=== PATIENT | female | born 1940 | race Caucasian/White ===

== ENCOUNTER 2016-05-28 10:01 | Inpatient (IN) | payer OTHER, MEDICARE ==
[2016-05-28] VITALS (17 sets, daily range): BP systolic 84–140; BP diastolic 49–86; PULSE 75–148; RESP 12–18; TEMP 97.4; O2SAT 95–99
[~2016-05-28] VITALS: Ht 162.6 cm; Wt 111.1 kg
[2016-05-28 10:45] LABS: AUTOMATED NEUTROPHIL # 19.3 TH/MM3 (1.8-7.7); BASOPHIL % 0.1 % (0.0-2.0); EOSINOPHIL # 0.2 TH/MM3 (0-0.4); EOSINOPHIL % 0.7 % (0.0-4.0); HEMATOCRIT 31.8 % (35.0-46.0); LYMPH % 4.5 % (9.0-44.0); MEAN CELL VOLUME 83.8 FL (80.0-100.0); MEAN CORPUSCULAR HEMOGLOBIN 27.1 PG (27.0-34.0); MEAN CORPUSCULAR HGB CONC 32.4 % (32.0-36.0); MONO % 4.3 % (0.0-8.0); NEUT % 90.4 % (16.0-70.0); PLATELET COUNT 575 TH/MM3 (150-450); RED CELL DISTRIBUTION WIDTH 17.7 % (11.6-17.2); WHITE BLOOD COUNT 21.3 TH/MM3 (4.0-11.0)
[2016-05-28] MEDS ORDERED: ZANTTAB9 PO (10:45)
[2016-05-28] MEDS ORDERED: LIDO1PAD52 TOPICAL (10:45)
[2016-05-28] MEDS ORDERED: LISI-515 PO (10:45)
[2016-05-28] MEDS ORDERED: NORC5TAB PO (10:45)
[2016-05-28] MEDS ORDERED: FLUO40CA PO (10:45)
[2016-05-28] MEDS ORDERED: CYCL1TAB29 PO (10:45)
[2016-05-28] MEDS ORDERED: METO25TA3 PO (10:45)
[2016-05-28] MEDS ORDERED: PRAV20TA2 PO (10:45)
[2016-05-28] MEDS ORDERED: COUM2.5T PO (10:45)
[2016-05-28] MEDS ORDERED: DILT120C7 PO (10:45)
[2016-05-28 10:47] LABS: HEMO FLAGS AUTO DIFF
[2016-05-28 10:56] LABS: APTT (PATIENT) 39.9 SEC (24.3-30.1); INTERNATIONAL NORMALIZED RATIO 2.9 RATIO; PROTHROMBIN TIME - PATIENT 33.7 SEC (9.8-11.6)
--- NOTE | 2016-05-28 11:10 | RADRPT ---
EXAM DATE/TIME: 05/28/2016 10:31 [facility] COMPARISON: No previous studies available for comparison. INDICATIONS : Weakness and confusion today. MEDICAL HISTORY : Hypertension. Deep venous thrombosis. SURGICAL HISTORY : Cholecystectomy. Tubal ligation. ENCOUNTER: Initial ACUITY: 1 day PAIN SCORE: Non-responsive. LOCATION: Bilateral chest FINDINGS: The right lung is clear. In the retrocardiac left lower lung, there is an ill-defined opacity which appears oval in shape and measures up to 2.5 cm in dimension. This cannot be further localized to ch aracterize and a single frontal view. The heart is normal in size. Mild curvature of the lower thor acic spine convex towards the left. CONCLUSION: 2.5 cm ill-defined opacity projects over the left lower chest or lung. Recommend further characteriz ation with noncontrast CT. Klever Calderón MD on May 28, 2016 at 11:07 Board Certified Radiologist. This report was verified electronically.
[2016-05-28] MEDS ORDERED: VANCOMYCIN INJ 1,300 MG in SODIUM CHLORID 0.9% 500 ML INJ 500 ML IV ONE (11:15)
[2016-05-28 11:16] LABS: ALT (GPT) 7 U/L (10-53); ANION GAP 13 MEQ/L (5-15); AST (GOT) 12 U/L (15-37); BICARBONATE 21.9 MEQ/L (21.0-32.0); BLOOD UREA NITROGEN 56 MG/DL (7-18); CHLORIDE 109 MEQ/L (98-107); GLOMERULAR FILTRATION RATE 25 ML/MIN (>89); MAGNESIUM 2.7 MG/DL (1.5-2.5); POTASSIUM 3.6 MEQ/L (3.5-5.1); SODIUM (NA) 144 MEQ/L (136-145)
[2016-05-28 11:18] LABS: BANDS 10 % (0-6); EOSINOPHILS 1 % (0-4); POLYS (SEG NEUTROPHILS) 84 % (16-70); WBC DIFF SAMPLE 100
[2016-05-28 11:19] LABS: ALKALINE PHOSPHATASE 95 U/L (45-117); TOTAL BILIRUBIN ADULT 0.3 MG/DL (0.2-1.0)
[2016-05-28 11:21] LABS: PLATELET ESTIMATE SMEAR HIGH (NORMAL); PLATELET MORPHOLOGY NORMAL (NORMAL); SCAN/DIFF FINAL DIFF MANUAL
[2016-05-28 11:33] LABS: BACTERIA, URINE RARE /hpf; BLOOD, URINE NEG (NEG); COMMENT (UR) CATH-CULTURE IND; CULTURE IF INDICATED CATH CULTURE IND; GLUCOSE,URINE NEG (NEG); HYALINE CAST, URINE 27 /lpf (RARE); KETONE, URINE NEG (NEG); MUCUS URINE FEW /lpf (OCC); NITRITE,URINE NEG (NEG); SQUAMOUS EPITHELIAL CELL URINE 1 /hpf (0-5); URINE COLOR YELLOW (YELLW/STRAW)
[2016-05-28] MEDS ORDERED: PIPERACIL-TAZO 3.375 GM PREMIX 50 ML IV ONE (12:00)
--- NOTE | 2016-05-28 12:16 | PD ---
HPI Chief Complaint: Altered Mental Status Time Seen by Provider: 10:21 Travel History International Travel<30 days: No Contact w/Intl Traveler<30days: No Traveled to known affect area: No History of Present Illness HPI This is a 75-year-old female who presents to the emergency department with altered mental status. Her prison says she is more lethargic and weak than normal. She had low blood pressure on arrival which improved without intervention. She does not provide much history and has no complaints. PFSH Past Medical History Anxiety: Yes Depression: Yes Cardiovascular Problems: Yes (HTN) Deep Vein Thrombosis: Yes GERD: Yes Hypertension: Yes Respiratory: Yes (PE ) Influenza Vaccination: No ?: Not Tubal Ligation: Yes Past Surgical History Cholecystectomy: Yes Other Surgery: Yes (BACK SURGERY) Social History Alcohol Use: No Tobacco Use: No Substance Use: No Allergies-Medications (Allergen,Severity, Reaction): Coded Allergies: Adhesives (Verified Allergy, Unknown, 05/28/16) Betadine (Verified Allergy, Unknown, 05/28/16) Nexium (Verified Allergy, Unknown, 05/28/16) Reported Meds & Prescriptions Reported Meds & Active Scripts Active Reported Pravastatin 20 Mg Tab 20 Mg PO HS Zantac 75 (Ranitidine HCl) 75 Mg Tab 75 Mg PO BID Take 30 to 60 minutes before eating food or drinking beverages that cause heartburn. Metoprolol Tartrate 25 Mg Tab 25 Mg PO BID Lisinopril 20 Mg Tab 20 Mg PO DAILY Fluoxetine (Fluoxetine HCl) 40 Mg Cap 40 Cap PO DAILY Diltiazem ER 24 HR (Diltiazem HCl) 120 Mg Caper 120 Mg PO DAILY Flexeril (Cyclobenzaprine HCl) 10 Mg Tab 10 Mg PO TID [place] (Hydrocodone-Acetaminophen) 5-325 mg Tab 1 Tab PO Q6H Coumadin (Warfarin) 2.5 Mg Tab 2.5 Mg PO DAILY Lidocaine Patch 12 HR (Lidocaine) 5 % Patch 1 Patch TOPICAL DAILY Remove patch after 12 hours Review of Systems ROS Limitations: Poor Historian Physical Exam Narrative GENERAL: Chronically ill-appearing SKIN: Dry HEAD: Atraumatic. Normocephalic. EYES: Pupils equal and round. No injection or drainage. ENT: Dry mucous membranes. NECK: Trachea midline. CARDIOVASCULAR: Regular rate and rhythm. No murmur appreciated. Jugular venous distention. RESPIRATORY: Clear to auscultation. Breath sounds equal bilaterally. 3+ pitting edema in the bilateral lower extremities. GASTROINTESTINAL: Abdomen soft, diffusely moderately tender to palpation in all 4 quadrants. MUSCULOSKELETAL: No obvious deformities. NEUROLOGICAL: Oriented to person, place and time but somewhat confused. No obvious cranial nerve deficits. Moving all extremities. Data Data Last Documented VS Vital Signs Date Time Temp Pulse Resp B/P Pulse Ox O2 Delivery O2 Flow Rate FiO2 05/28/16 11:49 75 16 95/55 95 Nasal Cannula 3 05/28/16 10:12 97.4 Orders Electrocardiogram (05/28/16 ) Complete Blood Count With Diff (05/28/16 10:24) Comprehensive Metabolic Panel (05/28/16 10:24) Prothrombin Time / Inr (Pt) (05/28/16 10:24) Act Partial Throm Time (Ptt) (05/28/16 10:24) Lactic Acid Sepsis Protocol (05/28/16 10:24) Magnesium (Mg) (05/28/16 10:24) Urinalysis - C+S If Indicated (05/28/16 10:24) Blood Culture (05/28/16 10:24) Chest, Single Ap (05/28/16 10:24) Blood Glucose (05/28/16 10:24) Ecg Monitoring (05/28/16 10:24) Iv Access Insert/Monitor (05/28/16 10:24) Oximetry (05/28/16 10:24) Oxygen Administration (05/28/16 10:24) Troponin I (05/28/16 10:24) B-Type Natriuretic Peptide (05/28/16 10:26) Ct Brain W/O Iv Contrast(Rout) (05/28/16 ) Vancomycin Inj (Vancomycin Inj) (05/28/16 11:15) Urine Culture (05/28/16 11:10) Ct Abd/Pel W/O Iv Contrast (05/28/16 ) Piperacil-Tazo 3.375 Gm Premix (Zosyn 3. (05/28/16 12:00) C Diff Toxin Pcr (05/28/16 11:58) Admit Order (Ed Use Only) (05/28/16 13:03) Labs Laboratory Tests Test 05/28/16 05/28/16 10:32 11:10 White Blood Count 21.3 TH/MM3 Red Blood Count 3.80 MIL/MM3 Hemoglobin 10.3 GM/DL Hematocrit 31.8 % Mean Corpuscular Volume 83.8 FL Mean Corpuscular Hemoglobin 27.1 PG Mean Corpuscular Hemoglobin 32.4 % Concent Red Cell Distribution Width 17.7 % Platelet Count 575 TH/MM3 Mean Platelet Volume 10.6 FL Neutrophils (%) (Auto) 90.4 % Lymphocytes (%) (Auto) 4.5 % Monocytes (%) (Auto) 4.3 % Eosinophils (%) (Auto) 0.7 % Basophils (%) (Auto) 0.1 % Neutrophils # (Auto) 19.3 TH/MM3 Lymphocytes # (Auto) 1.0 TH/MM3 Monocytes # (Auto) 0.9 TH/MM3 Eosinophils # (Auto) 0.2 TH/MM3 Basophils # (Auto) 0.0 TH/MM3 CBC Comment AUTO DIFF Differential Total Cells 100 Counted Neutrophils % (Manual) 84 % Band Neutrophils % 10 % Lymphocytes % 2 % Monocytes % 3 % Eosinophils % 1 % Neutrophils # (Manual) 20.0 TH/MM3 Differential Comment FINAL DIFF MANUAL Platelet Estimate HIGH Platelet Morphology Comment NORMAL Prothrombin Time 33.7 SEC Prothromb Time International 2.9 RATIO Ratio Activated Partial 39.9 SEC Thromboplast Time Sodium Level 144 MEQ/L Potassium Level 3.6 MEQ/L Chloride Level 109 MEQ/L Carbon Dioxide Level 21.9 MEQ/L Anion Gap 13 MEQ/L Blood Urea Nitrogen 56 MG/DL Creatinine 1.93 MG/DL Estimat Glomerular Filtration 25 ML/MIN Rate Random Glucose 105 MG/DL Lactic Acid Level 1.1 mmol/L Calcium Level 9.0 MG/DL Magnesium Level 2.7 MG/DL Total Bilirubin 0.3 MG/DL Aspartate Amino Transf 12 U/L (AST/SGOT) Alanine Aminotransferase 7 U/L (ALT/SGPT) Alkaline Phosphatase 95 U/L Troponin I LESS THAN 0.02 NG/ML B-Type Natriuretic Peptide 160 PG/ML Total Protein 5.0 GM/DL Albumin 1.8 GM/DL Urine Color YELLOW Urine Turbidity HAZY Urine pH 5.0 Urine Specific [place] 1.018 Urine Protein TRACE mg/dL Urine Glucose (UA) NEG mg/dL Urine Ketones NEG mg/dL Urine Occult Blood NEG Urine Nitrite NEG Urine Bilirubin NEG Urine Urobilinogen LESS THAN 2.0 MG/DL Urine Leukocyte Esterase TRACE Urine RBC 2 /hpf Urine WBC 6 /hpf Urine Squamous Epithelial 1 /hpf Cells Urine Bacteria RARE /hpf Urine Hyaline Casts 27 /lpf Urine Mucus FEW /lpf Microscopic Urinalysis Comment CATH-CULTURE IND MDM Medical Decision Making Medical Screen Exam Complete: Yes Emergency Medical Condition: Yes Interpretation(s) Afebrile, no tachycardia, hypotensive Leukocytosis with 10% bandemia Renal insufficiency BNP is normal Urinalysis: 6 white blood cells Hypoalbuminemia Last 24 hours Impressions Chest X-Ray 05/28/16 1024 Signed Impressions: Service Date/Time: May 10:31 - CONCLUSION: 2.5 cm ill-defined opacity projects over the left lower chest or lung. Recommend further characterization with noncontrast CT. Klever Calderón MD Head CT 05/28/16 0000 Signed Impressions: Service Date/Time: May 12:37 - CONCLUSION: No acute disease. Klever Roberts Jr., MD Abdomen/Pelvis CT 05/28/16 0000 Signed Impressions: Service Date/Time: May 12:44 - CONCLUSION: 1. No dilated loops of small and large bowel. 2. 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 There is also a prominent calcification or ossification at the gastroesophageal junction which is of uncertain significance. May consider direct visualization of the GE junction to further evaluate the configuration and this calcification. 3. Prominent induration of the left and right lateral abdominal wall subcutaneous fat. Klever Calderón MD Differential Diagnosis Colitis, appendicitis, diverticulitis, cholecystitis, pneumonia, urinary tract infection Narrative Course This is a 75-year-old female who presents to the emergency department with altered mental status and lethargy per her prison. She evidently has a history of C. difficile and is on Flagyl currently. She is placed on a monitor and an IV was established. She was found to be hypotensive, however she has 3+ pitting edema in the lower extremities likely secondary to hypoalbuminemia. Labs demonstrate a significant leukocytosis with a bandemia and acute kidney injury. Broad spectrum antibiotics were initiated. Further fluid resuscitation will be deferred to the inpatient team given the patient's impressive edema on exam. CT of the abdomen and pelvis demonstrates an abnormal configuration to the stomach but i don't think this is the etiology of her symptoms. During her ED stay the patient proceeded to have multiple episodes of diarrhea. I suspect the patient is hypovolemic in the setting of cdiff colitis. Pt. will be admitted for further management. Diagnosis Primary Impression: Sepsis Qualified Code: A41.9 - Sepsis, due to unspecified organism Admitting Information Admitting Physician Requests: Admit Monique Jameson MD May 28, 2016 12:16
--- NOTE | 2016-05-28 13:41 | RADRPT ---
EXAM DATE/TIME: 05/28/2016 12:44 [facility] COMPARISON: No previous studies available for comparison. INDICATIONS : Abdomen pain. ORAL CONTRAST: No oral contrast ingested. RADIATION DOSE: 21.10 CTDIvol (mGy) MEDICAL HISTORY : Cardiovascular disease. Hypertension. SURGICAL HISTORY : Cholecystectomy. Orthpedic ENCOUNTER: Initial ACUITY: 1 day PAIN SCALE: 2/10 LOCATION: abdomen TECHNIQUE: Volumetric scanning of the abdomen and pelvis was performed. Using automated exposure control and ad justment of the mA and/or kV according to patient size, radiation dose was kept as low as reasonably achievable to obtain optimal diagnostic quality images. FINDINGS: LOWER LUNGS: There is mild bibasilar atelectasis and some non-consolidative infiltrates in the left costophrenic a ngle. LIVER: Homogeneous density without lesion for noncontrast technique. There is no dilation of the biliary tr ee. SPLEEN: Normal size without lesion. PANCREAS: Within normal limits. KIDNEYS: Normal in size and shape. There is no mass, stone, or hydronephrosis. ADRENAL GLANDS: Within normal limits. VASCULAR: There is no aortic aneurysm. BOWEL/MESENTERY: No dilated loops of small large bowel. Multiple sigmoid diverticula without radiographic evidence of diverticulitis. There is a prominent calcification or ossification at the gastroesophageal junction . There is eventration of the anterior left hemidiaphragm with associated organoaxial volvulus. ABDOMINAL WALL: The anterior abdominal wall musculature is intact. There is prominent induration in the subcutaneous fat about the left and right lateral abdominal wall and extending into the right lateral pelvic subc utaneous tissues. RETROPERITONEUM: There is no lymphadenopathy. IVC filter in place. BLADDER: No wall thickening or mass. REPRODUCTIVE: Within normal limits. INGUINAL: There is no lymphadenopathy or hernia. MUSCULOSKELETAL: Within normal limits for patient age. CONCLUSION: 1. No dilated loops of small and large bowel. 2. 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 There is also a prominent calcification or ossification at t he gastroesophageal junction which is of uncertain significance. May consider direct visualization o f the GE junction to further evaluate the configuration and this calcification. 3. Prominent induration of the left and right lateral abdominal wall subcutaneous fat. Klever Calderón MD on May 28, 2016 at 13:35 Board Certified Radiologist. This report was verified electronically.
--- NOTE | 2016-05-28 13:56 | RADRPT ---
EXAM DATE/TIME: 05/28/2016 12:37 [facility] COMPARISON: No previous studies available for comparison. INDICATIONS : Altered mental status today.lethargy. RADIATION DOSE: 58.99 CTDIvol (mGy) MEDICAL HISTORY : Cardiovascular disease. Hypertension. SURGICAL HISTORY : None. ENCOUNTER: Initial ACUITY: 1 day PAIN SCALE: 0/10 LOCATION: cranial TECHNIQUE: Multiple contiguous axial images were obtained of the head. Using automated exposure control and adj ustment of the mA and/or kV according to patient size, radiation dose was kept as low as reasonably a chievable to obtain optimal diagnostic quality images. FINDINGS: CEREBRUM: The ventricles are normal for age. No evidence of midline shift, mass lesion, hemorrhage or acute in farction. No extra-axial fluid collections are seen. POSTERIOR FOSSA: The cerebellum and brainstem are intact. The 4th ventricle is midline. The cerebellopontine angle i s unremarkable. EXTRACRANIAL: The visualized portion of the orbits is intact. SKULL: The calvaria is intact. No evidence of skull fracture. CONCLUSION: No acute disease. Klever Roberts Jr., MD on May 28, 2016 at 13:53 Board Certified Radiologist. This report was verified electronically.
[2016-05-28] MEDS ORDERED: metroNIDAZOLE 500 MG INJ 100 ML IV ONE (14:15)
--- NOTE | 2016-05-28 14:46 | HHI.HP ---
[facility] Service Family Medicine Primary Care Physician Farhat Louis MD Admission Diagnosis sepsis Diagnoses: International Travel<30 Days: No Contact w/Intl Traveler<30days: No Known Affected Area: No History of Present Illness Mrs. Ramírez is a 75 y/o CF presenting to the ED with hypotension and AMS. The patient was transported from [facility] due to her symptoms earlier this morning. She is unable to give a full interview likely due to her AMS. She does answer most ROS questions with appropriate answers, however these answers are likely not reliable. Her , Mr. Amari Ramírez ([phone]), was contacted to obtain her history, however he was unable to provide a clear picture as well. He does stat that she has been hospitalized 3 times since [facility]. Her first admission was due to weakness and all he can remember about her admission was her HR was in the 180s. She was discharged home without a formal diagnosis per her . She was then hospitalized on tessie for for black stools and anemia. He states that she was give 3-4 transfusions during the hospitalizations and discharged home. When asked if she had a GI bleed, he states that they could not find a cause for her bleeding. Her last admission was "a couple of weeks ago" for leg swelling. She was found to have blood clots in her RLE. An IVC filter was placed, and she was started on Coumadin despite having a probable GI bleed. She was then discharged to [facility] for rehabilitation. Since she has been in [facility], he states that she has had a decreased mood, activity, and PO intake. He visited with her today before she was transferred and believes that it was the "best she had looked." He is unable to give me a complete history, only reporting HTN and spinal fusion surgery. He is unaware of her medications. He is able to confirm that she does not have a DNR. 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 (Chaz Burns MD R1) Review of Systems ROS Limitations: Altered Mental Status Constitutional: DENIES: Fever Endocrine: DENIES: Polyuria Eyes: DENIES: Blurred vision Ears, nose, mouth, throat: COMPLAINS OF: Throat pain (1 week, unable to describe), DENIES: Running Nose, Epistaxis Respiratory: DENIES: Cough, Shortness of breath Cardiovascular: DENIES: Chest pain, Palpitations Gastrointestinal: COMPLAINS OF: Diarrhea, DENIES: Abdominal pain, Nausea, Vomiting Genitourinary: COMPLAINS OF: Dysuria (Last week ) Musculoskeletal: DENIES: Joint pain Integumentary: DENIES: Rash Hematologic/lymphatic: DENIES: Lymphadenopathy Immunologic/allergic: DENIES: Urticaria Neurologic: DENIES: Headache Psychiatric: DENIES: Mood changes (Chaz Burns MD R1) Past Family Social History Past Medical History Unable to provide Past Surgical History Unable to provide (Chaz Burns MD R1) Allergies: Coded Allergies: Adhesives (Verified Allergy, Unknown, 05/28/16) Betadine (Verified Allergy, Unknown, 05/28/16) Nexium (Verified Allergy, Unknown, 05/28/16) Family History Unable to provide Social History Patient lives in [facility] PCP Heriberto Dougherty Insurance: [employer]/Medicare (Chaz Burns MD R1) Physical Exam Vital Signs Vital Signs Date Time Temp Pulse Resp B/P Pulse Ox O2 Delivery O2 Flow Rate FiO2 05/28/16 14:30 78 16 92/50 98 Room Air 05/28/16 13:26 76 18 88/57 98 Nasal Cannula 2 05/28/16 11:49 75 16 95/55 95 Nasal Cannula 3 05/28/16 10:43 16 93/52 Nasal Cannula 2 05/28/16 10:31 Nasal Cannula 2 05/28/16 10:18 93 16 88/53 Nasal Cannula 2 05/28/16 10:12 97.4 87 16 88/53 Physical Exam GEN: 75 y/o CF normally nourished lying in bed in no acute distress. EYES: Conjunctiva normal, PERRLA, EOMI. ENT: Mouth and pharynx very dry mm with dried secretions coating soft palate. NECK: Thyroid midline, carotids symmetrical. LUNGS: Clear A-P, respiratory effort is normal. CARDIOVASCULAR: RR without murmur or gallop. 3+ Pitting edema from ankles to sacrum. No weeping or open wounds. GI/ABD: Soft without masses, without organomegaly. BS +. No TTP. NEURO: No focal deficits. SKIN: Color normal, no rashes noted. HEME/LYMPH: No bruising, petechia or significant adenopathy MUSC: Extremities show pitting edema to sacrum. No cyanosis or obvious deformities. PSYCH/MENTAL STATUS: Alert and oriented x 2. Knows year, not month, knows she is at [facility]. Cannot answer questioning about PMHx, PSHx, or medications. Laboratory Laboratory Tests Test 05/28/16 05/28/16 10:32 11:10 White Blood Count 21.3 Red Blood Count 3.80 Hemoglobin 10.3 Hematocrit 31.8 Mean Corpuscular Volume 83.8 Mean Corpuscular Hemoglobin 27.1 Mean Corpuscular Hemoglobin 32.4 Concent Red Cell Distribution Width 17.7 Platelet Count 575 Mean Platelet Volume 10.6 Neutrophils (%) (Auto) 90.4 Lymphocytes (%) (Auto) 4.5 Monocytes (%) (Auto) 4.3 Eosinophils (%) (Auto) 0.7 Basophils (%) (Auto) 0.1 Neutrophils # (Auto) 19.3 Lymphocytes # (Auto) 1.0 Monocytes # (Auto) 0.9 Eosinophils # (Auto) 0.2 Basophils # (Auto) 0.0 CBC Comment AUTO DIFF Differential Total Cells 100 Counted Neutrophils % (Manual) 84 Band Neutrophils % 10 Lymphocytes % 2 Monocytes % 3 Eosinophils % 1 Neutrophils # (Manual) 20.0 Differential Comment FINAL DIFF MANUAL Platelet Estimate HIGH Platelet Morphology Comment NORMAL Prothrombin Time 33.7 Prothromb Time International 2.9 Ratio Activated Partial 39.9 Thromboplast Time Sodium Level 144 Potassium Level 3.6 Chloride Level 109 Carbon Dioxide Level 21.9 Anion Gap 13 Blood Urea Nitrogen 56 Creatinine 1.93 Estimat Glomerular Filtration 25 Rate Random Glucose 105 Lactic Acid Level 1.1 Calcium Level 9.0 Magnesium Level 2.7 Total Bilirubin 0.3 Aspartate Amino Transf 12 (AST/SGOT) Alanine Aminotransferase 7 (ALT/SGPT) Alkaline Phosphatase 95 Troponin I LESS THAN 0.02 B-Type Natriuretic Peptide 160 Total Protein 5.0 Albumin 1.8 Urine Color YELLOW Urine Turbidity HAZY Urine pH 5.0 Urine Specific [place] 1.018 Urine Protein TRACE Urine Glucose (UA) NEG Urine Ketones NEG Urine Occult Blood NEG Urine Nitrite NEG Urine Bilirubin NEG Urine Urobilinogen LESS THAN 2.0 Urine Leukocyte Esterase TRACE Urine RBC 2 Urine WBC 6 Urine Squamous Epithelial 1 Cells Urine Bacteria RARE Urine Hyaline Casts 27 Urine Mucus FEW Microscopic Urinalysis Comment CATH-CULTURE IND Date/Time Procedure Status Source Growth 05/28/16 11:10 Urine Culture Received Urine Catheterized Urine Pending 05/28/16 10:32 Aerobic Blood Culture Received Blood Peripheral Pending 05/28/16 10:32 Anaerobic Blood Culture Received Blood Peripheral Pending (hCaz Burns MD R1) Result Diagram: 05/28/16 1032 05/28/16 1032 Imaging Last 72 hours Impressions Chest X-Ray 05/28/16 1024 Signed Impressions: Service Date/Time: May 10:31 - CONCLUSION: 2.5 cm ill-defined opacity projects over the left lower chest or lung. Recommend further characterization with noncontrast CT. Klever Calderón MD Head CT 05/28/16 0000 Signed Impressions: Service Date/Time: May 12:37 - CONCLUSION: No acute disease. Klever Roberts Jr., MD Chest CT 05/28/16 0000 Signed Impressions: Service Date/Time: May 16:14 - CONCLUSION: Abnormal density on the chest x-ray is associated with hiatal hernia. There is a tiny lateral left lung base nodular density which can be followed Cam Amaro MD Abdomen/Pelvis CT 05/28/16 0000 Signed Impressions: Service Date/Time: May 12:44 - CONCLUSION: 1. No dilated loops of small and large bowel. 2. 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 There is also a prominent calcification or ossification at the gastroesophageal junction which is of uncertain significance. May consider direct visualization of the GE junction to further evaluate the configuration and this calcification. 3. Prominent induration of the left and right lateral abdominal wall subcutaneous fat. Klever Calderón MD (Chaz Burns MD R1) Assessment and Plan Assessment and Plan Mrs. Ramírez is a 75 y/o CF presenting to the ED with hypotension and AMS found to meet sepsis criteria with possible site of infection coming from C. difficile infection or UTI. Code Status Full Code. Confirmed with POA and , Amari Ramírez. Discussed Condition With Dr. Jameson, ER physician Dr. Asaf Espinal (Chaz Burns MD R1) Attending Attestation Patient seen and examined. Case reviewed and discussed with the resident team. Agree with plan of care as discussed with me and documented in the resident note. (Mesha Ron MD) Problem List: (1) Sepsis Status: Acute Plan: Patient currently meeting sepsis criteria with tachycardia to the 90s with a white blood cell count of 21. Likely sites of infection include, but not limited to UTI recurrent clostridium difficile infection. Difficult clinical picture given patient's altered mental status and vague past medical history. Chest x-ray: 2.5cm ill-defined opacity projecting over the left lower chest/ lung. Recommend noncontrast CT Noncontrast CT: Abnormal density on the left chest x-ray is associated with hiatal hernia. There are small lateral nodular densities in the left lung base that can be followed. CBC: WBC 21.3, neutrophils 84% with 10% bands Lactic acid: 1.1 UA: Hazy, trace leukocyte esterase, 6 white blood cells, rare bacteria, few mucus, catheter culture indicated Urine culture: Pending Blood culture 2: Pending Vancomycin 1.5 g twice a day (05/28- ) Zosyn 2.5 g every 6 hours (05/28- ) Flagyl 500 mg IV every 8 hours (05/28- ) Nursing staff mentions patient previously on Flagyl at [facility] for C. difficile for unknown timeframe (2) Altered mental status Status: Acute Plan: Patient with altered mental status upon admission CT head: No acute disease. TSH: Pending Ammonia: Pending Please see plan as above. (3) UTI (urinary tract infection) Status: Acute Plan: Patient with UA concerning for possible UTI Please see plan as above (4) Clostridium difficile diarrhea Status: Acute Plan: Patient with reported previous diagnosis of this C. difficile infection. PCR: Positive Flagyl 500 mg IV every 8 hours (05/28- ) Nursing staff mentions patient previously on Flagyl at [facility] for C. difficile for unknown timeframe (5) Hypotension Status: Acute Plan: Patient recently admitted with chief complaint of hypotension. Patient difficult to hydrate due to 3+ edema of the bilateral lower extremities from ankles to sacrum and possibility of fluid overload. Normal saline 500 mL bolus Normal saline at 70 mL per hour (6) Dehydration Status: Acute Plan: Patient admitted with signs of dehydration. Previous labs laboratory studies show BU when of 28, creatinine is 0.73. CMP: BUN 56, creatinine 1.93 Please see plan as above for hydration (7) Abnormal abdominal CT scan Status: Acute Plan: Patient with abnormal abdominal CT scan upon admission. Patient recently admitted and treated for symptomatic anemia due to presumed GI bleed per 's past medical history. Abdominal pelvis CT: No dilated loops of small and large bowel. 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 Prominent calcification or ossification at the GE junction. Consider direct visualization of GE junction. PROM and induration of the left and right lateral abdominal wall subcutaneous fat. FOBT: Pending CBC: H/H 10.3/31.8, platelets 575 Gastroenterology consulted, appreciate recommendations (8) DVT (deep venous thrombosis) Status: Chronic Plan: Patient with previous diagnosis of DVT per ER staff currently with 3+ bilateral lower extremity edema. Per , IVC filter in place. Per medicine reconciliation, patient previously on warfarin 2.5 mg daily. INR 2.9 FOBT: Pending Continue home warfarin 2.5 mg daily (9) Nutrition, metabolism, and development symptoms Status: Acute Plan: Fluids: Normal saline at 70 mL per hour Electrolytes: BUN 56, creatinine 1.93, albumin 1.8, continue to monitor with daily lab DVT prophylaxis: Patient with recurrent DVTs and IVC filter in place, continue warfarin 2.5 mg daily Diet: Heart healthy diet as tolerated (Chaz Burns MD R1) Physician Certification 2 Midnight Certification Type: Admission for Inpatient Services Order for Inpatient Services The services are ordered in accordance with Medicare regulations or non- Medicare payer requirements, as applicable. In the case of services not specified as inpatient-only, they are appropriately provided as inpatient services in accordance with the 2-midnight benchmark. Estimated LOS (days): 3 3 days is the estimated time the patient will need to remain in the hospital, assuming treatment plan goals are met and no additional complications. Post-Hospital Plan: Home (Chaz Burns MD R1) Problem Qualifiers (1) Sepsis: Qualified Code: A41.9 - Sepsis, due to unspecified organism Chaz Burns MD R1 May 28, 2016 14:46 Mesha Ron MD May 29, 2016 13:18
[2016-05-28] MEDS ORDERED: NALOXONE HCL 0.4 MG/ML AMP IV PRN (15:15)
[2016-05-28] MEDS ORDERED: SODIUM CHLORID 0.9% 500 ML INJ 500 ML IV ONE ×2 (15:15)
[2016-05-28] MEDS ORDERED: ACETAMINOPHEN 325 MG TAB PO PRN (15:15)
[2016-05-28] MEDS ORDERED: Vancomycin Consult Pharmacy 1 EA OTHER SCH (15:15)
[2016-05-28] MEDS ORDERED: VANCOMYCIN INJ 1,500 MG in SODIUM CHLORID 0.9% 500 ML INJ 500 ML IV SCH (15:15)
--- NOTE | 2016-05-28 16:03 | HHI.FPPN ---
Subjective Remarks Patient seen examined and discussed with the medicine team. This is a 75 yo female who recently had a DVT and was hospitalized elsewhere and started on Warfarin and had an IVC filter placed. She was sent to [facility] for rehab. She has been on Flagyl for c. diff. She was sent here for weakness and lethargy. Patient is unable to give us much history. She states she lives at home with her . No complaints at the time of exam; no chest pain, no abdominal pain. Med. list provided by . He has left for home. Objective Vitals Vital Signs Date Time Temp Pulse Resp B/P Pulse Ox O2 Delivery O2 Flow Rate FiO2 05/28/16 15:39 80 12 92/50 98 Nasal Cannula 2 05/28/16 14:56 78 16 84/49 98 Nasal Cannula 2 05/28/16 14:30 78 16 92/50 98 Room Air 05/28/16 13:26 76 18 88/57 98 Nasal Cannula 2 05/28/16 11:49 75 16 95/55 95 Nasal Cannula 3 05/28/16 10:43 16 93/52 Nasal Cannula 2 05/28/16 10:31 Nasal Cannula 2 05/28/16 10:18 93 16 88/53 Nasal Cannula 2 05/28/16 10:12 97.4 87 16 88/53 Result Diagram: 05/28/16 1032 05/28/16 1032 Other Results Laboratory Tests Test 05/28/16 05/28/16 10:32 11:10 White Blood Count 21.3 TH/MM3 Red Blood Count 3.80 MIL/MM3 Hemoglobin 10.3 GM/DL Hematocrit 31.8 % Mean Corpuscular Volume 83.8 FL Mean Corpuscular Hemoglobin 27.1 PG Mean Corpuscular Hemoglobin 32.4 % Concent Red Cell Distribution Width 17.7 % Platelet Count 575 TH/MM3 Mean Platelet Volume 10.6 FL Neutrophils (%) (Auto) 90.4 % Lymphocytes (%) (Auto) 4.5 % Monocytes (%) (Auto) 4.3 % Eosinophils (%) (Auto) 0.7 % Basophils (%) (Auto) 0.1 % Neutrophils # (Auto) 19.3 TH/MM3 Lymphocytes # (Auto) 1.0 TH/MM3 Monocytes # (Auto) 0.9 TH/MM3 Eosinophils # (Auto) 0.2 TH/MM3 Basophils # (Auto) 0.0 TH/MM3 CBC Comment AUTO DIFF Differential Total Cells 100 Counted Neutrophils % (Manual) 84 % Band Neutrophils % 10 % Lymphocytes % 2 % Monocytes % 3 % Eosinophils % 1 % Neutrophils # (Manual) 20.0 TH/MM3 Differential Comment FINAL DIFF MANUAL Platelet Estimate HIGH Platelet Morphology Comment NORMAL Prothrombin Time 33.7 SEC Prothromb Time International 2.9 RATIO Ratio Activated Partial 39.9 SEC Thromboplast Time Sodium Level 144 MEQ/L Potassium Level 3.6 MEQ/L Chloride Level 109 MEQ/L Carbon Dioxide Level 21.9 MEQ/L Anion Gap 13 MEQ/L Blood Urea Nitrogen 56 MG/DL Creatinine 1.93 MG/DL Estimat Glomerular Filtration 25 ML/MIN Rate Random Glucose 105 MG/DL Lactic Acid Level 1.1 mmol/L Calcium Level 9.0 MG/DL Magnesium Level 2.7 MG/DL Total Bilirubin 0.3 MG/DL Aspartate Amino Transf 12 U/L (AST/SGOT) Alanine Aminotransferase 7 U/L (ALT/SGPT) Alkaline Phosphatase 95 U/L Troponin I LESS THAN 0.02 NG/ML B-Type Natriuretic Peptide 160 PG/ML Total Protein 5.0 GM/DL Albumin 1.8 GM/DL Urine Color YELLOW Urine Turbidity HAZY Urine pH 5.0 Urine Specific [place] 1.018 Urine Protein TRACE mg/dL Urine Glucose (UA) NEG mg/dL Urine Ketones NEG mg/dL Urine Occult Blood NEG Urine Nitrite NEG Urine Bilirubin NEG Urine Urobilinogen LESS THAN 2.0 MG/DL Urine Leukocyte Esterase TRACE Urine RBC 2 /hpf Urine WBC 6 /hpf Urine Squamous Epithelial 1 /hpf Cells Urine Bacteria RARE /hpf Urine Hyaline Casts 27 /lpf Urine Mucus FEW /lpf Microscopic Urinalysis Comment CATH-CULTURE IND Imaging Last Impressions Chest X-Ray 05/28/16 1024 Signed Impressions: Service Date/Time: May 10:31 - CONCLUSION: 2.5 cm ill-defined opacity projects over the left lower chest or lung. Recommend further characterization with noncontrast CT. Klever Calderón MD Head CT 05/28/16 0000 Signed Impressions: Service Date/Time: May 12:37 - CONCLUSION: No acute disease. Klever Roberts Jr., MD Abdomen/Pelvis CT 05/28/16 0000 Signed Impressions: Service Date/Time: May 12:44 - CONCLUSION: 1. No dilated loops of small and large bowel. 2. 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 There is also a prominent calcification or ossification at the gastroesophageal junction which is of uncertain significance. May consider direct visualization of the GE junction to further evaluate the configuration and this calcification. 3. Prominent induration of the left and right lateral abdominal wall subcutaneous fat. Klever Calderón MD Objective Remarks O. CONSTITUTIONAL/GEN: normally nourished, c/o thirst. EYES: conjunctiva normal, PERRLA, EOMI. ENT: Mouth and pharynx very dry mm with dried secretions coating soft palate. NECK: thyroid midline, carotids symmetrical. LUNGS: clear A-P, respiratory effort is normal. CARDIOVASCULAR: RR without murmur or gallop. Pitting edema to sacrum, no weeping edema. GI/ABD: soft without masses, without organomegaly. BS +. NEURO: No focal deficits. SKIN: color normal, no rashes noted. HEME/LYMPH: no bruising, petechia or significant adenopathy MUSC: Extremities show pitting edema to sacrum PSYCH/MENTAL STATUS: Alert and oriented x 2. Knows year, not month, knows she is at [facility]. A/P Assessment and Plan 75 yo female with weakness and lethargy, known recent DVT, with significant pitting edema. Attending Attestation Patient seen and examined. Case reviewed and discussed with the resident team. Agree with plan of care as discussed with me and documented in the resident note. Mesha Ron MD May 28, 2016 16:03
--- NOTE | 2016-05-28 17:01 | RADRPT ---
EXAM DATE/TIME: 05/28/2016 16:14 [place] COMPARISON: CHEST SINGLE AP, May 28, 2016, 10:31. INDICATIONS : Abnormal chest x-ray. RADIATION DOSE: 6.22 CTDIvol (mGy) MEDICAL HISTORY : Hypertension. Deep venous thrombosis. Gastroesophageal reflux disease. Pulmonary embolism. SURGICAL HISTORY : Cholecystectomy. ENCOUNTER: Initial ACUITY: 1 day PAIN SCALE: 5/10 LOCATION: Right anterior TECHNIQUE: Volumetric scanning of the chest was performed. Using automated exposure control and adjustment of t he mA and/or kV according to patient size, radiation dose was kept as low as reasonably achievable to obtain optimal diagnostic quality images. FINDINGS: The abnormal density noted on the patient's chest x-ray reflects a large hiatal hernia with the stoma ch flipped into the low left thorax in organoaxial fashion. There is a small collection of what may b e calcific debris or barium in the GE junction region which may be retained in a small paraesophageal diverticulum. A Slight adjacent posterior left base atelectasis. A 5 mm nodule in the lateral left lung base. The rig ht lung is focally clear. There is no evidence of mediastinal mass or lymphadenopathy. No axillary adenopathy or chest wall obs truction is noted. CONCLUSION: Abnormal density on the chest x-ray is associated with hiatal hernia. There is a tiny lateral left shamar ng base nodular density which can be followed Cam Amaro MD on May 28, 2016 at 16:48 Board Certified Radiologist. This report was verified electronically.
[2016-05-28] MEDS: SODIUM CHLOR 0.9% 1000 ML INJ 1,000 ML IV SCH (17:08)
[2016-05-28 18:29] LABS: C. DIFF EPI 027 PRESUMPTIVE POSITIVE (NEGATIVE)
[2016-05-28 18:30] LABS: C. DIFF TOXIN PCR POSITIVE (NEGATIVE)
--- NOTE | 2016-05-28 18:39 | EKG ---
Date Performed: 05/28/2016 Time Performed: 10:25:44 PTAGE: 75 years EKG: Sinus rhythm NONSPECIFIC ST & T-WAVE ABNORMALITY ABNORMAL ECG NO PREVIOUS TRACING DOCTOR: Sree Ruffin Interpretating Date/Time 05/28/2016 18:38:52
--- NOTE | 2016-05-28 20:08 | HHI.PR ---
Addendum to Inpatient Note Addendum Reason: Additional Documentation Additional Information Called by nurse to evaluate patient bc of HR in the 150s. Patient asymptomatic , denies CP, palpitations or SOB. VS: BP - 111/78, P - 148, RR - 14, O2 99% on 2L. PE: VS - as above CV: Tachycardic, No m/r/g Resp: Lungs CTAB Abd: NT, ND Ext: 2+ edema in bilat LE EKG: A fib with RVR A/P: 75 yo female admitted for sepsis and UTI, now with a fib with RVR. Patient on Diltazem ER 120 mg daily at home. Unclear if she received her dose today. Also unclear if patient has a history of A fib. -ACS rule out with serial EKGs, troponins -20 mg IV Diltiazem, ggt Gina Fish MD R3 May 28, 2016 20:08
[2016-05-28] MEDS ORDERED: DILTIAZEM HCL 25 MG/5 ML VIAL IV ONE (20:15)
[2016-05-28] MEDS: SODIUM CHLORIDE 0.9% FLUSH 5 ML FLUSH FLUSH SCH (20:18)
[2016-05-28] MEDS ORDERED: DILTIAZEM INJ 125 MG in SODIUM CHLORIDE 0.9% INJ 100 ML IV SCH (21:00)
[2016-05-28] MEDS ORDERED: PILL SPLITTER OTHER PRN (21:30)
[2016-05-28] MEDS: PIPERACIL-TAZO 2.25 GM PREMIX 50 ML IV SCH (21:30)
[2016-05-28 22:58] LABS: CREATINE KINASE 26 U/L (26-192)
[2016-05-28] MEDS: metroNIDAZOLE 500 MG INJ 100 ML IV SCH (23:34)
[2016-05-29] VITALS (22 sets, daily range): BP systolic 56–103; BP diastolic 41–70; PULSE 88–145; RESP 16–26; TEMP 98–98.5; O2SAT 92–100
[2016-05-29] MEDS: PIPERACIL-TAZO 2.25 GM PREMIX 50 ML IV SCH ×3 (03:35→16:06)
[2016-05-29] MEDS: SODIUM CHLOR 0.9% 1000 ML INJ 1,000 ML IV SCH ×2 (03:35→18:23)
[2016-05-29 04:34] LABS: ANION GAP 16 MEQ/L (5-15); AST (GOT) 10 U/L (15-37); BICARBONATE 12.9 MEQ/L (21.0-32.0); BLOOD UREA NITROGEN 45 MG/DL (7-18); CHLORIDE 118 MEQ/L (98-107); POTASSIUM 3.6 MEQ/L (3.5-5.1); SODIUM (NA) 147 MEQ/L (136-145)
[2016-05-29 04:47] LABS: ALKALINE PHOSPHATASE 81 U/L (45-117); ALT (GPT) LESS THAN 6 U/L (10-53); GLOMERULAR FILTRATION RATE 37 ML/MIN (>89); TOTAL BILIRUBIN ADULT 0.3 MG/DL (0.2-1.0)
[2016-05-29 04:49] LABS: CREATINE KINASE 31 U/L (26-192)
[2016-05-29 05:10] LABS: AUTOMATED NEUTROPHIL # 20.5 TH/MM3 (1.8-7.7); BASOPHIL # 0.1 TH/MM3 (0-0.2); BASOPHIL % 0.3 % (0.0-2.0); EOSINOPHIL # 0.1 TH/MM3 (0-0.4); EOSINOPHIL % 0.6 % (0.0-4.0); HEMATOCRIT 30.1 % (35.0-46.0); LYMPH % 3.9 % (9.0-44.0); LYMPHOCYTE # 0.9 TH/MM3 (1.0-4.8); MEAN CELL VOLUME 84.6 FL (80.0-100.0); MEAN CORPUSCULAR HEMOGLOBIN 26.9 PG (27.0-34.0); MEAN CORPUSCULAR HGB CONC 31.9 % (32.0-36.0); MONO % 6.6 % (0.0-8.0); NEUT % 88.6 % (16.0-70.0); PLATELET COUNT 154 TH/MM3 (150-450); RED BLOOD COUNT 3.56 MIL/MM3 (4.00-5.30); RED CELL DISTRIBUTION WIDTH 17.7 % (11.6-17.2); WHITE BLOOD COUNT 23.1 TH/MM3 (4.0-11.0)
[2016-05-29 05:11] LABS: HEMO FLAGS AUTO DIFF
[2016-05-29] MEDS: metroNIDAZOLE 500 MG INJ 100 ML IV SCH ×3 (06:51→22:48)
[2016-05-29 07:06] LABS: SCAN/DIFF AUTO DIFF CONFIRMED
[2016-05-29] MEDS ORDERED: AMIODARONE INJ 150 MG in DEXTROSE 5% IN WATER 100ML INJ 97 ML IV ONE ×2 (08:00)
[2016-05-29] MEDS ORDERED: AMIODARONE INJ 900 MG in D5W 500 ML (EXCEL BAG) 482 ML IV SCH (08:00)
[2016-05-29] MEDS ORDERED: SODIUM CHLORID 0.9% 500 ML INJ 500 ML IV ONE (08:15)
--- NOTE | 2016-05-29 08:35 | HHI.FPPN ---
Subjective Remarks Overnight, patient became tachycardic with a rate in the 140s. She was otherwise asymptomatic. BP have remained low with a MAP between 65-70s. She was started on diltiazem but rate remained elevated. This morning patient remains asymptomatic but BP continues to be low with a rapid HR. When asked about her cardiac history, she reports seeing a lead scientist but does not know who. She is oriented to person, placed and time which has improved from yesterday. (Mary Sharpe MD R2) Objective Vitals Vital Signs Date Time Temp Pulse Resp B/P Pulse Ox O2 Delivery O2 Flow Rate FiO2 05/29/16 08:28 98.0 137 18 78/51 Nasal Cannula 2 05/29/16 07:33 145 18 85/51 96 Nasal Cannula 2.5 05/29/16 05:05 145 16 92/53 99 Nasal Cannula 2 05/29/16 04:00 140 16 96/53 99 Nasal Cannula 2 05/29/16 03:00 139 16 99/60 99 Nasal Cannula 2 05/29/16 02:00 135 16 100/67 99 Nasal Cannula 2 05/29/16 01:00 145 16 102/60 99 Nasal Cannula 2 05/29/16 00:12 130 16 92/50 99 Nasal Cannula 2 05/28/16 22:45 145 16 102/58 99 Nasal Cannula 2 05/28/16 22:15 130 16 106/66 99 Nasal Cannula 2 05/28/16 21:45 128 16 104/56 99 Nasal Cannula 2 05/28/16 21:22 99 Nasal Cannula 2.00 05/28/16 20:20 135 16 140/86 99 Nasal Cannula 2 05/28/16 18:48 148 14 111/78 99 Nasal Cannula 2 05/28/16 18:19 87 16 111/78 99 Nasal Cannula 2 05/28/16 17:08 81 14 116/55 99 Nasal Cannula 2 05/28/16 16:57 82 14 99/61 99 Nasal Cannula 2 05/28/16 15:39 80 12 92/50 98 Nasal Cannula 2 05/28/16 14:56 78 16 84/49 98 Nasal Cannula 2 05/28/16 14:30 78 16 92/50 98 Room Air 05/28/16 13:26 76 18 88/57 98 Nasal Cannula 2 05/28/16 11:49 75 16 95/55 95 Nasal Cannula 3 05/28/16 10:43 16 93/52 Nasal Cannula 2 05/28/16 10:31 Nasal Cannula 2 05/28/16 10:18 93 16 88/53 Nasal Cannula 2 05/28/16 10:12 97.4 87 16 88/53 (Mary aCsh MD R2) Result Diagram: 05/29/16 0400 05/29/16 0400 Imaging Last Impressions Chest X-Ray 05/28/16 1024 Signed Impressions: Service Date/Time: May 10:31 - CONCLUSION: 2.5 cm ill-defined opacity projects over the left lower chest or lung. Recommend further characterization with noncontrast CT. Klever Calderón MD Head CT 05/28/16 0000 Signed Impressions: Service Date/Time: May 12:37 - CONCLUSION: No acute disease. Klever Roberts Jr., MD Chest CT 05/28/16 0000 Signed Impressions: Service Date/Time: May 16:14 - CONCLUSION: Abnormal density on the chest x-ray is associated with hiatal hernia. There is a tiny lateral left lung base nodular density which can be followed Cam Amaro MD Abdomen/Pelvis CT 05/28/16 0000 Signed Impressions: Service Date/Time: May 12:44 - CONCLUSION: 1. No dilated loops of small and large bowel. 2. 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 There is also a prominent calcification or ossification at the gastroesophageal junction which is of uncertain significance. May consider direct visualization of the GE junction to further evaluate the configuration and this calcification. 3. Prominent induration of the left and right lateral abdominal wall subcutaneous fat. Klever Calderón MD Objective Remarks GEN: Resting comfortable in bed in no acute distress. LUNGS: Coarse breath sounds bilaterally. No accessory muscle use and in no acute distress. No wheezes or rubs.. CARDIOVASCULAR: Irregularly irregular. Increased rate. No murmurs, gallops or rubs. GI/ABD: Nondistended, soft. Mild tenderness to palpation in left lower quadrant. BS +. MUSC: Extremities show 3+ pitting edema to sacrum. No cyanosis or obvious deformities. PSYCH/MENTAL STATUS: Alert and oriented x 3. Knowlege about prior medical history is still limited (Mary Cash MD R2) A/P Assessment and Plan Mrs. Ramírez is a 75 y/o CF who presented due to hypotension and AMS. Admitted for Sepsis and AMS. Discharge Planning Timeline unknown. sdw Dr. Valentino, Dr. Ron, Dr. Thomas, Dr. Burns (Mary Cash MD R2 ) Attending Attestation Patient seen and examined. Case reviewed and discussed with the resident team. Agree with plan of care as discussed with me and documented in the resident note. (Mesha Ron MD) Problem List: (1) Sepsis Status: Acute Plan: Met sepsis criteria on admission with tachycardia and leukocytosis. Also found to have altered mental status. Complicated by hypotension in the setting of generalized edema. Source likely due to C. difficile but etiology unclear. -Continued leukocytosis without lactic acidosis, of note this leukocytosis has been present from 05/04 based on EMR review -ACS negative -BNP 180 -Elevated ammonia to 77 -Urine culture negative x1day -Blood culture negative 1 day Consulted ID: Appreciate recommendations Imaging: * Chest x-ray: 2.5cm ill-defined opacity projecting over the left lower chest/ lung. Recommend noncontrast CT * Noncontrast CT: Abnormal density on the left chest x-ray is associated with hiatal hernia. There are small lateral nodular densities in the left lung base that can be followed. * Head CT: Negative Medications: * Vancomycin (05/28, may need to consider PO vancomycin due to the lack of improvement in clinical status * Zosyn 2.5 g every 6 hours (05/28- * Flagyl 500 mg IV every 8 hours (05/28- ) this may have been started back in April * Rifaximin 550mg BID Relevant history obtained from spouse: Mr. Amari Ramírez ([phone]): Has been hospitalized 3 times since [place] at [facility]. Diagnoses at these admissions unclear but does report elevated heart rate in the 180s. Mother admission was for a GI bleed that required 3-4 transfusions but etiology is unknown. Patient was continued on warfarin despite this GI bleed. Another admission was for a DVT and an IVC filter was placed. Patient was at [facility] for [facility] prior to current admission. (2) Atrial fibrillation Status: Acute Plan: Overnight patient developed A. fib with RVR with a rate in the 140s. Patient does take diltiazem at home but history of primary diagnosis is unclear but suspected. Initially treated with diltiazem drip but rate was not controlled. -Switched to amiodarone -Cardiology consulted to assist with management: Appreciate recommendations (3) Altered mental status Status: Acute Plan: Please see plan as above. (4) Abnormal abdominal CT scan Status: Acute Plan: Patient with abnormal abdominal CT scan upon admission. History is significant for prior GI bleed. Unclear treatment of finding on CT, appreciate GI recommendations. -Hemoccult-negative -Continue to monitor H&H GI consulted: Appreciate recommendations Abdominal pelvis CT: No dilated loops of small and large bowel. 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 Prominent calcification or ossification at the GE junction. Consider direct visualization of GE junction. PROM and induration of the left and right lateral abdominal wall subcutaneous fat. (5) Clostridium difficile diarrhea Status: Acute Plan: PCR: Positive --See plan above (6) SALVADOR (acute kidney injury) Status: Acute Plan: Improving renal function since admission. -Downtrending creatinine from 1.93-1.40 -Continue hydration cautiously in the setting of generalized lower extremity edema up to sacrum -See fluids below for rate (7) Nutrition, metabolism, and development symptoms Status: Acute Plan: Diet: Heart healthy Fluids: Normal saline at 70 mL per hour Electrolytes: Mild hypernatremia, continue to monitor DVT prophylaxis: Currently therapeutic on Coumadin with an INR of 2.9 GI prophylaxis: Not indicated (Mary Cash MD R2) Problem Qualifiers (1) Sepsis: Qualified Code: A41.9 - Sepsis, due to unspecified organism Mary Cash MD R2 May 29, 2016 08:35 Mesha Ron MD May 29, 2016 14:34 Qualified Code: A41.9 - Sepsis, due to unspecified organism Mary Cash MD R2 May 29, 2016 08:35 (1) Sepsis: Qualified Code: A41.9 - Sepsis, due to unspecified organism Mary Cash MD R2 May 29, 2016 08:35
[2016-05-29] MEDS: AMIODARONE INJ 450 MG in DEXTROSE 5% IN WATE(EXCEL) INJ 241 ML IV SCH ×6 (08:41→18:23)
[2016-05-29] MEDS ORDERED: METOPROLOL TARTRATE 25 MG TAB PO SCH (09:00)
[2016-05-29] MEDS ORDERED: RANITIDINE HCL 150 MG TAB PO SCH (09:00)
[2016-05-29] MEDS ORDERED: DILTIAZEM-CD 120 MG CAP ER PO SCH (09:00)
[2016-05-29] MEDS ORDERED: DILTIAZEM 120 MG PO SCH (09:00)
[2016-05-29] MEDS: RIFAXIMIN 550 MG TAB PO SCH ×2 (10:12→21:00)
[2016-05-29] MEDS: FAMOTIDINE 20 MG TAB PO SCH ×2 (10:12→21:00)
[2016-05-29] MEDS: SODIUM CHLORIDE 0.9% FLUSH 5 ML FLUSH FLUSH SCH (10:13)
[2016-05-29] MEDS ORDERED: VANCOMYCIN INJ 1,250 MG in SODIUM CHLOR 0.9% 250 ML INJ 250 ML IV SCH (12:00)
[2016-05-29 12:18] LABS: CREATINE KINASE 25 U/L (26-192)
[2016-05-29] MEDS ORDERED: WARFARIN SOD 2.5 MG TAB PO SCH (16:00)
--- NOTE | 2016-05-29 16:36 | EKG ---
Date Performed: 05/28/2016 Time Performed: 19:47:58 PTAGE: 75 years EKG: ATRIAL FIBRILLATION WITH RAPID VENTRICULAR RESPONSE ST DEVIATION AND MODERATE T-WAVE ABNORM ALITY, CONSIDER ANTEROLATERAL ISCHEMIA ABNORMAL ECG PREVIOUS TRACING : 05/28/2016 01.28.44 Compared to previous tracing, the patient is now in atri al fibrillation with rapid ventricular rate. DOCTOR: Genny Stevens Interpretating Date/Time 05/29/2016 16:35:34
--- NOTE | 2016-05-29 18:54 | MB ---
cc: SOLA STONE M.D. DATE OF CONSULTATION: 05/29/2016. REASON FOR CONSULTATION: Consult is obtained for atrial fibrillation and rapid ventricular response. HISTORY OF PRESENT ILLNESS: Kayce is a very pleasant 75-year-old lady who appears to be slightly confused. She is not quite sure why she is here. Per the emergency room records, she was brought into the emergency department due to altered mental status. The residential noted that she was more lethargic and weak. She was noted to be hypotensive on arrival. The patient has no complaints. She denies chest pain, fevers, chills, cough, GI or bleeding, paroxysmal nocturnal dyspnea, orthopnea, syncope or dizziness. PAST MEDICAL HISTORY: Her past medical history is as per the history of present illness. 1. History of anxiety. 2. Depression. 3. Hypertension. 4. DVT. 5. Gastroesophageal reflux disease (GERD). 6. Back surgery. SOCIAL HISTORY: She denies tobacco or alcohol use. ALLERGIES: 1. ADHESIVES. 2. BETADINE. 3. NEXIUM. MEDICATIONS PRIOR TO ADMISSION: 1. Pravastatin 20 at bedtime. 2. Zantac. 3. Metoprolol 25 twice a day. 4. Lisinopril 20 daily 5. Paroxetine. 6. Cardizem ER 120 mg daily. 7. Flexeril. 8. [place]. 9. Coumadin. 10. Lidocaine patch. MEDICATIONS IN THE HOSPITAL: 1. Pravastatin. 2. Coumadin 2.5 daily. 3. Vancomycin. 4. Famotidine 10 milligrams twice a day. 5. Rifaximine 550 twice a day. 6. Amiodarone drip. 7. Piperacillin / tazobactam. 8. Cardizem drip. PHYSICAL EXAMINATION: VITAL SIGNS: Pulse is 105 appears to be supraventricular tachycardia regular, blood pressure 93/50, respiratory rate 20, saturations 96% on 2.5 liters nasal cannula. GENERAL: She is alert and oriented times three and in no acute distress. NECK: The neck is supple. No jugular venous distention. No bruits. CARDIOVASCULAR EXAM: S1-S2. No murmurs, rubs or gallops. LUNGS: Clear to auscultation bilaterally. ABDOMEN: The abdomen is soft, nontender and nondistended with positive bowel sounds. EXTREMITIES: No lower extremity edema. IMAGING STUDIES: CT of the chest shows abnormal density on the chest x-ray associated with hiatal hernia. "Tiny lateral left lung base nodular density which can be followed". Head CT shows no acute disease. Abdominal and pelvic CT shows eventration of the left hemidiaphragm with ____ of the fundus of the stomach into the chest with an organoaxial volvulus configuration. There is also a prominent calcification or ossification at the gastroesophageal junction which is of uncertain significance. Primary induration of the left and right lateral abdominal wall subcutaneous fat. Chest x-ray shows a 2.5 cm ill-defined opacity projects over the left lower chest or lung, recommend further characterization with noncontrast CT. EKGS: Her EKG shows normal sinus rhythm at 83 beats per minute with 0.5 to 1 mm S-T segment depression in V3, V4, V5, V6. LABORATORY DATA: White count 23.1, hemoglobin 9.6, hematocrit 3.1, platelet count 154,000 initially 575,000. Sodium 147, potassium 3.6, chloride 118, bicarb 12.9, BUN 45, creatinine 1.40, ammonia 77. Troponin is less than 0.02 x3. Albumin is 1.2. INR is 2.9. C. difficile is positive. FINAL DIAGNOSIS: She has the following diagnoses: 1. Atrial fibrillation with rapid ventricular response. 2. C. Difficile. 3. Sepsis. 4. Thrombocytopenia. 5. Malnutrition with albumin of 1.2. 6. Acute renal failure. 7. Hypernatremia. 8. Hepatic encephalopathy with ammonia level of 77. 9. Thrombocytosis. 10. Anemia. 11. Elevated white count. DISCUSSION: At this point in time, the patient is therapeutically anticoagulated for her atrial fibrillation. Suspect her heart rate is due to sepsis and increased metabolic demand. Will be conservative in treating her heart rate over the next two to three days. I think it is perfectly okay for her to have a slightly higher heart rate in the 100 to 130 range in order to meet her metabolic demands and increased cardiac output due to sepsis. Recommend continued telemetry monitoring. MD ABDON Dai/JCIldefonso /5:30 PM 6:35 PM
--- NOTE | 2016-05-29 19:01 | EC ---
Study Study Date:05/29/2016 STUDY CONCLUSIONS SUMMARY - Left ventricle: The cavity size was normal. Wall thickness was normal. Systolic function was normal. The estimated ejection fraction was in the range of 55% to 60%. Wall motion was normal; there were no regional wall motion abnormalities. - Mitral valve: Moderate to severe regurgitation. - Tricuspid valve: Moderate-severe regurgitation. If LV function is below 40, please consider prescribing an ACEI or ARB or document rationale for non-use. PROCEDURE DATA STUDY STATUS: Elective. Procedure: Transthoracic echocardiography. Image quality was poor. Scanning was performed from the parasternal, apical, and subcostal acoustic windows. Study completion: The patient tolerated the procedure well. Transthoracic echocardiography. M-mode, complete 2D, complete spectral Doppler, and color Doppler. Patient status: Inpatient. CARDIAC ANATOMY LEFT VENTRICLE: The cavity size was normal. Wall thickness was normal. Systolic function was normal. The estimated ejection fraction was in the range of 55% to 60%. Wall motion was normal; there were no regional wall motion abnormalities. AORTIC VALVE: Trileaflet; mildly thickened leaflets. Doppler: Transvalvular velocity was within the normal range. There was no stenosis. No regurgitation. AORTA: Aortic root: The aortic root was normal in size. MITRAL VALVE: Structurally normal valve. Doppler: Transvalvular velocity was within the normal range. There was no evidence for stenosis. Moderate to severe regurgitation. LEFT ATRIUM: The atrium was normal in size. RIGHT VENTRICLE: The cavity size was normal. Wall thickness was normal. PULMONIC VALVE: Doppler: Transvalvular velocity was within the normal range. There was no evidence for stenosis. No regurgitation. TRICUSPID VALVE: Structurally normal valve. Doppler: Transvalvular velocity was within the normal range. Moderate-severe regurgitation. PULMONARY ARTERY: The main pulmonary artery was normal-sized. Systolic pressure was within the normal range. RIGHT ATRIUM: The atrium was normal in size. PERICARDIUM: There was no pericardial effusion. SYSTEMIC VEINS: Inferior vena cava: The vessel was normal in size. Prepared and signed by Srinivas Colin [id number]
--- NOTE | 2016-05-29 19:26 | PD.ID.CON ---
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 Review of Systems Except as stated in HPI: all other systems reviewed are Neg Past Family Social History Allergies: Coded Allergies: Adhesives (Verified Allergy, Unknown, 05/28/16) Betadine (Verified Allergy, Unknown, 05/28/16) Nexium (Verified Allergy, Unknown, 05/28/16) Past Medical History DVT PE Past Surgical History cholecystectomy tubal ligation Active Ordered Medications Medications where reviewed in EMR Antibiotics Include: zosyn vancomycin IV Family History Non-Contributory. Social History No Tobacco. No ETOH. No Illicit Drugs. Patient lives in [facility] Physical Exam Vital Signs Vital Signs Date Time Temp Pulse Resp B/P Pulse Ox O2 Delivery O2 Flow Rate FiO2 05/29/16 17:51 107 20 87/50 92 Nasal Cannula 2.5 05/29/16 16:49 105 20 93/50 96 Nasal Cannula 2.5 05/29/16 16:07 120 20 101/70 Nasal Cannula 2.5 05/29/16 13:14 Nasal Cannula 2.5 05/29/16 12:58 88 05/29/16 12:52 138 22 87/63 Nasal Cannula 2.5 05/29/16 11:12 96 2 05/29/16 09:10 127 18 82/56 96 Nasal Cannula 2 05/29/16 08:43 136 18 92/55 Room Air 05/29/16 08:28 98.0 137 18 78/51 Nasal Cannula 2 05/29/16 07:33 145 18 85/51 96 Nasal Cannula 2.5 05/29/16 05:05 145 16 92/53 99 Nasal Cannula 2 05/29/16 04:00 140 16 96/53 99 Nasal Cannula 2 05/29/16 03:00 139 16 99/60 99 Nasal Cannula 2 05/29/16 02:00 135 16 100/67 99 Nasal Cannula 2 05/29/16 01:00 145 16 102/60 99 Nasal Cannula 2 05/29/16 00:12 130 16 92/50 99 Nasal Cannula 2 05/28/16 22:45 145 16 102/58 99 Nasal Cannula 2 05/28/16 22:15 130 16 106/66 99 Nasal Cannula 2 05/28/16 21:45 128 16 104/56 99 Nasal Cannula 2 05/28/16 21:22 99 Nasal Cannula 2.00 05/28/16 20:20 135 16 140/86 99 Nasal Cannula 2 Physical Exam CONSTITUTIONAL/GENERAL: This is an adequately nourished patient, in no apparent distress appears sick TUBES/LINES/DRAINS: SKIN: No jaundice, rashes, or lesions. Ecchymoses on upper extremities. No wounds seen anteriorly. Skin temperature appropriate. Not diaphoretic. HEAD: Atraumatic. Normocephalic. EYES: Pupils equal and round and reactive. Extraocular motions intact. No scleral icterus. No injection or drainage. Fundi not examined. ENT: Hearing grossly normal. Nose without bleeding or purulent drainage. Very dry oral mucosae visible erythema, exudates, masses, or lesions. NECK: Trachea midline. Supple, nontender. CARDIOVASCULAR: Regular rate and rhythm without murmurs, gallops, or rubs. No JVD. Peripheral pulses symmetric. RESPIRATORY/CHEST: Symmetric, unlabored respirations. Clear to auscultation. Breath sounds equal bilaterally. No wheezes, rales, or rhonchi. GASTROINTESTINAL: Abdomen soft, moderately tender, modereately distended. No hepato-splenomegaly, or palpable masses. No guarding. Bowel sounds present. GENITOURINARY: Without palpable bladder distension. Pink catheter in place with dark yellow clear urine MUSCULOSKELETAL: Extremities without clubbing, + mild cyanosis of both feet Diffuse 2-3+ edema. No joint tenderness or effusion noted. No calf tenderness. No mottling or clubbing. LYMPHATICS: No palpable cervical or supraclavicular adenopathy. NEUROLOGICAL: Lethargic, arousable. Motor and sensory grossly within normal limits. Follows commands. Normal speech Moves all extremities. PSYCHIATRIC: No obvious anxiety/depression. no apparent hallucinations or other psychotic thought process. Laboratory Laboratory Tests Test 05/28/16 05/28/16 05/29/16 05/29/16 19:50 21:40 04:00 11:44 Ammonia 77 Total Creatine Kinase 26 31 25 Troponin I LESS THAN 0.02 LESS THAN 0.02 LESS THAN 0.02 White Blood Count 23.1 Red Blood Count 3.56 Hemoglobin 9.6 Hematocrit 30.1 Mean Corpuscular Volume 84.6 Mean Corpuscular Hemoglobin 26.9 Mean Corpuscular Hemoglobin 31.9 Concent Red Cell Distribution Width 17.7 Platelet Count 154 Mean Platelet Volume 10.7 Neutrophils (%) (Auto) 88.6 Lymphocytes (%) (Auto) 3.9 Monocytes (%) (Auto) 6.6 Eosinophils (%) (Auto) 0.6 Basophils (%) (Auto) 0.3 Neutrophils # (Auto) 20.5 Lymphocytes # (Auto) 0.9 Monocytes # (Auto) 1.5 Eosinophils # (Auto) 0.1 Basophils # (Auto) 0.1 CBC Comment AUTO DIFF Differential Comment AUTO DIFF CONFIRMED Hematology Comments Sodium Level 147 Potassium Level 3.6 Chloride Level 118 Carbon Dioxide Level 12.9 Anion Gap 16 Blood Urea Nitrogen 45 Creatinine 1.40 Estimat Glomerular Filtration 37 Rate Random Glucose 78 Calcium Level 7.9 Total Bilirubin 0.3 Aspartate Amino Transf 10 (AST/SGOT) Alanine Aminotransferase LESS THAN 6 (ALT/SGPT) Alkaline Phosphatase 81 Total Protein 4.4 Albumin 1.2 Test 05/29/16 14:09 Ammonia 13 Date/Time Procedure Status Source Growth 05/28/16 22:25 Stool Occult Blood (MARIANGEL) - Final Complete Stool Stool HEMOCCULT NEGATIVE 05/28/16 11:10 Urine Culture - Preliminary Resulted Urine Catheterized Urine NO GROWTH IN 24 HOURS. 05/28/16 10:32 Aerobic Blood Culture - Preliminary Resulted Blood Peripheral NO GROWTH IN 1 DAY 05/28/16 10:32 Anaerobic Blood Culture - Preliminary Resulted Blood Peripheral NO GROWTH IN 1 DAY Result Diagram: 05/29/16 0400 05/29/16 0400 Imaging Last Impressions Chest X-Ray 05/28/16 1024 Signed Impressions: Service Date/Time: May 10:31 - CONCLUSION: 2.5 cm ill-defined opacity projects over the left lower chest or lung. Recommend further characterization with noncontrast CT. Klever Calderón MD Head CT 05/28/16 0000 Signed Impressions: Service Date/Time: May 12:37 - CONCLUSION: No acute disease. Klever Roberts Jr., MD Chest CT 05/28/16 Signed Impressions: Service Date/Time: May 16:14 - CONCLUSION: Abnormal density on the chest x-ray is associated with hiatal hernia. There is a tiny lateral left lung base nodular density which can be followed Cam Amaro MD Abdomen/Pelvis CT 05/28/16 Signed Impressions: Service Date/Time: May 12:44 - CONCLUSION: 1. No dilated loops of small and large bowel. 2. 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 There is also a prominent calcification or ossification at the gastroesophageal junction which is of uncertain significance. May consider direct visualization of the GE junction to further evaluate the configuration and this calcification. 3. Prominent induration of the left and right lateral abdominal wall subcutaneous fat. Klever Calderón MD Assessment and Plan Assessment and Plan C.diff hypervirulent Sepsis 05/07 C.diff ARF No e/o other source of sepsis (blood, urine clx negative, no PNA) Critically ill - dc zosyn, vanco IV - monitor closeluy - vanco PO 500 - FLAgyl IV Discussed Condition With RN residents Alisia Scott MD May 29, 2016 19:26
[2016-05-29] MEDS ORDERED: SODIUM CHLOR 0.9% 1000 ML INJ 1,000 ML IV ONE (19:45)
[2016-05-29] MEDS ORDERED: ALBUMIN HUMAN 25% 25 GM/100 ML BAGP IV ONE (20:15)
[2016-05-29] MEDS ORDERED: ALBUMIN HUMAN 5% 25 GM/500 ML BOTTLE IV ONE (21:00)
[2016-05-29] MEDS: PRAVASTATIN SOD 20 MG TAB PO SCH (21:00)
[2016-05-29] MEDS: VANCOMYCIN 500 MG VIAL (FOR ORAL USE ONLY) PO SCH (21:00)
--- NOTE | 2016-05-29 21:06 | PD.PROCEDR ---
Central Line Procedure REASON FOR PROCEDURE Central venous access PROCEDURE PERFORMED Central line placement: right IJ CONSENT Informed consent for procedure was obtained at 05/29/16 at 20:40. The risks and benefits of the procedure were discussed to include but limited to bleeding, clot formation, infection, and even . ANESTHESIA Local injection of 1% Lidocaine DESCRIPTION OF THE PROCEDURE The patient was placed in supine, mild Trendelenburg position. The area was exposed and cleansed with ChloraPrep, times two. Large sterile drape was used to cover the patient, with the site exposed, under sterile conditions including cap, face mask, sterile gown, and sterile gloves. On single attempt, the introducer needle was inserted with negative pressure in syringe and venous flash was obtained. The guide wire was then advanced without any restriction and the needle was removed. The dilator was used without any complications. Using Seldinger technique the catheter was advanced over the guide wire to a depth of 16 centimeters. The guide wire was removed. All ports were aspirated with dark venous blood return and flushed easily with sterile saline. All ports were capped. Antibiotic disc was placed around central line at puncture site. The central line was secured to the skin with two glued on adhesive plastic central line holders. The area was bandaged with sterile see-through central line bandage. RADIOLOGICAL DATA Ultrasound guidance was used to locate right IJ and line placement. Doppler/ color flow was used to confirm venous flow. COMPLICATIONS: No apparent complications ESTIMATED BLOOD LOSS: Less than 1 cc. Procedure was supervised by attending physician Dr. Downing. Khoi Sabillon MD R1 May 29, 2016 21:06
--- NOTE | 2016-05-29 21:31 | HHI.FPPN ---
Objective Vitals Vital Signs Date Time Temp Pulse Resp B/P Pulse Ox O2 Delivery O2 Flow Rate FiO2 05/29/16 20:43 100 18 103/65 94 Nasal Cannula 3 05/29/16 20:10 103 18 101/69 93 05/29/16 19:36 104 18 87/50 94 05/29/16 17:51 107 20 87/50 92 Nasal Cannula 2.5 05/29/16 16:49 105 20 93/50 96 Nasal Cannula 2.5 05/29/16 16:07 120 20 101/70 Nasal Cannula 2.5 05/29/16 13:14 Nasal Cannula 2.5 05/29/16 12:58 88 05/29/16 12:52 138 22 87/63 Nasal Cannula 2.5 05/29/16 11:12 96 2 05/29/16 09:10 127 18 82/56 96 Nasal Cannula 2 05/29/16 08:43 136 18 92/55 Room Air 05/29/16 08:28 98.0 137 18 78/51 Nasal Cannula 2 05/29/16 07:33 145 18 85/51 96 Nasal Cannula 2.5 05/29/16 05:05 145 16 92/53 99 Nasal Cannula 2 05/29/16 04:00 140 16 96/53 99 Nasal Cannula 2 05/29/16 03:00 139 16 99/60 99 Nasal Cannula 2 05/29/16 02:00 135 16 100/67 99 Nasal Cannula 2 05/29/16 01:00 145 16 102/60 99 Nasal Cannula 2 05/29/16 00:12 130 16 92/50 99 Nasal Cannula 2 05/28/16 22:45 145 16 102/58 99 Nasal Cannula 2 05/28/16 22:15 130 16 106/66 99 Nasal Cannula 2 05/28/16 21:45 128 16 104/56 99 Nasal Cannula 2 Result Diagram: 05/29/160 05/29/16399 Objective Remarks GEN: Resting comfortable in bed in no acute distress. LUNGS: Coarse breath sounds bilaterally. No accessory muscle use and in no acute distress. No wheezes or rubs.. CARDIOVASCULAR: Irregularly irregular. Increased rate. No murmurs, gallops or rubs. GI/ABD: Nondistended, soft. Mild tenderness to palpation in left lower quadrant. BS +. MUSC: Extremities show 3+ pitting edema to sacrum. No cyanosis or obvious deformities. PSYCH/MENTAL STATUS: Alert and oriented x 3. Knowlege about prior medical history is still limited A/P Assessment and Plan Mrs. Ramírez is a 75 y/o CF who presented due to hypotension and AMS. Admitted for Sepsis and AMS. Discharge Planning Timeline unknown. sdw Dr. Valentino, Dr. Ron, Dr. Thomas, Dr. Burns Problem List: (1) Sepsis Status: Acute Plan: Met sepsis criteria on admission with tachycardia and leukocytosis. Also found to have altered mental status. Complicated by hypotension in the setting of generalized edema. Source likely due to C. difficile but etiology unclear. -Continued leukocytosis without lactic acidosis, of note this leukocytosis has been present from 05/04 based on EMR review -ACS negative -BNP 180 -Elevated ammonia to 77 -Urine culture negative x1day -Blood culture negative 1 day Consulted ID: Appreciate recommendations Imaging: * Chest x-ray: 2.5cm ill-defined opacity projecting over the left lower chest/ lung. Recommend noncontrast CT * Noncontrast CT: Abnormal density on the left chest x-ray is associated with hiatal hernia. There are small lateral nodular densities in the left lung base that can be followed. * Head CT: Negative Medications: * Vancomycin (05/28, may need to consider PO vancomycin due to the lack of improvement in clinical status * Zosyn 2.5 g every 6 hours (05/28- * Flagyl 500 mg IV every 8 hours (05/28- ) this may have been started back in April * Rifaximin 550mg BID Relevant history obtained from spouse: Mr. Amari Ramírez ([phone]): Has been hospitalized 3 times since [place] at [facility]. Diagnoses at these admissions unclear but does report elevated heart rate in the 180s. Mother admission was for a GI bleed that required 3-4 transfusions but etiology is unknown. Patient was continued on warfarin despite this GI bleed. Another admission was for a DVT and an IVC filter was placed. Patient was at [facility] for rehabilitation prior to current admission. (2) Atrial fibrillation Status: Acute Plan: Overnight patient developed A. fib with RVR with a rate in the 140s. Patient does take diltiazem at home but history of primary diagnosis is unclear but suspected. Initially treated with diltiazem drip but rate was not controlled. -Switched to amiodarone -Cardiology consulted to assist with management: Appreciate recommendations (3) Altered mental status Status: Acute Plan: Please see plan as above. (4) Abnormal abdominal CT scan Status: Acute Plan: Patient with abnormal abdominal CT scan upon admission. History is significant for prior GI bleed. Unclear treatment of finding on CT, appreciate GI recommendations. -Hemoccult-negative -Continue to monitor H&H GI consulted: Appreciate recommendations Abdominal pelvis CT: No dilated loops of small and large bowel. 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 Prominent calcification or ossification at the GE junction. Consider direct visualization of GE junction. PROM and induration of the left and right lateral abdominal wall subcutaneous fat. (5) Clostridium difficile diarrhea Status: Acute Plan: PCR: Positive --See plan above (6) SALVADOR (acute kidney injury) Status: Acute Plan: Improving renal function since admission. -Downtrending creatinine from 1.93-1.40 -Continue hydration cautiously in the setting of generalized lower extremity edema up to sacrum -See fluids below for rate (7) Nutrition, metabolism, and development symptoms Status: Acute Plan: Diet: Heart healthy Fluids: Normal saline at 70 mL per hour Electrolytes: Mild hypernatremia, continue to monitor DVT prophylaxis: Currently therapeutic on Coumadin with an INR of 2.9 GI prophylaxis: Not indicated Problem Qualifiers (1) Sepsis: Qualified Code: A41.9 - Sepsis, due to unspecified organism Khoi Razo MD R2 May 29, 2016 21:31
--- NOTE | 2016-05-29 21:35 | HHI.FPPN ---
Addendum to progress note ADDENDUM Reason for addendum: Additonal documentation Additional information 75 year old female presented to the emergency department with hypotension and altered mental status from [facility]. She was found to have c.diff infection. She has leukocytosis since admission. Dr. Kaylyn Collins and I were paged by the nurse at around 7:30 PM with report that her blood pressures are 80 /50 and she has altered mental status. Her pulse is 105-120's. We evaluated the patient. She was oriented to person, place, and situation. She reported that she feels ok other than generalized weakness and fatigue. She reports no chest pain or shortness of breath. She has very dry mouth. Vitals: 104 18 87/50 94% 2.5 L via NC GEN: Lying in bed, no acute distress, appears pale Skin: Mild skin tenting present HEENT: Very dry mucous membranes LUNGS: CTAB CARDIOVASCULAR: Pulse 120, palpable radial and dorsalis pedis pulses. Normal capillary refill. GI/ABD: Mildly tender to palpation, positive bowel sounds. MUSC: 3+ pitting edema in lower extremities, 1+ edema in upper extremities MENTAL STATUS: Alert and oriented x 3. Recent Labs: WBC 23.1 Hgb 9.6 Hct 30.1 Plt 154 Na 147 K 3.6 Cl 118 CO2 12.9 BUN 45 Cr 1.4 Ablumin 1.2 Assessment: 75 year old patient with c.diff colitis, leukocytosis, moderate dehydration, sepsis. She has negative urine culture, and negative blood culture x1 day, with chest x-ray negative for pneumonia. - Vitals q3hrs - Stat lactic acid, assess perfusion status - Aggressive fluid hydration, will start with 1L NS bolus and continue to assess need for more fluid. Pressors only if refractory to fluids. - Fluid overload may be multi-factorial, but albumin is extremely low. She has good ejection fraction. Poor kidney function is likely prerenal from dehydration. Will give 25 mg of 5% albumin q12hrs. - Central line placed, as she has lost peripheral IV access in two places and only has hand IV at this point. - Consulted sterile instrument technician, Dr. Downing. Discussed with him appropriate placement. He recommends monitoring on general medical floor, and transferring to the ICU and calling him if patient is unresponsive to IV fluids or decompensates further. - Continue antibiotics as ordered. Spoke with Dr. Colin, infectious disease, on phone. She recommends IV flagyl and oral Vancomycin for now. Seen and discussed with Dr. Downing, Dr. Sabillon, Dr. Kaylyn Collins Will update primary team. Khoi Razo MD R2 May 29, 2016 21:35 Unable to provide (Chaz Burns MD R1) Allergies: Coded Allergies: Adhesives (Verified Allergy, Unknown, 05/28/16) Betadine (Verified Allergy, Unknown, 05/28/16) Nexium (Verified Allergy, Unknown, 05/28/16) Family History Unable to provide Social History Patient lives in [facility] PCP Heriberto Dougherty Insurance: [employer]/Medicare (Chaz Burns MD R1) Physical Exam Vital Signs Vital Signs Date Time Temp Pulse Resp B/P Pulse Ox O2 Delivery O2 Flow Rate FiO2 05/28/16 14:30 78 16 92/50 98 Room Air 05/28/16 13:26 76 18 88/57 98 Nasal Cannula 2 05/28/16 11:49 75 16 95/55 95 Nasal Cannula 3 05/28/16 10:43 16 93/52 Nasal Cannula 2 05/28/16 10:31 Nasal Cannula 2 05/28/16 10:18 93 16 88/53 Nasal Cannula 2 05/28/16 10:12 97.4 87 16 88/53 Physical Exam GEN: 75 y/o CF normally nourished lying in bed in no acute distress. EYES: Conjunctiva normal, PERRLA, EOMI. ENT: Mouth and pharynx very dry mm with dried secretions coating soft palate. NECK: Thyroid midline, carotids symmetrical. LUNGS: Clear A-P, respiratory effort is normal. CARDIOVASCULAR: RR without murmur or gallop. 3+ Pitting edema from ankles to sacrum. No weeping or open wounds. GI/ABD: Soft without masses, without organomegaly. BS +. No TTP. NEURO: No focal deficits. SKIN: Color normal, no rashes noted. HEME/LYMPH: No bruising, petechia or significant adenopathy MUSC: Extremities show pitting edema to sacrum. No cyanosis or obvious deformities. PSYCH/MENTAL STATUS: Alert and oriented x 2. Knows year, not month, knows she is at [facility]. Cannot answer questioning about PMHx, PSHx, or medications. Laboratory Laboratory Tests Test 05/28/16 05/28/16 10:32 11:10 White Blood Count 21.3 Red Blood Count 3.80 Hemoglobin 10.3 Hematocrit 31.8 Mean Corpuscular Volume 83.8 Mean Corpuscular Hemoglobin 27.1 Mean Corpuscular Hemoglobin 32.4 Concent Red Cell Distribution Width 17.7 Platelet Count 575 Mean Platelet Volume 10.6 Neutrophils (%) (Auto) 90.4 Lymphocytes (%) (Auto) 4.5 Monocytes (%) (Auto) 4.3 Eosinophils (%) (Auto) 0.7 Basophils (%) (Auto) 0.1 Neutrophils # (Auto) 19.3 Lymphocytes # (Auto) 1.0 Monocytes # (Auto) 0.9 Eosinophils # (Auto) 0.2 Basophils # (Auto) 0.0 CBC Comment AUTO DIFF Differential Total Cells 100 Counted Neutrophils % (Manual) 84 Band Neutrophils % 10 Lymphocytes % 2 Monocytes % 3 Eosinophils % 1 Neutrophils # (Manual) 20.0 Differential Comment FINAL DIFF MANUAL Platelet Estimate HIGH Platelet Morphology Comment NORMAL Prothrombin Time 33.7 Prothromb Time International 2.9 Ratio Activated Partial 39.9 Thromboplast Time Sodium Level 144 Potassium Level 3.6 Chloride Level 109 Carbon Dioxide Level 21.9 Anion Gap 13 Blood Urea Nitrogen 56 Creatinine 1.93 Estimat Glomerular Filtration 25 Rate Random Glucose 105 Lactic Acid Level 1.1 Calcium Level 9.0 Magnesium Level 2.7 Total Bilirubin 0.3 Aspartate Amino Transf 12 (AST/SGOT) Alanine Aminotransferase 7 (ALT/SGPT) Alkaline Phosphatase 95 Troponin I LESS THAN 0.02 B-Type Natriuretic Peptide 160 Total Protein 5.0 Albumin 1.8 Urine Color YELLOW Urine Turbidity HAZY Urine pH 5.0 Urine Specific [place] 1.018 Urine Protein TRACE Urine Glucose (UA) NEG Urine Ketones NEG Urine Occult Blood NEG Urine Nitrite NEG Urine Bilirubin NEG Urine Urobilinogen LESS THAN 2.0 Urine Leukocyte Esterase TRACE Urine RBC 2 Urine WBC 6 Urine Squamous Epithelial 1 Cells Urine Bacteria RARE Urine Hyaline Casts 27 Urine Mucus FEW Microscopic Urinalysis Comment CATH-CULTURE IND Date/Time Procedure Status Source Growth 05/28/16 11:10 Urine Culture Received Urine Catheterized Urine Pending 05/28/16 10:32 Aerobic Blood Culture Received Blood Peripheral Pending 05/28/16 10:32 Anaerobic Blood Culture Received Blood Peripheral Pending (Chaz Burns MD R1) Result Diagram: 05/28/16 1032 05/28/16 1032 Imaging Last 72 hours Impressions Chest X-Ray 05/28/16 1024 Signed Impressions: Service Date/Time: May 10:31 - CONCLUSION: 2.5 cm ill-defined opacity projects over the left lower chest or lung. Recommend further characterization with noncontrast CT. Klever Calderón MD Head CT 05/28/16 0000 Signed Impressions: Service Date/Time: May 12:37 - CONCLUSION: No acute disease. Klever Roberts Jr., MD Chest CT 05/28/16 0000 Signed Impressions: Service Date/Time: May 16:14 - CONCLUSION: Abnormal density on the chest x-ray is associated with hiatal hernia. There is a tiny lateral left lung base nodular density which can be followed Cam Amaro MD Abdomen/Pelvis CT 05/28/16 0000 Signed Impressions: Service Date/Time: May 12:44 - CONCLUSION: 1. No dilated loops of small and large bowel. 2. 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 There is also a prominent calcification or ossification at the gastroesophageal junction which is of uncertain significance. May consider direct visualization of the GE junction to further evaluate the configuration and this calcification. 3. Prominent induration of the left and right lateral abdominal wall subcutaneous fat. Klever Calderón MD (Chaz Burns MD R1) Assessment and Plan Assessment and Plan Mrs. Ramírez is a 75 y/o CF presenting to the ED with hypotension and AMS found to meet sepsis criteria with possible site of infection coming from C. difficile infection or UTI. Code Status Full Code. Confirmed with POA and , Amari Ramírez. Discussed Condition With Dr. Jameson, ER physician Dr. Asaf Espinal (Chaz Burns MD R1) Attending Attestation Patient seen and examined. Case reviewed and discussed with the resident team. Agree with plan of care as discussed with me and documented in the resident note. (Mesha Ron MD) Problem List: (1) Sepsis Status: Acute Plan: Patient currently meeting sepsis criteria with tachycardia to the 90s with a white blood cell count of 21. Likely sites of infection include, but not limited to UTI recurrent clostridium difficile infection. Difficult clinical picture given patient's altered mental status and vague past medical history. Chest x-ray: 2.5cm ill-defined opacity projecting over the left lower chest/ lung. Recommend noncontrast CT Noncontrast CT: Abnormal density on the left chest x-ray is associated with hiatal hernia. There are small lateral nodular densities in the left lung base that can be followed. CBC: WBC 21.3, neutrophils 84% with 10% bands Lactic acid: 1.1 UA: Hazy, trace leukocyte esterase, 6 white blood cells, rare bacteria, few mucus, catheter culture indicated Urine culture: Pending Blood culture 2: Pending Vancomycin 1.5 g twice a day (05/28- ) Zosyn 2.5 g every 6 hours (05/28- ) Flagyl 500 mg IV every 8 hours (05/28- ) Nursing staff mentions patient previously on Flagyl at [facility] for C. difficile for unknown timeframe (2) Altered mental status Status: Acute Plan: Patient with altered mental status upon admission CT head: No acute disease. TSH: Pending Ammonia: Pending Please see plan as above. (3) UTI (urinary tract infection) Status: Acute Plan: Patient with UA concerning for possible UTI Please see plan as above (4) Clostridium difficile diarrhea Status: Acute Plan: Patient with reported previous diagnosis of this C. difficile infection. PCR: Positive Flagyl 500 mg IV every 8 hours (05/28- ) Nursing staff mentions patient previously on Flagyl at [facility] for C. difficile for unknown timeframe (5) Hypotension Status: Acute Plan: Patient recently admitted with chief complaint of hypotension. Patient difficult to hydrate due to 3+ edema of the bilateral lower extremities from ankles to sacrum and possibility of fluid overload. Normal saline 500 mL bolus Normal saline at 70 mL per hour (6) Dehydration Status: Acute Plan: Patient admitted with signs of dehydration. Previous labs laboratory studies show BU when of 28, creatinine is 0.73. CMP: BUN 56, creatinine 1.93 Please see plan as above for hydration (7) Abnormal abdominal CT scan Status: Acute Plan: Patient with abnormal abdominal CT scan upon admission. Patient recently admitted and treated for symptomatic anemia due to presumed GI bleed per 's past medical history. Abdominal pelvis CT: No dilated loops of small and large bowel. 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 Prominent calcification or ossification at the GE junction. Consider direct visualization of GE junction. PROM and induration of the left and right lateral abdominal wall subcutaneous fat. FOBT: Pending CBC: H/H 10.3/31.8, platelets 575 Gastroenterology consulted, appreciate recommendations (8) DVT (deep venous thrombosis) Status: Chronic Plan: Patient with previous diagnosis of DVT per ER staff currently with 3+ bilateral lower extremity edema. Per , IVC filter in place. Per medicine reconciliation, patient previously on warfarin 2.5 mg daily. 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 Also found to have altered mental status. Complicated by hypotension in the setting of generalized edema. Source likely due to C. difficile but etiology unclear. -Continued leukocytosis without lactic acidosis, of note this leukocytosis has been present from 05/04 based on EMR review -ACS negative -BNP 180 -Elevated ammonia to 77 -Urine culture negative x1day -Blood culture negative 1 day Consulted ID: Appreciate recommendations Imaging: * Chest x-ray: 2.5cm ill-defined opacity projecting over the left lower chest/ lung. Recommend noncontrast CT * Noncontrast CT: Abnormal density on the left chest x-ray is associated with hiatal hernia. There are small lateral nodular densities in the left lung base that can be followed. * Head CT: Negative Medications: * Vancomycin (05/28, may need to consider PO vancomycin due to the lack of improvement in clinical status * Zosyn 2.5 g every 6 hours (05/28- * Flagyl 500 mg IV every 8 hours (05/28- ) this may have been started back in April * Rifaximin 550mg BID Relevant history obtained from spouse: Mr. Amari Ramírez ([phone]): Has been hospitalized 3 times since [place] at [facility]. Diagnoses at these admissions unclear but does report elevated heart rate in the 180s. Mother admission was for a GI bleed that required 3-4 transfusions but etiology is unknown. Patient was continued on warfarin despite this GI bleed. Another admission was for a DVT and an IVC filter was placed. Patient was at [facility] for rehabilitation prior to current admission. (2) Atrial fibrillation Status: Acute Plan: Overnight patient developed A. fib with RVR with a rate in the 140s. Patient does take diltiazem at home but history of primary diagnosis is unclear but suspected. Initially treated with diltiazem drip but rate was not controlled. -Switched to amiodarone -Cardiology consulted to assist with management: Appreciate recommendations (3) Altered mental status Status: Acute Plan: Please see plan as above. (4) Abnormal abdominal CT scan Status: Acute Plan: Patient with abnormal abdominal CT scan upon admission. History is significant for prior GI bleed. Unclear treatment of finding on CT, appreciate GI recommendations. -Hemoccult-negative -Continue to monitor H&H GI consulted: Appreciate recommendations Abdominal pelvis CT: No dilated loops of small and large bowel. 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 Prominent calcification or ossification at the GE junction. Consider direct visualization of GE junction. PROM and induration of the left and right lateral abdominal wall subcutaneous fat. (5) Clostridium difficile diarrhea Status: Acute Plan: PCR: Positive --See plan above (6) SALVADOR (acute kidney injury) Status: Acute Plan: Improving renal function since admission. -Downtrending creatinine from 1.93-1.40 -Continue hydration cautiously in the setting of generalized lower extremity edema up to sacrum -See fluids below for rate (7) Nutrition, metabolism, and development symptoms Status: Acute Plan: Diet: Heart healthy Fluids: Normal saline at 70 mL per hour Electrolytes: Mild hypernatremia, continue to monitor DVT prophylaxis: Currently therapeutic on Coumadin with an INR of 2.9 GI prophylaxis: Not indicated Khoi Razo MD R2 May 29, 2016 21:35
--- NOTE | 2016-05-29 21:42 | RADRPT ---
EXAM DATE/TIME: 05/29/2016 21:06 [place] COMPARISON: CT THORAX W/O CONTRAST, May 28, 2016, 16:14. INDICATIONS : Post central line placement. MEDICAL HISTORY : Hypertension. SURGICAL HISTORY : None. ENCOUNTER: Initial ACUITY: 1 day PAIN SCORE: 0/10 LOCATION: Bilateral chest FINDINGS: There is a new right internal jugular central venous catheter with tip in the superior vena cava. No pneumothorax. Hiatal hernia with left sided intrathoracic stomach and left base atelectasis again noted. CONCLUSION: Right internal jugular central venous catheter has its tip in the superior vena cava. No pneumothorax or other acute complication. Cam Allen MD on May 29, 2016 at 21:39 Board Certified Radiologist. This report was verified electronically.
--- NOTE | 2016-05-29 22:14 | PD.CONS ---
[facility] Service Critical Care Medicine Consult Requested By Primary Care Physician Farhat Louis MD History of Present Illness 75-year-old very pleasant female presenting to the ED with hypotension and AMS. The patient was transported from [facility] due to her symptoms earlier this morning. She is unable to give a full interview likely due to her AMS. Per chart review she has been hospitalized 3 times since at [facility]. Her first admission was due to weakness and heart rate in the 180s. She was discharged home without a formal diagnosis. She was then hospitalized on for for black stools and anemia. She was given 3-4 transfusions during the hospitalizations and discharged home. Her last admission was "a couple of weeks ago" for leg swelling. She was found to have blood clots in her RLE. An IVC filter was placed, and she was started on Coumadin despite having a probable GI bleed. She was then discharged to [facility] for rehabilitation. Review of Systems ROS Unable to obtain due to patient's lethargy Past Family Social History Allergies: Coded Allergies: Adhesives (Verified Allergy, Unknown, 05/28/16) Betadine (Verified Allergy, Unknown, 05/28/16) Nexium (Verified Allergy, Unknown, 05/28/16) Past Medical History Unable to obtain Past Surgical History Unable to obtain Reported Medications Reported Meds & Active Scripts Active Reported Pravastatin 20 Mg Tab 20 Mg PO HS Zantac 75 (Ranitidine HCl) 75 Mg Tab 75 Mg PO BID Take 30 to 60 minutes before eating food or drinking beverages that cause heartburn. Metoprolol Tartrate 25 Mg Tab 25 Mg PO BID Lisinopril 20 Mg Tab 20 Mg PO DAILY Fluoxetine (Fluoxetine HCl) 40 Mg Cap 40 Cap PO DAILY Diltiazem ER 24 HR (Diltiazem HCl) 120 Mg Caper 120 Mg PO DAILY Flexeril (Cyclobenzaprine HCl) 10 Mg Tab 10 Mg PO TID [place] (Hydrocodone-Acetaminophen) 5-325 mg Tab 1 Tab PO Q6H Coumadin (Warfarin) 2.5 Mg Tab 2.5 Mg PO DAILY Lidocaine Patch 12 HR (Lidocaine) 5 % Patch 1 Patch TOPICAL DAILY Remove patch after 12 hours Active Ordered Medications Current Medications Medications (Trade) Dose Ordered Sig/Nabil Route PRN Reason Start Time Stop Time Status Last Admin Dose Admin IV Flush (NS Flush) 2 ml UNSCH PRN FLUSH FLUSH AFTER USING IV ACCESS 05/28/16 15:15 IV Flush (NS Flush) 2 ml BID FLUSH 05/28/16 21:00 05/30/16 00:57 Acetaminophen (Tylenol) 650 mg Q4H PRN PO TEMP > 100.4 05/28/16 15:15 Naloxone HCl 0.4 mg 0.4 mg UNSCH PRN IV SEE LABEL COMMENTS 05/28/16 15:15 Sodium Chloride 1,000 ml @ 130 mls/hr Q7H42M IV 05/28/16 15:15 05/29/16 18:23 Metronidazole 100 ml @ 100 mls/hr Q8H IV 05/28/16 23:00 05/29/16 22:48 Diltiazem HCl/ Sodium Chloride (Cardizem Inj/NS Inj) 125 ml @ 0 mls/hr TITRATE IV 05/28/16 21:00 05/28/16 21:56 Metoprolol Tartrate (Lopressor) 25 mg BID PO 05/29/16 09:00 Hold Pravastatin Sodium (Pravachol) 20 mg HS PO 05/29/16 21:00 Famotidine (Pepcid) 10 mg BID PO 05/29/16 09:00 05/29/16 10:12 Miscellaneous (Pill Splitter) 1 ea UNSCH PRN OTHER SEE LABEL COMMENTS 05/28/16 21:30 Diltiazem HCl (Cardizem Cd) 120 mg DAILY PO 05/29/16 09:00 Hold Warfarin Sodium (Coumadin) 2.5 mg DAILY@16 PO 05/29/16 16:00 05/29/16 16:06 Rifaximin 550 mg 550 mg BID PO 05/29/16 09:00 05/29/16 10:12 Amiodarone HCl/ Dextrose (Cordarone Inj/ D5W ([place]) Inj) 250 ml @ 0 mls/hr CONTINUOUS IV 05/29/16 08:30 05/29/16 18:23 Miscellaneous Information SPECIFIC LAB TO BE AMANDA... ONCE ONCE XX 05/31/16 11:45 05/31/16 11:46 Vancomycin HCl (VANCOMYCIN for oral use only) 500 mg Q6H PO 05/29/16 21:00 Albumin Human (Albumin 5% Inj) 25 gm Q12H IV 05/30/16 08:00 Dextrose (D50w (Vial) Inj) 25 ml UNSCH PRN IV PUSH HYPOGLYCEMIA-SEE COMMENTS 05/30/16 00:15 Glucagon (Glucagon Inj) 1 mg UNSCH PRN OTHER HYPOGLYCEMIA-SEE COMMENTS 05/30/16 00:15 Family History Noncontributory Social History Negative 3 Physical Exam Vital Signs Vital Signs Date Time Temp Pulse Resp B/P Pulse Ox O2 Delivery O2 Flow Rate FiO2 05/29/16 20:43 100 18 103/65 94 Nasal Cannula 3 05/29/16 20:10 103 18 101/69 93 05/29/16 19:36 104 18 87/50 94 05/29/16 17:51 107 20 87/50 92 Nasal Cannula 2.5 05/29/16 16:49 105 20 93/50 96 Nasal Cannula 2.5 05/29/16 16:07 120 20 101/70 Nasal Cannula 2.5 05/29/16 13:14 Nasal Cannula 2.5 05/29/16 12:58 88 05/29/16 12:52 138 22 87/63 Nasal Cannula 2.5 05/29/16 11:12 96 2 05/29/16 09:10 127 18 82/56 96 Nasal Cannula 2 05/29/16 08:43 136 18 92/55 Room Air 05/29/16 08:28 98.0 137 18 78/51 Nasal Cannula 2 05/29/16 07:33 145 18 85/51 96 Nasal Cannula 2.5 05/29/16 05:05 145 16 92/53 99 Nasal Cannula 2 05/29/16 04:00 140 16 96/53 99 Nasal Cannula 2 05/29/16 03:00 139 16 99/60 99 Nasal Cannula 2 05/29/16 02:00 135 16 100/67 99 Nasal Cannula 2 05/29/16 01:00 145 16 102/60 99 Nasal Cannula 2 05/29/16 00:12 130 16 92/50 99 Nasal Cannula 2 05/28/16 22:45 145 16 102/58 99 Nasal Cannula 2 05/28/16 22:15 130 16 106/66 99 Nasal Cannula 2 Physical Exam GENERAL: Well-nourished, well-developed patient. Lethargic mildly confused female SKIN: Warm and dry. HEAD: Normocephalic. EYES: No scleral icterus. No injection or drainage. NECK: Supple, trachea midline. No JVD or lymphadenopathy. CARDIOVASCULAR: Regular rate and rhythm without murmurs, gallops, or rubs. RESPIRATORY: Breath sounds equal bilaterally. No accessory muscle use. GASTROINTESTINAL: Abdomen soft, non-tender, nondistended. MUSCULOSKELETAL: No cyanosis, or edema. BACK: Nontender without obvious deformity. No CVA tenderness. EXTREMITIES: Nonfocal Laboratory Laboratory Tests Test 05/29/16 05/29/16 05/29/16 04:00 11:44 14:09 White Blood Count 23.1 Red Blood Count 3.56 Hemoglobin 9.6 Hematocrit 30.1 Mean Corpuscular Volume 84.6 Mean Corpuscular Hemoglobin 26.9 Mean Corpuscular Hemoglobin 31.9 Concent Red Cell Distribution Width 17.7 Platelet Count 154 Mean Platelet Volume 10.7 Neutrophils (%) (Auto) 88.6 Lymphocytes (%) (Auto) 3.9 Monocytes (%) (Auto) 6.6 Eosinophils (%) (Auto) 0.6 Basophils (%) (Auto) 0.3 Neutrophils # (Auto) 20.5 Lymphocytes # (Auto) 0.9 Monocytes # (Auto) 1.5 Eosinophils # (Auto) 0.1 Basophils # (Auto) 0.1 CBC Comment AUTO DIFF Differential Comment AUTO DIFF CONFIRMED Hematology Comments Sodium Level 147 Potassium Level 3.6 Chloride Level 118 Carbon Dioxide Level 12.9 Anion Gap 16 Blood Urea Nitrogen 45 Creatinine 1.40 Estimat Glomerular Filtration 37 Rate Random Glucose 78 Calcium Level 7.9 Total Bilirubin 0.3 Aspartate Amino Transf 10 (AST/SGOT) Alanine Aminotransferase LESS THAN 6 (ALT/SGPT) Alkaline Phosphatase 81 Total Creatine Kinase 31 25 Troponin I LESS THAN 0.02 LESS THAN 0.02 Total Protein 4.4 Albumin 1.2 Ammonia 13 Date/Time Procedure Status Source Growth 05/28/16 22:25 Stool Occult Blood (MARIANGEL) - Final Complete Stool Stool HEMOCCULT NEGATIVE 05/28/16 11:10 Urine Culture - Preliminary Resulted Urine Catheterized Urine NO GROWTH IN 24 HOURS. 05/28/16 10:32 Aerobic Blood Culture - Preliminary Resulted Blood Peripheral NO GROWTH IN 1 DAY 05/28/16 10:32 Anaerobic Blood Culture - Preliminary Resulted Blood Peripheral NO GROWTH IN 1 DAY Result Diagram: 05/29/16 0400 05/29/16 0400 Assessment and Plan Problem List: (1) Dehydration ICD Code: E86.0 Status: Acute (2) Sepsis ICD Code: A41.9 Status: Acute (3) UTI (urinary tract infection) ICD Code: N39.0 Status: Acute (4) Altered mental status ICD Code: R41.82 Status: Acute (5) Hypotension ICD Code: I95.9 Status: Acute (6) Clostridium difficile diarrhea ICD Code: A04.7 Status: Acute (7) Atrial fibrillation ICD Code: I48.91 Status: Acute Assessment and Plan Altered mental status - Metabolic toxic encephalopathy - Threat underlying condition Hypotension - Dehydration - Aggressive IV fluid resuscitation - Central line placement - Pressors if needed to keep map above 65 Acute kidney injury - Due to volume depletion - Continue IV fluids - Monitor urine output C. difficile colitis - Flagyl - Further per ID UTI sepsis - Antibiotics per infectious disease Atrial fibrillation - Cardiology input appreciated - Continue diltiazem DVT GI prophylaxis - Teds SCDs subcutaneous heparin and Pepcid Critical Care: The total critical care time was 35 minutes. Time to perform other separately billable procedures was not included in the critical care time. Problem Qualifiers (1) Sepsis: Qualified Code: A41.9 - Sepsis, due to unspecified organism Rhett Downing MD May 29, 2016 22:13
[2016-05-30] VITALS (14 sets, daily range): BP systolic 99–118; BP diastolic 49–62; PULSE 93–100; RESP 16–25; TEMP 97.5–98.6; O2SAT 100
[2016-05-30] MEDS ORDERED: LACTATED RINGER'S 1000 ML INJ 500 ML IV ONE (00:15)
[2016-05-30] MEDS ORDERED: GLUCAGON 1 MG/ML VIAL OTHER PRN (00:15)
[2016-05-30] MEDS: SODIUM CHLORIDE 0.9% FLUSH 5 ML FLUSH FLUSH SCH ×3 (00:57→21:40)
[2016-05-30] MEDS: SODIUM CHLOR 0.9% 1000 ML INJ 1,000 ML IV SCH (03:53)
[2016-05-30] MEDS: VANCOMYCIN 500 MG VIAL (FOR ORAL USE ONLY) PO SCH ×4 (03:53→21:41)
[2016-05-30 04:09] LABS: MRSA PCR NEGATIVE (NEGATIVE); STAPH AUREUS PCR NEGATIVE (NEGATIVE)
[2016-05-30] MEDS: metroNIDAZOLE 500 MG INJ 100 ML IV SCH ×3 (06:02→21:39)
[2016-05-30 06:41] LABS: BICARBONATE 19.7 MEQ/L (21.0-32.0)
[2016-05-30 06:43] LABS: POTASSIUM 2.8 MEQ/L (3.5-5.1)
[2016-05-30 07:09] LABS: AUTOMATED NEUTROPHIL # 17.5 TH/MM3 (1.8-7.7); BASOPHIL % 0.1 % (0.0-2.0); EOSINOPHIL # 0.2 TH/MM3 (0-0.4); HEMO FLAGS DIFF FINAL; LYMPH % 3.4 % (9.0-44.0); LYMPHOCYTE # 0.6 TH/MM3 (1.0-4.8); MEAN CELL VOLUME 83.5 FL (80.0-100.0); MEAN CORPUSCULAR HEMOGLOBIN 26.7 PG (27.0-34.0); NEUT % 91.5 % (16.0-70.0); PLATELET COUNT 468 TH/MM3 (150-450); RED BLOOD COUNT 2.69 MIL/MM3 (4.00-5.30); RED CELL DISTRIBUTION WIDTH 17.6 % (11.6-17.2); WHITE BLOOD COUNT 19.1 TH/MM3 (4.0-11.0)
[2016-05-30 07:10] LABS: CALCIUM-PROTEIN CORRECTED 8.8 MG/DL (8.5-10.1)
[2016-05-30 07:24] LABS: INTERNATIONAL NORMALIZED RATIO 3.4 RATIO; PROTHROMBIN TIME - PATIENT 39.3 SEC (9.8-11.6)
[2016-05-30] MEDS ORDERED: SODIUM PHOSPHATE INJ 30 MMOL in SODIUM CHLOR 0.9% 250 ML INJ 240 ML IV PRN (07:30)
[2016-05-30] MEDS ORDERED: POTASSIUM PHOSPHATE MONOBASIC 500 MG TAB PO PRN (07:30)
[2016-05-30] MEDS ORDERED: MAGNESIUM SULFATE INJ 2 GM in SODIUM CHLORIDE 0.9% INJ 96 ML IV PRN (07:30)
[2016-05-30] MEDS ORDERED: MAGNESIUM OXIDE 400 MG TAB PO PRN (07:30)
[2016-05-30] MEDS ORDERED: MAGNESIUM SULFATE INJ 4 GM in SODIUM CHLORIDE 0.9% INJ 92 ML IV PRN (07:30)
[2016-05-30] MEDS ORDERED: POTASSIUM PHOSPHATE INJ 30 MMOL in SODIUM CHLOR 0.9% 250 ML INJ 250 ML IV PRN (07:30)
[2016-05-30] MEDS ORDERED: POTASSIUM CL 40 MEQ/30 ML LIQ UDC PO/TUBE PRN ×2 (07:30)
[2016-05-30] MEDS ORDERED: POTASSIUM CHLOR 40 MEQ PREMIX 100 ML IV PRN (07:30)
[2016-05-30] MEDS ORDERED: POTASSIUM CHLOR 20 MEQ PREMIX 100 ML IV PRN ×2 (07:30)
[2016-05-30] MEDS ORDERED: POTASSIUM PHOSPHATE MONOBASIC 500 MG TAB PO/TUBE PRN (07:30)
--- NOTE | 2016-05-30 07:35 | HHI.CCPN ---
Subjective Remarks/Hospital Course 75-year-old female presenting to the ED with hypotension and AMS. The patient was transported from [facility] due to her symptoms earlier this morning. She is unable to give a full interview likely due to her AMS. Per chart review she has been hospitalized 3 times since at [facility]. Her first admission was due to weakness and heart rate in the 180s. She was discharged home without a formal diagnosis. She was then hospitalized on for for black stools and anemia. She was given 3-4 transfusions during the hospitalizations and discharged home. Her last admission was "a couple of weeks ago" for leg swelling. She was found to have blood clots in her RLE. An IVC filter was placed, and she was started on Coumadin despite having a probable GI bleed. She was then discharged to [facility] for rehabilitation. SUBJ 05/30: Normotensive after two and half liter fluid boluses overnight. Peripheral cyanosis noted in all extremities probably Raynaud's phenomenon. Currently on amiodarone infusion, in normal sinus rhythm on monitor. Therapeutic on Coumadin Objective Vital Signs Date Time Temp Pulse Resp B/P Pulse Ox O2 Delivery O2 Flow Rate FiO2 05/30/16 06:00 95 05/30/16 04:00 98.6 20 104/59 100 05/29/16 23:19 Nasal Cannula 3.00 Result Diagram: 05/29/16 0400 05/30/16 0550 Other Results Microbiology Date/Time Procedure Status Source Growth 05/28/16 22:25 Stool Occult Blood (MARIANGEL) - Final Complete Stool Stool HEMOCCULT NEGATIVE Objective Remarks GENERAL: Well-nourished, well-developed patient. Lethargic but wakes up easily follows commands SKIN: Warm and dry. HEAD: Normocephalic. EYES: No scleral icterus. No injection or drainage. NECK: Supple, trachea midline. No JVD or lymphadenopathy. CARDIOVASCULAR: Regular rate and rhythm without murmurs, gallops, or rubs. Peripheral cyanosis involving bilateral fingers and toes RESPIRATORY: Breath sounds equal bilaterally. No accessory muscle use. GASTROINTESTINAL: Abdomen soft, non-tender, nondistended. MUSCULOSKELETAL: No cyanosis, 2+ edema. BACK: Nontender without obvious deformity. No CVA tenderness. NEURO: Wakes up easily follows commands. No focal deficits Urinary Catheter: Yes Assessment to: Continue Vascular Central Line Catheter: Yes Assessment to: Continue A/P Problem List: (1) Dehydration ICD Code: E86.0 Status: Acute (2) Sepsis ICD Code: A41.9 Status: Acute (3) UTI (urinary tract infection) ICD Code: N39.0 Status: Acute (4) Altered mental status ICD Code: R41.82 Status: Acute (5) Hypotension ICD Code: I95.9 Status: Acute (6) Clostridium difficile diarrhea ICD Code: A04.7 Status: Acute (7) Atrial fibrillation ICD Code: I48.91 Status: Acute Assessment and Plan Altered mental status - Metabolic toxic encephalopathy, improving - Treat underlying condition Hypotension - Secondary to intravascular volume depletion - s/p Aggressive IV fluid resuscitation. Reduce NS to 50 ml per hour, Add IV albumin 25 g every 12 - s/p Central line placement - Pressors if needed to keep map above 65 Acute kidney injury - Due to volume depletion - Continue IV fluids NS at 50 ml per hour and IV Albumin - Monitor urine output C. difficile colitis - IV Flagyl, PO Vanc and PO rifaximin - ID Dr. Colin following Atrial fibrillation - Cardiology input appreciated - Continue Amiodarone-transition to PO amiodarone - Keep K> 4, Mag >2 - Continue anticoagulation with Coumadin Peripheral cyanosis/probable Raynaud's syndrome - Keep extremities warm, perfused - Calcium channel blockers if not improving DVT GI prophylaxis - Teds SCDs Coumadin and Pepcid Critical Care: Level 3 CCM will sign off and be available as needed. Re consult if needed Problem Qualifiers (1) Sepsis: Qualified Code: A41.9 - Sepsis, due to unspecified organism Marlys Levy MD May 30, 2016 07:35
[2016-05-30] MEDS: ALBUMIN HUMAN 25% 25 GM/100 ML BAGP IV SCH ×2 (07:55→21:40)
[2016-05-30] MEDS: ALBUMIN HUMAN 5% 25 GM/500 ML BOTTLE IV SCH ×2 (07:55→21:40)
[2016-05-30] MEDS ORDERED: POTASSIUM CHLOR 40 MEQ PREMIX 100 ML IV ONE (08:00)
[2016-05-30] MEDS: FAMOTIDINE 20 MG TAB PO SCH ×2 (08:01→21:41)
[2016-05-30] MEDS: RIFAXIMIN 550 MG TAB PO SCH ×2 (08:02→21:41)
[2016-05-30] MEDS: AMIODARONE 200 MG TAB PO SCH (08:15)
[2016-05-30 08:24] LABS: HEMATOCRIT 22.5 % (35.0-46.0)
[2016-05-30] MEDS ORDERED: SODIUM CHLOR 0.45% 1000 ML INJ 1,000 ML IV SCH (09:00)
--- NOTE | 2016-05-30 09:41 | HHI.FPPN ---
Subjective Remarks Overnight, patient lost IV access and she remained altered with low BP but essentially unchanged from her exam earlier that day. Critical care was consulted who placed central line. She was also given 1 L NS bolus x2 and albumin with an appropriate response and BP. This morning patient's map continues to hover between 60 and 70s. Pulse has improved to the 100s. This morning patient has no complaints but is oriented to self, place, time but confused otherwise. (Mary Cash MD R2) Objective Vitals Vital Signs Date Time Temp Pulse Resp B/P Pulse Ox O2 Delivery O2 Flow Rate FiO2 05/30/16 07:30 Nasal Cannula 3.00 05/30/16 06:00 95 05/30/16 04:00 98.6 97 20 104/59 100 05/30/16 04:00 97 05/30/16 02:00 96 05/30/16 00:00 98.3 100 19 102/52 100 05/30/16 00:00 100 05/29/16 23:19 100 Nasal Cannula 3.00 05/29/16 22:00 103 05/29/16 21:41 98.5 110 26 56/41 05/29/16 20:43 100 18 103/65 94 Nasal Cannula 3 05/29/16 20:10 103 18 101/69 93 05/29/16 19:36 104 18 87/50 94 05/29/16 17:51 107 20 87/50 92 Nasal Cannula 2.5 05/29/16 16:49 105 20 93/50 96 Nasal Cannula 2.5 05/29/16 16:07 120 20 101/70 Nasal Cannula 2.5 05/29/16 13:14 Nasal Cannula 2.5 05/29/16 12:58 88 05/29/16 12:52 138 22 87/63 Nasal Cannula 2.5 05/29/16 11:12 96 2 I/O 05/29/16 05/29/16 05/29/16 05/30/16 05/30/16 05/30/16 07:00 15:00 23:00 07:00 15:00 23:00 Intake Total 2598 ml Output Total 300 ml Balance 2298 ml Intake Oral 90 ml IV Total 2508 ml Output Urine Total 300 ml Stool Total 0 ml (Mary Cash MD R2) Result Diagram: 05/30/1650 05/30/1650 Objective Remarks GEN: Resting comfortable in bed in no acute distress. SKIN: Bilateral hands cold to touch with mild/moderate cyanosis on fingertips. Present on right big toe as well. LUNGS: Coarse breath sounds bilaterally. No accessory muscle use and in no acute distress. No wheezes or rubs. CARDIOVASCULAR: Irregularly irregular. Improved rate. No murmurs, gallops or rubs. GI/ABD: Nondistended. Nontender to palpation. MUSC: Extremities show 3+ pitting edema to sacrum and abdomen. PSYCH/MENTAL STATUS: Alert and oriented x 3. (Mary Cash MD R2) A/P Assessment and Plan Mrs. Ramírez is a 75 y/o CF who presented due to hypotension and AMS. Admitted for Sepsis and AMS. Discharge Planning Timeline unknown. sdw Dr. Borrego (Mary Cash MD R2) Attending Attestation Patient seen and examined. Case reviewed and discussed with the resident team. Agree with plan of care as discussed with me and documented in the resident note. very ill chronically with multiple problems (Courtney Borrego MD) Problem List: (1) Sepsis Status: Resolved Plan: Met sepsis criteria on admission with tachycardia and leukocytosis. Also found to have altered mental status. Complicated by hypotension in the setting of generalized edema. Source likely due to C. difficile but etiology unclear. -Minimally improved leukocytosis -Hyperammonemia resolved -Urine and blood culture negative x1day Critical care consulted on 05/29: Appreciate recommendations. Signed off 05/30 * Transition to PO amiodarone * Go to keep potassium >4 and magnesium >2 * Skin findings likely due to Raynaud's phenomenon, consider calcium channel servando if not improving. Consulted ID: Appreciate recommendations * Discontinue vancomycin and Zosyn * PO vancomycin * IV Flagyl Imaging: * Chest x-ray: 2.5cm ill-defined opacity projecting over the left lower chest/ lung. Recommend noncontrast CT * Noncontrast CT: Abnormal density on the left chest x-ray is associated with hiatal hernia. There are small lateral nodular densities in the left lung base that can be followed. * Head CT: Negative Medications: * Transition to PO vancomycin (05/29- * Zosyn 2.5 g every 6 hours (05/28-05/29) * Flagyl 500 mg IV every 8 hours (05/28- * Rifaximin 550mg BID, will consider discontinuing as improved ammonia level has not improved mental status Relevant history obtained from spouse: Mr. Amari Ramírez ([phone]): Has been hospitalized 3 times since [place] at [facility]. Diagnoses at these admissions unclear but does report elevated heart rate in the 180s. Mother admission was for a GI bleed that required 3-4 transfusions but etiology is unknown. Patient was continued on warfarin despite this GI bleed. Another admission was for a DVT and an IVC filter was placed. Patient was at [facility] for rehabilitation prior to current admission. (2) Atrial fibrillation Status: Acute Plan: A. fib resolved. Initially failed diltiazem drip but rate was controlled while on amiodarone drip. -PO amiodarone 200mg started -Consider restarting home calcium channel servando in the setting of Raynaud's and A. fib. once BP improves -Cardiology consulted to assist with management: Appreciate recommendations * Okay to have rate slightly higher to meet metabolic demands and increased cardiac output due to sepsis * Recommend continuing telemetry (3) Altered mental status Status: Acute Plan: Please see plan as above. (4) Abnormal abdominal CT scan Status: Acute Plan: Patient with abnormal abdominal CT scan upon admission. History is significant for prior GI bleed. Unclear treatment of finding on CT, appreciate GI recommendations. -Hemoccult-negative, repeat ordered to to supratheraperutic INR -Continue to monitor H&H, transfuse as indicated GI consulted: Appreciate recommendations Abdominal pelvis CT: No dilated loops of small and large bowel. 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 Prominent calcification or ossification at the GE junction. Consider direct visualization of GE junction. PROM and induration of the left and right lateral abdominal wall subcutaneous fat. (5) Clostridium difficile diarrhea Status: Acute Plan: PCR: Positive --See plan above (6) SALVADOR (acute kidney injury) Status: Resolved Plan: Improving renal function since admission. -Downtrending creatinine -Continue hydration cautiously in the setting of generalized edema -See fluids below for rate (7) Nutrition, metabolism, and development symptoms Status: Acute Plan: Diet: Heart healthy Fluids: 1/2 NS at 50 Electrolytes: Hypernatremia and hypokalemia. Replace with 1/2NS and KCl respectively, repeat lab at 1400 DVT prophylaxis: Supratherapeutic Coumadin with an INR of 3.4 GI prophylaxis: Not indicated (Mary Cash MD R2) Problem Qualifiers (1) Sepsis: Qualified Code: A41.9 - Sepsis, due to unspecified organism (2) Altered mental status: Qualified Code: R41.0 - Delirium Mary Cash MD R2 May 30, 2016 09:41 Courtney Borrego MD May 31, 2016 15:18
--- NOTE | 2016-05-30 09:54 | HHI.GIFU ---
Subjective Remarks Extremely lethargic. 2 bowel movements yesterday. Drop in hgb with no obvious bleeding. Objective Vitals I&O Vital Signs Date Time Temp Pulse Resp B/P Pulse Ox O2 Delivery O2 Flow Rate FiO2 05/30/16 07:30 Nasal Cannula 3.00 05/30/16 06:00 95 05/30/16 04:00 98.6 97 20 104/59 100 05/30/16 04:00 97 05/30/16 02:00 96 05/30/16 00:00 98.3 100 19 102/52 100 05/30/16 00:00 100 05/29/16 23:19 100 Nasal Cannula 3.00 05/29/16 22:00 103 05/29/16 21:41 98.5 110 26 56/41 05/29/16 20:43 100 18 103/65 94 Nasal Cannula 3 05/29/16 20:10 103 18 101/69 93 05/29/16 19:36 104 18 87/50 94 05/29/16 17:51 107 20 87/50 92 Nasal Cannula 2.5 05/29/16 16:49 105 20 93/50 96 Nasal Cannula 2.5 05/29/16 16:07 120 20 101/70 Nasal Cannula 2.5 05/29/16 13:14 Nasal Cannula 2.5 05/29/16 12:58 88 05/29/16 12:52 138 22 87/63 Nasal Cannula 2.5 05/29/16 11:12 96 2 I/O 05/29/16 05/29/16 05/29/16 05/30/16 05/30/16 05/30/16 07:00 15:00 23:00 07:00 15:00 23:00 Intake Total 2598 ml Output Total 300 ml Balance 2298 ml Intake Oral 90 ml IV Total 2508 ml Output Urine Total 300 ml Stool Total 0 ml Laboratory Laboratory Tests Test 05/29/16 05/29/16 05/29/16 05/29/16 11:44 14:09 22:18 22:30 Total Creatine Kinase 25 Troponin I LESS THAN 0.02 Ammonia 13 Lactic Acid Level 1.3 Nasal Screen MRSA (PCR) NEGATIVE Staphylococcus aureus NEGATIVE (PCR)(LAB) Test 05/30/16 05:50 White Blood Count 19.1 Red Blood Count 2.69 Hemoglobin 7.2 Hematocrit 22.5 Mean Corpuscular Volume 83.5 Mean Corpuscular Hemoglobin 26.7 Mean Corpuscular Hemoglobin 32.0 Concent Red Cell Distribution Width 17.6 Platelet Count 468 Mean Platelet Volume 10.6 Neutrophils (%) (Auto) 91.5 Lymphocytes (%) (Auto) 3.4 Monocytes (%) (Auto) 4.0 Eosinophils (%) (Auto) 1.0 Basophils (%) (Auto) 0.1 Neutrophils # (Auto) 17.5 Lymphocytes # (Auto) 0.6 Monocytes # (Auto) 0.8 Eosinophils # (Auto) 0.2 Basophils # (Auto) 0.0 CBC Comment DIFF FINAL Differential Comment Prothrombin Time 39.3 Prothromb Time International 3.4 Ratio Sodium Level 152 Potassium Level 2.8 Chloride Level 119 Carbon Dioxide Level 19.7 Anion Gap 13 Blood Urea Nitrogen 27 Creatinine 1.06 Estimat Glomerular Filtration 51 Rate Random Glucose 113 Calcium Level 7.3 Protein Corrected Calcium 8.8 Ammonia LESS THAN 10 Total Protein 4.4 Date/Time Procedure Status Source Growth 05/28/16 22:25 Stool Occult Blood ([facility]IANGEL) - Final Complete Stool Stool HEMOCCULT NEGATIVE 05/28/16 11:10 Urine Culture - Preliminary Resulted Urine Catheterized Urine NO GROWTH IN 24 HOURS. 05/28/16 10:32 Aerobic Blood Culture - Preliminary Resulted Blood Peripheral NO GROWTH IN 1 DAY 05/28/16 10:32 Anaerobic Blood Culture - Preliminary Resulted Blood Peripheral NO GROWTH IN 1 DAY Imaging Last Impressions Chest X-Ray 05/29/16 0000 Signed Impressions: Service Date/Time: Sunday, May 29, 2016 21:06 - CONCLUSION: Right internal jugular central venous catheter has its tip in the superior vena cava. No pneumothorax or other acute complication. Cam Allen MD Head CT 05/28/16 0000 Signed Impressions: Service Date/Time: May 12:37 - CONCLUSION: No acute disease. Klever Roberts Jr., MD Chest CT 05/28/16 0000 Signed Impressions: Service Date/Time: May 16:14 - CONCLUSION: Abnormal density on the chest x-ray is associated with hiatal hernia. There is a tiny lateral left lung base nodular density which can be followed Cam Amaro MD Abdomen/Pelvis CT 05/28/16 0000 Signed Impressions: Service Date/Time: May 12:44 - CONCLUSION: 1. No dilated loops of small and large bowel. 2. 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 There is also a prominent calcification or ossification at the gastroesophageal junction which is of uncertain significance. May consider direct visualization of the GE junction to further evaluate the configuration and this calcification. 3. Prominent induration of the left and right lateral abdominal wall subcutaneous fat. Klever Calderón MD Physical Exam HEENT: Normocephalic; atraumatic; no jaundice CHEST: CTA CARDIAC: RRR ABDOMEN: Soft, nondistended, nontender; no hepatosplenomegaly; bowel sounds are present in all four quadrants. EXTREMITIES: BLE 3+ edema SKIN: Normal; no rash; no jaundice. SHAKE CUTTER: Lethargic, almost obtunded Assessment and Plan Plan ASSESSMENT: - CDiff Colitis. WBC 19.1. 2 stools documented. Oral vanco, Flagyl. - Anemia with drop in Hgb. Pt was evaluated for melena during a previous hospitalization at [facility]. EGD (03/17/16) normal examination. Colonoscopy (03/30/16)---> pandiverticulosis throughout the colon, diminutive polyp ascending colon, fair preparation, retroflexion revealed internal hemorrhoids grade II. CT enterography (03/30/16)----> negative for any acute findings. Plan was for capsule endoscopy as outpatient, but has not been done yet. HH from 9.6/30.1----> 7.2/22.5. PPI - Sepsis/Leukocytosis. WBC 19.1. Oral vanco, flagyl. - SALVADOR with multiple electrolytes abnormalities, Na 152, K+ 2.8. - Atrial fibrillation, amiodarone - AMS, Metabolic toxic encephalopathy. PLAN: - TWIN - Oral Vanco - Flagyl - PPI - Monitor HH - Transfuse as necessary - Notify GI of active bleeding - Supportive care - Further recommendations to follow based on results of above - Pt seen and examined by Dr. Eddy and myself and this note is written on his behalf Jeny Parekh May 30, 2016 09:54
[2016-05-30] MEDS: POTASSIUM CHLOR 40 MEQ PREMIX 100 ML IV PRN (10:54)
[2016-05-30 11:46] LABS: BICARBONATE 19.4 MEQ/L (21.0-32.0); POTASSIUM 3.7 MEQ/L (3.5-5.1)
--- NOTE | 2016-05-30 12:47 | PD.CARD.PN ---
Subjective Subjective Remarks appears more comfortable Objective Vital Signs / I&O Vital Signs Date Time Temp Pulse Resp B/P Pulse Ox O2 Delivery O2 Flow Rate FiO2 05/30/16 07:30 Nasal Cannula 3.00 05/30/16 06:00 95 05/30/16 04:00 98.6 97 20 104/59 100 05/30/16 04:00 97 05/30/16 02:00 96 05/30/16 00:00 98.3 100 19 102/52 100 05/30/16 00:00 100 05/29/16 23:19 100 Nasal Cannula 3.00 05/29/16 22:00 103 05/29/16 21:41 98.5 110 26 56/41 05/29/16 20:43 100 18 103/65 94 Nasal Cannula 3 05/29/16 20:10 103 18 101/69 93 05/29/16 19:36 104 18 87/50 94 05/29/16 17:51 107 20 87/50 92 Nasal Cannula 2.5 05/29/16 16:49 105 20 93/50 96 Nasal Cannula 2.5 05/29/16 16:07 120 20 101/70 Nasal Cannula 2.5 05/29/16 13:14 Nasal Cannula 2.5 05/29/16 12:58 88 05/29/16 12:52 138 22 87/63 Nasal Cannula 2.5 I/O 05/29/16 05/29/16 05/29/16 05/30/16 05/30/16 05/30/16 07:00 15:00 23:00 07:00 15:00 23:00 Intake Total 2598 ml Output Total 300 ml Balance 2298 ml Intake Oral 90 ml IV Total 2508 ml Output Urine Total 300 ml Stool Total 0 ml Laboratory GENERAL: SKIN: Warm and dry. HEAD: Normocephalic. EYES: No scleral icterus. No injection or drainage. NECK: Supple, trachea midline. No JVD or lymphadenopathy. CARDIOVASCULAR: Regular rate and rhythm without murmurs, gallops, or rubs. RESPIRATORY: Breath sounds equal bilaterally. No accessory muscle use. GASTROINTESTINAL: Abdomen soft, non-tender, nondistended. MUSCULOSKELETAL: No cyanosis, or edema. BACK: Nontender without obvious deformity. No CVA tenderness. Laboratory Tests Test 05/29/16 05/29/16 05/29/16 05/30/16 14:09 22:18 22:30 05:50 Ammonia 13 MCMOL/L LESS THAN 10 MCMOL/L Lactic Acid Level 1.3 mmol/L Nasal Screen MRSA (PCR) NEGATIVE Staphylococcus aureus NEGATIVE (PCR)(LAB) White Blood Count 19.1 TH/MM3 Red Blood Count 2.69 MIL/MM3 Hemoglobin 7.2 GM/DL Hematocrit 22.5 % Mean Corpuscular Volume 83.5 FL Mean Corpuscular Hemoglobin 26.7 PG Mean Corpuscular Hemoglobin 32.0 % Concent Red Cell Distribution Width 17.6 % Platelet Count 468 TH/MM3 Mean Platelet Volume 10.6 FL Neutrophils (%) (Auto) 91.5 % Lymphocytes (%) (Auto) 3.4 % Monocytes (%) (Auto) 4.0 % Eosinophils (%) (Auto) 1.0 % Basophils (%) (Auto) 0.1 % Neutrophils # (Auto) 17.5 TH/MM3 Lymphocytes # (Auto) 0.6 TH/MM3 Monocytes # (Auto) 0.8 TH/MM3 Eosinophils # (Auto) 0.2 TH/MM3 Basophils # (Auto) 0.0 TH/MM3 CBC Comment DIFF FINAL Differential Comment Prothrombin Time 39.3 SEC Prothromb Time International 3.4 RATIO Ratio Sodium Level 152 MEQ/L Potassium Level 2.8 MEQ/L Chloride Level 119 MEQ/L Carbon Dioxide Level 19.7 MEQ/L Anion Gap 13 MEQ/L Blood Urea Nitrogen 27 MG/DL Creatinine 1.06 MG/DL Estimat Glomerular Filtration 51 ML/MIN Rate Random Glucose 113 MG/DL Calcium Level 7.3 MG/DL Protein Corrected Calcium 8.8 MG/DL Total Protein 4.4 GM/DL Test 05/30/16 09:32 Sodium Level 151 MEQ/L Potassium Level 3.7 MEQ/L Chloride Level 121 MEQ/L Carbon Dioxide Level 19.4 MEQ/L Anion Gap 11 MEQ/L Blood Urea Nitrogen 27 MG/DL Creatinine 1.04 MG/DL Estimat Glomerular Filtration 52 ML/MIN Rate Random Glucose 99 MG/DL Calcium Level 7.8 MG/DL Phosphorus Level 2.0 MG/DL Magnesium Level 2.1 MG/DL Blood Type A POSITIVE Antibody Screen NEGATIVE Crossmatch Leukocyte-Reduced Red Blood Cells Blood Bank Comment Assessment and Plan Problem List: (1) Dehydration (2) Sepsis (3) UTI (urinary tract infection) (4) Altered mental status (5) Clostridium difficile diarrhea (6) Hypotension (7) Abnormal abdominal CT scan (8) Atrial fibrillation (9) SALVADOR (acute kidney injury) Assessment and Plan 1.) PAF - in nsr, on po amio, coumadin, inr therapeutic, sepsis improved Problem Qualifiers (1) Sepsis: Qualified Code: A41.9 - Sepsis, due to unspecified organism Srinivas Colin MD May 30, 2016 12:47
[2016-05-30] MEDS ORDERED: FUROSEMIDE 20 MG/2 ML VIAL IV PUSH ONE (15:00)
[2016-05-30] MEDS: DEXTROSE 50% IN WATER 50 ML VIAL(D50) IV PUSH PRN ×2 (17:54→18:21)
--- NOTE | 2016-05-30 18:24 | HHI.IDPN ---
Subjective Subjective Remarks large amount of liquid brown stool off pressors on fluids minimal po Hypoglycemic Antibiotics IV flagyl po vanco Allergies: Coded Allergies: Adhesives (Verified Allergy, Unknown, 05/28/16) Betadine (Verified Allergy, Unknown, 05/28/16) Nexium (Verified Allergy, Unknown, 05/28/16) Objective . Vital Signs Date Time Temp Pulse Resp B/P Pulse Ox O2 Delivery O2 Flow Rate FiO2 05/30/16 07:30 Nasal Cannula 3.00 05/30/16 06:00 95 05/30/16 04:00 98.6 97 20 104/59 100 05/30/16 04:00 97 05/30/16 02:00 96 05/30/16 00:00 98.3 100 19 102/52 100 05/30/16 00:00 100 05/29/16 23:19 100 Nasal Cannula 3.00 05/29/16 22:00 103 05/29/16 21:41 98.5 110 26 56/41 05/29/16 20:43 100 18 103/65 94 Nasal Cannula 3 05/29/16 20:10 103 18 101/69 93 05/29/16 19:36 104 18 87/50 94 05/29/16 05/29/16 05/30/16 15:00 23:00 07:00 Intake Total 2598 ml Output Total 300 ml Balance 2298 ml Intake Oral 90 ml IV Total 2508 ml Output Urine Total 300 ml Stool Total 0 ml . Laboratory Tests Test 05/29/16 05/30/16 04:00 05:50 White Blood Count 23.1 TH/MM3 19.1 TH/MM3 Red Blood Count 3.56 MIL/MM3 2.69 MIL/MM3 Hemoglobin 9.6 GM/DL 7.2 GM/DL Hematocrit 30.1 % 22.5 % Mean Corpuscular Volume 84.6 FL 83.5 FL Mean Corpuscular Hemoglobin 26.9 PG 26.7 PG Mean Corpuscular Hemoglobin 31.9 % 32.0 % Concent Red Cell Distribution Width 17.7 % 17.6 % Platelet Count 154 TH/MM3 468 TH/MM3 Mean Platelet Volume 10.7 FL 10.6 FL Neutrophils (%) (Auto) 88.6 % 91.5 % Lymphocytes (%) (Auto) 3.9 % 3.4 % Monocytes (%) (Auto) 6.6 % 4.0 % Eosinophils (%) (Auto) 0.6 % 1.0 % Basophils (%) (Auto) 0.3 % 0.1 % Neutrophils # (Auto) 20.5 TH/MM3 17.5 TH/MM3 Lymphocytes # (Auto) 0.9 TH/MM3 0.6 TH/MM3 Monocytes # (Auto) 1.5 TH/MM3 0.8 TH/MM3 Eosinophils # (Auto) 0.1 TH/MM3 0.2 TH/MM3 Basophils # (Auto) 0.1 TH/MM3 0.0 TH/MM3 CBC Comment AUTO DIFF DIFF FINAL Differential Comment AUTO DIFF CONFIRMED Hematology Comments Laboratory Tests Test 05/28/16 05/28/16 05/29/16 05/29/16 19:50 21:40 04:00 11:44 Ammonia 77 MCMOL/L Total Creatine Kinase 26 U/L 31 U/L 25 U/L Troponin I LESS THAN 0.02 LESS THAN 0.02 LESS THAN 0.02 NG/ML NG/ML NG/ML Sodium Level 147 MEQ/L Potassium Level 3.6 MEQ/L Chloride Level 118 MEQ/L Carbon Dioxide Level 12.9 MEQ/L Anion Gap 16 MEQ/L Blood Urea Nitrogen 45 MG/DL Creatinine 1.40 MG/DL Estimat Glomerular Filtration 37 ML/MIN Rate Random Glucose 78 MG/DL Calcium Level 7.9 MG/DL Total Bilirubin 0.3 MG/DL Aspartate Amino Transf 10 U/L (AST/SGOT) Alanine Aminotransferase LESS THAN 6 U/L (ALT/SGPT) Alkaline Phosphatase 81 U/L Total Protein 4.4 GM/DL Albumin 1.2 GM/DL Test 05/29/16 05/29/16 05/30/16 05/30/16 14:09 22:18 05:50 09:32 Ammonia 13 MCMOL/L LESS THAN 10 MCMOL/L Lactic Acid Level 1.3 mmol/L Sodium Level 152 MEQ/L 151 MEQ/L Potassium Level 2.8 MEQ/L 3.7 MEQ/L Chloride Level 119 MEQ/L 121 MEQ/L Carbon Dioxide Level 19.7 MEQ/L 19.4 MEQ/L Anion Gap 13 MEQ/L 11 MEQ/L Blood Urea Nitrogen 27 MG/DL 27 MG/DL Creatinine 1.06 MG/DL 1.04 MG/DL Estimat Glomerular Filtration 51 ML/MIN 52 ML/MIN Rate Random Glucose 113 MG/DL 99 MG/DL Calcium Level 7.3 MG/DL 7.8 MG/DL Protein Corrected Calcium 8.8 MG/DL Total Protein 4.4 GM/DL Phosphorus Level 2.0 MG/DL Magnesium Level 2.1 MG/DL Microbiology Date/Time Procedure Status Source Growth 05/28/16 10:15 Aerobic Blood Culture - Preliminary Resulted Blood Peripheral NO GROWTH IN 2 DAYS 05/28/16 10:15 Anaerobic Blood Culture - Preliminary Resulted Blood Peripheral NO GROWTH IN 2 DAYS 05/28/16 10:32 Aerobic Blood Culture - Preliminary Resulted Blood Peripheral NO GROWTH IN 2 DAYS 05/28/16 10:32 Anaerobic Blood Culture - Preliminary Resulted Blood Peripheral NO GROWTH IN 2 DAYS 05/28/16 11:10 Urine Culture - Final Complete Urine Catheterized Urine NO GROWTH IN 48 HOURS. 05/28/16 22:25 Stool Occult Blood (MARIANGEL) - Final Complete Stool Stool HEMOCCULT NEGATIVE 05/30/16 14:30 Stool Occult Blood (MARIANGEL) Received Stool Stool Pending Imaging Last Impressions Chest X-Ray 05/29/16 0000 Signed Impressions: Service Date/Time: Sunday, May 29, 2016 21:06 - CONCLUSION: Right internal jugular central venous catheter has its tip in the superior vena cava. No pneumothorax or other acute complication. Cam Allen MD Head CT 05/28/16 0000 Signed Impressions: Service Date/Time: May 12:37 - CONCLUSION: No acute disease. Klever Roberts Jr., MD Chest CT 05/28/16 0000 Signed Impressions: Service Date/Time: May 16:14 - CONCLUSION: Abnormal density on the chest x-ray is associated with hiatal hernia. There is a tiny lateral left lung base nodular density which can be followed Cam Amaro MD Abdomen/Pelvis CT 05/28/16 0000 Signed Impressions: Service Date/Time: May 12:44 - CONCLUSION: 1. No dilated loops of small and large bowel. 2. 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 There is also a prominent calcification or ossification at the gastroesophageal junction which is of uncertain significance. May consider direct visualization of the GE junction to further evaluate the configuration and this calcification. 3. Prominent induration of the left and right lateral abdominal wall subcutaneous fat. Klever Calderón MD Physical Exam CONSTITUTIONAL/GENERAL: This is an adequately nourished patient, in no apparent distress appears sick TUBES/LINES/DRAINS: SKIN: No jaundice, rashes, or lesions. Ecchymoses on upper extremities. No wounds seen anteriorly. Skin temperature appropriate. Not diaphoretic. HEAD: Atraumatic. Normocephalic. EYES: Pupils equal and round and reactive. Extraocular motions intact. No scleral icterus. No injection or drainage. Fundi not examined. ENT: Hearing grossly normal. Nose without bleeding or purulent drainage. Very dry oral mucosae visible erythema, exudates, masses, or lesions. NECK: Trachea midline. Supple, nontender. CARDIOVASCULAR: Regular rate and rhythm without murmurs, gallops, or rubs. No JVD. Peripheral pulses symmetric. RESPIRATORY/CHEST: Symmetric, unlabored respirations. Clear to auscultation. Breath sounds equal bilaterally. No wheezes, rales, or rhonchi. GASTROINTESTINAL: Abdomen soft, moderately tender, modereately distended. No hepato-splenomegaly, or palpable masses. No guarding. Bowel sounds present. GENITOURINARY: Without palpable bladder distension. Pink catheter in place with dark yellow clear urine MUSCULOSKELETAL: Extremities without clubbing, + promineneet cyanosis of both hands (fingertips), feet Fingertips are cold to touch and some are not refilling Diffuse 2-3+ edema. No joint tenderness or effusion noted. No calf tenderness. No mottling or clubbing. LYMPHATICS: No palpable cervical or supraclavicular adenopathy. NEUROLOGICAL: Fully awke and alert oriented x 4 . Motor and sensory grossly within normal limits. Follows commands. Normal speech Moves all extremities. PSYCHIATRIC: No obvious anxiety/depression. no apparent hallucinations or other psychotic thought process. Assessment & Plan Remarks C.diff hypervirulent, severe Sepsis 2/2 C.diff, 2/2 C.diff ARF No e/o other source of sepsis (blood, urine clx negative, no PNA) Critically ill Persistent cyanosis - cont vanco PO 500 - cont FLAgyl IV Discussed Condition With Alisia Forbes MD May 30, 2016 18:24
[2016-05-30] MEDS: DEXT 5%-NACL 0.45% 1000 ML INJ 1,000 ML IV SCH (19:15)
--- NOTE | 2016-05-30 19:43 | MB ---
cc: CHEYANNE DAILY M.D. DATE OF CONSULTATION: 05/29/2016 REASON FOR CONSULTATION: Diarrhea. Positive stool for C. difficile. DATE OF : 1940. HISTORY OF PRESENT ILLNESS: Thank you for the consultation This is a [id number] lady who is here from [facility]. The patient came because the staff thought that she had mental status changes and she was having more liquidy stool. The patient is unable to give any history. It seems that she was hospitalized three times since [place] at [facility] and she was admitted this time because the staff realized that she has lots of loose stool and changes in bowel habits. The patient had some blood clots on previous admission. She is currently lying in bed and seems to be comfortable but she had a significant amount of stool. PAST MEDICAL HISTORY: Not able to obtain. ALLERGIES: From the chart: 1. ADHESIVE TAPE. 2. BETADINE. 3. NEXIUM. FAMILY HISTORY: Not available. SOCIAL HISTORY: She seems to be living in [facility]. REVIEW OF SYSTEMS: Very limited because the patient is unable to give history but seems to be comfortable and does not have any severe abdominal pain. She stated that she had the runs consistent with the diarrhea. PHYSICAL EXAMINATION: VITAL SIGNS: Stable with the low blood pressure in the 80s/53. GENERAL: Well-nourished no acute distress. HEAD, EYES, EARS, NOSE, THROAT: Pupils are reactive to light. NECK: The neck is supple. CHEST: Clear to auscultation and portion. CARDIAC: Regular rate and rhythm. ABDOMEN: Soft, nondistended. No hepatosplenomegaly. Obese. Positive bowel sounds. EXTREMITIES: +[address] to the ankles. SKIN: No jaundice. NEUROLOGIC: Unable to assess and oriented x1. No focal abnormalities. PSYCHOLOGIC: Unable to assess. LABORATORY DATA: White count 23.1, hemoglobin 9.6, platelets 154. INR 2.9. Liver function tests normal. BUN 45, creatinine 1.4, albumin 1.6. C. Difficile was positive for PCR and toxin. IMAGING STUDIES: Abdominal CT scan: No dilation of the small bowel. The patient has left hemidiaphragm with folding of the fundus of the stomach into the chest with possible volvulus configuration. There are prominent calcifications at the gastroesophageal junction. Consider direct visualization. ASSESSMENT AND PLAN: 1. This is a 75-year-old lady with history of C. difficile positive. The patient with significant diarrhea. She was started on Flagyl and vancomycin. Her white count is elevated. She has some mental status so she might have septicemia. 2. Abnormal CT scan of the stomach with possible paraesophageal herniation and calcification at the GE junction. We will plan on doing upper endoscopy when the patient is more stable. Meanwhile we will continue supportive care. 3. Hydration. The patient is tachycardiac and low blood pressure. 4. Consider ICU admission. 5. Will continue following on the white blood cells and CBC. Further plan depends on how the patient is doing. MD ONEL Rivera/YANDEL /5:18 PM /7:28 PM
[2016-05-30] MEDS: PRAVASTATIN SOD 20 MG TAB PO SCH (21:41)
[2016-05-30 23:58] LABS: HEMATOCRIT 23.4 % (35.0-46.0); REVIEW FLAG FINAL
[2016-05-31] VITALS (15 sets, daily range): BP systolic 99–117; BP diastolic 55–74; PULSE 88–140; RESP 20–30; TEMP 97.4–98.6; O2SAT 93–100
[2016-05-31] MEDS: METOPROLOL TARTRATE 5 MG/5 ML VIAL IV PUSH PRN ×3 (02:14→09:44)
[2016-05-31] MEDS: VANCOMYCIN 500 MG VIAL (FOR ORAL USE ONLY) PO SCH ×4 (03:00→20:56)
[2016-05-31] MEDS: DEXT 5%-NACL 0.45% 1000 ML INJ 1,000 ML IV SCH ×2 (03:58→09:19)
[2016-05-31] MEDS: metroNIDAZOLE 500 MG INJ 100 ML IV SCH ×2 (05:51→15:15)
[2016-05-31 06:33] LABS: INTERNATIONAL NORMALIZED RATIO 3.5 RATIO; PROTHROMBIN TIME - PATIENT 40.8 SEC (9.8-11.6)
[2016-05-31 06:50] LABS: BICARBONATE 19.9 MEQ/L (21.0-32.0); CALCIUM-PROTEIN CORRECTED 8.5 MG/DL (8.5-10.1); POTASSIUM 3.4 MEQ/L (3.5-5.1); TOTAL BILIRUBIN ADULT 0.5 MG/DL (0.2-1.0)
[2016-05-31 07:02] LABS: AUTOMATED NEUTROPHIL # 16.2 TH/MM3 (1.8-7.7); BASOPHIL % 0.1 % (0.0-2.0); EOSINOPHIL # 0.3 TH/MM3 (0-0.4); EOSINOPHIL % 1.7 % (0.0-4.0); HEMATOCRIT 24.5 % (35.0-46.0); HEMO FLAGS DIFF FINAL; LYMPH % 3.9 % (9.0-44.0); LYMPHOCYTE # 0.7 TH/MM3 (1.0-4.8); MEAN CELL VOLUME 85.3 FL (80.0-100.0); MEAN CORPUSCULAR HEMOGLOBIN 27.5 PG (27.0-34.0); MEAN CORPUSCULAR HGB CONC 32.2 % (32.0-36.0); MONO % 6.3 % (0.0-8.0); PLATELET COUNT 392 TH/MM3 (150-450); RED BLOOD COUNT 2.87 MIL/MM3 (4.00-5.30); RED CELL DISTRIBUTION WIDTH 17.1 % (11.6-17.2); WHITE BLOOD COUNT 18.4 TH/MM3 (4.0-11.0)
[2016-05-31] MEDS: ALBUMIN HUMAN 5% 25 GM/500 ML BOTTLE IV SCH ×2 (09:19→20:55)
[2016-05-31] MEDS: FAMOTIDINE 20 MG TAB PO SCH ×2 (09:21→20:56)
[2016-05-31] MEDS: AMIODARONE 200 MG TAB PO SCH (09:21)
[2016-05-31] MEDS: ALBUMIN HUMAN 25% 25 GM/100 ML BAGP IV SCH ×2 (09:22→20:56)
[2016-05-31] MEDS: RIFAXIMIN 550 MG TAB PO SCH ×2 (09:22→20:56)
[2016-05-31] MEDS: SODIUM CHLORIDE 0.9% FLUSH 5 ML FLUSH FLUSH SCH ×2 (09:22→20:56)
--- NOTE | 2016-05-31 10:28 | HHI.GIFU ---
Subjective Remarks 75 yo female lying in bed in no apparent distress. Lethargic. Objective Vitals I&O Vital Signs Date Time Temp Pulse Resp B/P Pulse Ox O2 Delivery O2 Flow Rate FiO2 05/31/16 10:00 135 05/31/16 08:00 97.4 89 23 117/59 100 05/31/16 08:00 89 05/31/16 07:28 99 Nasal Cannula 2.00 05/31/16 06:00 88 05/31/16 04:00 88 05/31/16 04:00 98.0 88 21 99/55 98 05/31/16 02:00 91 05/31/16 01:00 140 05/31/16 00:00 96 05/31/16 00:00 97.5 96 24 108/57 100 05/30/16 22:00 99 05/30/16 20:00 98 05/30/16 20:00 97.8 98 25 105/55 100 05/30/16 19:29 100 Nasal Cannula 2.00 05/30/16 18:00 93 05/30/16 16:00 97.5 93 20 107/62 100 05/30/16 16:00 93 05/30/16 14:00 100 05/30/16 12:00 97.5 96 16 99/49 100 05/30/16 12:00 96 I/O 05/30/16 05/30/16 05/30/16 05/31/16 05/31/16 05/31/16 07:00 15:00 23:00 07:00 15:00 23:00 Intake Total 2598 ml 1226 ml 892 ml 1035 ml Output Total 300 ml 650 ml 900 ml 900 ml Balance 2298 ml 576 ml -8 ml 135 ml Intake Oral 90 ml 240 ml 100 ml 100 ml IV Total 2508 ml 986 ml 792 ml 935 ml Output Urine Total 300 ml 350 ml 750 ml 750 ml Stool Total 0 ml 300 ml 150 ml 150 ml Laboratory Laboratory Tests Test 05/30/16 05/30/16 05/31/16 05/31/16 13:19 23:30 05:30 06:13 Blood Type A POSITIVE Hemoglobin 7.8 7.9 Hematocrit 23.4 24.5 White Blood Count 18.4 Red Blood Count 2.87 Mean Corpuscular Volume 85.3 Mean Corpuscular Hemoglobin 27.5 Mean Corpuscular Hemoglobin 32.2 Concent Red Cell Distribution Width 17.1 Platelet Count 392 Mean Platelet Volume 10.2 Neutrophils (%) (Auto) 88.0 Lymphocytes (%) (Auto) 3.9 Monocytes (%) (Auto) 6.3 Eosinophils (%) (Auto) 1.7 Basophils (%) (Auto) 0.1 Neutrophils # (Auto) 16.2 Lymphocytes # (Auto) 0.7 Monocytes # (Auto) 1.2 Eosinophils # (Auto) 0.3 Basophils # (Auto) 0.0 CBC Comment DIFF FINAL Differential Comment Prothrombin Time 40.8 Prothromb Time International 3.5 Ratio Sodium Level 152 Potassium Level 3.4 Chloride Level 121 Carbon Dioxide Level 19.9 Anion Gap 11 Blood Urea Nitrogen 19 Creatinine 0.94 Estimat Glomerular Filtration 58 Rate Random Glucose 118 Calcium Level 7.4 Protein Corrected Calcium 8.5 Total Bilirubin 0.5 Aspartate Amino Transf 7 (AST/SGOT) Alanine Aminotransferase 7 (ALT/SGPT) Alkaline Phosphatase 65 Total Protein 5.1 Albumin 3.3 Ammonia 28 Date/Time Procedure Status Source Growth 05/30/16 14:30 Stool Occult Blood ([facility]) - Final Complete Stool Stool HEMOCCULT POSITIVE 05/28/16 11:10 Urine Culture - Final Complete Urine Catheterized Urine NO GROWTH IN 48 HOURS. 05/28/16 10:32 Aerobic Blood Culture - Preliminary Resulted Blood Peripheral NO GROWTH IN 2 DAYS 05/28/16 10:32 Anaerobic Blood Culture - Preliminary Resulted Blood Peripheral NO GROWTH IN 2 DAYS Imaging Last Impressions Chest X-Ray 05/29/16 0000 Signed Impressions: Service Date/Time: Sunday, May 29, 2016 21:06 - CONCLUSION: Right internal jugular central venous catheter has its tip in the superior vena cava. No pneumothorax or other acute complication. Cam Allen MD Head CT 05/28/16 0000 Signed Impressions: Service Date/Time: May 12:37 - CONCLUSION: No acute disease. Klever Roberts Jr., MD Chest CT 05/28/16 0000 Signed Impressions: Service Date/Time: May 16:14 - CONCLUSION: Abnormal density on the chest x-ray is associated with hiatal hernia. There is a tiny lateral left lung base nodular density which can be followed Cam Amaro MD Abdomen/Pelvis CT 05/28/16 0000 Signed Impressions: Service Date/Time: May 12:44 - CONCLUSION: 1. No dilated loops of small and large bowel. 2. 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 There is also a prominent calcification or ossification at the gastroesophageal junction which is of uncertain significance. May consider direct visualization of the GE junction to further evaluate the configuration and this calcification. 3. Prominent induration of the left and right lateral abdominal wall subcutaneous fat. Klever Calderón MD Physical Exam HEENT: Normocephalic; atraumatic; no jaundice CHEST: Crackles bilateral bases. CARDIAC: Afib. ABDOMEN: Soft, nondistended, nontender; no hepatosplenomegaly; bowel sounds are present in all four quadrants. EXTREMITIES: BLE 3+ edema SKIN: Normal; no rash; no jaundice. [employer]: Lethargic. Assessment and Plan Plan ASSESSMENT: - CDiff Colitis. WBC 18.4. Oral Vanco, Flagyl. - Anemia, Hgb 7.9. Pt was evaluated for melena during a previous hospitalization at [facility]. EGD (03/17/16) normal examination. Colonoscopy (03/30/16)---> pandiverticulosis throughout the colon, diminutive polyp ascending colon, fair preparation, retroflexion revealed internal hemorrhoids grade II. CT enterography (03/30/16)----> negative for any acute findings. Plan was for capsule endoscopy as outpatient, but has not been done yet. HH from 9.6/30.1----> 7.9/24.5. PPI - Sepsis/Leukocytosis. WBC 18.4. Oral Vanco, Flagyl. - SALVADOR with multiple electrolytes abnormalities, Na 152, K+ 3.4. - Atrial fibrillation, amiodarone - AMS, Metabolic toxic encephalopathy. PLAN: - TWIN - Oral Vanco - Flagyl - PPI - Monitor HH - Transfuse as necessary - Notify GI of active bleeding - Supportive care - Further recommendations to follow based on results of above Pt seen and examined by Dr. Eddy and myself and this note is written on his behalf Liliam Torres May 31, 2016 10:28
--- NOTE | 2016-05-31 10:50 | RADRPT ---
EXAM DATE/TIME: 05/31/2016 10:23 [facility] COMPARISON: CHEST SINGLE AP, May 29, 2016, 21:06. CT THORAX W/O CONTRAST, May 28, 2016, 16:14. INDICATIONS : Short of Breath. MEDICAL HISTORY : Hypertension. Deep venous thrombosis. Gastroesophageal reflux disease. Pulmonary embolism. SURGICAL HISTORY : Cholecystectomy. ENCOUNTER: Initial ACUITY: 1 day PAIN SCORE: Non-responsive. LOCATION: Bilateral chest FINDINGS: Trace atelectasis at the bases. No large effusion seen. No pneumothorax. Heart size stable, within normal limits. Right IJ central venous catheter with tip in the superior vena cava again noted. CONCLUSION: Mild bibasilar atelectasis developing/worsening. Cam Allen MD on May 31, 2016 at 10:47 Board Certified Radiologist. This report was verified electronically.
--- NOTE | 2016-05-31 11:34 | HHI.CCPN ---
Subjective Remarks/Hospital Course 75-year-old female presenting to the ED with hypotension and AMS. The patient was transported from [facility] due to her symptoms earlier this morning. She is unable to give a full interview likely due to her AMS. Per chart review she has been hospitalized 3 times since at [facility]. Her first admission was due to weakness and heart rate in the 180s. She was discharged home without a formal diagnosis. She was then hospitalized on for for black stools and anemia. She was given 3-4 transfusions during the hospitalizations and discharged home. Her last admission was "a couple of weeks ago" for leg swelling. She was found to have blood clots in her RLE. An IVC filter was placed, and she was started on Coumadin despite having a probable GI bleed. She was then discharged to [facility] for rehabilitation. SUBJ 05/30: Normotensive after two and half liter fluid boluses overnight. Peripheral cyanosis noted in all extremities probably Raynaud's phenomenon. Currently on amiodarone infusion, in normal sinus rhythm on monitor. Therapeutic on Coumadin 05/31: Reevaluation requested by family practice due to tachypnea and A. fib with RVR. On my evaluation patient is breathing low 30s with good oxygen saturation. Heart rate 120 to 130s, amiodarone infusion restarted. Patient appears to have significant peripheral edema, with 20 kg wt gain, will start Bumex along with free water replacement Objective Vital Signs Date Time Temp Pulse Resp B/P Pulse Ox O2 Delivery O2 Flow Rate FiO2 05/31/16 10:00 135 05/31/16 08:00 97.4 23 117/59 100 05/31/16 07:28 Nasal Cannula 2.00 Intake and Output 05/30/16 05/30/16 05/31/16 08:00 16:00 00:00 Intake Total 2598 ml 1226 ml 892 ml Output Total 300 ml 650 ml 900 ml Balance 2298 ml 576 ml -8 ml Result Diagram: 05/31/16 0530 05/31/16 0530 Other Results Microbiology Date/Time Procedure Status Source Growth 05/28/16 22:25 Stool Occult Blood (MARIANGEL) - Final Complete Stool Stool HEMOCCULT NEGATIVE 05/30/16 14:30 Stool Occult Blood (MARIANGEL) - Final Complete Stool Stool HEMOCCULT POSITIVE Objective Remarks GENERAL: Well-nourished, well-developed patient. Lethargic but wakes up easily follows commands SKIN: Warm and dry. HEAD: Normocephalic. EYES: No scleral icterus. No injection or drainage. NECK: Supple, trachea midline. No JVD or lymphadenopathy. CARDIOVASCULAR: Afib with RVR, gallops, or rubs. Peripheral cyanosis involving bilateral fingers and toes RESPIRATORY: Breath sounds equal bilaterally. No accessory muscle use. Slightly tachypneic GASTROINTESTINAL: Abdomen soft, non-tender, nondistended. MUSCULOSKELETAL: No cyanosis, 3+ edema. BACK: Nontender without obvious deformity. No CVA tenderness. NEURO: Wakes up easily follows commands. No focal deficits Urinary Catheter: Yes Assessment to: Continue Vascular Central Line Catheter: Yes Assessment to: Continue A/P Problem List: (1) Hypotension ICD Code: I95.9 Status: Acute (2) Sepsis ICD Code: A41.9 Status: Acute (3) UTI (urinary tract infection) ICD Code: N39.0 Status: Acute (4) Altered mental status ICD Code: R41.82 Status: Acute (5) Clostridium difficile diarrhea ICD Code: A04.7 Status: Acute (6) Atrial fibrillation ICD Code: I48.91 Status: Resolved Assessment and Plan Altered mental status - Metabolic toxic encephalopathy, improving - Treat underlying condition Volume overload Hypotension-resolved - s/p Aggressive IV fluid resuscitation. Continue IV albumin 25 g every 12 - Significant peripheral edema with 20 KG weight gain. Start Bumex 1 mg IV push 1 and every 12 05/31/16 - Free water replacement and D5W at 100 ml per hour - s/p Central line placement - Pressors if needed to keep map above 65 Acute kidney injury - Free water replacement and Bumex as above - Monitor urine output C. difficile colitis - IV Flagyl, PO Vanc and PO rifaximin - ID Dr. Colin following Atrial fibrillation - Cardiology following - Amiodarone was transitioned to PO 05/30, restarted IV due to A. fib with RVR - Give Digoxin 0.25 mg IV 1 - Keep K> 4, Mag >2 - Continue anticoagulation with Coumadin Peripheral cyanosis/probable Raynaud's syndrome - Keep extremities warm, perfused - Calcium channel blockers if not improving DVT GI prophylaxis - Teds SCDs Coumadin and Pepcid, INR is 3.5 Critical Care: Level 2 Problem Qualifiers (1) Sepsis: Qualified Code: A41.9 - Sepsis, due to unspecified organism Marlys Levy MD May 31, 2016 11:34
[2016-05-31] MEDS ORDERED: PHARMACY ORDERED LAB XX ONE (11:45)
[2016-05-31] MEDS ORDERED: BUMETANIDE INJ 1 MG/4 ML VIAL IV PUSH ONE (12:00)
--- NOTE | 2016-05-31 12:17 | HHI.FPPN ---
Subjective Remarks Sadly, Ms Ramírez remains very ill with a fib in rvr plus anasarca and low albumins complicating the picture. Called her today as he has a hard time coming into the hospital with caring for a 5 year old grandson. Explained per Dr Burns that she is very ill and with all her numerous hospitalizations since [place] that she may never fully recover and that her assisted prognosis is looking worse and worse. He understood and appreciated the call. Objective Vitals Vital Signs Date Time Temp Pulse Resp B/P Pulse Ox O2 Delivery O2 Flow Rate FiO2 05/31/16 10:00 135 05/31/16 08:00 97.4 89 23 117/59 100 05/31/16 08:00 89 05/31/16 07:28 99 Nasal Cannula 2.00 05/31/16 06:00 88 05/31/16 04:00 88 05/31/16 04:00 98.0 88 21 99/55 98 05/31/16 02:00 91 05/31/16 01:00 140 05/31/16 00:00 96 05/31/16 00:00 97.5 96 24 108/57 100 05/30/16 22:00 99 05/30/16 20:00 98 05/30/16 20:00 97.8 98 25 105/55 100 05/30/16 19:29 100 Nasal Cannula 2.00 05/30/16 18:00 93 05/30/16 16:00 97.5 93 20 107/62 100 05/30/16 16:00 93 05/30/16 14:00 100 I/O 05/30/16 05/30/16 05/30/16 05/31/16 05/31/16 05/31/16 07:00 15:00 23:00 07:00 15:00 23:00 Intake Total 2598 ml 1226 ml 892 ml 1035 ml Output Total 300 ml 650 ml 900 ml 900 ml Balance 2298 ml 576 ml -8 ml 135 ml Intake Oral 90 ml 240 ml 100 ml 100 ml IV Total 2508 ml 986 ml 792 ml 935 ml Output Urine Total 300 ml 350 ml 750 ml 750 ml Stool Total 0 ml 300 ml 150 ml 150 ml Result Diagram: 05/31/1652905/31/1630 Objective Remarks GEN: Resting comfortable in bed in no acute distress. SKIN: Bilateral hands cold to touch with mild/moderate cyanosis on fingertips. Present on right big toe as well. LUNGS: Coarse breath sounds bilaterally. No accessory muscle use and in no acute distress. No wheezes or rubs. CARDIOVASCULAR: Irregularly irregular. Improved rate. No murmurs, gallops or rubs. GI/ABD: Nondistended. Nontender to palpation. MUSC: Extremities show 3+ pitting edema to sacrum and abdomen. PSYCH/MENTAL STATUS: Alert and oriented x 3. A/P Assessment and Plan Mrs. Ramírez is a 75 y/o CF who presented due to hypotension and AMS. Admitted for Sepsis and AMS. Discharge Planning Timeline unknown. Problem List: (1) Atrial fibrillation Status: Acute Plan: A. fib recurrent. Initially failed diltiazem drip but rate was controlled while on amiodarone drip. -PO amiodarone 200mg started now starting digoxin as her BPs do not tolerate beta blockers or Cardizem very well. can consider loading digoxin if needed with a total dose of between 750 mcg or even an additional 250 mcg for a total of 1000 mcg-Consider restarting home calcium channel servando in the setting of Raynaud's and A. fib. once BP improves -Cardiology consulted to assist with management: Appreciate recommendations * Okay to have rate slightly higher to meet metabolic demands and increased cardiac output due to sepsis initially however she is not overtly septic at this time * Recommend continuing telemetry (2) Sepsis Status: Resolved Plan: Met sepsis criteria on admission with tachycardia and leukocytosis. Also found to have altered mental status. Complicated by hypotension in the setting of generalized edema. Source likely due to C. difficile but etiology unclear. -Minimally improved leukocytosis -Hyperammonemia resolved -Urine and blood culture negative x1day Critical care consulted on 05/29: Appreciate recommendations. * Transition to PO amiodarone, now digoxin * Go to keep potassium >4 and magnesium >2 * Skin findings of hands likely due to Raynaud's phenomenon, consider calcium channel servando if not improving. Consulted ID: Appreciate recommendations * Discontinue vancomycin and Zosyn * PO vancomycin * IV Flagyl Imaging: * Chest x-ray: 2.5cm ill-defined opacity projecting over the left lower chest/ lung. Recommend noncontrast CT * Noncontrast CT: Abnormal density on the left chest x-ray is associated with hiatal hernia. There are small lateral nodular densities in the left lung base that can be followed. * Head CT: Negative Medications: * Transition to PO vancomycin (05/29- * Zosyn 2.5 g every 6 hours (05/28-05/29) * Flagyl 500 mg IV every 8 hours (05/28- * Rifaximin 550mg BID, will consider discontinuing as improved ammonia level has not improved mental status Relevant history obtained from spouse: Mr. Amari Ramírez ([phone]): Has been hospitalized 3 times since [place] at [facility]. Diagnoses at these admissions unclear but does report elevated heart rate in the 180s. Mother admission was for a GI bleed that required 3-4 transfusions but etiology is unknown. Patient was continued on warfarin despite this GI bleed. Another admission was for a DVT and an IVC filter was placed. Patient was at [facility] for rehabilitation prior to current admission. (3) Altered mental status Status: Acute Plan: Please see plan as above. she is very ill and delirium is suspected (4) Abnormal abdominal CT scan Status: Acute Plan: Patient with abnormal abdominal CT scan upon admission. History is significant for prior GI bleed. Unclear treatment of finding on CT, appreciate GI recommendations. -Hemoccult-negative, repeat ordered due to supratheraperutic INR -Continue to monitor H&H, transfuse as indicated GI consulted: Appreciate recommendations Abdominal pelvis CT: No dilated loops of small and large bowel. 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 Prominent calcification or ossification at the GE junction. Consider direct visualization of GE junction. PROM and induration of the left and right lateral abdominal wall subcutaneous fat. (5) Clostridium difficile diarrhea Status: Acute Plan: PCR: Positive --See plan above (6) SALVADOR (acute kidney injury) Status: Resolved Plan: Improving renal function since admission. -Downtrending creatinine -Continue hydration cautiously in the setting of generalized edema -See fluids below for rate (7) Nutrition, metabolism, and development symptoms Status: Acute Plan: Diet: low albumin. pt has been sick for months so will increase calories in diet and add ensure as tolerated. Fluids: appreciate help of Logging Crew Supervisor Dr Levy. she needs free water with her elevated Na but is very edematous Electrolytes: replace per protocol DVT prophylaxis: Supratherapeutic Coumadin with an INR of 3.4 initially GI prophylaxis: Not indicated Problem Qualifiers (1) Sepsis: Qualified Code: A41.9 - Sepsis, due to unspecified organism (2) Altered mental status: Qualified Code: R41.0 - Delirium Courtney Borrego MD May 31, 2016 12:17
[2016-05-31] MEDS: POTASSIUM CL 40 MEQ/30 ML LIQ UDC PO SCH (12:31)
[2016-05-31] MEDS: DEXTROSE 5% IN WATE 1000ML INJ 1,000 ML IV SCH ×2 (12:32→20:57)
[2016-05-31] MEDS: RESP: ALBUTEROL 2.5 MG/IPRATROPIUM 0.5 MG NEB (SCH) NEB ×3 (12:34→21:12)
--- NOTE | 2016-05-31 13:43 | PD.CARD.PN ---
Subjective Subjective Remarks awake in nad, appears confuses Objective Vital Signs / I&O Vital Signs Date Time Temp Pulse Resp B/P Pulse Ox O2 Delivery O2 Flow Rate FiO2 05/31/16 10:00 135 05/31/16 08:00 97.4 89 23 117/59 100 05/31/16 08:00 89 05/31/16 07:28 99 Nasal Cannula 2.00 05/31/16 06:00 88 05/31/16 04:00 88 05/31/16 04:00 98.0 88 21 99/55 98 05/31/16 02:00 91 05/31/16 01:00 140 05/31/16 00:00 96 05/31/16 00:00 97.5 96 24 108/57 100 05/30/16 22:00 99 05/30/16 20:00 98 05/30/16 20:00 97.8 98 25 105/55 100 05/30/16 19:29 100 Nasal Cannula 2.00 05/30/16 18:00 93 05/30/16 16:00 97.5 93 20 107/62 100 05/30/16 16:00 93 05/30/16 14:00 100 I/O 05/30/16 05/30/16 05/30/16 05/31/16 05/31/16 05/31/16 07:00 15:00 23:00 07:00 15:00 23:00 Intake Total 2598 ml 1226 ml 892 ml 1035 ml Output Total 300 ml 650 ml 900 ml 900 ml Balance 2298 ml 576 ml -8 ml 135 ml Intake Oral 90 ml 240 ml 100 ml 100 ml IV Total 2508 ml 986 ml 792 ml 935 ml Output Urine Total 300 ml 350 ml 750 ml 750 ml Stool Total 0 ml 300 ml 150 ml 150 ml Laboratory GENERAL: SKIN: Warm and dry. HEAD: Normocephalic. EYES: No scleral icterus. No injection or drainage. NECK: Supple, trachea midline. No JVD or lymphadenopathy. CARDIOVASCULAR: Regular rate and rhythm without murmurs, gallops, or rubs. RESPIRATORY: Breath sounds equal bilaterally. No accessory muscle use. GASTROINTESTINAL: Abdomen soft, non-tender, nondistended. MUSCULOSKELETAL: No cyanosis, or edema. BACK: Nontender without obvious deformity. No CVA tenderness. Laboratory Tests Test 05/30/16 05/31/16 05/31/16 23:30 05:30 06:13 Hemoglobin 7.8 GM/DL 7.9 GM/DL Hematocrit 23.4 % 24.5 % White Blood Count 18.4 TH/MM3 Red Blood Count 2.87 MIL/MM3 Mean Corpuscular Volume 85.3 FL Mean Corpuscular Hemoglobin 27.5 PG Mean Corpuscular Hemoglobin 32.2 % Concent Red Cell Distribution Width 17.1 % Platelet Count 392 TH/MM3 Mean Platelet Volume 10.2 FL Neutrophils (%) (Auto) 88.0 % Lymphocytes (%) (Auto) 3.9 % Monocytes (%) (Auto) 6.3 % Eosinophils (%) (Auto) 1.7 % Basophils (%) (Auto) 0.1 % Neutrophils # (Auto) 16.2 TH/MM3 Lymphocytes # (Auto) 0.7 TH/MM3 Monocytes # (Auto) 1.2 TH/MM3 Eosinophils # (Auto) 0.3 TH/MM3 Basophils # (Auto) 0.0 TH/MM3 CBC Comment DIFF FINAL Differential Comment Prothrombin Time 40.8 SEC Prothromb Time International 3.5 RATIO Ratio Sodium Level 152 MEQ/L Potassium Level 3.4 MEQ/L Chloride Level 121 MEQ/L Carbon Dioxide Level 19.9 MEQ/L Anion Gap 11 MEQ/L Blood Urea Nitrogen 19 MG/DL Creatinine 0.94 MG/DL Estimat Glomerular Filtration 58 ML/MIN Rate Random Glucose 118 MG/DL Calcium Level 7.4 MG/DL Protein Corrected Calcium 8.5 MG/DL Total Bilirubin 0.5 MG/DL Aspartate Amino Transf 7 U/L (AST/SGOT) Alanine Aminotransferase 7 U/L (ALT/SGPT) Alkaline Phosphatase 65 U/L Total Protein 5.1 GM/DL Albumin 3.3 GM/DL Ammonia 28 MCMOL/L Assessment and Plan Problem List: (1) Dehydration (2) Sepsis (3) UTI (urinary tract infection) (4) Altered mental status (5) Clostridium difficile diarrhea (6) Hypotension (7) Abnormal abdominal CT scan (8) Atrial fibrillation (9) SALVADOR (acute kidney injury) Assessment and Plan 1.) PAF - in nsr, back on iv amio, coumadin, inr therapeutic, sepsis improved' part of rvr expalined by anemia and low iv volume from low oncotic pressure; rec dc amio elizabeth and consider blood transfusion Problem Qualifiers (1) Sepsis: Qualified Code: A41.9 - Sepsis, due to unspecified organism Srinivas Colin MD May 31, 2016 13:43
[2016-05-31] MEDS: BUMETANIDE INJ 1 MG/4 ML VIAL IV PUSH SCH (17:05)
[2016-05-31] MEDS: AMIODARONE INJ 450 MG in DEXTROSE 5% IN WATE(EXCEL) INJ 241 ML IV SCH ×4 (17:09→20:55)
[2016-05-31] MEDS: PRAVASTATIN SOD 20 MG TAB PO SCH (20:57)
[2016-05-31] MEDS ORDERED: MIDAZOLAM HCL 5 MG/ML VIAL (1 ML) ONE (21:34)
[2016-05-31] MEDS ORDERED: PROPOFOL 1000 MG/100 ML INJ 100 ML ONE (21:35)
[2016-05-31] MEDS ORDERED: PHENYLEPHRINE HCL 10 MG/ML VIAL ONE (21:47)
--- NOTE | 2016-05-31 21:54 | PD.PROCEDR ---
Procedure Note Procedure Endotracheal Intubation A time-out was completed verifying correct patient, procedure, site, positioning , and special equipment if applicable. The patient was placed in a flat position. Sedation was obtained using Etomidate 20mg. The patient was easily ventilated using an ambu bag. The [employer]/ MAC 4 BLADE was used and inserted into the oropharynx at which time there was a Grade 1 view of the vocal cords. A 8-welsh endotracheal tube was inserted and visualized going through the vocal cords. The stylette was removed. Colorimetric change was visualized on the CO2 meter. Breath sounds were heard in both lung chaudhry equally. The endotracheal tube was placed at 23 cm, measured at the teeth. A chest x-ray was ordered to assess for pneumothorax and verify endotrachealtube placement. Estimated Blood Loss: 0 The patient tolerated the procedure well and there were no complications. Rhett Downing MD May 31, 2016 21:54
[2016-05-31 22:43] LABS: BLOOD GAS BASE EXCESS -10.9 mmol/L (-2-2); BLOOD GAS CARBOXYHEMOGLOBIN 1.2 % (0-4); BLOOD GAS HCO3 14 mmol/L (22-26); BLOOD GAS METHEMOGLOBIN 1.3 % (0-2); BLOOD GAS O2 HGB SATURATION 98 % (90-100); BLOOD GAS OXYGEN CONTENT 11.3 Vol % (12.0-20.0); BLOOD GAS PCO2 26 mmHg (38-42); BLOOD GAS PO2 354 mmHg (61-120); BLOOD GAS TOTAL HGB 7.6 G/DL (12.0-16.0); CRITICAL VALUE YES; TEMP CORR TO 98.6
[2016-05-31 22:44] LABS: DRAW SITE RT RADIAL; FIO2 100 %; NUMBER OF ARTERIAL PUNCTURES 1; OXYGEN DEVICE VENTILATOR; STAT YES; ULNAR PULSE PRESENT; VENT SETTINGS AC12/500/PEEP5
[2016-05-31] MEDS ORDERED: SODIUM BICARBONATE 8.4% INJ 50 MEQ/50 ML SYR ONE (22:49)
--- NOTE | 2016-05-31 22:57 | RADRPT ---
EXAM DATE/TIME: 05/31/2016 22:33 [facility] COMPARISON: No previous studies available for comparison. INDICATIONS : E-T tube placement. MEDICAL HISTORY : Hypertension. Deep venous thrombosis. Gastroesophageal reflux disease. PE SURGICAL HISTORY : Cholecystectomy. ENCOUNTER: Subsequent ACUITY: 1 day PAIN SCORE: Non-responsive. LOCATION: Bilateral chest FINDINGS: A single view of the chest demonstrates bilateral perihilar airspace disease. Small pleural effusions . Cardiomegaly. Endotracheal tube 5 cm above the katty. Nasogastric tube with tip in stomach. Right jugular central line unchanged. The cardiomediastinal contours are unremarkable. Osseous structures are intact. CONCLUSION: Adequate placement of endotracheal tube. Bilateral perihilar edema and small pleural effusions. Patricio Mcnally MD on May 31, 2016 at 22:55 Board Certified Radiologist. This report was verified electronically.
[2016-06-01] VITALS (18 sets, daily range): BP systolic 92–117; BP diastolic 53–68; PULSE 85–99; RESP 20–32; TEMP 97.4–98.7; O2SAT 92–100
[2016-06-01] MEDS: metroNIDAZOLE 500 MG INJ 100 ML IV SCH ×4 (00:01→23:29)
[2016-06-01] MEDS: PROPOFOL 1000 MG/100 ML INJ 100 ML IV SCH ×5 (01:35→21:00)
[2016-06-01] MEDS: RESP: ALBUTEROL 2.5 MG/IPRATROPIUM 0.5 MG NEB (SCH) NEB ×4 (04:08→20:25)
[2016-06-01] MEDS: VANCOMYCIN 500 MG VIAL (FOR ORAL USE ONLY) PO SCH ×4 (04:26→21:00)
[2016-06-01 04:51] LABS: INTERNATIONAL NORMALIZED RATIO 2.6 RATIO; PROTHROMBIN TIME - PATIENT 30.2 SEC (9.8-11.6)
[2016-06-01 05:00] LABS: AUTOMATED NEUTROPHIL # 17.8 TH/MM3 (1.8-7.7); BASOPHIL % 0.1 % (0.0-2.0); EOSINOPHIL # 0.1 TH/MM3 (0-0.4); EOSINOPHIL % 0.3 % (0.0-4.0); HEMO FLAGS DIFF FINAL; LYMPH % 4.1 % (9.0-44.0); LYMPHOCYTE # 0.8 TH/MM3 (1.0-4.8); MEAN CELL VOLUME 84.7 FL (80.0-100.0); MEAN CORPUSCULAR HEMOGLOBIN 26.7 PG (27.0-34.0); MEAN CORPUSCULAR HGB CONC 31.6 % (32.0-36.0); NEUT % 91.5 % (16.0-70.0); PLATELET COUNT 362 TH/MM3 (150-450); RED BLOOD COUNT 2.71 MIL/MM3 (4.00-5.30); RED CELL DISTRIBUTION WIDTH 17.1 % (11.6-17.2); WHITE BLOOD COUNT 19.4 TH/MM3 (4.0-11.0)
[2016-06-01 05:06] LABS: ALT (GPT) 6 U/L (10-53); ANION GAP 14 MEQ/L (5-15); AST (GOT) 7 U/L (15-37); BICARBONATE 17.1 MEQ/L (21.0-32.0); BLOOD UREA NITROGEN 14 MG/DL (7-18); CHLORIDE 117 MEQ/L (98-107); GLOMERULAR FILTRATION RATE 53 ML/MIN (>89); POTASSIUM 3.2 MEQ/L (3.5-5.1); SODIUM (NA) 148 MEQ/L (136-145)
[2016-06-01 05:08] LABS: ALKALINE PHOSPHATASE 101 U/L (45-117); TOTAL BILIRUBIN ADULT 0.4 MG/DL (0.2-1.0)
[2016-06-01] MEDS: POTASSIUM CHLOR 40 MEQ PREMIX 100 ML IV PRN (05:20)
--- NOTE | 2016-06-01 06:33 | RADRPT ---
EXAM DATE/TIME: 06/01/2016 04:16 [facility] COMPARISON: CHEST SINGLE AP, May 31, 2016, 22:33. INDICATIONS : Shortness of breath, possible pulmonary disease. MEDICAL HISTORY : Hypertension. Deep venous thrombosis. Gastroesophageal reflux disease. PE SURGICAL HISTORY : Cholecystectomy. ENCOUNTER: Subsequent ACUITY: 2 days PAIN SCORE: Non-responsive. LOCATION: Bilateral chest FINDINGS: Endotracheal tube tip in satisfactory position. NG coiled in stomach. Right central line in superior vena cava. Bilateral mostly basilar airspace disease and effusions similar to May 31. CONCLUSION: 1. Stable basilar airspace disease and effusions compared to May 31. Support apparatus unchanged . Humberto Martin MD on June 01, 2016 at 6:30 Board Certified Radiologist. This report was verified electronically.
--- NOTE | 2016-06-01 08:37 | HHI.FPPN ---
Subjective Remarks Patient seen and examined this morning by medical team. Patient was intubated overnight due to tachypnea with desaturations to the 70s. She remains intubated and sedated this morning. Team discuss patient with Critical Care and palliative medicine to update plan as indicated. (Chaz Burns MD R1) Objective Vitals Vital Signs Date Time Temp Pulse Resp B/P Pulse Ox O2 Delivery O2 Flow Rate FiO2 06/01/16 06:00 88 06/01/16 04:21 98 50 06/01/16 04:00 50 06/01/16 04:00 85 06/01/16 04:00 98.4 92 23 92/63 97 06/01/16 02:00 92 06/01/16 01:22 98 100 06/01/16 00:00 98.2 96 32 107/64 97 06/01/16 00:00 96 06/01/16 00:00 100 06/01/16 00:00 100 05/31/16 22:00 106 05/31/16 21:45 100 05/31/16 21:15 93 Nasal Cannula 4.00 05/31/16 20:00 98.6 98 30 117/67 100 05/31/16 20:00 99 05/31/16 18:00 99 05/31/16 16:00 97.8 92 20 106/58 100 05/31/16 16:00 92 05/31/16 14:00 94 05/31/16 12:00 97.5 137 27 115/74 100 05/31/16 12:00 137 05/31/16 10:00 135 I/O 05/31/16 05/31/16 05/31/16 06/01/16 06/01/16 06/01/16 07:00 15:00 23:00 07:00 15:00 23:00 Intake Total 1035 ml 982 ml 1759 ml 1076 ml Output Total 900 ml 900 ml 1900 ml 450 ml Balance 135 ml 82 ml -141 ml 626 ml Intake Oral 100 ml 240 ml 50 ml IV Total 935 ml 742 ml 1709 ml 1076 ml Output Urine Total 750 ml 800 ml 1600 ml 250 ml Stool Total 150 ml 100 ml 300 ml 200 ml (Chaz Burns MD R1) Result Diagram: 06/01/1641906/01/16419 Objective Remarks GEN: Obese 75 y/o CF lying in bed, intubated and sedated. SKIN: Bilateral hands cold to touch with mild/moderate cyanosis on fingertips. Present on many toes as well. LUNGS: Patient intubated with midline ETT per CXR. Coarse breath sounds bilaterally with no CRW. CARDIOVASCULAR: Regular rhythm with rate of 89. No murmurs, gallops or rubs. GI/ABD: Difficult to examine as she is edematous up to her lower ribs. Distended , faint BS heard with no obvious masses palpated. MUSC: Lower extremities show 3+ pitting edema to sacrum and abdomen to her lower ribs. PSYCH/MENTAL STATUS: Unable to evaluate as patient is intubated and sedated. (Chaz Burns MD R1) A/P Assessment and Plan Mrs. Ramírez is a 75 y/o CF who presented due to hypotension and AMS. Admitted for Sepsis and AMS. Discharge Planning Timeline unknown. Discussed severity of situation with her , Amari Ramírez, on 05/31/16 and . Palliative consult placed at this time for goals of care. DW: Dr. Espinal WDW: Dr. Borrego (Chaz Burns MD R1) Attending Attestation Patient seen and examined. Case reviewed and discussed with the resident team. Agree with plan of care as discussed with me and documented in the resident note. unfortunately, she continues to worsen day by day. she has been ill for quite awhile as this is her 4th hospitalization in about 2 months (Courtney Borrego MD) Problem List: (1) Sepsis Status: Acute Plan: Met sepsis criteria on admission with tachycardia and leukocytosis. Also found to have altered mental status. Complicated by hypotension in the setting of generalized edema. Source likely due to C. difficile but etiology unclear. -Minimally improved leukocytosis -Hyperammonemia resolved -Urine and blood culture negative x4day Critical care consulted on 05/29: Appreciate recommendations. * Transition to PO amiodarone as tolerated * Goal to keep potassium >4 and magnesium >2, 80 mEq KCl given IV overnight * Skin findings of hands likely due to Raynaud's phenomenon, consider calcium channel servando if not improving. * Patient intubated on 05/31/16 for tachypnea and desaturations; currently sedated on Propofol at 35 mcg/kg/min with ETT in place. Ventilator settings at 12/500/50%/5 on AC mode with a rate of 12. Consulted ID: Appreciate recommendations * Discontinue vancomycin and Zosyn * PO vancomycin * IV Flagyl Imaging: * Chest x-ray: 2.5cm ill-defined opacity projecting over the left lower chest/ lung. Recommend noncontrast CT * Noncontrast CT: Abnormal density on the left chest x-ray is associated with hiatal hernia. There are small lateral nodular densities in the left lung base that can be followed. * Head CT: Negative Medications: * Transition to PO vancomycin (05/29- * Zosyn 2.5 g every 6 hours (05/28-05/29) * Flagyl 500 mg IV every 8 hours (05/28- * Rifaximin 550mg BID, will consider discontinuing as improved ammonia level has not improved mental status Relevant history obtained from spouse: Mr. Amari Ramírez ([phone]): Has been hospitalized 3 times since [place] at [facility]. Diagnoses at these admissions unclear but does report elevated heart rate in the 180s. Mother admission was for a GI bleed that required 3-4 transfusions but etiology is unknown. Patient was continued on warfarin despite this GI bleed. Another admission was for a DVT and an IVC filter was placed. Patient was at [facility] for rehabilitation prior to current admission. (2) Atrial fibrillation Status: Acute Plan: A. fib recurrent. Failed diltiazem drip, but rate was controlled after transitioning to amiodarone drip. She was transitioned to PO, however went back into A. fib with RVR so the drip was restarted. -CC currently managing -Amiodarone drip at 17/hr -Plans to initially start loading Digoxin to assist with rate control, however rate responded well to Amiodarone -Consider restarting home calcium channel servando in the setting of Raynaud's and A. fib. once BP improves -INR therapeutic on Coumadin, held for anemia secondary to acute GI bleed -Cardiology consulted to assist with management: Appreciate recommendations * Okay to have rate slightly higher to meet metabolic demands and increased cardiac output due to sepsis initially however she is not overtly septic at this time * Recommend continuing telemetry * Recommend discontinuing amiodarone drip as soon as possible and consider blood transfusion (3) Altered mental status Status: Acute Plan: Please see plan as above. (4) Anemia Status: Acute Plan: Patient with anemia to 7.2 on 05/30/14 found to be Hemoccult positive. -One unit RBC transfused on 05/30/16, post-transfusion H/H 7.8/.4 -One unit RBC transfused on 06/01/16, post transfusion H/H pending -Hold Coumadin -Continue to monitor (5) Abnormal abdominal CT scan Status: Acute Plan: Patient with abnormal abdominal CT scan upon admission. History is significant for prior GI bleed. Unclear treatment of finding on CT, appreciate GI recommendations. -Hemoccult-negative 05/28, repeat ordered due to supratheraperutic INR, hemocult positive 05/30 -Continue to monitor H&H, transfuse as indicated, transfused 2 RBC over 05/30- GI consulted: Appreciate recommendations -Oral Vancomycin -Flagyl -PPI Abdominal pelvis CT: No dilated loops of small and large bowel. 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 Prominent calcification or ossification at the GE junction. Consider direct visualization of GE junction. PROM and induration of the left and right lateral abdominal wall subcutaneous fat. (6) Clostridium difficile diarrhea Status: Acute Plan: PCR: Positive --See plan above (7) SALVADOR (acute kidney injury) Status: Resolved Plan: Improving renal function since admission. -Downtrending creatinine -Continue hydration cautiously in the setting of generalized edema -See fluids below for rate (8) Nutrition, metabolism, and development symptoms Status: Acute Plan: Diet: low albumin. pt has been sick for months so will increase calories in diet and add ensure as tolerated. Fluids: appreciate help of Sanitation Lead Dr Levy. she needs free water with her elevated Na but is very edematous Electrolytes: replace per protocol DVT prophylaxis: Supratherapeutic Coumadin with an INR of 3.4 initially, has decreased since GI prophylaxis: Pepcid 10mg BID (Chaz Burns MD R1) Problem Qualifiers (1) Sepsis: Qualified Code: A41.9 - Sepsis, due to unspecified organism (2) Altered mental status: Qualified Code: R41.0 - Delirium Chaz Burns MD R1 Jun 01, 2016 08:37 Courtney Borrego MD Jun 03, 2016 13:42
[2016-06-01] MEDS: POTASSIUM CL 40 MEQ/30 ML LIQ UDC PO SCH (09:00)
[2016-06-01] MEDS: BUMETANIDE INJ 1 MG/4 ML VIAL IV PUSH SCH ×2 (09:40→23:28)
[2016-06-01] MEDS: RIFAXIMIN 550 MG TAB PO SCH ×2 (09:41→21:00)
[2016-06-01] MEDS: FAMOTIDINE 20 MG TAB PO SCH (09:45)
[2016-06-01] MEDS ORDERED: SODIUM CHLOR 0.9% 250 ML INJ 250 ML IV ONE (09:45)
[2016-06-01] MEDS: SODIUM CHLORIDE 0.9% FLUSH 5 ML FLUSH FLUSH SCH ×2 (09:46→21:00)
[2016-06-01] MEDS: AMIODARONE INJ 450 MG in DEXTROSE 5% IN WATE(EXCEL) INJ 241 ML IV SCH ×2 (11:29)
[2016-06-01] MEDS: DEXTROSE 5% IN WATE 1000ML INJ 1,000 ML IV SCH ×2 (11:29→21:01)
--- NOTE | 2016-06-01 13:58 | PD.CONS ---
Consult Service Palliative Care Consult Requested By Dr. Cash Primary Care Physician Farhat Louis MD Reason for Consultation a. To assist with evaluation and management of symptoms including: dyspnea b. To assist medical decision maker(s) with: better understanding of current medical conditions; weighing benefits/burdens of medical treatment options; making medical treatment decisions. HPI History of Present Illness 75 assisted patient with a past medical history of anxiety, depression, hypertension, DVT, that had been in [facility] on multiple occasions in the past few months. Patient herself could not give too much of a history, but spouse endorsed that she has been hospitalized 3 times since at [facility]. Her first admission was due to weakness and all he can remember about her admission was her HR was in the 180s. She was discharged home without a formal diagnosis per her . She was then hospitalized on for for black stools and anemia. He states that she was give 3-4 transfusions during the hospitalizations and discharged home. When asked if she had a GI bleed, he states that they could not find a cause for her bleeding. Her last admission was "a couple of weeks ago" for leg swelling. She was found to have blood clots in her RLE. An IVC filter was placed, and she was started on Coumadin despite having a probable GI bleed. She was then discharged to [facility] for rehabilitation. While in the nursing facility, spouse state that she has had decrease in activity and by PO intake. Patient presented to the emergency department with altered mental status on 05/28. They were not able to get much of a history at the time this patient has been very confused. In the ER: * Temperature is 97.4, pulse is 87, respirations 16, blood pressure is 80/53 * WBCs 21.3, hemoglobin is 10.3 and hematocrit is 30.8, platelets 575 * Sodium is 144, potassium 3.6, chloride is 109, bicarbonate is 21.9, BUN 66, creatinine is 1.93, AST is 12, AST 7, alkaline phosphatase is 95 * Troponin I is less than 0.02, BNP is 160, total protein is 5.0, albumin is 1.8 * PTT is 37.7, INR is 2.9, APTT is 39.9 * Urine shows trace leukocyte esterase, negative nitrites, culture was indicated. * Patient is positive for C. difficile tox. * Head CT shows no acute disease process * Abdominal pelvis CT: No dilated loops of small and large bowel. 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 Prominent calcification or ossification at the GE junction. Consider direct visualization of GE junction. PROM and induration of the left and right lateral abdominal wall subcutaneous fat. * Chest CT shows abnormal density, tiny lateral left lung base nodular density. * Chest x-ray shows 2.5 cm ill-defined opacity projected over the left lower chest In the ER patient was given an fluid resuscitation, or patient's acute kidney insufficiency. Patient has leukocytosis and was given broad-spectrum antibiotics. ER physician suspected hypovolemia in the setting of C. difficile colitis, sepsis and patient was transferred to family medicine services. 05/29/2016 Overnight patient had episode of tachycardia with a heart rate of 150s , was found to be in A. fib with RVR. Patient given diltiazem. ACS rule out initiated, and was ruled out negative. Troponin remains less than 0.02. Creatinine trending down. Has leukocytosis. Patient's mentation improved, and is more alert and oriented to person place and time. Cardiology consult was ordered, for A. fib. Cardiology stated that patient is therapeutically anticoagulated. Suspected heart rate is due to sepsis and increased metabolic demand. Recommends conservative management. Echocardiography EF is 55-60%. There is moderate to severe regurgitation of the mitral valve. There is moderate to severe regurgitation of the tricuspid valve. Infectious disease was consulted, place patient on vancomycin and Flagyl. Right IJ was placed. [employer] Agent was consulted, as patient became hypotensive. And stat lactic acid was ordered, fluid bolus was given. Pressures ordered only if refractory to fluids. GI was consulted, CT scan shows periesophageal herniation and calcification of the GE junction. Plan on doing EGD when patient is more stable. 05/30/2016- patient became more normotensive after bolus resuscitation. There is noted peripheral cyanosis in the lower extremity probably due to raynauds symptoms. Patient on amiodarone infusion. Continue to be in the ICU. Patient continued to be full code. A. fib has resolved. 05/31/2016. Patient was seen by intensive care again. Patient has worsening edema, A. fib redeveloped. Patient restarted on Bumex. Overnight patient became very anxious with tachypnea and saturations in the 70s. Intubation was performed and oxygen saturation responded appropriately. Hemoglobin yesterday was 7.2 and one unit was transfused bringing her hemoglobin up to 7.9. Patient' s heart rate responded appropriately after transitioning back to the Amiodarone drip. Palliative care was consulted to review goals of care. In summary: This is a 75-year-old who has had multiple hospitalization secondary to tachycardia, DVTs, GI bleed the past few months. Currently patient came in due to altered mental status, C. diff colitis and sepsis. Patient was found to have moderate to severe mitral and tricuspid regurgitation. Course of hospitalization is complicated by edema, hypoalbumin, A. fib, respiratory failure, and anemia. Palliative Care consulted to review goals of care. Today: pt intubated. worsening leukocytosis, hgb trending down. CXR show basilar airspace disease and effusions which is stable. Pt is not non verbal could not give hx, intubated. Function/Cognitive Trajectory Multiple hospitalization at [facility] x 3 since 2015. Pt clearly is declining. Review of Systems ROS Limitations: Clinical Condition Past Family Social History Coded Allergies: Adhesives (Verified Allergy, Unknown, 05/28/16) Betadine (Verified Allergy, Unknown, 05/28/16) Nexium (Verified Allergy, Unknown, 05/28/16) Past Medical History GI bleed, DVT, anxiety, depression, a fib, GERD, PE, Past Surgical History tubal ligation, cholecystectomy, surgery Reported Medications Pravastatin 20 Mg Tab 20 Mg PO HS Zantac 75 (Ranitidine HCl) 75 Mg Tab 75 Mg PO BID Take 30 to 60 minutes before eating food or drinking beverages that cause heartburn. Metoprolol Tartrate 25 Mg Tab 25 Mg PO BID Lisinopril 20 Mg Tab 20 Mg PO DAILY Fluoxetine (Fluoxetine HCl) 40 Mg Cap 40 Cap PO DAILY Diltiazem ER 24 HR (Diltiazem HCl) 120 Mg Caper 120 Mg PO DAILY Flexeril (Cyclobenzaprine HCl) 10 Mg Tab 10 Mg PO TID [place] (Hydrocodone-Acetaminophen) 5-325 mg Tab 1 Tab PO Q6H Coumadin (Warfarin) 2.5 Mg Tab 2.5 Mg PO DAILY Lidocaine Patch 12 HR (Lidocaine) 5 % Patch 1 Patch TOPICAL DAILY Remove patch after 12 hours Current Medications Medications (Trade) Dose Ordered Sig/Nabil Route Start Time Stop Time Status Last Admin (NS Flush) 2 ml UNSCH PRN FLUSH 05/28/16 15:15 (NS Flush) 2 ml BID FLUSH 05/28/16 21:00 06/01/16 09:46 (Tylenol) 650 mg Q4H PRN PO 05/28/16 15:15 Naloxone HCl 0.4 mg 0.4 mg UNSCH PRN IV 05/28/16 15:15 (Flagyl 500 Mg Inj) 100 ml @ 100 mls/hr Q8H IV 05/28/16 23:00 06/01/16 07:38 (Lopressor) 25 mg BID PO 05/29/16 09:00 Hold (Pravachol) 20 mg HS PO 05/29/16 21:00 05/31/16 20:57 (Pepcid) 10 mg BID PO 05/29/16 09:00 06/01/16 09:45 (Pill Splitter) 1 ea UNSCH PRN OTHER 05/28/16 21:30 (Cardizem Cd) 120 mg DAILY PO 05/29/16 09:00 Hold (Xifaxan) 550 mg BID PO 05/29/16 09:00 06/01/16 09:41 (VANCOMYCIN for oral use only) 500 mg Q6H PO 05/29/16 21:00 06/01/16 09:41 (D50w (Vial) Inj) 25 ml UNSCH PRN IV PUSH 05/30/16 00:15 05/30/16 18:21 Glucagon 1 mg 1 mg UNSCH PRN OTHER 05/30/16 00:15 Potassium Chloride 100 ml @ 50 mls/hr Q2H PRN IV 05/30/16 07:30 06/01/16 05:20 (KCl 20 Meq Premix Inj) 100 ml @ 50 mls/hr Q2H PRN IV 05/30/16 07:30 Potassium Chloride 40 meq 40 meq UNSCH PRN PO/TUBE 05/30/16 07:30 05/30/16 08:30 Potassium Chloride 100 ml @ 25 mls/hr UNSCH PRN IV 05/30/16 07:30 05/31/16 09:44 Potassium Chloride 100 ml @ 50 mls/hr Q2H PRN IV 05/30/16 07:30 (Magnesium Sulfate Inj/NS Inj) 100 ml @ 50 mls/hr UNSCH PRN IV 05/30/16 07:30 Magnesium Oxide 800 mg 800 mg UNSCH PRN PO 05/30/16 07:30 (Magnesium Sulfate Inj/NS Inj) 100 ml @ 50 mls/hr UNSCH PRN IV 05/30/16 07:30 Potassium Phosphate 2000 mg 2,000 mg Q4H PRN PO 05/30/16 07:30 (Sodium Phosphate Inj/NS 250 ml Inj) 250 ml @ 42 mls/hr UNSCH PRN IV 05/30/16 07:30 (KCl 40 Meq/30 ml Liq) 40 meq UNSCH PRN PO/TUBE 05/30/16 07:30 Potassium Phosphate 2000 mg 2,000 mg UNSCH PRN PO/TUBE 05/30/16 07:30 Potassium Phosphate 30 mmol/ Sodium Chloride 260 ml @ 42 mls/hr UNSCH PRN IV 05/30/16 07:30 (Coumadin Consult Pharmacy) 0 ml @ 0 mls/hr UNSCH OTHER 05/30/16 07:30 (Cordarone) 200 mg DAILY PO 05/30/16 09:00 Hold 05/31/16 09:21 Metoprolol Tartrate 5 mg 5 mg Q5M PRN IV PUSH 05/31/16 01:30 05/31/16 09:44 Amiodarone HCl 450 mg/Dextrose 250 ml @ 0 mls/hr CONTINUOUS IV 05/31/16 11:00 06/01/16 11:29 (D5W 1000 ml Inj) 1,000 ml @ 100 mls/hr Q10H IV 05/31/16 12:00 06/01/16 11:29 (Bumex Inj) 1 mg BID@09,18 IV PUSH 05/31/16 18:00 06/01/16 09:40 Potassium Chloride 40 meq 40 meq DAILY PO 05/31/16 11:30 05/31/16 12:31 Propofol 100 ml @ 0 mls/hr TITRATE IV 05/31/16 22:30 06/01/16 10:15 (NS 250 ml Inj) 250 ml @ 15 mls/hr ONCE ONCE IV 06/01/16 09:45 06/02/16 02:24 06/01/16 11:23 (Coumadin) 1 mg DAILY@16 PO 06/01/16 16:00 Family History unable to elicit Substance Use Tobacco: Alcohol: Prescription med abuse: Illicits: Psychosocial History could not elicit. Spiritual/Cultural Factors could not elicit Living Will: Never completed Health Care Surrogate: Never completed Durable Power of Train Brake Operator: Never completed Physical Exam Vital Signs Date Time Temp Pulse Resp B/P Pulse Ox O2 Delivery O2 Flow Rate FiO2 06/01/16 11:39 94 60 06/01/16 08:46 94 50 06/01/16 06:00 88 06/01/16 04:21 98 50 06/01/16 04:00 50 06/01/16 04:00 85 06/01/16 04:00 98.4 92 23 92/63 97 06/01/16 02:00 92 06/01/16 01:22 98 100 06/01/16 00:00 98.2 96 32 107/64 97 06/01/16 00:00 96 06/01/16 00:00 100 06/01/16 00:00 100 05/31/16 22:00 106 05/31/16 21:45 100 05/31/16 21:15 93 Nasal Cannula 4.00 05/31/16 20:00 98.6 98 30 117/67 100 05/31/16 20:00 99 05/31/16 18:00 99 05/31/16 16:00 97.8 92 20 106/58 100 05/31/16 16:00 92 05/31/16 14:00 94 05/31/16 06/01/16 19:00 07:00 Intake Total 982 ml 2835 ml Output Total 900 ml 2350 ml Balance 82 ml 485 ml Intake Oral 240 ml 50 ml IV Total 742 ml 2785 ml Output Urine Total 800 ml 1850 ml Stool Total 100 ml 500 ml Exam CONSTITUTIONAL/GENERAL: This is frail female patient, intubated and sedated TUBES/LINES/DRAINS:RIJ, ET tube, bess, rectal tube. SKIN: No jaundice, rashes, or lesions. Ecchymoses on upper extremities. No wounds seen anteriorly. Skin temperature appropriate. Not diaphoretic. HEAD: Atraumatic. Normocephalic. EYES: eyes closed did not force open. ENT: . Throat ET tube. could not examine hearing. NECK: Trachea midline. Supple, nontender. No palpable thyroid enlargement or nodularity. CARDIOVASCULAR:Irregularly irregular RESPIRATORY/CHEST: Symmetric, Rhonchi. GASTROINTESTINAL: Abdomen soft, non-tender, distended. anasarca up to abdomen GENITOURINARY: Without palpable bladder distension. Bess catheter in place. MUSCULOSKELETAL: There is clubbing and cyanosis of upper and lower ext. There is anarsarca LYMPHATICS: No palpable cervical or supraclavicular adenopathy. NEUROLOGICAL: sedated, intubated. PSYCHIATRIC: could not examine. Diagnostic Tests Laboratory Laboratory Tests Test 05/29/16 05/29/16 05/29/16 05/30/16 14:09 22:18 22:30 05:50 Ammonia 13 MCMOL/L LESS THAN 10 (11-32) MCMOL/L (11-32) Lactic Acid Level 1.3 mmol/L (0.4-2.0) Nasal Screen MRSA (PCR) NEGATIVE (NEGATIVE) Staphylococcus aureus NEGATIVE (PCR)(LAB) (NEGATIVE) White Blood Count 19.1 TH/MM3 (4.0-11.0) Red Blood Count 2.69 MIL/MM3 (4.00-5.30) Hemoglobin 7.2 GM/DL (11.6-15.3) Hematocrit 22.5 % (35.0-46.0) Mean Corpuscular Volume 83.5 FL (80.0-100.0) Mean Corpuscular Hemoglobin 26.7 PG (27.0-34.0) Mean Corpuscular Hemoglobin 32.0 % Concent (32.0-36.0) Red Cell Distribution Width 17.6 % (11.6-17.2) Platelet Count 468 TH/MM3 (150-450) Mean Platelet Volume 10.6 FL (7.0-11.0) Neutrophils (%) (Auto) 91.5 % (16.0-70.0) Lymphocytes (%) (Auto) 3.4 % (9.0-44.0) Monocytes (%) (Auto) 4.0 % (0.0-8.0) Eosinophils (%) (Auto) 1.0 % (0.0-4.0) Basophils (%) (Auto) 0.1 % (0.0-2.0) Neutrophils # (Auto) 17.5 TH/MM3 (1.8-7.7) Lymphocytes # (Auto) 0.6 TH/MM3 (1.0-4.8) Monocytes # (Auto) 0.8 TH/MM3 (0-0.9) Eosinophils # (Auto) 0.2 TH/MM3 (0-0.4) Basophils # (Auto) 0.0 TH/MM3 (0-0.2) CBC Comment DIFF FINAL Differential Comment Prothrombin Time 39.3 SEC (9.8-11.6) Prothromb Time International 3.4 RATIO Ratio Sodium Level 152 MEQ/L (136-145) Potassium Level 2.8 MEQ/L (3.5-5.1) Chloride Level 119 MEQ/L (98-107) Carbon Dioxide Level 19.7 MEQ/L (21.0-32.0) Anion Gap 13 MEQ/L (5-15) Blood Urea Nitrogen 27 MG/DL (7-18) Creatinine 1.06 MG/DL (0.50-1.00) Estimat Glomerular Filtration 51 ML/MIN (>89) Rate Random Glucose 113 MG/DL (74-106) Calcium Level 7.3 MG/DL (8.5-10.1) Protein Corrected Calcium 8.8 MG/DL (8.5-10.1) Total Protein 4.4 GM/DL (6.4-8.2) Test 05/30/16 05/30/16 05/30/16 05/31/16 09:32 13:19 23:30 05:30 Sodium Level 151 MEQ/L 152 MEQ/L (136-145) (136-145) Potassium Level 3.7 MEQ/L 3.4 MEQ/L (3.5-5.1) (3.5-5.1) Chloride Level 121 MEQ/L 121 MEQ/L (98-107) (98-107) Carbon Dioxide Level 19.4 MEQ/L 19.9 MEQ/L (21.0-32.0) (21.0-32.0) Anion Gap 11 MEQ/L (5-15) 11 MEQ/L (5-15) Blood Urea Nitrogen 27 MG/DL (7-18) 19 MG/DL (7-18) Creatinine 1.04 MG/DL 0.94 MG/DL (0.50-1.00) (0.50-1.00) Estimat Glomerular Filtration 52 ML/MIN (>89) 58 ML/MIN (>89) Rate Random Glucose 99 MG/DL 118 MG/DL (74-106) (74-106) Calcium Level 7.8 MG/DL 7.4 MG/DL (8.5-10.1) (8.5-10.1) Phosphorus Level 2.0 MG/DL (2.5-4.9) Magnesium Level 2.1 MG/DL (1.5-2.5) Blood Type A POSITIVE A POSITIVE Antibody Screen NEGATIVE Crossmatch Leukocyte-Reduced Red Blood Cells Blood Bank Comment Hemoglobin 7.8 GM/DL 7.9 GM/DL (11.6-15.3) (11.6-15.3) Hematocrit 23.4 % 24.5 % (35.0-46.0) (35.0-46.0) White Blood Count 18.4 TH/MM3 (4.0-11.0) Red Blood Count 2.87 MIL/MM3 (4.00-5.30) Mean Corpuscular Volume 85.3 FL (80.0-100.0) Mean Corpuscular Hemoglobin 27.5 PG (27.0-34.0) Mean Corpuscular Hemoglobin 32.2 % Concent (32.0-36.0) Red Cell Distribution Width 17.1 % (11.6-17.2) Platelet Count 392 TH/MM3 (150-450) Mean Platelet Volume 10.2 FL (7.0-11.0) Neutrophils (%) (Auto) 88.0 % (16.0-70.0) Lymphocytes (%) (Auto) 3.9 % (9.0-44.0) Monocytes (%) (Auto) 6.3 % (0.0-8.0) Eosinophils (%) (Auto) 1.7 % (0.0-4.0) Basophils (%) (Auto) 0.1 % (0.0-2.0) Neutrophils # (Auto) 16.2 TH/MM3 (1.8-7.7) Lymphocytes # (Auto) 0.7 TH/MM3 (1.0-4.8) Monocytes # (Auto) 1.2 TH/MM3 (0-0.9) Eosinophils # (Auto) 0.3 TH/MM3 (0-0.4) Basophils # (Auto) 0.0 TH/MM3 (0-0.2) CBC Comment DIFF FINAL Differential Comment Prothrombin Time 40.8 SEC (9.8-11.6) Prothromb Time International 3.5 RATIO Ratio Protein Corrected Calcium 8.5 MG/DL (8.5-10.1) Total Bilirubin 0.5 MG/DL (0.2-1.0) Aspartate Amino Transf 7 U/L (15-37) (AST/SGOT) Alanine Aminotransferase 7 U/L (10-53) (ALT/SGPT) Alkaline Phosphatase 65 U/L (45-117) Total Protein 5.1 GM/DL (6.4-8.2) Albumin 3.3 GM/DL (3.4-5.0) Test 05/31/16 05/31/16 05/31/16 06/01/16 06:13 12:00 22:29 04:20 Ammonia 28 MCMOL/L (11-32) Magnesium Level 2.0 MG/DL (1.5-2.5) Blood Gas Puncture Site RT RADIAL Blood Gas Patient Temperature 98.6 Blood Gas HCO3 14 mmol/L (22-26) Blood Gas Base Excess -10.9 mmol/L (-2-2) Blood Gas Oxygen Saturation 98 % (90-100) Arterial Blood pH 7.34 (7.380-7.420) Arterial Blood Partial 26 mmHg (38-42) Pressure CO2 Arterial Blood Partial 354 mmHg Pressure O2 (61-120) Arterial Blood Oxygen Content 11.3 Vol % (12.0-20.0) Arterial Blood 1.2 % (0-4) Carboxyhemoglobin Arterial Blood Methemoglobin 1.3 % (0-2) Blood Gas Hemoglobin 7.6 G/DL (12.0-16.0) Oxygen Delivery Device VENTILATOR Blood Gas Ventilator Setting AC12/500/PEEP5 Blood Gas Inspired Oxygen 100 % White Blood Count 19.4 TH/MM3 (4.0-11.0) Red Blood Count 2.71 MIL/MM3 (4.00-5.30) Hemoglobin 7.2 GM/DL (11.6-15.3) Hematocrit 23.0 % (35.0-46.0) Mean Corpuscular Volume 84.7 FL (80.0-100.0) Mean Corpuscular Hemoglobin 26.7 PG (27.0-34.0) Mean Corpuscular Hemoglobin 31.6 % Concent (32.0-36.0) Red Cell Distribution Width 17.1 % (11.6-17.2) Platelet Count 362 TH/MM3 (150-450) Mean Platelet Volume 10.4 FL (7.0-11.0) Neutrophils (%) (Auto) 91.5 % (16.0-70.0) Lymphocytes (%) (Auto) 4.1 % (9.0-44.0) Monocytes (%) (Auto) 4.0 % (0.0-8.0) Eosinophils (%) (Auto) 0.3 % (0.0-4.0) Basophils (%) (Auto) 0.1 % (0.0-2.0) Neutrophils # (Auto) 17.8 TH/MM3 (1.8-7.7) Lymphocytes # (Auto) 0.8 TH/MM3 (1.0-4.8) Monocytes # (Auto) 0.8 TH/MM3 (0-0.9) Eosinophils # (Auto) 0.1 TH/MM3 (0-0.4) Basophils # (Auto) 0.0 TH/MM3 (0-0.2) CBC Comment DIFF FINAL Differential Comment Prothrombin Time 30.2 SEC (9.8-11.6) Prothromb Time International 2.6 RATIO Ratio Sodium Level 148 MEQ/L (136-145) Potassium Level 3.2 MEQ/L (3.5-5.1) Chloride Level 117 MEQ/L (98-107) Carbon Dioxide Level 17.1 MEQ/L (21.0-32.0) Anion Gap 14 MEQ/L (5-15) Blood Urea Nitrogen 14 MG/DL (7-18) Creatinine 1.02 MG/DL (0.50-1.00) Estimat Glomerular Filtration 53 ML/MIN (>89) Rate Random Glucose 147 MG/DL (74-106) Calcium Level 7.6 MG/DL (8.5-10.1) Total Bilirubin 0.4 MG/DL (0.2-1.0) Aspartate Amino Transf 7 U/L (15-37) (AST/SGOT) Alanine Aminotransferase 6 U/L (10-53) (ALT/SGPT) Alkaline Phosphatase 101 U/L (45-117) Total Protein 5.1 GM/DL (6.4-8.2) Albumin 3.7 GM/DL (3.4-5.0) Test 06/01/16 09:47 Blood Type A POSITIVE Crossmatch Leukocyte-Reduced Red Blood Cells Blood Bank Comment Result Diagram: 06/01/16 0420 06/01/16 0420 Microbiology Microbiology Date/Time Procedure Status Source Growth 05/30/16 14:30 Stool Occult Blood (MARIANGEL) - Final Complete Stool Stool HEMOCCULT POSITIVE Imaging Last Impressions Chest X-Ray 06/01/16 0600 Signed Impressions: Service Date/Time: Wednesday, June 01, 2016 04:16 - CONCLUSION: 1. Stable basilar airspace disease and effusions compared to May 31. Support apparatus unchanged. Humberto Martin MD Head CT 05/28/16 0000 Signed Impressions: Service Date/Time: May 12:37 - CONCLUSION: No acute disease. Klever Roberts Jr., MD Chest CT 05/28/16 0000 Signed Impressions: Service Date/Time: May 16:14 - CONCLUSION: Abnormal density on the chest x-ray is associated with hiatal hernia. There is a tiny lateral left lung base nodular density which can be followed Cam Amaro MD Abdomen/Pelvis CT 05/28/16 0000 Signed Impressions: Service Date/Time: May 12:44 - CONCLUSION: 1. No dilated loops of small and large bowel. 2. 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 There is also a prominent calcification or ossification at the gastroesophageal junction which is of uncertain significance. May consider direct visualization of the GE junction to further evaluate the configuration and this calcification. 3. Prominent induration of the left and right lateral abdominal wall subcutaneous fat. Klever Calderón MD Procedures [facility] Patient/Family Conference Family Conference Time (mins): 45 Issues Discussed: * Palliative care role, purpose, approach * Additional medical, psychosocial, and spiritual history * Patients general health, functional status, and cognitive changes in the months leading up to the current hospitalization * Patient/family understanding of the current medical problems * Patient/family understanding of prognosis * Patients goals of care as best understood from advance directives and/or conversations and/or values * Current medical treatment options and benefits/burdens of those options * Likely scenarios comparing ongoing aggressive care with a transition to comfort measures only * Questions answered to the best of my ability * Palliative care contact information provided Assessment and Plan Disease Oriented Problem List: (1) Sepsis (2) Atrial fibrillation (3) Altered mental status (4) DVT (deep venous thrombosis) (5) Hypotension (6) Clostridium difficile diarrhea (7) Abnormal abdominal CT scan (8) [place] (acute kidney injury) (9) Anemia Symptom Scale: Pertinent Non-Medical Issues Psychosocial: Spiritual: Legal: Ethical issues impacting care: Important Contacts Mr. Amari Ramírez [phone] Prognosis This is a 75-year-old who has had multiple hospitalization secondary to tachycardia, DVTs, GI bleed the past few months. Currently patient came in due to altered mental status, C. diff colitis and sepsis. Patient was found to have moderate to severe mitral and tricuspid regurgitation. Course of hospitalization is complicated by edema, hypoalbumin, A. fib, respiratory failure, and anemia. Overall prognosis appears to be poor. Pt at risk of sudden decline, setback and as evidenced by prior hospitalization (4 total since this past ). Code Status: Full Code Plan == Code:Spoke with Mr. Ramírez over the phone review poor prognosis, and may not survive the night. Ameanble to change to No Code/ DNR/ DNI. No shock, no acls , no cpr. No reintubation should pt be extubated. == Goals: I have left a voicemail with spouse, but did not called back. I was able to speak with Mr. Ramírez later in the afternoon. Able to speak with Mr. ramírez over the phone, pt' spouse, aware of poor prognosis and may not survive the night. Amenable to change to No code/DNR/ DNI. Pt will remain intubated for now. Did not talk about terminal extubation , spouse overwhelmed. Pt's spouse overwhelm. amenable to for f/u visit should pt still be here. Pt's condition evolving rapidly. Pt's spouse overwhelmed by decisions today, will f/u on further goal clarification, should pt still be here tomorrow. Pt's spouse tearful. 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 ==palliative care -Pt's spouse overwhelmed by decisions today, will f/u on further goal clarification, should pt still be here tomorrow. == d/w with family medicine. Time Spent Total Floor Time (mins): 60 Face to Face Time (mins): 40 Thank you for the opportunity to participate in the care of Ms. Ramírez. Attestation To help prompt me to consider important information that might be impacting today's encounter and assessment, information from prior notes written by myself or my colleagues may have been "brought forward" into today's note. My signature on this note, however, is an attestation that I personally performed the exam, history, and/or decision-making noted today, and, unless otherwise indicated, the interactions with patient, family, and staff as well as the review of records all occurred today. I also attest that the listed assessment and stated plan reflect my best clinical judgment today based on the combination of historical information, prior notes, and today's exam/ interactions. When time spent is documented, it refers only to time spent today by the signer, or if indicated, combined time spent today by collaborating physician/nurse practitioner. Michael Murphy MD Jun 01, 2016 13:57
--- NOTE | 2016-06-01 14:15 | PD.CARD.PN ---
Subjective Subjective Remarks intubated, sedated Objective Vital Signs / I&O Vital Signs Date Time Temp Pulse Resp B/P Pulse Ox O2 Delivery O2 Flow Rate FiO2 06/01/16 11:39 94 60 06/01/16 08:46 94 50 06/01/16 06:00 88 06/01/16 04:21 98 50 06/01/16 04:00 50 06/01/16 04:00 85 06/01/16 04:00 98.4 92 23 92/63 97 06/01/16 02:00 92 06/01/16 01:22 98 100 06/01/16 00:00 98.2 96 32 107/64 97 06/01/16 00:00 96 06/01/16 00:00 100 06/01/16 00:00 100 05/31/16 22:00 106 05/31/16 21:45 100 05/31/16 21:15 93 Nasal Cannula 4.00 05/31/16 20:00 98.6 98 30 117/67 100 05/31/16 20:00 99 05/31/16 18:00 99 05/31/16 16:00 97.8 92 20 106/58 100 05/31/16 16:00 92 I/O 05/31/16 05/31/16 05/31/16 06/01/16 06/01/16 06/01/16 07:00 15:00 23:00 07:00 15:00 23:00 Intake Total 1035 ml 982 ml 1759 ml 1076 ml Output Total 900 ml 900 ml 1900 ml 450 ml Balance 135 ml 82 ml -141 ml 626 ml Intake Oral 100 ml 240 ml 50 ml IV Total 935 ml 742 ml 1709 ml 1076 ml Output Urine Total 750 ml 800 ml 1600 ml 250 ml Stool Total 150 ml 100 ml 300 ml 200 ml Physical Exam GENERAL: SKIN: Warm and dry. HEAD: Normocephalic. EYES: No scleral icterus. No injection or drainage. NECK: Supple, trachea midline. No JVD or lymphadenopathy. CARDIOVASCULAR: Regular rate and rhythm without murmurs, gallops, or rubs. RESPIRATORY: Breath sounds equal bilaterally. No accessory muscle use. GASTROINTESTINAL: Abdomen soft, non-tender, nondistended. MUSCULOSKELETAL: No cyanosis, or edema. BACK: Nontender without obvious deformity. No CVA tenderness. Laboratory Laboratory Tests Test 05/31/16 06/01/16 06/01/16 22:29 04:20 09:47 Blood Gas Puncture Site RT RADIAL Blood Gas Patient Temperature 98.6 Blood Gas HCO3 14 mmol/L Blood Gas Base Excess -10.9 mmol/L Blood Gas Oxygen Saturation 98 % Arterial Blood pH 7.34 Arterial Blood Partial 26 mmHg Pressure CO2 Arterial Blood Partial 354 mmHg Pressure O2 Arterial Blood Oxygen Content 11.3 Vol % Arterial Blood 1.2 % Carboxyhemoglobin Arterial Blood Methemoglobin 1.3 % Blood Gas Hemoglobin 7.6 G/DL Oxygen Delivery Device VENTILATOR Blood Gas Ventilator Setting AC12/500/PEEP5 Blood Gas Inspired Oxygen 100 % White Blood Count 19.4 TH/MM3 Red Blood Count 2.71 MIL/MM3 Hemoglobin 7.2 GM/DL Hematocrit 23.0 % Mean Corpuscular Volume 84.7 FL Mean Corpuscular Hemoglobin 26.7 PG Mean Corpuscular Hemoglobin 31.6 % Concent Red Cell Distribution Width 17.1 % Platelet Count 362 TH/MM3 Mean Platelet Volume 10.4 FL Neutrophils (%) (Auto) 91.5 % Lymphocytes (%) (Auto) 4.1 % Monocytes (%) (Auto) 4.0 % Eosinophils (%) (Auto) 0.3 % Basophils (%) (Auto) 0.1 % Neutrophils # (Auto) 17.8 TH/MM3 Lymphocytes # (Auto) 0.8 TH/MM3 Monocytes # (Auto) 0.8 TH/MM3 Eosinophils # (Auto) 0.1 TH/MM3 Basophils # (Auto) 0.0 TH/MM3 CBC Comment DIFF FINAL Differential Comment Prothrombin Time 30.2 SEC Prothromb Time International 2.6 RATIO Ratio Sodium Level 148 MEQ/L Potassium Level 3.2 MEQ/L Chloride Level 117 MEQ/L Carbon Dioxide Level 17.1 MEQ/L Anion Gap 14 MEQ/L Blood Urea Nitrogen 14 MG/DL Creatinine 1.02 MG/DL Estimat Glomerular Filtration 53 ML/MIN Rate Random Glucose 147 MG/DL Calcium Level 7.6 MG/DL Total Bilirubin 0.4 MG/DL Aspartate Amino Transf 7 U/L (AST/SGOT) Alanine Aminotransferase 6 U/L (ALT/SGPT) Alkaline Phosphatase 101 U/L Total Protein 5.1 GM/DL Albumin 3.7 GM/DL Blood Type A POSITIVE Crossmatch Leukocyte-Reduced Red Blood Cells Blood Bank Comment Assessment and Plan Problem List: (1) Dehydration (2) Sepsis (3) UTI (urinary tract infection) (4) Altered mental status (5) Clostridium difficile diarrhea (6) Hypotension (7) Abnormal abdominal CT scan (8) Atrial fibrillation (9) SALVADOR (acute kidney injury) Assessment and Plan 1.) PAF - in nsr, back on iv amio, coumadin, inr therapeutic, sepsis improved' part of rvr expalined by anemia and low iv volume from low oncotic pressure; rec dc amio elizabeth and blood transfusion 2.) Mod to severe mr - likely making resp status worse, optimally will need cath , but will need consent, inr<2.0, and stable hgb Problem Qualifiers (1) Sepsis: Qualified Code: A41.9 - Sepsis, due to unspecified organism (2) Altered mental status: Qualified Code: R41.0 - Delirium Srinivas Colin MD Jun 01, 2016 14:15
[2016-06-01] MEDS ORDERED: WARFARIN SOD 1 MG TAB PO SCH (16:00)
--- NOTE | 2016-06-01 17:05 | HHI.CCPN ---
Subjective Remarks/Hospital Course 75-year-old female presenting to the ED with hypotension and AMS. The patient was transported from [facility] due to her symptoms earlier this morning. She is unable to give a full interview likely due to her AMS. Per chart review she has been hospitalized 3 times since at [facility]. Her first admission was due to weakness and heart rate in the 180s. She was discharged home without a formal diagnosis. She was then hospitalized on for for black stools and anemia. She was given 3-4 transfusions during the hospitalizations and discharged home. Her last admission was "a couple of weeks ago" for leg swelling. She was found to have blood clots in her RLE. An IVC filter was placed, and she was started on Coumadin despite having a probable GI bleed. She was then discharged to [facility] for rehabilitation. SUBJ 05/30: Normotensive after two and half liter fluid boluses overnight. Peripheral cyanosis noted in all extremities probably Raynaud's phenomenon. Currently on amiodarone infusion, in normal sinus rhythm on monitor. Therapeutic on Coumadin 05/31: Reevaluation requested by family practice due to tachypnea and A. fib with RVR. On my evaluation patient is breathing low 30s with good oxygen saturation. Heart rate 120 to 130s, amiodarone infusion restarted. Patient appears to have significant peripheral edema, with 20 kg wt gain, will start Bumex along with free water replacement 06/01: Emergently intubated yesterday evening for acute hypoxemic respiratory failure, desaturated to as low 70s. Currently remains intubated sedated. Significant third spacing. Overall condition guarded-palliative care has been consulted. Blood aspirated from NGT. Coumadin held Objective Vital Signs Date Time Temp Pulse Resp B/P Pulse Ox O2 Delivery O2 Flow Rate FiO2 06/01/16 15:35 99 45 06/01/16 06:00 88 06/01/16 04:00 98.4 23 92/63 05/31/16 21:15 Nasal Cannula 4.00 Intake and Output 05/31/16 05/31/16 06/01/16 08:00 16:00 00:00 Intake Total 1035 ml 982 ml 1759 ml Output Total 900 ml 900 ml 1900 ml Balance 135 ml 82 ml -141 ml Result Diagram: 06/01/16 0420 06/01/16 0420 Other Results Microbiology Date/Time Procedure Status Source Growth 05/30/16 14:30 Stool Occult Blood (MARIANGEL) - Final Complete Stool Stool HEMOCCULT POSITIVE Laboratory Tests Test 05/31/16 22:29 Blood Gas Puncture Site RT RADIAL Blood Gas Patient Temperature 98.6 Blood Gas HCO3 14 mmol/L (22-26) Blood Gas Base Excess -10.9 mmol/L (-2-2) Blood Gas Oxygen Saturation 98 % (90-100) Arterial Blood pH 7.34 (7.380-7.420) Arterial Blood Partial 26 mmHg (38-42) Pressure CO2 Arterial Blood Partial 354 mmHg Pressure O2 (61-120) Arterial Blood Oxygen Content 11.3 Vol % (12.0-20.0) Arterial Blood 1.2 % (0-4) Carboxyhemoglobin Arterial Blood Methemoglobin 1.3 % (0-2) Blood Gas Hemoglobin 7.6 G/DL (12.0-16.0) Oxygen Delivery Device VENTILATOR Blood Gas Ventilator Setting AC12/500/PEEP5 Blood Gas Inspired Oxygen 100 % Objective Remarks GENERAL: Well-nourished, well-developed patient. Intubated sedated SKIN: Warm and dry. HEAD: Normocephalic. EYES: No scleral icterus. No injection or drainage. NECK: Supple, trachea midline. No JVD or lymphadenopathy. CARDIOVASCULAR: Afib with RVR, no gallops, or rubs. Peripheral cyanosis involving bilateral fingers and toes RESPIRATORY: Orotracheally intubated. Breath sounds equal bilaterally. No accessory muscle use. GASTROINTESTINAL: Abdomen soft, non-tender, nondistended. MUSCULOSKELETAL: No cyanosis, 3+ edema. Generalized anasarca BACK: Nontender without obvious deformity. No CVA tenderness. NEURO: Intubated heavily sedated. Moves extremities spontaneously Urinary Catheter: Yes Assessment to: Continue A/P Problem List: (1) Acute hypoxemic respiratory failure ICD Code: J96.01 Status: Acute (2) Hypotension ICD Code: I95.9 Status: Acute (3) Sepsis ICD Code: A41.9 Status: Resolved (4) UTI (urinary tract infection) ICD Code: N39.0 Status: Acute (5) Altered mental status ICD Code: R41.82 Status: Acute (6) Clostridium difficile diarrhea ICD Code: A04.7 Status: Acute (7) Atrial fibrillation ICD Code: I48.91 Status: Acute Assessment and Plan NEURO: Altered mental status/Metabolic toxic encephalopathy - Sedated with propofol while on ventilator - Daily sedation vacation as tolerated CVS: Volume overload, with significant third spacing Hypotension - s/p Aggressive IV fluid resuscitation. Continue IV albumin 25 g every 12 - Significant peripheral edema with 20 KG weight gain. - Bumex 1 mg IV every 12 started on 05/31/16. Increased to 2 mg every 12, give additional 2 mg now - Free water replacement and D5W at 100 ml per hour - s/p Central line placement - Pressors if needed to keep map above 65 Atrial fibrillation - Cardiology following - Amiodarone gtt - Keep K> 4, Mag >2 - DC Coumadin due to GIB, anemia Peripheral cyanosis/probable Raynaud's syndrome - Keep extremities warm, perfused - Calcium channel blockers if not improving RESP: Acute hypoxemic respiratory failure Bilateral pleural effusion -Continue ventilator support -DuoNeb every 6 hours and when necessary -Stress dose steroids -Aggressive diuresis limited by hypotension : Acute kidney injury - Free water replacement and Bumex as above - Monitor urine output GI: - NPO stephan to GIB. DC Pepcid Start Protonix 40 BID ID C. difficile colitis Sepsis [facility] associated pneumonia - IV Flagyl, PO Vanc and PO rifaximin - ID Dr. Colin following - Add cefepime 2 g IV every 8 hours to 06/01/16 - Send sputum and repeat blood culture DVT GI prophylaxis - Teds SCDs DC Coumadin and Pepcid. Start Protonix 40 BID Critical Care 40 MIN Problem Qualifiers (1) Sepsis: Qualified Code: A41.9 - Sepsis, due to unspecified organism (2) Altered mental status: Qualified Code: R41.0 - Delirium Marlys Levy MD Jun 01, 2016 17:04
[2016-06-01] MEDS ORDERED: BUMETANIDE INJ 1 MG/4 ML VIAL IV PUSH ONE (17:15)
--- NOTE | 2016-06-01 17:40 | HHI.IDPN ---
Subjective Subjective Remarks Marked deterioration since the w/e Intubated 05/07 resp distress afebrile WBC creeping up cefepime was started today = Significant third spacing. Overall condition guarded-palliative care has been consulted. Blood aspirated from NGT Antibiotics IV flagyl po vanco Allergies: Coded Allergies: Adhesives (Verified Allergy, Unknown, 05/28/16) Betadine (Verified Allergy, Unknown, 05/28/16) Nexium (Verified Allergy, Unknown, 05/28/16) Objective . Vital Signs Date Time Temp Pulse Resp B/P Pulse Ox O2 Delivery O2 Flow Rate FiO2 06/01/16 15:35 99 45 06/01/16 11:39 94 60 06/01/16 08:46 94 50 06/01/16 06:00 88 06/01/16 04:21 98 50 06/01/16 04:00 50 06/01/16 04:00 85 06/01/16 04:00 98.4 92 23 92/63 97 06/01/16 02:00 92 06/01/16 01:22 98 100 06/01/16 00:00 98.2 96 32 107/64 97 06/01/16 00:00 96 06/01/16 00:00 100 06/01/16 00:00 100 05/31/16 22:00 106 05/31/16 21:45 100 05/31/16 21:15 93 Nasal Cannula 4.00 05/31/16 20:00 98.6 98 30 117/67 100 05/31/16 20:00 99 05/31/16 18:00 99 05/31/16 05/31/16 06/01/16 15:00 23:00 07:00 Intake Total 982 ml 1759 ml 1076 ml Output Total 900 ml 1900 ml 450 ml Balance 82 ml -141 ml 626 ml Intake Oral 240 ml 50 ml IV Total 742 ml 1709 ml 1076 ml Output Urine Total 800 ml 1600 ml 250 ml Stool Total 100 ml 300 ml 200 ml . Laboratory Tests Test 05/30/16 05/31/16 06/01/16 23:30 05:30 04:20 Hemoglobin 7.8 GM/DL 7.9 GM/DL 7.2 GM/DL Hematocrit 23.4 % 24.5 % 23.0 % White Blood Count 18.4 TH/MM3 19.4 TH/MM3 Red Blood Count 2.87 MIL/MM3 2.71 MIL/MM3 Mean Corpuscular Volume 85.3 FL 84.7 FL Mean Corpuscular Hemoglobin 27.5 PG 26.7 PG Mean Corpuscular Hemoglobin 32.2 % 31.6 % Concent Red Cell Distribution Width 17.1 % 17.1 % Platelet Count 392 TH/MM3 362 TH/MM3 Mean Platelet Volume 10.2 FL 10.4 FL Neutrophils (%) (Auto) 88.0 % 91.5 % Lymphocytes (%) (Auto) 3.9 % 4.1 % Monocytes (%) (Auto) 6.3 % 4.0 % Eosinophils (%) (Auto) 1.7 % 0.3 % Basophils (%) (Auto) 0.1 % 0.1 % Neutrophils # (Auto) 16.2 TH/MM3 17.8 TH/MM3 Lymphocytes # (Auto) 0.7 TH/MM3 0.8 TH/MM3 Monocytes # (Auto) 1.2 TH/MM3 0.8 TH/MM3 Eosinophils # (Auto) 0.3 TH/MM3 0.1 TH/MM3 Basophils # (Auto) 0.0 TH/MM3 0.0 TH/MM3 CBC Comment DIFF FINAL DIFF FINAL Differential Comment Laboratory Tests Test 05/31/16 05/31/16 05/31/16 06/01/16 05:30 06:13 12:00 04:20 Sodium Level 152 MEQ/L 148 MEQ/L Potassium Level 3.4 MEQ/L 3.2 MEQ/L Chloride Level 121 MEQ/L 117 MEQ/L Carbon Dioxide Level 19.9 MEQ/L 17.1 MEQ/L Anion Gap 11 MEQ/L 14 MEQ/L Blood Urea Nitrogen 19 MG/DL 14 MG/DL Creatinine 0.94 MG/DL 1.02 MG/DL Estimat Glomerular Filtration 58 ML/MIN 53 ML/MIN Rate Random Glucose 118 MG/DL 147 MG/DL Calcium Level 7.4 MG/DL 7.6 MG/DL Protein Corrected Calcium 8.5 MG/DL Total Bilirubin 0.5 MG/DL 0.4 MG/DL Aspartate Amino Transf 7 U/L 7 U/L (AST/SGOT) Alanine Aminotransferase 7 U/L 6 U/L (ALT/SGPT) Alkaline Phosphatase 65 U/L 101 U/L Total Protein 5.1 GM/DL 5.1 GM/DL Albumin 3.3 GM/DL 3.7 GM/DL Ammonia 28 MCMOL/L Magnesium Level 2.0 MG/DL Microbiology Date/Time Procedure Status Source Growth 05/30/16 14:30 Stool Occult Blood (MARIANGEL) - Final Complete Stool Stool HEMOCCULT POSITIVE Imaging Last Impressions Chest X-Ray 06/01/16 0600 Signed Impressions: Service Date/Time: Wednesday, June 01, 2016 04:16 - CONCLUSION: 1. Stable basilar airspace disease and effusions compared to May 31. Support apparatus unchanged. Humberto Martin MD Head CT 05/28/16 0000 Signed Impressions: Service Date/Time: May 12:37 - CONCLUSION: No acute disease. Klever Roberts Jr., MD Chest CT 05/28/16 0000 Signed Impressions: Service Date/Time: May 16:14 - CONCLUSION: Abnormal density on the chest x-ray is associated with hiatal hernia. There is a tiny lateral left lung base nodular density which can be followed Cam Amaro MD Abdomen/Pelvis CT 05/28/16 0000 Signed Impressions: Service Date/Time: May 12:44 - CONCLUSION: 1. No dilated loops of small and large bowel. 2. 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 There is also a prominent calcification or ossification at the gastroesophageal junction which is of uncertain significance. May consider direct visualization of the GE junction to further evaluate the configuration and this calcification. 3. Prominent induration of the left and right lateral abdominal wall subcutaneous fat. Klever Calderón MD Physical Exam CONSTITUTIONAL/GENERAL: This is an adequately nourished patient, in no apparent distress appears sick sed[facility] TUBES/LINES/DRAINS: SKIN: No jaundice, rashes, or lesions. Ecchymoses on upper extremities. No wounds seen anteriorly. Skin temperature appropriate. Not diaphoretic. HEAD: Atraumatic. Normocephalic. EYES: Pupils equal and round and reactive. Extraocular motions intact. No scleral icterus. No injection or drainage. Fundi not examined. ENT: Hearing grossly normal. Nose without bleeding or purulent drainage. Very dry oral mucosae visible erythema, exudates, masses, or lesions. NECK: Trachea midline. Supple, nontender. CARDIOVASCULAR: Regular rate and rhythm without murmurs, gallops, or rubs. No JVD. Peripheral pulses symmetric. RESPIRATORY/CHEST: Symmetric, unlabored respirations. Clear to auscultation. Breath sounds equal bilaterally. No wheezes, rales, or rhonchi. GASTROINTESTINAL: Abdomen soft, no reaction to palpation markedly distended. No hepato-splenomegaly, or palpable masses. No guarding. Bowel sounds present. GENITOURINARY: Without palpable bladder distension. Pink catheter in place with dark yellow clear urine MUSCULOSKELETAL: Extremities without clubbing, + promineneet cyanosis of both hands (fingertips), feet Fingertips are cold to touch and some are not refilling Diffuse4+ edema. No joint tenderness or effusion noted. No calf tenderness. No mottling or clubbing. LYMPHATICS: No palpable cervical or supraclavicular adenopathy. NEUROLOGICAL: sedated, unresopnsive; not following PSYCHIATRIC: unable to assess Assessment & Plan Remarks C.diff hypervirulent, severe Sepsis 2/2 C.diff, 2/2 C.diff ARF No e/o other source of sepsis (blood, urine clx negative, no PNA) Critically ill Persistent cyanosis - h/o [place] sd New acute VDRF ? PNA - cont vanco PO 500 - cont FLAgyl IV - cont cefepime for r now - fu blood and sputum clx Discussed Condition With Alisia Forbes MD Jun 01, 2016 17:40
[2016-06-01] MEDS ORDERED: PHYTONADIONE INJ 10 MG in DEXTROSE 5% IN WATER INJ 50 ML IV ONE ×2 (18:00)
[2016-06-01] MEDS ORDERED: PANTOPRAZOLE SODIUM 40 MG VIAL IV PUSH SCH (18:00)
[2016-06-01] MEDS: PANTOPRAZOLE SODIUM 40 MG VIAL IV PUSH SCH (18:00)
[2016-06-01] MEDS ORDERED: BUMETANIDE INJ 1 MG/4 ML VIAL IV PUSH SCH (18:00)
[2016-06-01] MEDS: ALBUMIN HUMAN 25% 25 GM/100 ML BAGP IV SCH (18:28)
[2016-06-01] MEDS: CEFEPIME INJ 2,000 MG in SODIUM CHLORIDE 0.9% INJ 100 ML IV SCH (18:28)
[2016-06-01 18:43] LABS: HEMATOCRIT 29.8 % (35.0-46.0); REVIEW FLAG FINAL
[2016-06-01 20:53] LABS: HEMATOCRIT 29.1 % (35.0-46.0); REVIEW FLAG FINAL
[2016-06-01 20:57] LABS: INTERNATIONAL NORMALIZED RATIO 1.4 RATIO; PROTHROMBIN TIME - PATIENT 15.4 SEC (9.8-11.6)
[2016-06-01] MEDS: PRAVASTATIN SOD 20 MG TAB PO SCH (21:00)
[2016-06-01] MEDS: SODIUM CHLORIDE 0.9% FLUSH 5 ML FLUSH FLUSH PRN (21:01)
--- NOTE | 2016-06-01 22:41 | HHI.GIFU ---
Subjective Remarks Intubated unresponsive Objective Vitals I&O Vital Signs Date Time Temp Pulse Resp B/P Pulse Ox O2 Delivery O2 Flow Rate FiO2 06/01/16 20:25 92 45 06/01/16 18:00 96 06/01/16 16:00 98.7 93 22 98/53 100 06/01/16 16:00 50 06/01/16 16:00 93 06/01/16 15:35 99 45 06/01/16 14:00 87 06/01/16 12:00 88 06/01/16 12:00 50 06/01/16 12:00 98.5 88 31 102/68 97 06/01/16 11:39 94 60 06/01/16 10:00 91 06/01/16 08:46 94 50 06/01/16 08:00 50 06/01/16 08:00 88 06/01/16 08:00 98.7 88 26 98/63 92 06/01/16 06:00 88 06/01/16 04:21 98 50 06/01/16 04:00 50 06/01/16 04:00 85 06/01/16 04:00 98.4 92 23 92/63 97 06/01/16 02:00 92 06/01/16 01:22 98 100 06/01/16 00:00 98.2 96 32 107/64 97 06/01/16 00:00 96 06/01/16 00:00 100 06/01/16 00:00 100 I/O 05/31/16 05/31/16 05/31/16 06/01/16 06/01/16 06/01/16 07:00 15:00 23:00 07:00 15:00 23:00 Intake Total 1035 ml 982 ml 1759 ml 1076 ml 1872 ml Output Total 900 ml 900 ml 1900 ml 450 ml 700 ml Balance 135 ml 82 ml -141 ml 626 ml 1172 ml Intake Oral 100 ml 240 ml 50 ml IV Total 935 ml 742 ml 1709 ml 1076 ml 1782 ml Other 90 ml Output Urine Total 750 ml 800 ml 1600 ml 250 ml 500 ml Stool Total 150 ml 100 ml 300 ml 200 ml 200 ml Laboratory Laboratory Tests Test 06/01/16 06/01/16 06/01/16 06/01/16 04:20 09:47 17:00 19:57 White Blood Count 19.4 Red Blood Count 2.71 Hemoglobin 7.2 9.7 Hematocrit 23.0 29.8 Mean Corpuscular Volume 84.7 Mean Corpuscular Hemoglobin 26.7 Mean Corpuscular Hemoglobin 31.6 Concent Red Cell Distribution Width 17.1 Platelet Count 362 Mean Platelet Volume 10.4 Neutrophils (%) (Auto) 91.5 Lymphocytes (%) (Auto) 4.1 Monocytes (%) (Auto) 4.0 Eosinophils (%) (Auto) 0.3 Basophils (%) (Auto) 0.1 Neutrophils # (Auto) 17.8 Lymphocytes # (Auto) 0.8 Monocytes # (Auto) 0.8 Eosinophils # (Auto) 0.1 Basophils # (Auto) 0.0 CBC Comment DIFF FINAL Differential Comment Prothrombin Time 30.2 Prothromb Time International 2.6 Ratio Sodium Level 148 Potassium Level 3.2 Chloride Level 117 Carbon Dioxide Level 17.1 Anion Gap 14 Blood Urea Nitrogen 14 Creatinine 1.02 Estimat Glomerular Filtration 53 Rate Random Glucose 147 Calcium Level 7.6 Total Bilirubin 0.4 Aspartate Amino Transf 7 (AST/SGOT) Alanine Aminotransferase 6 (ALT/SGPT) Alkaline Phosphatase 101 Total Protein 5.1 Albumin 3.7 Blood Type A POSITIVE Crossmatch Leukocyte-Reduced Red Blood Cells Blood Bank Comment Test 06/01/16 20:30 Hemoglobin 9.5 Hematocrit 29.1 Prothrombin Time 15.4 Prothromb Time International 1.4 Ratio Date/Time Procedure Status Source Growth 05/30/16 14:30 Stool Occult Blood (MARIANGEL) - Final Complete Stool Stool HEMOCCULT POSITIVE 05/28/16 11:10 Urine Culture - Final Complete Urine Catheterized Urine NO GROWTH IN 48 HOURS. 05/28/16 10:32 Aerobic Blood Culture - Preliminary Resulted Blood Peripheral NO GROWTH IN 4 DAYS 05/28/16 10:32 Anaerobic Blood Culture - Preliminary Resulted Blood Peripheral NO GROWTH IN 4 DAYS Imaging Last Impressions Chest X-Ray 06/01/16 0600 Signed Impressions: Service Date/Time: Wednesday, June 01, 2016 04:16 - CONCLUSION: 1. Stable basilar airspace disease and effusions compared to May 31. Support apparatus unchanged. Humberto Martin MD Head CT 05/28/16 0000 Signed Impressions: Service Date/Time: May 12:37 - CONCLUSION: No acute disease. Klever Roberts Jr., MD Chest CT 05/28/16 0000 Signed Impressions: Service Date/Time: May 16:14 - CONCLUSION: Abnormal density on the chest x-ray is associated with hiatal hernia. There is a tiny lateral left lung base nodular density which can be followed Cam Amaro MD Abdomen/Pelvis CT 05/28/16 0000 Signed Impressions: Service Date/Time: May 12:44 - CONCLUSION: 1. No dilated loops of small and large bowel. 2. 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 There is also a prominent calcification or ossification at the gastroesophageal junction which is of uncertain significance. May consider direct visualization of the GE junction to further evaluate the configuration and this calcification. 3. Prominent induration of the left and right lateral abdominal wall subcutaneous fat. Klever Calderón MD Physical Exam HEENT: Normocephalic; atraumatic; no jaundice CHEST: Crackles bilateral bases. CARDIAC: Afib. ABDOMEN: Soft, nondistended, nontender; no hepatosplenomegaly; bowel sounds are present in all four quadrants. EXTREMITIES: BLE 3+ edema SKIN: Normal; no rash; no jaundice. SHOW GIRL: Intubated unresponsive Assessment and Plan Plan ASSESSMENT: - CDiff Colitis. WBC 18.4. Oral Vanco, Flagyl. - Anemia, Hgb 7.9. Pt was evaluated for melena during a previous hospitalization at [facility]. EGD (03/17/16) normal examination. Colonoscopy (03/30/16)---> pandiverticulosis throughout the colon, diminutive polyp ascending colon, fair preparation, retroflexion revealed internal hemorrhoids grade II. CT enterography (03/30/16)----> negative for any acute findings. Plan was for capsule endoscopy as outpatient, but has not been done yet. Evidence of coffee-ground and maroonish return from the NG tube with stable hemodynamics and vital signs patient noted to be coagulopathic and so we will transfuse with fresh frozen plasma and give vitamin K - Sepsis/Leukocytosis. WBC 18.4. Oral Vanco, Flagyl. - SALVADOR with multiple electrolytes abnormalities, Na 152, K+ 3.4. - Atrial fibrillation, amiodarone - AMS, Metabolic toxic encephalopathy. - Respiratory failure PLAN: - TWIN - Oral Vanco - Flagyl - PPI - Monitor HH - Transfuse as necessary - Notify GI of active bleeding we will correct the coagulopathy and give fresh frozen plasma and vitamin K - Supportive care - Further recommendations to follow based on results of above Pt seen and examined by Dr. Eddy and myself and this note is written on his behalf Cody Del Rio MD Jun 01, 2016 22:41
[2016-06-02] VITALS (22 sets, daily range): BP systolic 84–116; BP diastolic 54–67; PULSE 90–157; RESP 12–28; TEMP 97.3–100.6; O2SAT 89–100
[2016-06-02] MEDS: METOPROLOL TARTRATE 5 MG/5 ML VIAL IV PUSH PRN ×2 (00:30→21:02)
[2016-06-02] MEDS: PROPOFOL 1000 MG/100 ML INJ 100 ML IV SCH (00:37)
[2016-06-02] MEDS: VANCOMYCIN 500 MG VIAL (FOR ORAL USE ONLY) PO SCH ×4 (03:22→20:58)
[2016-06-02] MEDS: CEFEPIME INJ 2,000 MG in SODIUM CHLORIDE 0.9% INJ 100 ML IV SCH ×3 (03:22→18:17)
[2016-06-02] MEDS: AMIODARONE INJ 450 MG in DEXTROSE 5% IN WATE(EXCEL) INJ 241 ML IV SCH ×2 (03:22)
[2016-06-02] MEDS: DEXTROSE 5% IN WATE 1000ML INJ 1,000 ML IV SCH (03:23)
[2016-06-02] MEDS: RESP: ALBUTEROL 2.5 MG/IPRATROPIUM 0.5 MG NEB (SCH) NEB ×4 (04:00→20:29)
[2016-06-02 04:13] LABS: BASOPHIL % 0.2 % (0.0-2.0); EOSINOPHIL # 0.2 TH/MM3 (0-0.4); EOSINOPHIL % 0.8 % (0.0-4.0); HEMATOCRIT 26.2 % (35.0-46.0); HEMO FLAGS DIFF FINAL; LYMPH % 3.8 % (9.0-44.0); LYMPHOCYTE # 0.8 TH/MM3 (1.0-4.8); MEAN CELL VOLUME 84.7 FL (80.0-100.0); MEAN CORPUSCULAR HEMOGLOBIN 27.7 PG (27.0-34.0); MEAN CORPUSCULAR HGB CONC 32.6 % (32.0-36.0); MONO % 4.8 % (0.0-8.0); NEUT % 90.4 % (16.0-70.0); PLATELET COUNT 306 TH/MM3 (150-450); RED BLOOD COUNT 3.09 MIL/MM3 (4.00-5.30); RED CELL DISTRIBUTION WIDTH 16.7 % (11.6-17.2)
[2016-06-02 04:18] LABS: INTERNATIONAL NORMALIZED RATIO 1.1 RATIO; PROTHROMBIN TIME - PATIENT 12.6 SEC (9.8-11.6)
[2016-06-02 04:25] LABS: BICARBONATE 20.3 MEQ/L (21.0-32.0); POTASSIUM 3.5 MEQ/L (3.5-5.1)
[2016-06-02 04:28] LABS: CALCIUM-PROTEIN CORRECTED 7.8 MG/DL (8.5-10.1); TOTAL BILIRUBIN ADULT 0.4 MG/DL (0.2-1.0)
[2016-06-02] MEDS: PANTOPRAZOLE SODIUM 40 MG VIAL IV PUSH SCH ×2 (05:37→18:18)
[2016-06-02] MEDS: SODIUM CHLORIDE 0.9% FLUSH 5 ML FLUSH FLUSH PRN (05:38)
[2016-06-02] MEDS: ALBUMIN HUMAN 25% 25 GM/100 ML BAGP IV SCH (05:38)
[2016-06-02] MEDS: metroNIDAZOLE 500 MG INJ 100 ML IV SCH ×3 (05:39→21:45)
--- NOTE | 2016-06-02 06:53 | RADRPT ---
EXAM DATE/TIME: 06/02/2016 05:18 [place] COMPARISON: CHEST SINGLE AP, June 01, 2016, 4:16. INDICATIONS : Respiratory disease. MEDICAL HISTORY : Hypertension. Deep venous thrombosis. Gastroesophageal reflux disease. Pulmonary embolism. SURGICAL HISTORY : Cholecystectomy. ENCOUNTER: Subsequent ACUITY: 4 - 6 days PAIN SCORE: Non-responsive. LOCATION: Bilateral chest FINDINGS: Endotracheal tube in satisfactory position. NG enters stomach. Right central line in superior vena ca va. Bilateral airspace disease and pleural effusions similar to June 01. CONCLUSION: 1. Support apparatus in satisfactory position. Stable bilateral airspace disease and pleural effusion edgardo Martin MD on June 02, 2016 at 6:51 Board Certified Radiologist. This report was verified electronically.
[2016-06-02] MEDS: RIFAXIMIN 550 MG TAB PO SCH ×2 (08:08→21:02)
[2016-06-02] MEDS: SODIUM CHLORIDE 0.9% FLUSH 5 ML FLUSH FLUSH SCH ×2 (08:08→21:08)
[2016-06-02] MEDS: BUMETANIDE INJ 1 MG/4 ML VIAL IV PUSH SCH (08:09)
[2016-06-02] MEDS: INSULIN NovoLIN REGULAR SUPPLEMENTAL SCALE SQ SCH ×3 (08:15→20:15)
[2016-06-02] MEDS ORDERED: CALCIUM GLUCONATE INJ 1 GM in SODIUM CHLORIDE 0.9% INJ 100 ML IV ONE (08:15)
[2016-06-02] MEDS ORDERED: GLUCAGON 1 MG/ML VIAL OTHER PRN (08:15)
[2016-06-02] MEDS ORDERED: DEXTROSE 50% IN WATER 50 ML VIAL(D50) IV PUSH PRN (08:15)
--- NOTE | 2016-06-02 08:28 | HHI.CCPN ---
Subjective Remarks/Hospital Course 75-year-old female presenting to the ED with hypotension and AMS. The patient was transported from [facility] due to her symptoms earlier this morning. She is unable to give a full interview likely due to her AMS. Per chart review she has been hospitalized 3 times since at [facility]. Her first admission was due to weakness and heart rate in the 180s. She was discharged home without a formal diagnosis. She was then hospitalized on for for black stools and anemia. She was given 3-4 transfusions during the hospitalizations and discharged home. Her last admission was "a couple of weeks ago" for leg swelling. She was found to have blood clots in her RLE. An IVC filter was placed, and she was started on Coumadin despite having a probable GI bleed. She was then discharged to [facility] for rehabilitation. SUBJ 05/30: Normotensive after two and half liter fluid boluses overnight. Peripheral cyanosis noted in all extremities probably Raynaud's phenomenon. Currently on amiodarone infusion, in normal sinus rhythm on monitor. Therapeutic on Coumadin 05/31: Reevaluation requested by family practice due to tachypnea and A. fib with RVR. On my evaluation patient is breathing low 30s with good oxygen saturation. Heart rate 120 to 130s, amiodarone infusion restarted. Patient appears to have significant peripheral edema, with 20 kg wt gain, will start Bumex along with free water replacement 06/01: Emergently intubated yesterday evening for acute hypoxemic respiratory failure, desaturated to as low 70s. Currently remains intubated sedated. Significant third spacing. Overall condition guarded-palliative care has been consulted. Blood aspirated from NGT. Coumadin held 06/02 Patient is sedated with Diprivan and intubated. Afebrile. Given 1u PRBC during day and 2u FFP last night Hgb 8.6 this morning with INR 1.1. OGT showed approx 500ml coffee ground emesis since yesterday. On Amio drip. Objective Vital Signs Date Time Temp Pulse Resp B/P Pulse Ox O2 Delivery O2 Flow Rate FiO2 06/02/16 07:25 96 45 06/02/16 06:00 146 06/02/16 04:00 97.8 18 96/67 05/31/16 21:15 Nasal Cannula 4.00 Intake and Output 06/01/16 06/01/16 06/02/16 08:00 16:00 00:00 Intake Total 1076 ml 1872 ml 2226 ml Output Total 450 ml 700 ml 3150 ml Balance 626 ml 1172 ml -924 ml Result Diagram: 06/02/16 0320 06/02/16 0320 Other Results Laboratory Tests Test 06/01/16 06/01/16 06/01/16 06/01/16 09:47 17:00 19:57 20:30 Blood Type A POSITIVE Crossmatch Leukocyte-Reduced Red Blood Cells Blood Bank Comment Hemoglobin 9.7 GM/DL 9.5 GM/DL Hematocrit 29.8 % 29.1 % Prothrombin Time 15.4 SEC Prothromb Time International 1.4 RATIO Ratio Test 06/02/16 03:20 White Blood Count 21.0 TH/MM3 Red Blood Count 3.09 MIL/MM3 Hemoglobin 8.6 GM/DL Hematocrit 26.2 % Mean Corpuscular Volume 84.7 FL Mean Corpuscular Hemoglobin 27.7 PG Mean Corpuscular Hemoglobin 32.6 % Concent Red Cell Distribution Width 16.7 % Platelet Count 306 TH/MM3 Mean Platelet Volume 10.3 FL Neutrophils (%) (Auto) 90.4 % Lymphocytes (%) (Auto) 3.8 % Monocytes (%) (Auto) 4.8 % Eosinophils (%) (Auto) 0.8 % Basophils (%) (Auto) 0.2 % Neutrophils # (Auto) 19.0 TH/MM3 Lymphocytes # (Auto) 0.8 TH/MM3 Monocytes # (Auto) 1.0 TH/MM3 Eosinophils # (Auto) 0.2 TH/MM3 Basophils # (Auto) 0.0 TH/MM3 CBC Comment DIFF FINAL Differential Comment Prothrombin Time 12.6 SEC Prothromb Time International 1.1 RATIO Ratio Sodium Level 143 MEQ/L Potassium Level 3.5 MEQ/L Chloride Level 109 MEQ/L Carbon Dioxide Level 20.3 MEQ/L Anion Gap 14 MEQ/L Blood Urea Nitrogen 13 MG/DL Creatinine 0.97 MG/DL Estimat Glomerular Filtration 56 ML/MIN Rate Random Glucose 145 MG/DL Calcium Level 7.0 MG/DL Protein Corrected Calcium 7.8 MG/DL Total Bilirubin 0.4 MG/DL Aspartate Amino Transf 9 U/L (AST/SGOT) Alanine Aminotransferase 9 U/L (ALT/SGPT) Alkaline Phosphatase 89 U/L Total Protein 5.5 GM/DL Albumin 3.5 GM/DL Imaging Last Impressions Chest X-Ray 06/02/16 0600 Signed Impressions: Service Date/Time: Thursday, June 02, 2016 05:18 - CONCLUSION: 1. Support apparatus in satisfactory position. Stable bilateral airspace disease and pleural effusions. Humberto Martin MD Head CT 05/28/16 0000 Signed Impressions: Service Date/Time: May 12:37 - CONCLUSION: No acute disease. Klever Roberts Jr., MD Chest CT 05/28/16 0000 Signed Impressions: Service Date/Time: May 16:14 - CONCLUSION: Abnormal density on the chest x-ray is associated with hiatal hernia. There is a tiny lateral left lung base nodular density which can be followed Cam Amaro MD Abdomen/Pelvis CT 05/28/16 0000 Signed Impressions: Service Date/Time: May 12:44 - CONCLUSION: 1. No dilated loops of small and large bowel. 2. 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 There is also a prominent calcification or ossification at the gastroesophageal junction which is of uncertain significance. May consider direct visualization of the GE junction to further evaluate the configuration and this calcification. 3. Prominent induration of the left and right lateral abdominal wall subcutaneous fat. Klever Calderón MD Objective Remarks GENERAL: Well-nourished, well-developed patient. Intubated sedated SKIN: Warm and dry. HEAD: Normocephalic. EYES: No scleral icterus. No injection or drainage. NECK: Supple, trachea midline. No JVD or lymphadenopathy. CARDIOVASCULAR: Afib with RVR, no gallops, or rubs. Peripheral cyanosis involving bilateral fingers and toes RESPIRATORY: Orotracheally intubated. Breath sounds equal bilaterally. No accessory muscle use. GASTROINTESTINAL: Abdomen soft, non-tender, nondistended. MUSCULOSKELETAL: No cyanosis, 3+ edema. Generalized anasarca BACK: Nontender without obvious deformity. No CVA tenderness. NEURO: Intubated heavily sedated. Moves extremities spontaneously A/P Problem List: (1) Acute hypoxemic respiratory failure ICD Code: J96.01 Status: Acute (2) Hypotension ICD Code: I95.9 Status: Acute (3) Sepsis ICD Code: A41.9 Status: Resolved (4) UTI (urinary tract infection) ICD Code: N39.0 Status: Acute (5) Altered mental status ICD Code: R41.82 Status: Acute (6) Clostridium difficile diarrhea ICD Code: A04.7 Status: Acute (7) Atrial fibrillation ICD Code: I48.91 Status: Acute Assessment and Plan NEURO: Altered mental status/Metabolic toxic encephalopathy - Change Diprivan infusion to Fentanyl drip. - Daily sedation vacation as tolerated CVS: Volume overload, with significant third spacing Hypotension Atrial fib - On Amio drip. Monitor HR and BP keep MAP>65mmHg -Echo showed EF 55-60%, no RWMA, mod-severe MR and TR. -Off Coumadin given GI bleed RESP: Acute hypoxemic respiratory failure Bilateral pleural effusion -Continue ventilator support keep sat >92% -DuoNeb every 6 hours and when necessary -Start SBT daily when appropriate. Check ABG : Acute kidney injury- resolved Hypernatremia- improved Monitor renal function, I/O's, electrolytes replacement per protocol. Change IVF D5NS@75ml/hr, GI: - Ont Protonix 40mg BID -OGT to LIWS, might need EHD will discuss with GI. ID C. difficile colitis Sepsis [facility] associated pneumonia - IV Flagyl, PO Vanc and PO rifaximin - ID Dr. Colin following -On cefepime 2 g IV every 8 hours - check sputum and UA with cx if indicated Heme: s/p transfusion 1u PRBC and 2 U FFP yesterday. Monitor BCC, Coags Endo: SSI if needed for glycemic control DVT GI prophylaxis - Teds SCDs and Protonix 40 BID. Coumadin held for GI bleed. Palliative care is following. Critical Care 30 MIN Problem Qualifiers (1) Sepsis: Qualified Code: A41.9 - Sepsis, due to unspecified organism (2) Altered mental status: Qualified Code: R41.0 - Delirium Taylor Maria MD Jun 02, 2016 08:28
[2016-06-02] MEDS ORDERED: BUMETANIDE INJ 1 MG/4 ML VIAL IV PUSH ONE (09:00)
[2016-06-02 09:40] LABS: BLOOD GAS BASE EXCESS -8.4 mmol/L (-2-2); BLOOD GAS CARBOXYHEMOGLOBIN 1.6 % (0-4); BLOOD GAS HCO3 15 mmol/L (22-26); BLOOD GAS METHEMOGLOBIN 1.2 % (0-2); BLOOD GAS O2 HGB SATURATION 94 % (90-100); BLOOD GAS OXYGEN CONTENT 12.4 Vol % (12.0-20.0); BLOOD GAS PCO2 24 mmHg (38-42); BLOOD GAS PO2 81 mmHg (61-120); BLOOD GAS TOTAL HGB 9.3 G/DL (12.0-16.0); TEMP CORR TO 98.6
[2016-06-02 09:41] LABS: CRITICAL VALUE YES; DRAW SITE LT RADIAL; FIO2 45 %; NUMBER OF ARTERIAL PUNCTURES 1; OXYGEN DEVICE VENTILATOR; STAT NO; ULNAR PULSE PRESENT; VENT SETTINGS 12/500/45%/5PEEP
[2016-06-02] MEDS: DEXT 5%-NACL 0.9% 1000 ML INJ 1,000 ML IV SCH ×2 (09:42→21:04)
[2016-06-02] MEDS: fentaNYL DRIP 250 ML IV SCH ×2 (09:43→21:02)
--- NOTE | 2016-06-02 11:51 | HHI.HCPN ---
Reason for visit a. To assist with evaluation and management of symptoms including: pain b. To assist medical decision maker(s) with: better understanding of current medical conditions; weighing benefits/burdens of medical treatment options; making medical treatment decisions. Subjective/Interval History Pt remains intubated and sedated. Pt is minimally responsive on my visit. at bedside. CX ray show pleural effusion, leukocytosis trending upward, There is GI bleed, and pt had needed transfusion of blood product. Cr 0.97 currently. Remains massively edemetous with anasarca. 75 usp patient with a past medical history of anxiety, depression, hypertension, DVT, that had been in [facility] on multiple occasions in the past few months. Patient herself could not give too much of a history, but spouse endorsed that she has been hospitalized 3 times since at [facility]. Her first admission was due to weakness and all he can remember about her admission was her HR was in the 180s. She was discharged home without a formal diagnosis per her . She was then hospitalized on for for black stools and anemia. He states that she was give 3-4 transfusions during the hospitalizations and discharged home. When asked if she had a GI bleed, he states that they could not find a cause for her bleeding. Her last admission was "a couple of weeks ago" for leg swelling. She was found to have blood clots in her RLE. An IVC filter was placed, and she was started on Coumadin despite having a probable GI bleed. She was then discharged to [facility] for rehabilitation. While in the nursing facility, spouse state that she has had decrease in activity and by PO intake. Patient presented to the emergency department with altered mental status on 05/28. They were not able to get much of a history at the time this patient has been very confused. In the ER: * Temperature is 97.4, pulse is 87, respirations 16, blood pressure is 80/53 * WBCs 21.3, hemoglobin is 10.3 and hematocrit is 30.8, platelets 575 * Sodium is 144, potassium 3.6, chloride is 109, bicarbonate is 21.9, BUN 66, creatinine is 1.93, AST is 12, AST 7, alkaline phosphatase is 95 * Troponin I is less than 0.02, BNP is 160, total protein is 5.0, albumin is 1.8 * PTT is 37.7, INR is 2.9, APTT is 39.9 * Urine shows trace leukocyte esterase, negative nitrites, culture was indicated. * Patient is positive for C. difficile tox. * Head CT shows no acute disease process * Abdominal pelvis CT: No dilated loops of small and large bowel. 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 Prominent calcification or ossification at the GE junction. Consider direct visualization of GE junction. PROM and induration of the left and right lateral abdominal wall subcutaneous fat. * Chest CT shows abnormal density, tiny lateral left lung base nodular density. * Chest x-ray shows 2.5 cm ill-defined opacity projected over the left lower chest In the ER patient was given an fluid resuscitation, or patient's acute kidney insufficiency. Patient has leukocytosis and was given broad-spectrum antibiotics. ER physician suspected hypovolemia in the setting of C. difficile colitis, sepsis and patient was transferred to family medicine services. 05/29/2016 Overnight patient had episode of tachycardia with a heart rate of 150s , was found to be in A. fib with RVR. Patient given diltiazem. ACS rule out initiated, and was ruled out negative. Troponin remains less than 0.02. Creatinine trending down. Has leukocytosis. Patient's mentation improved, and is more alert and oriented to person place and time. Cardiology consult was ordered, for A. fib. Cardiology stated that patient is therapeutically anticoagulated. Suspected heart rate is due to sepsis and increased metabolic demand. Recommends conservative management. Echocardiography EF is 55-60%. There is moderate to severe regurgitation of the mitral valve. There is moderate to severe regurgitation of the tricuspid valve. Infectious disease was consulted, place patient on vancomycin and Flagyl. Right IJ was placed. Tanker Service Attendant was consulted, as patient became hypotensive. And stat lactic acid was ordered, fluid bolus was given. Pressures ordered only if refractory to fluids. GI was consulted, CT scan shows periesophageal herniation and calcification of the GE junction. Plan on doing EGD when patient is more stable. 05/30/2016- patient became more normotensive after bolus resuscitation. There is noted peripheral cyanosis in the lower extremity probably due to raynauds symptoms. Patient on amiodarone infusion. Continue to be in the ICU. Patient continued to be full code. A. fib has resolved. 05/31/2016. Patient was seen by intensive care again. Patient has worsening edema, A. fib redeveloped. Patient restarted on Bumex. Overnight patient became very anxious with tachypnea and saturations in the 70s. Intubation was performed and oxygen saturation responded appropriately. Hemoglobin yesterday was 7.2 and one unit was transfused bringing her hemoglobin up to 7.9. Patient' s heart rate responded appropriately after transitioning back to the Amiodarone drip. Palliative care was consulted to review goals of care. In summary: This is a 75-year-old who has had multiple hospitalization secondary to tachycardia, DVTs, GI bleed the past few months. Currently patient came in due to altered mental status, C. diff colitis and sepsis. Patient was found to have moderate to severe mitral and tricuspid regurgitation. Course of hospitalization is complicated by edema, hypoalbumin, A. fib, respiratory failure, and anemia. Palliative Care consulted to review goals of care. Today: pt intubated. worsening leukocytosis, hgb trending down. CXR show basilar airspace disease and effusions which is stable. Family/friend interactions Met with pt's spouse, son, and family, Dr. Burns Family resident. Discussed course of hospitalization. Informed family of clinical condition. Family state that pt would not want trach or peg. Family reaffirmed no code/DNR. Continue aggressive care short of resuscitation. If pt does not improved by the end of this week, family will opt for transition to comfort measures only. Family understand pt is at risk of sudden decline, setback and at any time. Advance Directives Living Will: Never completed Health Care Surrogate: Never completed Durable Power of Honeycomb Decapper: Never completed Objective Vital Signs Date Time Temp Pulse Resp B/P Pulse Ox O2 Delivery O2 Flow Rate FiO2 06/02/16 07:25 96 45 06/02/16 06:00 146 06/02/16 05:45 152 06/02/16 04:01 100 45 06/02/16 04:00 93 06/02/16 04:00 45 06/02/16 04:00 97.8 92 18 96/67 99 06/02/16 02:00 95 06/02/16 01:30 93 06/02/16 01:00 137 06/02/16 00:47 96 45 06/02/16 00:00 101 06/02/16 00:00 98.0 104 24 97/60 99 06/02/16 00:00 45 06/01/16 22:00 99 06/01/16 20:25 92 45 06/01/16 20:00 45 06/01/16 20:00 89 06/01/16 20:00 97.4 96 20 117/68 06/01/16 18:00 96 06/01/16 16:00 98.7 93 22 98/53 100 06/01/16 16:00 50 06/01/16 16:00 93 06/01/16 15:35 99 45 06/01/16 14:00 87 06/01/16 12:00 88 06/01/16 12:00 50 06/01/16 12:00 98.5 88 31 102/68 97 Intake & Output 06/02/16 06/02/16 07:00 19:00 Intake Total 4030 ml Output Total 4650 ml Balance -620 ml Intake Oral 0 ml IV Total 2973 ml Albumin 200 ml FFP 657 ml Other 200 ml Output Urine Total 3550 ml Stool Total 600 ml Gastric Drainage Total 500 ml Physical Exam CONSTITUTIONAL/GENERAL: This is frail female patient, intubated and sedated TUBES/LINES/DRAINS:RIJ, ET tube, bess, rectal tube. SKIN: No jaundice, rashes, or lesions. Ecchymoses on upper extremities. No wounds seen anteriorly. Skin temperature appropriate. Not diaphoretic. HEAD: Atraumatic. Normocephalic. EYES: eyes closed did not force open. ENT: . Throat ET tube. could not examine hearing. NECK: Trachea midline. Supple, nontender. No palpable thyroid enlargement or nodularity. CARDIOVASCULAR:Irregularly irregular RESPIRATORY/CHEST: Symmetric, Rhonchi. GASTROINTESTINAL: Abdomen soft, non-tender, distended. anasarca up to abdomen GENITOURINARY: Without palpable bladder distension. Bess catheter in place. MUSCULOSKELETAL: There is clubbing and cyanosis of upper and lower ext. There is anarsarca LYMPHATICS: No palpable cervical or supraclavicular adenopathy. NEUROLOGICAL: sedated, intubated. PSYCHIATRIC: could not examine. Diagnostic Tests Laboratory Laboratory Tests Test 05/30/16 05/30/16 05/31/16 05/31/16 13:19 23:30 05:30 06:13 Blood Type A POSITIVE Hemoglobin 7.8 GM/DL 7.9 GM/DL (11.6-15.3) (11.6-15.3) Hematocrit 23.4 % 24.5 % (35.0-46.0) (35.0-46.0) White Blood Count 18.4 TH/MM3 (4.0-11.0) Red Blood Count 2.87 MIL/MM3 (4.00-5.30) Mean Corpuscular Volume 85.3 FL (80.0-100.0) Mean Corpuscular Hemoglobin 27.5 PG (27.0-34.0) Mean Corpuscular Hemoglobin 32.2 % Concent (32.0-36.0) Red Cell Distribution Width 17.1 % (11.6-17.2) Platelet Count 392 TH/MM3 (150-450) Mean Platelet Volume 10.2 FL (7.0-11.0) Neutrophils (%) (Auto) 88.0 % (16.0-70.0) Lymphocytes (%) (Auto) 3.9 % (9.0-44.0) Monocytes (%) (Auto) 6.3 % (0.0-8.0) Eosinophils (%) (Auto) 1.7 % (0.0-4.0) Basophils (%) (Auto) 0.1 % (0.0-2.0) Neutrophils # (Auto) 16.2 TH/MM3 (1.8-7.7) Lymphocytes # (Auto) 0.7 TH/MM3 (1.0-4.8) Monocytes # (Auto) 1.2 TH/MM3 (0-0.9) Eosinophils # (Auto) 0.3 TH/MM3 (0-0.4) Basophils # (Auto) 0.0 TH/MM3 (0-0.2) CBC Comment DIFF FINAL Differential Comment Prothrombin Time 40.8 SEC (9.8-11.6) Prothromb Time International 3.5 RATIO Ratio Sodium Level 152 MEQ/L (136-145) Potassium Level 3.4 MEQ/L (3.5-5.1) Chloride Level 121 MEQ/L (98-107) Carbon Dioxide Level 19.9 MEQ/L (21.0-32.0) Anion Gap 11 MEQ/L (5-15) Blood Urea Nitrogen 19 MG/DL (7-18) Creatinine 0.94 MG/DL (0.50-1.00) Estimat Glomerular Filtration 58 ML/MIN (>89) Rate Random Glucose 118 MG/DL (74-106) Calcium Level 7.4 MG/DL (8.5-10.1) Protein Corrected Calcium 8.5 MG/DL (8.5-10.1) Total Bilirubin 0.5 MG/DL (0.2-1.0) Aspartate Amino Transf 7 U/L (15-37) (AST/SGOT) Alanine Aminotransferase 7 U/L (10-53) (ALT/SGPT) Alkaline Phosphatase 65 U/L (45-117) Total Protein 5.1 GM/DL (6.4-8.2) Albumin 3.3 GM/DL (3.4-5.0) Ammonia 28 MCMOL/L (11-32) Test 05/31/16 05/31/16 06/01/16 06/01/16 12:00 22:29 04:20 09:47 Magnesium Level 2.0 MG/DL (1.5-2.5) Blood Gas Puncture Site RT RADIAL Blood Gas Patient Temperature 98.6 Blood Gas HCO3 14 mmol/L (22-26) Blood Gas Base Excess -10.9 mmol/L (-2-2) Blood Gas Oxygen Saturation 98 % (90-100) Arterial Blood pH 7.34 (7.380-7.420) Arterial Blood Partial 26 mmHg (38-42) Pressure CO2 Arterial Blood Partial 354 mmHg Pressure O2 (61-120) Arterial Blood Oxygen Content 11.3 Vol % (12.0-20.0) Arterial Blood 1.2 % (0-4) Carboxyhemoglobin Arterial Blood Methemoglobin 1.3 % (0-2) Blood Gas Hemoglobin 7.6 G/DL (12.0-16.0) Oxygen Delivery Device VENTILATOR Blood Gas Ventilator Setting AC12/500/PEEP5 Blood Gas Inspired Oxygen 100 % White Blood Count 19.4 TH/MM3 (4.0-11.0) Red Blood Count 2.71 MIL/MM3 (4.00-5.30) Hemoglobin 7.2 GM/DL (11.6-15.3) Hematocrit 23.0 % (35.0-46.0) Mean Corpuscular Volume 84.7 FL (80.0-100.0) Mean Corpuscular Hemoglobin 26.7 PG (27.0-34.0) Mean Corpuscular Hemoglobin 31.6 % Concent (32.0-36.0) Red Cell Distribution Width 17.1 % (11.6-17.2) Platelet Count 362 TH/MM3 (150-450) Mean Platelet Volume 10.4 FL (7.0-11.0) Neutrophils (%) (Auto) 91.5 % (16.0-70.0) Lymphocytes (%) (Auto) 4.1 % (9.0-44.0) Monocytes (%) (Auto) 4.0 % (0.0-8.0) Eosinophils (%) (Auto) 0.3 % (0.0-4.0) Basophils (%) (Auto) 0.1 % (0.0-2.0) Neutrophils # (Auto) 17.8 TH/MM3 (1.8-7.7) Lymphocytes # (Auto) 0.8 TH/MM3 (1.0-4.8) Monocytes # (Auto) 0.8 TH/MM3 (0-0.9) Eosinophils # (Auto) 0.1 TH/MM3 (0-0.4) Basophils # (Auto) 0.0 TH/MM3 (0-0.2) CBC Comment DIFF FINAL Differential Comment Prothrombin Time 30.2 SEC (9.8-11.6) Prothromb Time International 2.6 RATIO Ratio Sodium Level 148 MEQ/L (136-145) Potassium Level 3.2 MEQ/L (3.5-5.1) Chloride Level 117 MEQ/L (98-107) Carbon Dioxide Level 17.1 MEQ/L (21.0-32.0) Anion Gap 14 MEQ/L (5-15) Blood Urea Nitrogen 14 MG/DL (7-18) Creatinine 1.02 MG/DL (0.50-1.00) Estimat Glomerular Filtration 53 ML/MIN (>89) Rate Random Glucose 147 MG/DL (74-106) Calcium Level 7.6 MG/DL (8.5-10.1) Total Bilirubin 0.4 MG/DL (0.2-1.0) Aspartate Amino Transf 7 U/L (15-37) (AST/SGOT) Alanine Aminotransferase 6 U/L (10-53) (ALT/SGPT) Alkaline Phosphatase 101 U/L (45-117) Total Protein 5.1 GM/DL (6.4-8.2) Albumin 3.7 GM/DL (3.4-5.0) Blood Type A POSITIVE Crossmatch Leukocyte-Reduced Red Blood Cells Blood Bank Comment Test 06/01/16 06/01/16 06/01/16 06/02/16 17:00 19:57 20:30 03:20 Hemoglobin 9.7 GM/DL 9.5 GM/DL 8.6 GM/DL (11.6-15.3) (11.6-15.3) (11.6-15.3) Hematocrit 29.8 % 29.1 % 26.2 % (35.0-46.0) (35.0-46.0) (35.0-46.0) Blood Bank Comment Prothrombin Time 15.4 SEC 12.6 SEC (9.8-11.6) (9.8-11.6) Prothromb Time International 1.4 RATIO 1.1 RATIO Ratio White Blood Count 21.0 TH/MM3 (4.0-11.0) Red Blood Count 3.09 MIL/MM3 (4.00-5.30) Mean Corpuscular Volume 84.7 FL (80.0-100.0) Mean Corpuscular Hemoglobin 27.7 PG (27.0-34.0) Mean Corpuscular Hemoglobin 32.6 % Concent (32.0-36.0) Red Cell Distribution Width 16.7 % (11.6-17.2) Platelet Count 306 TH/MM3 (150-450) Mean Platelet Volume 10.3 FL (7.0-11.0) Neutrophils (%) (Auto) 90.4 % (16.0-70.0) Lymphocytes (%) (Auto) 3.8 % (9.0-44.0) Monocytes (%) (Auto) 4.8 % (0.0-8.0) Eosinophils (%) (Auto) 0.8 % (0.0-4.0) Basophils (%) (Auto) 0.2 % (0.0-2.0) Neutrophils # (Auto) 19.0 TH/MM3 (1.8-7.7) Lymphocytes # (Auto) 0.8 TH/MM3 (1.0-4.8) Monocytes # (Auto) 1.0 TH/MM3 (0-0.9) Eosinophils # (Auto) 0.2 TH/MM3 (0-0.4) Basophils # (Auto) 0.0 TH/MM3 (0-0.2) CBC Comment DIFF FINAL Differential Comment Sodium Level 143 MEQ/L (136-145) Potassium Level 3.5 MEQ/L (3.5-5.1) Chloride Level 109 MEQ/L (98-107) Carbon Dioxide Level 20.3 MEQ/L (21.0-32.0) Anion Gap 14 MEQ/L (5-15) Blood Urea Nitrogen 13 MG/DL (7-18) Creatinine 0.97 MG/DL (0.50-1.00) Estimat Glomerular Filtration 56 ML/MIN (>89) Rate Random Glucose 145 MG/DL (74-106) Calcium Level 7.0 MG/DL (8.5-10.1) Protein Corrected Calcium 7.8 MG/DL (8.5-10.1) Total Bilirubin 0.4 MG/DL (0.2-1.0) Aspartate Amino Transf 9 U/L (15-37) (AST/SGOT) Alanine Aminotransferase 9 U/L (10-53) (ALT/SGPT) Alkaline Phosphatase 89 U/L (45-117) Total Protein 5.5 GM/DL (6.4-8.2) Albumin 3.5 GM/DL (3.4-5.0) Test 06/02/16 06/02/16 09:30 09:59 Blood Gas Puncture Site LT RADIAL Blood Gas Patient Temperature 98.6 Blood Gas HCO3 15 mmol/L (22-26) Blood Gas Base Excess -8.4 mmol/L (-2-2) Blood Gas Oxygen Saturation 94 % (90-100) Arterial Blood pH 7.42 (7.380-7.420) Arterial Blood Partial 24 mmHg (38-42) Pressure CO2 Arterial Blood Partial 81 mmHg Pressure O2 (61-120) Arterial Blood Oxygen Content 12.4 Vol % (12.0-20.0) Arterial Blood 1.6 % (0-4) Carboxyhemoglobin Arterial Blood Methemoglobin 1.2 % (0-2) Blood Gas Hemoglobin 9.3 G/DL (12.0-16.0) Oxygen Delivery Device VENTILATOR Blood Gas Ventilator Setting 12/500/45%/5PEEP Blood Gas Inspired Oxygen 45 % Lactic Acid Level 2.4 mmol/L (0.4-2.0) Result Diagram: 06/02/16 0320 06/02/16 0320 Microbiology Microbiology Date/Time Procedure Status Source Growth 05/30/16 14:30 Stool Occult Blood (MARIANGEL) - Final Complete Stool Stool HEMOCCULT POSITIVE Imaging Last Impressions Chest X-Ray 06/02/16 0600 Signed Impressions: Service Date/Time: Thursday, June 02, 2016 05:18 - CONCLUSION: 1. Support apparatus in satisfactory position. Stable bilateral airspace disease and pleural effusions. Humberto Martin MD Head CT 05/28/16 0000 Signed Impressions: Service Date/Time: May 12:37 - CONCLUSION: No acute disease. Klever Roberts Jr., MD Chest CT 05/28/16 0000 Signed Impressions: Service Date/Time: May 16:14 - CONCLUSION: Abnormal density on the chest x-ray is associated with hiatal hernia. There is a tiny lateral left lung base nodular density which can be followed Cam Amaro MD Abdomen/Pelvis CT 05/28/16 0000 Signed Impressions: Service Date/Time: May 12:44 - CONCLUSION: 1. No dilated loops of small and large bowel. 2. 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 There is also a prominent calcification or ossification at the gastroesophageal junction which is of uncertain significance. May consider direct visualization of the GE junction to further evaluate the configuration and this calcification. 3. Prominent induration of the left and right lateral abdominal wall subcutaneous fat. Klever Calderón MD Procedures [facility] Assessment and Plan Disease Oriented Problem List: (1) Sepsis (2) Atrial fibrillation (3) Altered mental status (4) DVT (deep venous thrombosis) (5) Hypotension (6) Clostridium difficile diarrhea (7) Abnormal abdominal CT scan (8) SALVADOR (acute kidney injury) (9) Anemia Symptom Scale: Pertinent Non-Medical Issues Psychosocial: Spiritual: Legal: Ethical issues impacting care: Important Contacts Mr. Amari Ramírez [phone] Prognosis This is a 75-year-old who has had multiple hospitalization secondary to tachycardia, DVTs, GI bleed the past few months. Currently patient came in due to altered mental status, C. diff colitis and sepsis. Patient was found to have moderate to severe mitral and tricuspid regurgitation. Course of hospitalization is complicated by edema, hypoalbumin, A. fib, respiratory failure, and anemia. Overall prognosis appears to be poor. Pt at risk of sudden decline, setback and as evidenced by prior hospitalization (4 total since this past [place]). Code Status: Full Code Plan == Code:DNR no code. == Goals. Family state that pt would not want trach or peg. Family reaffirmed no code/DNR. Continue aggressive care short of resuscitation. If pt does not improved by the end of this week, family will opt for transition to comfort measures only. Family understand pt is at risk of sudden decline, setback and at any time. == dyspnea- intubated, deferred to addiction psychiatrist. ==palliative care - will continue to follow. == d/w with family medicine. == d/w with addiction psychiatrist. Time Spent Face to Face Time (mins): 30 Attestation To help prompt me to consider important information that might be impacting today's encounter and assessment, information from prior notes written by myself or my colleagues may have been "brought forward" into today's note. My signature on this note, however, is an attestation that I personally performed the exam, history, and/or decision-making noted today, and, unless otherwise indicated, the interactions with patient, family, and staff as well as the review of records all occurred today. I also attest that the listed assessment and stated plan reflect my best clinical judgment today based on the combination of historical information, prior notes, and today's exam/ interactions. When time spent is documented, it refers only to time spent today by the signer, or if indicated, combined time spent today by collaborating physician/nurse practitioner. Michael Murphy MD Jun 02, 2016 11:51
--- NOTE | 2016-06-02 13:59 | PD.CARD.PN ---
Subjective Subjective Remarks alert in nad Objective Vital Signs / I&O Vital Signs Date Time Temp Pulse Resp B/P Pulse Ox O2 Delivery O2 Flow Rate FiO2 06/02/16 12:40 97 45 06/02/16 08:00 97.5 145 22 92/64 99 06/02/16 08:00 45 06/02/16 07:25 96 45 06/02/16 06:00 146 06/02/16 05:45 152 06/02/16 04:01 100 45 06/02/16 04:00 93 06/02/16 04:00 45 06/02/16 04:00 97.8 92 18 96/67 99 06/02/16 02:00 95 06/02/16 01:30 93 06/02/16 01:00 137 06/02/16 00:47 96 45 06/02/16 00:00 101 06/02/16 00:00 98.0 104 24 97/60 99 06/02/16 00:00 45 06/01/16 22:00 99 06/01/16 20:25 92 45 06/01/16 20:00 45 06/01/16 20:00 89 06/01/16 20:00 97.4 96 20 117/68 06/01/16 18:00 96 06/01/16 16:00 98.7 93 22 98/53 100 06/01/16 16:00 50 06/01/16 16:00 93 06/01/16 15:35 99 45 06/01/16 14:00 87 I/O 06/01/16 06/01/16 06/01/16 06/02/16 06/02/16 06/02/16 07:00 15:00 23:00 07:00 15:00 23:00 Intake Total 1076 ml 1872 ml 2226 ml 1804 ml Output Total 450 ml 700 ml 3150 ml 1500 ml Balance 626 ml 1172 ml -924 ml 304 ml Intake Oral 0 ml 0 ml IV Total 1076 ml 1782 ml 1369 ml 1604 ml Albumin 100 ml 100 ml FFP 657 ml Other 90 ml 100 ml 100 ml Output Urine Total 250 ml 500 ml 2250 ml 1300 ml Stool Total 200 ml 200 ml 400 ml 200 ml Gastric Drainage Total 500 ml 0 ml Physical Exam GENERAL: SKIN: Warm and dry. HEAD: Normocephalic. EYES: No scleral icterus. No injection or drainage. NECK: Supple, trachea midline. No JVD or lymphadenopathy. CARDIOVASCULAR: Regular rate and rhythm without murmurs, gallops, or rubs. RESPIRATORY: Breath sounds equal bilaterally. No accessory muscle use. GASTROINTESTINAL: Abdomen soft, non-tender, nondistended. MUSCULOSKELETAL: No cyanosis, or edema. BACK: Nontender without obvious deformity. No CVA tenderness. Laboratory Laboratory Tests Test 06/01/16 06/01/16 06/01/16 06/02/16 17:00 19:57 20:30 03:20 Hemoglobin 9.7 GM/DL 9.5 GM/DL 8.6 GM/DL Hematocrit 29.8 % 29.1 % 26.2 % Blood Bank Comment Prothrombin Time 15.4 SEC 12.6 SEC Prothromb Time International 1.4 RATIO 1.1 RATIO Ratio White Blood Count 21.0 TH/MM3 Red Blood Count 3.09 MIL/MM3 Mean Corpuscular Volume 84.7 FL Mean Corpuscular Hemoglobin 27.7 PG Mean Corpuscular Hemoglobin 32.6 % Concent Red Cell Distribution Width 16.7 % Platelet Count 306 TH/MM3 Mean Platelet Volume 10.3 FL Neutrophils (%) (Auto) 90.4 % Lymphocytes (%) (Auto) 3.8 % Monocytes (%) (Auto) 4.8 % Eosinophils (%) (Auto) 0.8 % Basophils (%) (Auto) 0.2 % Neutrophils # (Auto) 19.0 TH/MM3 Lymphocytes # (Auto) 0.8 TH/MM3 Monocytes # (Auto) 1.0 TH/MM3 Eosinophils # (Auto) 0.2 TH/MM3 Basophils # (Auto) 0.0 TH/MM3 CBC Comment DIFF FINAL Differential Comment Sodium Level 143 MEQ/L Potassium Level 3.5 MEQ/L Chloride Level 109 MEQ/L Carbon Dioxide Level 20.3 MEQ/L Anion Gap 14 MEQ/L Blood Urea Nitrogen 13 MG/DL Creatinine 0.97 MG/DL Estimat Glomerular Filtration 56 ML/MIN Rate Random Glucose 145 MG/DL Calcium Level 7.0 MG/DL Protein Corrected Calcium 7.8 MG/DL Total Bilirubin 0.4 MG/DL Aspartate Amino Transf 9 U/L (AST/SGOT) Alanine Aminotransferase 9 U/L (ALT/SGPT) Alkaline Phosphatase 89 U/L Total Protein 5.5 GM/DL Albumin 3.5 GM/DL Test 06/02/16 06/02/16 09:30 09:59 Blood Gas Puncture Site LT RADIAL Blood Gas Patient Temperature 98.6 Blood Gas HCO3 15 mmol/L Blood Gas Base Excess -8.4 mmol/L Blood Gas Oxygen Saturation 94 % Arterial Blood pH 7.42 Arterial Blood Partial 24 mmHg Pressure CO2 Arterial Blood Partial 81 mmHg Pressure O2 Arterial Blood Oxygen Content 12.4 Vol % Arterial Blood 1.6 % Carboxyhemoglobin Arterial Blood Methemoglobin 1.2 % Blood Gas Hemoglobin 9.3 G/DL Oxygen Delivery Device VENTILATOR Blood Gas Ventilator Setting 12/500/45%/5PEEP Blood Gas Inspired Oxygen 45 % Lactic Acid Level 2.4 mmol/L Assessment and Plan Problem List: (1) Dehydration (2) Sepsis (3) UTI (urinary tract infection) (4) Altered mental status (5) Clostridium difficile diarrhea (6) Hypotension (7) Abnormal abdominal CT scan (8) Atrial fibrillation (9) SALVADOR (acute kidney injury) Assessment and Plan 1.) PAF - rvr on iv amio, coumadin held d/t gib, anemia, inr subtherapeutic, part of rvr expalined by anemia, sepsis and low iv volume from low oncotic pressure; rec dc amio elizabeth and blood transfusion 2.) Mod to severe mr - likely making resp status worse, optimally will need cath , but will need consent, inr<2.0, and stable hgb Problem Qualifiers (1) Sepsis: Qualified Code: A41.9 - Sepsis, due to unspecified organism (2) Altered mental status: Qualified Code: R41.0 - Delirium Srinivas Colin MD Jun 02, 2016 13:59
--- NOTE | 2016-06-02 15:11 | HHI.GIFU ---
Subjective Remarks Patient is sedated on a vent, no bleeding reported per nurse, OGT to LIWS, no sings of bleeding, family is considering withdrawal of life support. (Vignesh Hendrix) Objective Vitals I&O Vital Signs Date Time Temp Pulse Resp B/P Pulse Ox O2 Delivery O2 Flow Rate FiO2 06/02/16 14:46 97 45 06/02/16 12:40 97 45 06/02/16 08:00 97.5 145 22 92/64 99 06/02/16 08:00 45 06/02/16 07:25 96 45 06/02/16 06:00 146 06/02/16 05:45 152 06/02/16 04:01 100 45 06/02/16 04:00 93 06/02/16 04:00 45 06/02/16 04:00 97.8 92 18 96/67 99 06/02/16 02:00 95 06/02/16 01:30 93 06/02/16 01:00 137 06/02/16 00:47 96 45 06/02/16 00:00 101 06/02/16 00:00 98.0 104 24 97/60 99 06/02/16 00:00 45 06/01/16 22:00 99 06/01/16 20:25 92 45 06/01/16 20:00 45 06/01/16 20:00 89 06/01/16 20:00 97.4 96 20 117/68 06/01/16 18:00 96 06/01/16 16:00 98.7 93 22 98/53 100 06/01/16 16:00 50 06/01/16 16:00 93 06/01/16 15:35 99 45 I/O 06/01/16 06/01/16 06/01/16 06/02/16 06/02/16 06/02/16 07:00 15:00 23:00 07:00 15:00 23:00 Intake Total 1076 ml 1872 ml 2226 ml 1804 ml Output Total 450 ml 700 ml 3150 ml 1500 ml Balance 626 ml 1172 ml -924 ml 304 ml Intake Oral 0 ml 0 ml IV Total 1076 ml 1782 ml 1369 ml 1604 ml Albumin 100 ml 100 ml FFP 657 ml Other 90 ml 100 ml 100 ml Output Urine Total 250 ml 500 ml 2250 ml 1300 ml Stool Total 200 ml 200 ml 400 ml 200 ml Gastric Drainage Total 500 ml 0 ml Laboratory Laboratory Tests Test 06/01/16 06/01/16 06/01/16 06/02/16 17:00 19:57 20:30 03:20 Hemoglobin 9.7 9.5 8.6 Hematocrit 29.8 29.1 26.2 Blood Bank Comment Prothrombin Time 15.4 12.6 Prothromb Time International 1.4 1.1 Ratio White Blood Count 21.0 Red Blood Count 3.09 Mean Corpuscular Volume 84.7 Mean Corpuscular Hemoglobin 27.7 Mean Corpuscular Hemoglobin 32.6 Concent Red Cell Distribution Width 16.7 Platelet Count 306 Mean Platelet Volume 10.3 Neutrophils (%) (Auto) 90.4 Lymphocytes (%) (Auto) 3.8 Monocytes (%) (Auto) 4.8 Eosinophils (%) (Auto) 0.8 Basophils (%) (Auto) 0.2 Neutrophils # (Auto) 19.0 Lymphocytes # (Auto) 0.8 Monocytes # (Auto) 1.0 Eosinophils # (Auto) 0.2 Basophils # (Auto) 0.0 CBC Comment DIFF FINAL Differential Comment Sodium Level 143 Potassium Level 3.5 Chloride Level 109 Carbon Dioxide Level 20.3 Anion Gap 14 Blood Urea Nitrogen 13 Creatinine 0.97 Estimat Glomerular Filtration 56 Rate Random Glucose 145 Calcium Level 7.0 Protein Corrected Calcium 7.8 Total Bilirubin 0.4 Aspartate Amino Transf 9 (AST/SGOT) Alanine Aminotransferase 9 (ALT/SGPT) Alkaline Phosphatase 89 Total Protein 5.5 Albumin 3.5 Test 06/02/16 06/02/16 09:30 09:59 Blood Gas Puncture Site LT RADIAL Blood Gas Patient Temperature 98.6 Blood Gas HCO3 15 Blood Gas Base Excess -8.4 Blood Gas Oxygen Saturation 94 Arterial Blood pH 7.42 Arterial Blood Partial 24 Pressure CO2 Arterial Blood Partial 81 Pressure O2 Arterial Blood Oxygen Content 12.4 Arterial Blood 1.6 Carboxyhemoglobin Arterial Blood Methemoglobin 1.2 Blood Gas Hemoglobin 9.3 Oxygen Delivery Device VENTILATOR Blood Gas Ventilator Setting 12/500/45%/5PEEP Blood Gas Inspired Oxygen 45 Lactic Acid Level 2.4 Date/Time Procedure Status Source Growth 06/02/16 12:49 Aerobic Blood Culture Received Blood Peripheral Pending 06/02/16 12:49 Anaerobic Blood Culture Received Blood Peripheral Pending 05/30/16 14:30 Stool Occult Blood (MARIANGEL) - Final Complete Stool Stool HEMOCCULT POSITIVE Imaging Last Impressions Chest X-Ray 06/02/16 0600 Signed Impressions: Service Date/Time: Thursday, June 02, 2016 05:18 - CONCLUSION: 1. Support apparatus in satisfactory position. Stable bilateral airspace disease and pleural effusions. Humberto Martin MD Head CT 05/28/16 0000 Signed Impressions: Service Date/Time: May 12:37 - CONCLUSION: No acute disease. Klever Roberts Jr., MD Chest CT 05/28/16 0000 Signed Impressions: Service Date/Time: May 16:14 - CONCLUSION: Abnormal density on the chest x-ray is associated with hiatal hernia. There is a tiny lateral left lung base nodular density which can be followed Cam Amaro MD Abdomen/Pelvis CT 05/28/16 0000 Signed Impressions: Service Date/Time: May 12:44 - CONCLUSION: 1. No dilated loops of small and large bowel. 2. 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 There is also a prominent calcification or ossification at the gastroesophageal junction which is of uncertain significance. May consider direct visualization of the GE junction to further evaluate the configuration and this calcification. 3. Prominent induration of the left and right lateral abdominal wall subcutaneous fat. Klever Calderón MD Physical Exam HEENT: Normocephalic; atraumatic; no jaundice CHEST: Crackles bilateral bases. CARDIAC: Afib. ABDOMEN: Soft, nondistended, nontender; no hepatosplenomegaly; bowel sounds are present in all four quadrants. EXTREMITIES: BLE 3+ edema, gen edema SKIN: Normal; no rash; no jaundice. BUSINESS OFFICE SPECIALIST: Intubated unresponsive (Amawi,Khawla GAS SHOVEL OPERATOR) Assessment and Plan Plan ASSESSMENT: - CDiff Colitis. WBC 21. Oral Vanco, Flagyl. - Anemia, Hgb 8.6 Pt was evaluated for melena during a previous hospitalization at [facility]. EGD (03/17/16) normal examination. Colonoscopy (03/30/16)---> pandiverticulosis throughout the colon, diminutive polyp ascending colon, fair preparation, retroflexion revealed internal hemorrhoids grade II. CT enterography (03/30/16)----> negative for any acute findings. Plan was for capsule endoscopy as outpatient, but has not been done yet. - Sepsis/Leukocytosis. WBC 21 Oral Vanco, Flagyl. - SALVADOR with multiple electrolytes abnormalities, - Atrial fibrillation, amiodarone - AMS, Metabolic toxic encephalopathy. - Respiratory failure PLAN: - TF per [facility], currently OGT to LIWS, - Oral Vanco - Flagyl - PPI - Monitor HH - Transfuse as necessary - Notify GI of active bleeding - Poor prognosis - Supportive care Pt seen and examined by Dr. Del Rio and myself and this note is written on his behalf (Vignesh Hendrix) Physician Comments Patient seen and examined Agree with above Continue with current supportive care Monitor labs Not much to add from a GI standpoint therefore we will sign off Please reconsult as needed (Cody Del Rio MD) Vignesh Hendrix Jun 02, 2016 15:11 Cody Del Rio MD Jun 02, 2016 20:27
--- NOTE | 2016-06-02 16:52 | HHI.FPPN ---
Subjective Remarks Patient seen and examined this morning by medical team. Patient had multiple episodes of coffee-ground emesis from her OG tube yesterday afternoon. She was transfused one unit of PRBC and 2 units of FFP over the last 24 hours. She remains intubated and sedated. Family meeting with Dr. Murphy of Palliative Care was conducted this afternoon. At this time, patient wishes to pursue aggressive care short of resuscitation. She is to remain DNR and would not like a tracheostomy or PEG tube per her family. (Chaz Burns MD R1) Objective Vitals Vital Signs Date Time Temp Pulse Resp B/P Pulse Ox O2 Delivery O2 Flow Rate FiO2 06/02/16 14:46 97 45 06/02/16 12:40 97 45 06/02/16 12:00 97.6 157 28 114/63 89 06/02/16 12:00 45 06/02/16 08:00 97.5 145 22 92/64 99 06/02/16 08:00 45 06/02/16 07:25 96 45 06/02/16 06:00 146 06/02/16 05:45 152 06/02/16 04:01 100 45 06/02/16 04:00 93 06/02/16 04:00 45 06/02/16 04:00 97.8 92 18 96/67 99 06/02/16 02:00 95 06/02/16 01:30 93 06/02/16 01:00 137 06/02/16 00:47 96 45 06/02/16 00:00 101 06/02/16 00:00 98.0 104 24 97/60 99 06/02/16 00:00 45 06/01/16 22:00 99 06/01/16 20:25 92 45 06/01/16 20:00 45 06/01/16 20:00 89 06/01/16 20:00 97.4 96 20 117/68 06/01/16 18:00 96 I/O 06/01/16 06/01/16 06/01/16 06/02/16 06/02/16 06/02/16 06:59 14:59 22:59 06:59 14:59 22:59 Intake Total 1076 ml 1872 ml 2226 ml 1804 ml 1629 ml Output Total 450 ml 700 ml 3150 ml 1500 ml 750 ml Balance 626 ml 1172 ml -924 ml 304 ml 879 ml Intake Oral 0 ml 0 ml IV Total 1076 ml 1782 ml 1369 ml 1604 ml 1629 ml Albumin 100 ml 100 ml FFP 657 ml Other 90 ml 100 ml 100 ml Output Urine Total 250 ml 500 ml 2250 ml 1300 ml 350 ml Stool Total 200 ml 200 ml 400 ml 200 ml 300 ml Gastric Drainage Total 500 ml 0 ml 100 ml (Chaz Burns MD R1) Result Diagram: 06/02/16 03206/02/16 032 Objective Remarks GEN: Obese 75 y/o CF lying in bed, intubated and sedated. SKIN: Bilateral hands cold to touch with mild/moderate cyanosis on fingertips. Present on many toes as well. LUNGS: Patient intubated with midline ETT per CXR. Coarse breath sounds bilaterally with no CRW. CARDIOVASCULAR: Regular rhythm with rate of 89. No murmurs, gallops or rubs. GI/ABD: Difficult to examine as she is edematous up to her lower ribs. Distended , faint BS heard with no obvious masses palpated. OGT in placed with approximately 300ml of gastric contents in container. MUSC: Lower extremities show 3+ pitting edema to her lower ribs. PSYCH/MENTAL STATUS: Unable to evaluate as patient is intubated and sedated. (Chaz Burns MD R1) A/P Assessment and Plan Mrs. Ramírez is a 75 y/o CF who presented due to hypotension and AMS. Admitted for Sepsis and AMS. Discharge Planning Timeline unknown. DW: Dr. Valentino WDW: Dr. Borrego (Chaz Burns MD R1) Attending Attestation Patient seen and examined. Case reviewed and discussed with the resident team. Agree with plan of care as discussed with me and documented in the resident note. she is intubated but now is a DNR. Her is very involved and her sons are coming to visit (Courtney Borrego MD) Problem List: (1) Sepsis Status: Acute Plan: Met sepsis criteria on admission with tachycardia and leukocytosis. Also found to have altered mental status. Complicated by hypotension in the setting of generalized edema. Source likely due to C. difficile but etiology unclear. -Minimally improved leukocytosis -Hyperammonemia resolved -Urine and blood culture negative x4day Critical care consulted on 05/29: Appreciate recommendations. * Transition to PO amiodarone as tolerated * Goal to keep potassium >4 and magnesium >2, 80 mEq KCl given IV overnight * Skin findings of hands likely due to Raynaud's phenomenon, consider calcium channel servando if not improving. * Patient intubated on 05/31/16 for tachypnea and desaturations; currently sedated on Propofol at 20 mcg/kg/min with ETT in place. Ventilator settings at 12/45%500/60/5 on AC mode. CC plans to transition from Propofol to Fentanyl drip. Consulted ID: Appreciate recommendations * Discontinue vancomycin and Zosyn * PO vancomycin (05/29- ) * IV Flagyl (05/28- ) * Cefepime (06/02- ) * BC pending * Sputum culture pending Imaging: * Chest x-ray: 2.5cm ill-defined opacity projecting over the left lower chest/ lung. Recommend noncontrast CT * Noncontrast CT: Abnormal density on the left chest x-ray is associated with hiatal hernia. There are small lateral nodular densities in the left lung base that can be followed. * Head CT: Negative Medications: * Transition to PO vancomycin (05/29- ) * Zosyn 2.5 g every 6 hours (05/28-05/29) * Flagyl 500 mg IV every 8 hours (05/28- * Cefepime (06/02- ) * Rifaximin 550mg BID Relevant history obtained from spouse: Mr. Amari Ramírez ([phone]): Has been hospitalized 3 times since [place] at [facility]. Diagnoses at these admissions unclear but does report elevated heart rate in the 180s. Mother admission was for a GI bleed that required 3-4 transfusions but etiology is unknown. Patient was continued on warfarin despite this GI bleed. Another admission was for a DVT and an IVC filter was placed. Patient was at [facility] for rehabilitation prior to current admission. (2) Atrial fibrillation Status: Acute Plan: A. fib recurrent. Failed diltiazem drip, but rate was controlled after transitioning to amiodarone drip. She was transitioned to PO, however went back into A. fib with RVR so the drip was restarted. -CC currently managing -Amiodarone drip at 17/hr -Plans to initially start loading Digoxin to assist with rate control, however rate responded well to Amiodarone -Consider restarting home calcium channel servando in the setting of Raynaud's and A. fib. once BP improves -INR therapeutic on Coumadin, held for anemia secondary to acute GI bleed -Cardiology consulted to assist with management: Appreciate recommendations * Okay to have rate slightly higher to meet metabolic demands and increased cardiac output due to sepsis initially however she is not overtly septic at this time * Echo: EF 55-60%, no RWMA, mod-severe MR and TR. * Recommend continuing telemetry * Recommend discontinuing amiodarone drip as soon as possible and consider blood transfusion (3) Altered mental status Status: Acute Plan: Please see plan as above. (4) Anemia Status: Acute Plan: Patient with anemia to 7.2 on 05/30/14 found to be Hemoccult positive. -One unit RBC transfused on 05/30/16, post-transfusion H/H 7.8/23.4 -One unit RBC transfused on 06/01/16, post transfusion H/H 9.7/29.8 - 2 units of FFP 06/01/16 -Hold Coumadin -Continue to monitor (5) Abnormal abdominal CT scan Status: Acute Plan: Patient with abnormal abdominal CT scan upon admission. History is significant for prior GI bleed. Unclear treatment of finding on CT, appreciate GI recommendations. -Hemoccult-negative 05/28, repeat ordered due to supratheraperutic INR, hemocult positive 05/30 -Continue to monitor H&H, transfuse as indicated, transfused 2 RBC over 05/30-, Coumadin held -Patient with approximately 500ml coffee ground emesis over last 24hr per OGT GI consulted: Appreciate recommendations -Oral Vancomycin -Flagyl -PPI Abdominal pelvis CT: No dilated loops of small and large bowel. 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 Prominent calcification or ossification at the GE junction. Consider direct visualization of GE junction. PROM and induration of the left and right lateral abdominal wall subcutaneous fat. (6) Clostridium difficile diarrhea Status: Acute Plan: PCR: Positive --See plan above (7) SALVADOR (acute kidney injury) Status: Resolved Plan: Improving renal function since admission. -Creatinine WNL -Continue hydration cautiously in the setting of generalized edema -See fluids below for rate (8) Nutrition, metabolism, and development symptoms Status: Acute Plan: Diet: Low albumin. Family wishes to not insert feeding tube at this time due to poor prognosis. Fluids:D5 with NS at 75/hr Electrolytes: Replace per protocol DVT prophylaxis: Held due to GI bleeding GI prophylaxis: Pepcid 10mg BID, Protonix 40mg BID (Chaz Burns MD R1) Problem Qualifiers (1) Sepsis: Qualified Code: A41.9 - Sepsis, due to unspecified organism (2) Altered mental status: Qualified Code: R41.0 - Delirium Chaz Burns MD R1 Jun 02, 2016 16:52 Courtney Borrego MD Jun 03, 2016 13:44
[2016-06-02] MEDS: AMIODARONE INJ 450 MG in DEXTROSE 5% IN WATE(EXCEL) INJ 250 ML IV SCH ×2 (18:17)
[2016-06-02] MEDS: PRAVASTATIN SOD 20 MG TAB PO SCH (21:02)
[2016-06-02 21:28] LABS: BACTERIA, URINE FEW /hpf; BLOOD, URINE LARGE (NEG); COMMENT (UR) CATH-CULTURE IND; CULTURE IF INDICATED CATH CULTURE IND; GLUCOSE,URINE NEG (NEG); KETONE, URINE NEG (NEG); MUCUS URINE FEW /lpf (OCC); NITRITE,URINE NEG (NEG); PH, URINE 5.5 (5.0-8.5); SQUAMOUS EPITHELIAL CELL URINE 3 /hpf (0-5); URINE COLOR DARK-YELLOW (YELLW/STRAW)
[2016-06-03] VITALS (18 sets, daily range): BP systolic 89–114; BP diastolic 57–80; PULSE 92–136; RESP 16–25; TEMP 98.4–99; O2SAT 98–100
[2016-06-03] MEDS: INSULIN NovoLIN REGULAR SUPPLEMENTAL SCALE SQ SCH ×4 (02:15→20:52)
[2016-06-03] MEDS: RESP: ALBUTEROL 2.5 MG/IPRATROPIUM 0.5 MG NEB (SCH) NEB ×4 (03:38→19:14)
[2016-06-03] MEDS: VANCOMYCIN 500 MG VIAL (FOR ORAL USE ONLY) PO SCH ×4 (03:59→20:35)
[2016-06-03] MEDS: CEFEPIME INJ 2,000 MG in SODIUM CHLORIDE 0.9% INJ 100 ML IV SCH ×2 (03:59→10:47)
[2016-06-03] MEDS: PANTOPRAZOLE SODIUM 40 MG VIAL IV PUSH SCH ×2 (04:51→17:49)
[2016-06-03 05:14] LABS: AUTOMATED NEUTROPHIL # 31.6 TH/MM3 (1.8-7.7); BASOPHIL % 0.1 % (0.0-2.0); HEMATOCRIT 29.6 % (35.0-46.0); LYMPH % 1.9 % (9.0-44.0); LYMPHOCYTE # 0.7 TH/MM3 (1.0-4.8); MEAN CELL VOLUME 87.8 FL (80.0-100.0); MEAN CORPUSCULAR HEMOGLOBIN 27.3 PG (27.0-34.0); MEAN CORPUSCULAR HGB CONC 31.1 % (32.0-36.0); MONO % 4.5 % (0.0-8.0); NEUT % 93.5 % (16.0-70.0); PLATELET COUNT 334 TH/MM3 (150-450); RED BLOOD COUNT 3.37 MIL/MM3 (4.00-5.30); RED CELL DISTRIBUTION WIDTH 16.2 % (11.6-17.2); WHITE BLOOD COUNT 33.8 TH/MM3 (4.0-11.0)
[2016-06-03 05:17] LABS: INTERNATIONAL NORMALIZED RATIO 1.2 RATIO; PROTHROMBIN TIME - PATIENT 13.1 SEC (9.8-11.6)
[2016-06-03 05:30] LABS: HEMO FLAGS AUTO DIFF
[2016-06-03] MEDS: metroNIDAZOLE 500 MG INJ 100 ML IV SCH ×3 (05:32→23:08)
[2016-06-03 05:41] LABS: MAGNESIUM 1.5 MG/DL (1.5-2.5); POTASSIUM 4.1 MEQ/L (3.5-5.1)
[2016-06-03 05:56] LABS: CALCIUM-PROTEIN CORRECTED 7.8 MG/DL (8.5-10.1)
[2016-06-03] MEDS: METOPROLOL TARTRATE 5 MG/5 ML VIAL IV PUSH PRN ×4 (06:17→11:57)
[2016-06-03 07:11] LABS: BANDS 7 % (0-6); BASOPHILS 1 % (0-2); NEUTROPHIL # MANUAL DIFF 32.4 TH/MM3 (1.8-7.7); POLYS (SEG NEUTROPHILS) 89 % (16-70); WBC DIFF SAMPLE 100
[2016-06-03 07:12] LABS: PLATELET ESTIMATE SMEAR NORMAL (NORMAL); PLATELET MORPHOLOGY NORMAL (NORMAL); SCAN/DIFF FINAL DIFF MANUAL
[2016-06-03] MEDS: RIFAXIMIN 550 MG TAB PO SCH ×2 (08:07→20:35)
[2016-06-03] MEDS: SODIUM CHLORIDE 0.9% FLUSH 5 ML FLUSH FLUSH SCH ×2 (08:08→20:52)
--- NOTE | 2016-06-03 08:34 | HHI.CCPN ---
Subjective Remarks/Hospital Course 75-year-old female presenting to the ED with hypotension and AMS. The patient was transported from [facility] due to her symptoms earlier this morning. She is unable to give a full interview likely due to her AMS. Per chart review she has been hospitalized 3 times since at [facility]. Her first admission was due to weakness and heart rate in the 180s. She was discharged home without a formal diagnosis. She was then hospitalized on for for black stools and anemia. She was given 3-4 transfusions during the hospitalizations and discharged home. Her last admission was "a couple of weeks ago" for leg swelling. She was found to have blood clots in her RLE. An IVC filter was placed, and she was started on Coumadin despite having a probable GI bleed. She was then discharged to [facility] for rehabilitation. SUBJ 05/30: Normotensive after two and half liter fluid boluses overnight. Peripheral cyanosis noted in all extremities probably Raynaud's phenomenon. Currently on amiodarone infusion, in normal sinus rhythm on monitor. Therapeutic on Coumadin 05/31: Reevaluation requested by family practice due to tachypnea and A. fib with RVR. On my evaluation patient is breathing low 30s with good oxygen saturation. Heart rate 120 to 130s, amiodarone infusion restarted. Patient appears to have significant peripheral edema, with 20 kg wt gain, will start Bumex along with free water replacement 06/01: Emergently intubated yesterday evening for acute hypoxemic respiratory failure, desaturated to as low 70s. Currently remains intubated sedated. Significant third spacing. Overall condition guarded-palliative care has been consulted. Blood aspirated from NGT. Coumadin held 06/02 Patient is sedated with Diprivan and intubated. Afebrile. Given 1u PRBC during day and 2u FFP last night Hgb 8.6 this morning with INR 1.1. OGT showed approx 500ml coffee ground emesis since yesterday. On Amio drip. 06/03 Patient remains sedated with Fentanyl and intubated. T:100.6 last night. On Amio drip. WBC increased 33 from 21 and renal function worse today with Cr: 1.58 from 0.97. Had approx 100ml bile like gastric drainage from OGT. Objective Vital Signs Date Time Temp Pulse Resp B/P Pulse Ox O2 Delivery O2 Flow Rate FiO2 06/03/16 08:00 40 06/03/16 08:00 100 06/03/16 06:00 99 06/03/16 04:00 98.4 20 102/64 05/31/16 21:15 Nasal Cannula 4.00 Intake and Output 06/02/16 06/02/16 06/03/16 08:00 16:00 00:00 Intake Total 1804 ml 1629 ml 677 ml Output Total 1500 ml 750 ml 300 ml Balance 304 ml 879 ml 377 ml Result Diagram: 06/03/16 0450 06/03/16 0450 Other Results Laboratory Tests Test 06/02/16 06/02/16 06/02/16 06/03/16 09:30 09:59 20:40 04:50 Blood Gas Puncture Site LT RADIAL Blood Gas Patient Temperature 98.6 Blood Gas HCO3 15 mmol/L Blood Gas Base Excess -8.4 mmol/L Blood Gas Oxygen Saturation 94 % Arterial Blood pH 7.42 Arterial Blood Partial 24 mmHg Pressure CO2 Arterial Blood Partial 81 mmHg Pressure O2 Arterial Blood Oxygen Content 12.4 Vol % Arterial Blood 1.6 % Carboxyhemoglobin Arterial Blood Methemoglobin 1.2 % Blood Gas Hemoglobin 9.3 G/DL Oxygen Delivery Device VENTILATOR Blood Gas Ventilator Setting 12/500/45%/5PEEP Blood Gas Inspired Oxygen 45 % Lactic Acid Level 2.4 mmol/L Urine Color DARK-YELLOW Urine Turbidity CLOUDY Urine pH 5.5 Urine Specific [place] 1.022 Urine Protein 300 mg/dL Urine Glucose (UA) NEG mg/dL Urine Ketones NEG mg/dL Urine Occult Blood LARGE Urine Nitrite NEG Urine Bilirubin NEG Urine Urobilinogen LESS THAN 2.0 MG/DL Urine Leukocyte Esterase LARGE Urine RBC /hpf Urine WBC /hpf Urine WBC Clumps FEW Urine Squamous Epithelial 3 /hpf Cells Urine Bacteria FEW /hpf Urine Mucus FEW /lpf Urine Yeast with Hyphae MOD Urine Yeast (Budding) MANY Microscopic Urinalysis Comment CATH-CULTURE IND White Blood Count 33.8 TH/MM3 Red Blood Count 3.37 MIL/MM3 Hemoglobin 9.2 GM/DL Hematocrit 29.6 % Mean Corpuscular Volume 87.8 FL Mean Corpuscular Hemoglobin 27.3 PG Mean Corpuscular Hemoglobin 31.1 % Concent Red Cell Distribution Width 16.2 % Platelet Count 334 TH/MM3 Mean Platelet Volume 10.2 FL Neutrophils (%) (Auto) 93.5 % Lymphocytes (%) (Auto) 1.9 % Monocytes (%) (Auto) 4.5 % Eosinophils (%) (Auto) 0.0 % Basophils (%) (Auto) 0.1 % Neutrophils # (Auto) 31.6 TH/MM3 Lymphocytes # (Auto) 0.7 TH/MM3 Monocytes # (Auto) 1.5 TH/MM3 Eosinophils # (Auto) 0.0 TH/MM3 Basophils # (Auto) 0.0 TH/MM3 CBC Comment AUTO DIFF Differential Total Cells 100 Counted Neutrophils % (Manual) 89 % Band Neutrophils % 7 % Lymphocytes % 2 % Monocytes % 1 % Basophils % 1 % Neutrophils # (Manual) 32.4 TH/MM3 Differential Comment FINAL DIFF MANUAL Platelet Estimate NORMAL Platelet Morphology Comment NORMAL Prothrombin Time 13.1 SEC Prothromb Time International 1.2 RATIO Ratio Sodium Level 139 MEQ/L Potassium Level 4.1 MEQ/L Chloride Level 109 MEQ/L Carbon Dioxide Level 19.0 MEQ/L Anion Gap 11 MEQ/L Blood Urea Nitrogen 18 MG/DL Creatinine 1.58 MG/DL Estimat Glomerular Filtration 32 ML/MIN Rate Random Glucose 150 MG/DL Calcium Level 7.1 MG/DL Protein Corrected Calcium 7.8 MG/DL Phosphorus Level 2.6 MG/DL Magnesium Level 1.5 MG/DL Total Protein 5.8 GM/DL Imaging Last Impressions Chest X-Ray 06/02/16 0600 Signed Impressions: Service Date/Time: Thursday, June 02, 2016 05:18 - CONCLUSION: 1. Support apparatus in satisfactory position. Stable bilateral airspace disease and pleural effusions. Humberto Martin MD Head CT 05/28/16 0000 Signed Impressions: Service Date/Time: May 12:37 - CONCLUSION: No acute disease. Klever Roberts Jr., MD Chest CT 05/28/16 0000 Signed Impressions: Service Date/Time: May 16:14 - CONCLUSION: Abnormal density on the chest x-ray is associated with hiatal hernia. There is a tiny lateral left lung base nodular density which can be followed Cam Amaro MD Abdomen/Pelvis CT 05/28/16 0000 Signed Impressions: Service Date/Time: Thursday, May 28, 2016 12:44 - CONCLUSION: 1. No dilated loops of small and large bowel. 2. 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 There is also a prominent calcification or ossification at the gastroesophageal junction which is of uncertain significance. May consider direct visualization of the GE junction to further evaluate the configuration and this calcification. 3. Prominent induration of the left and right lateral abdominal wall subcutaneous fat. Klever Calderón MD Objective Remarks GENERAL: Well-nourished, well-developed patient. Intubated sedated SKIN: Warm and dry. HEAD: Normocephalic. EYES: No scleral icterus. No injection or drainage. NECK: Supple, trachea midline. No JVD or lymphadenopathy. CARDIOVASCULAR: Afib with RVR, no gallops, or rubs. Peripheral cyanosis involving bilateral fingers and toes RESPIRATORY: Orotracheally intubated. Breath sounds equal bilaterally. No accessory muscle use. GASTROINTESTINAL: Abdomen soft, non-tender, nondistended. MUSCULOSKELETAL: No cyanosis, 3+ edema. Generalized anasarca BACK: Nontender without obvious deformity. No CVA tenderness. NEURO: Intubated heavily sedated. Moves extremities spontaneously A/P Problem List: (1) Acute hypoxemic respiratory failure ICD Code: J96.01 Status: Acute (2) Hypotension ICD Code: I95.9 Status: Acute (3) Sepsis ICD Code: A41.9 Status: Resolved (4) UTI (urinary tract infection) ICD Code: N39.0 Status: Acute (5) Altered mental status ICD Code: R41.82 Status: Acute (6) Clostridium difficile diarrhea ICD Code: A04.7 Status: Acute (7) Atrial fibrillation ICD Code: I48.91 Status: Acute Assessment and Plan NEURO: Altered mental status/Metabolic toxic encephalopathy - On Fentanyl drip for sedation and vent synchrony. - Daily sedation vacation as tolerated CVS: Volume overload, with significant third spacing Hypotension Atrial fib - On Amio drip. Start Neosyn if needed Monitor HR and BP keep MAP>65mmHg. Lactic acid 2.4 -Echo showed EF 55-60%, no RWMA, mod-severe MR and TR. -Off Coumadin given GI bleed RESP: Acute hypoxemic respiratory failure Bilateral pleural effusion -Continue ventilator support keep sat >92% -DuoNeb every 6 hours and when necessary - SBT daily when appropriate. : Acute kidney injury- resolved Hypernatremia- improved Monitor renal function, I/O's, electrolytes replacement per protocol. IVF D5NS@75ml/hr, diurese with Bumex 1mg x1 GI: - Ont Protonix 40mg BID -OGT to LIWS, GI is following ID C. difficile colitis Sepsis [facility] associated pneumonia - IV Flagyl, PO Vanc and PO rifaximin - ID Dr. Colin following -On cefepime 2 g IV every 8 hours - Monitor for signs of infections ( Fever, WBC) follow up on cxs Heme: s/p transfusion 1u PRBC and 2 U FFP 06/01 Monitor BCC, Coags Endo: SSI if needed for glycemic control DVT GI prophylaxis - Teds SCDs and Protonix 40 BID. Coumadin held for GI bleed. Palliative care is following. If no improvements in next 48 hrs family will likley transition to comfort care Prognosis guarded given multiorgan injury, sepsis requiring pressors, acute renal failure, resp failure, worsening leukocytosis and C-diff colitis. Critical Care 30 MIN Problem Qualifiers (1) Sepsis: Qualified Code: A41.9 - Sepsis, due to unspecified organism (2) Altered mental status: Qualified Code: R41.0 - Delirium Taylor Maria MD Jun 03, 2016 08:34
[2016-06-03] MEDS ORDERED: TERBUTALINE INJ 1 MG/ML AMP SQ PRN (09:00)
[2016-06-03] MEDS ORDERED: BUMETANIDE INJ 1 MG/4 ML VIAL IV PUSH ONE (09:00)
[2016-06-03] MEDS ORDERED: PHENYLEPHRINE INJ 40 MG in DEXTROSE 5% IN WATE 500 ML INJ 496 ML IV SCH ×2 (10:00)
[2016-06-03] MEDS ORDERED: CALCIUM GLUCONATE INJ 1 GM in SODIUM CHLORIDE 0.9% INJ 100 ML IV ONE (10:00)
--- NOTE | 2016-06-03 10:02 | HHI.FPPN ---
Subjective Remarks Overnight patient was found to have low urinary output. Blood pressure continues to however between 60-70 MAP, pulse also fluctuates between 90-150s. Febrile overnight with a temp of 100.6. Per nurse, patient is able to follow commands. Currently on fentanyl, amiodarone drip. Remains intubated. (Mary Gamble MD R2) Objective Vitals Vital Signs Date Time Temp Pulse Resp B/P Pulse Ox O2 Delivery O2 Flow Rate FiO2 06/03/16 08:00 40 06/03/16 08:00 100 40 06/03/16 06:00 99 06/03/16 04:20 100 45 06/03/16 04:00 93 06/03/16 04:00 45 06/03/16 04:00 98.4 96 20 102/64 100 06/03/16 02:00 92 06/03/16 01:25 100 45 06/03/16 00:00 97 06/03/16 00:00 98.7 97 16 114/80 100 06/03/16 00:00 45 06/02/16 22:20 96 45 06/02/16 22:00 90 06/02/16 20:00 100.6 151 12 116/59 97 06/02/16 20:00 45 06/02/16 20:00 151 06/02/16 19:20 96 45 06/02/16 18:00 104 06/02/16 16:00 97.3 105 18 84/54 95 06/02/16 16:00 102 06/02/16 16:00 45 06/02/16 14:46 97 45 06/02/16 14:00 135 06/02/16 12:40 97 45 06/02/16 12:00 97.6 157 28 114/63 89 06/02/16 12:00 45 06/02/16 12:00 157 06/02/16 10:00 100 I/O 06/02/16 06/02/16 06/02/16 06/03/16 06/03/16 06/03/16 07:00 15:00 23:00 07:00 15:00 23:00 Intake Total 1804 ml 1629 ml 677 ml 939 ml Output Total 1500 ml 750 ml 300 ml 150 ml Balance 304 ml 879 ml 377 ml 789 ml Intake Oral 0 ml IV Total 1604 ml 1629 ml 677 ml 939 ml Albumin 100 ml Other 100 ml Output Urine Total 1300 ml 350 ml 100 ml 100 ml Stool Total 200 ml 300 ml 200 ml 50 ml Gastric Drainage Total 0 ml 100 ml (Mary Cash MD R2) Result Diagram: 06/03/1644906/03/16449 Objective Remarks GEN: Intubated and sedated. SKIN: Bilateral hands remain cool to touch but with improved coloration of fingertips. LUNGS: Patient intubated with midline ETT per CXR. Coarse breath sounds with late expiratory wheezes bilaterally CARDIOVASCULAR: Increased rate but with normal rhythm of 120s No murmurs, gallops or rubs. GI/ABD: Abdomen soft to palpation. MUSC: Lower extremities show 3+ pitting edema to her lower ribs. PSYCH/MENTAL STATUS: Per report from nurse, able to wiggle toes on command. ( Mary Cash MD R2) A/P Assessment and Plan Mrs. Ramírez is a 75 y/o CF who presented due to hypotension and AMS. Admitted for Sepsis and AMS. Now with multiorgan failure Relevant history obtained from spouse: Mr. Amari Ramírez ([phone]): Has been hospitalized 3 times since [place] at [facility]. Diagnoses at these admissions unclear but does report elevated heart rate in the 180s. Another admission was for a GI bleed that required 3-4 transfusions but etiology is unknown. Patient was continued on warfarin despite this GI bleed. Another admission was for a DVT and an IVC filter was placed. Patient was at [facility] for rehabilitation prior to current admission. Neuro: AMS, metabolic encephalopathy -Sedated for intubation on 05/29-. Currently on fentanyl -Daily sedation vacation -Hyperammonemia resolved with Rifaximin Cardiac: Hypotension, afib, volume overload with third spacing, Mod/severe mitral regurg and tricuspid regurg -Echo: EF of 55-60% with mod/sever MR and TR -Failed rate control with cardizem. -Continue on amio drip, Start Phenyephine to keep MAP>65 -Anitcoag with coumadin reversed and discontinued due to GI bleed Cardiology: appreciate recommendations * Part of RVR explainee by anemia, sepsis, and low IV volume from low oncotic pressure. * Recommended DC of amio, (we will defer to CC) * Would benefit from cath, but need to have stable H&H (INR now <2 Resp: Acute hypoxemic respiratory failure, Bilateral pleura effusion, HCAP pneumonia -Continue ventilator support keep sat >92% -DuoNeb every 6 hours and when necessary Imaging: * CXR 06/02: Stable bilateral airspace disease and pleural effusions * Chest CT 05/28: Abnormal density on xray is associated with hiatal hernia. Tiny lateral left lung base which can be followed : SALVADOR, hypernatremia-resolved, low urinary output, Anasarca, proteinuria -Electrolyte protocol for replacement -D5NS @ 75 -Scheduled bumex discontinued, give 1mg PRN GI: GI bleed, GI consulted: appreciate recommendation CT Abdomen: No dilated loops of small and large bowel. 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 Prominent calcification or ossification at the GE junction. -IV Protonix 40mg BID -OGT to LIWS, GI is following ID: C.diff, Sepsis, HCAP pneumonia -Blood and urine cultures negative -Repeat blood and urine cultures pending -Sputum culture pending Consulted ID: appreciate recommendations * C.diff hypervirulent, severe Medications: * PO vancomycin (05/29- ) * IV Flagyl (05/28- ) * Cefepime (06/02- ) * Rifaximin Heme: GI bleed, suprtherapeutic INR-resolved -s/p transfusion 2u PRBC and 2 U FFP Endo: -SSI if needed for glycemic control DVT prophylaxis: Teds SCDs Discharge Planning Discharge: Timeline unknown. Prognosis poor due to multiorgan failure Pallative Care consulted: * DNR * Family does not want trach or PEG * Continue aggressive care short of resuscitation * If patient does not improve by the end of the week, daily we'll opt for transition to comfort measures only DW: Dr. Borrego and Dr. Burns (Mary Cash MD R2) Attending Attestation Patient seen and examined. Case reviewed and discussed with the resident team. Agree with plan of care as discussed with me and documented in the resident note. unfortunately, she has multiorgan failure. her sepsis and overall condition have contributed to her severe illness (Courtney Borrego MD) Problem List: (1) Sepsis Status: Acute (2) Atrial fibrillation Status: Acute (3) Altered mental status Status: Acute Plan: (4) Anemia Status: Acute (5) Abnormal abdominal CT scan Status: Acute (6) Clostridium difficile diarrhea Status: Acute (7) SALVADOR (acute kidney injury) Status: Resolved (8) Nutrition, metabolism, and development symptoms Status: Acute (Mary Cash MD R2) Problem Qualifiers (1) Sepsis: Qualified Code: A41.9 - Sepsis, due to unspecified organism (2) Altered mental status: Qualified Code: R41.0 - Delirium Mary Cash MD R2 Jun 03, 2016 10:02 Courtney Borrego MD Jun 03, 2016 13:46
[2016-06-03] MEDS: DEXT 5%-NACL 0.9% 1000 ML INJ 1,000 ML IV SCH (11:57)
[2016-06-03] MEDS: AMIODARONE INJ 450 MG in DEXTROSE 5% IN WATE(EXCEL) INJ 250 ML IV SCH ×2 (12:10)
--- NOTE | 2016-06-03 13:30 | HHI.HCPN ---
Reason for visit a. To assist with evaluation and management of symptoms including: pain b. To assist medical decision maker(s) with: better understanding of current medical conditions; weighing benefits/burdens of medical treatment options; making medical treatment decisions. Subjective/Interval History Pt remains intubated sedated, poor urine output. temp. Require norsynephrine. could not follow commands. Eyes open, could not give thumps up for me. Could not squeeze hands, or close eyes on command on my visit. 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 Patient herself could not give too much of a history, but spouse endorsed that she has been hospitalized 3 times since at [facility]. Her first admission was due to weakness and all he can remember about her admission was her HR was in the 180s. She was discharged home without a formal diagnosis per her . She was then hospitalized on for for black stools and anemia. He states that she was give 3-4 transfusions during the hospitalizations and discharged home. When asked if she had a GI bleed, he states that they could not find a cause for her bleeding. Her last admission was "a couple of weeks ago" for leg swelling. She was found to have blood clots in her RLE. An IVC filter was placed, and she was started on Coumadin despite having a probable GI bleed. She was then discharged to [facility] for rehabilitation. While in the nursing facility, spouse state that she has had decrease in activity and by PO intake. Patient presented to the emergency department with altered mental status on 05/28. They were not able to get much of a history at the time this patient has been very confused. In the ER: * Temperature is 97.4, pulse is 87, respirations 16, blood pressure is 80/53 * WBCs 21.3, hemoglobin is 10.3 and hematocrit is 30.8, platelets 575 * Sodium is 144, potassium 3.6, chloride is 109, bicarbonate is 21.9, BUN 66, creatinine is 1.93, AST is 12, AST 7, alkaline phosphatase is 95 * Troponin I is less than 0.02, BNP is 160, total protein is 5.0, albumin is 1.8 * PTT is 37.7, INR is 2.9, APTT is 39.9 * Urine shows trace leukocyte esterase, negative nitrites, culture was indicated. * Patient is positive for C. difficile tox. * Head CT shows no acute disease process * Abdominal pelvis CT: No dilated loops of small and large bowel. 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 Prominent calcification or ossification at the GE junction. Consider direct visualization of GE junction. PROM and induration of the left and right lateral abdominal wall subcutaneous fat. * Chest CT shows abnormal density, tiny lateral left lung base nodular density. * Chest x-ray shows 2.5 cm ill-defined opacity projected over the left lower chest In the ER patient was given an fluid resuscitation, or patient's acute kidney insufficiency. Patient has leukocytosis and was given broad-spectrum antibiotics. ER physician suspected hypovolemia in the setting of C. difficile colitis, sepsis and patient was transferred to family medicine services. 05/29/2016 Overnight patient had episode of tachycardia with a heart rate of 150s , was found to be in A. fib with RVR. Patient given diltiazem. ACS rule out initiated, and was ruled out negative. Troponin remains less than 0.02. Creatinine trending down. Has leukocytosis. Patient's mentation improved, and is more alert and oriented to person place and time. Cardiology consult was ordered, for A. fib. Cardiology stated that patient is therapeutically anticoagulated. Suspected heart rate is due to sepsis and increased metabolic demand. Recommends conservative management. Echocardiography EF is 55-60%. There is moderate to severe regurgitation of the mitral valve. There is moderate to severe regurgitation of the tricuspid valve. Infectious disease was consulted, place patient on vancomycin and Flagyl. Right IJ was placed. [employer] was consulted, as patient became hypotensive. And stat lactic acid was ordered, fluid bolus was given. Pressures ordered only if refractory to fluids. GI was consulted, CT scan shows periesophageal herniation and calcification of the GE junction. Plan on doing EGD when patient is more stable. 05/30/2016- patient became more normotensive after bolus resuscitation. There is noted peripheral cyanosis in the lower extremity probably due to raynauds symptoms. Patient on amiodarone infusion. Continue to be in the ICU. Patient continued to be full code. A. fib has resolved. 05/31/2016. Patient was seen by intensive care again. Patient has worsening edema, A. fib redeveloped. Patient restarted on Bumex. Overnight patient became very anxious with tachypnea and saturations in the 70s. Intubation was performed and oxygen saturation responded appropriately. Hemoglobin yesterday was 7.2 and one unit was transfused bringing her hemoglobin up to 7.9. Patient' s heart rate responded appropriately after transitioning back to the Amiodarone drip. Palliative care was consulted to review goals of care. In summary: This is a 75-year-old who has had multiple hospitalization secondary to tachycardia, DVTs, GI bleed the past few months. Currently patient came in due to altered mental status, C. diff colitis and sepsis. Patient was found to have moderate to severe mitral and tricuspid regurgitation. Course of hospitalization is complicated by edema, hypoalbumin, A. fib, respiratory failure, and anemia. Palliative Care consulted to review goals of care. Today: pt intubated. worsening leukocytosis, hgb trending down. CXR show basilar airspace disease and effusions which is stable. Family/friend interactions Spoke with pt's Spouse at bedside, and gave update. Reviewed course of hospitalization. Worsening renal function. temp. Family decide to withdraw and transition to comfort measures tomorrow at 10: am. Advance Directives Living Will: Never completed Health Care Surrogate: Never completed Durable Power of Neurodiagnostic Tech: Never completed Objective Vital Signs Date Time Temp Pulse Resp B/P Pulse Ox O2 Delivery O2 Flow Rate FiO2 06/03/16 12:16 100 40 06/03/16 12:00 134 06/03/16 10:00 134 06/03/16 08:00 98.9 136 16 101/61 100 06/03/16 08:00 40 06/03/16 08:00 136 06/03/16 08:00 40 06/03/16 08:00 100 40 06/03/16 06:00 99 06/03/16 04:20 100 45 06/03/16 04:00 93 06/03/16 04:00 45 06/03/16 04:00 98.4 96 20 102/64 100 06/03/16 02:00 92 06/03/16 01:25 100 45 06/03/16 00:00 97 06/03/16 00:00 98.7 97 16 114/80 100 06/03/16 00:00 45 06/02/16 22:20 96 45 06/02/16 22:00 90 06/02/16 20:00 100.6 151 12 116/59 97 06/02/16 20:00 45 06/02/16 20:00 151 06/02/16 19:20 96 45 06/02/16 18:00 104 06/02/16 16:00 97.3 105 18 84/54 95 06/02/16 16:00 102 06/02/16 16:00 45 06/02/16 14:46 97 45 06/02/16 14:00 135 Intake & Output 06/03/16 06/03/16 07:00 19:00 Intake Total 1616 ml Output Total 450 ml Balance 1166 ml IV Total 1616 ml Output Urine Total 200 ml Stool Total 250 ml Physical Exam CONSTITUTIONAL/GENERAL: This is frail female patient, intubated and sedated TUBES/LINES/DRAINS:RIJ, ET tube, bess, rectal tube. SKIN: No jaundice, rashes, or lesions. Ecchymoses on upper extremities. No wounds seen anteriorly. Skin temperature appropriate. Not diaphoretic. HEAD: Atraumatic. Normocephalic. EYES: eyes closed did not force open. ENT: . Throat ET tube. could not examine hearing. NECK: Trachea midline. Supple, nontender. No palpable thyroid enlargement or nodularity. CARDIOVASCULAR:Irregularly irregular RESPIRATORY/CHEST: Symmetric, Rhonchi. GASTROINTESTINAL: Abdomen soft, non-tender, distended. anasarca up to abdomen GENITOURINARY: Without palpable bladder distension. Bess catheter in place. MUSCULOSKELETAL: There is clubbing and cyanosis of upper and lower ext. There is anarsarca LYMPHATICS: No palpable cervical or supraclavicular adenopathy. NEUROLOGICAL: sedated, intubated, could not follow commands on my visit. PSYCHIATRIC: could not examine. Diagnostic Tests Laboratory Laboratory Tests Test 05/31/16 06/01/16 06/01/16 06/01/16 22:29 04:20 09:47 17:00 Blood Gas Puncture Site RT RADIAL Blood Gas Patient Temperature 98.6 Blood Gas HCO3 14 mmol/L (22-26) Blood Gas Base Excess -10.9 mmol/L (-2-2) Blood Gas Oxygen Saturation 98 % (90-100) Arterial Blood pH 7.34 (7.380-7.420) Arterial Blood Partial 26 mmHg (38-42) Pressure CO2 Arterial Blood Partial 354 mmHg Pressure O2 (61-120) Arterial Blood Oxygen Content 11.3 Vol % (12.0-20.0) Arterial Blood 1.2 % (0-4) Carboxyhemoglobin Arterial Blood Methemoglobin 1.3 % (0-2) Blood Gas Hemoglobin 7.6 G/DL (12.0-16.0) Oxygen Delivery Device VENTILATOR Blood Gas Ventilator Setting AC12/500/PEEP5 Blood Gas Inspired Oxygen 100 % White Blood Count 19.4 TH/MM3 (4.0-11.0) Red Blood Count 2.71 MIL/MM3 (4.00-5.30) Hemoglobin 7.2 GM/DL 9.7 GM/DL (11.6-15.3) (11.6-15.3) Hematocrit 23.0 % 29.8 % (35.0-46.0) (35.0-46.0) Mean Corpuscular Volume 84.7 FL (80.0-100.0) Mean Corpuscular Hemoglobin 26.7 PG (27.0-34.0) Mean Corpuscular Hemoglobin 31.6 % Concent (32.0-36.0) Red Cell Distribution Width 17.1 % (11.6-17.2) Platelet Count 362 TH/MM3 (150-450) Mean Platelet Volume 10.4 FL (7.0-11.0) Neutrophils (%) (Auto) 91.5 % (16.0-70.0) Lymphocytes (%) (Auto) 4.1 % (9.0-44.0) Monocytes (%) (Auto) 4.0 % (0.0-8.0) Eosinophils (%) (Auto) 0.3 % (0.0-4.0) Basophils (%) (Auto) 0.1 % (0.0-2.0) Neutrophils # (Auto) 17.8 TH/MM3 (1.8-7.7) Lymphocytes # (Auto) 0.8 TH/MM3 (1.0-4.8) Monocytes # (Auto) 0.8 TH/MM3 (0-0.9) Eosinophils # (Auto) 0.1 TH/MM3 (0-0.4) Basophils # (Auto) 0.0 TH/MM3 (0-0.2) CBC Comment DIFF FINAL Differential Comment Prothrombin Time 30.2 SEC (9.8-11.6) Prothromb Time International 2.6 RATIO Ratio Sodium Level 148 MEQ/L (136-145) Potassium Level 3.2 MEQ/L (3.5-5.1) Chloride Level 117 MEQ/L (98-107) Carbon Dioxide Level 17.1 MEQ/L (21.0-32.0) Anion Gap 14 MEQ/L (5-15) Blood Urea Nitrogen 14 MG/DL (7-18) Creatinine 1.02 MG/DL (0.50-1.00) Estimat Glomerular Filtration 53 ML/MIN (>89) Rate Random Glucose 147 MG/DL (74-106) Calcium Level 7.6 MG/DL (8.5-10.1) Total Bilirubin 0.4 MG/DL (0.2-1.0) Aspartate Amino Transf 7 U/L (15-37) (AST/SGOT) Alanine Aminotransferase 6 U/L (10-53) (ALT/SGPT) Alkaline Phosphatase 101 U/L (45-117) Total Protein 5.1 GM/DL (6.4-8.2) Albumin 3.7 GM/DL (3.4-5.0) Blood Type A POSITIVE Crossmatch Leukocyte-Reduced Red Blood Cells Blood Bank Comment Test 06/01/16 06/01/16 06/02/16 06/02/16 19:57 20:30 03:20 09:30 Blood Bank Comment Hemoglobin 9.5 GM/DL 8.6 GM/DL (11.6-15.3) (11.6-15.3) Hematocrit 29.1 % 26.2 % (35.0-46.0) (35.0-46.0) Prothrombin Time 15.4 SEC 12.6 SEC (9.8-11.6) (9.8-11.6) Prothromb Time International 1.4 RATIO 1.1 RATIO Ratio White Blood Count 21.0 TH/MM3 (4.0-11.0) Red Blood Count 3.09 MIL/MM3 (4.00-5.30) Mean Corpuscular Volume 84.7 FL (80.0-100.0) Mean Corpuscular Hemoglobin 27.7 PG (27.0-34.0) Mean Corpuscular Hemoglobin 32.6 % Concent (32.0-36.0) Red Cell Distribution Width 16.7 % (11.6-17.2) Platelet Count 306 TH/MM3 (150-450) Mean Platelet Volume 10.3 FL (7.0-11.0) Neutrophils (%) (Auto) 90.4 % (16.0-70.0) Lymphocytes (%) (Auto) 3.8 % (9.0-44.0) Monocytes (%) (Auto) 4.8 % (0.0-8.0) Eosinophils (%) (Auto) 0.8 % (0.0-4.0) Basophils (%) (Auto) 0.2 % (0.0-2.0) Neutrophils # (Auto) 19.0 TH/MM3 (1.8-7.7) Lymphocytes # (Auto) 0.8 TH/MM3 (1.0-4.8) Monocytes # (Auto) 1.0 TH/MM3 (0-0.9) Eosinophils # (Auto) 0.2 TH/MM3 (0-0.4) Basophils # (Auto) 0.0 TH/MM3 (0-0.2) CBC Comment DIFF FINAL Differential Comment Sodium Level 143 MEQ/L (136-145) Potassium Level 3.5 MEQ/L (3.5-5.1) Chloride Level 109 MEQ/L (98-107) Carbon Dioxide Level 20.3 MEQ/L (21.0-32.0) Anion Gap 14 MEQ/L (5-15) Blood Urea Nitrogen 13 MG/DL (7-18) Creatinine 0.97 MG/DL (0.50-1.00) Estimat Glomerular Filtration 56 ML/MIN (>89) Rate Random Glucose 145 MG/DL (74-106) Calcium Level 7.0 MG/DL (8.5-10.1) Protein Corrected Calcium 7.8 MG/DL (8.5-10.1) Total Bilirubin 0.4 MG/DL (0.2-1.0) Aspartate Amino Transf 9 U/L (15-37) (AST/SGOT) Alanine Aminotransferase 9 U/L (10-53) (ALT/SGPT) Alkaline Phosphatase 89 U/L (45-117) Total Protein 5.5 GM/DL (6.4-8.2) Albumin 3.5 GM/DL (3.4-5.0) Blood Gas Puncture Site LT RADIAL Blood Gas Patient Temperature 98.6 Blood Gas HCO3 15 mmol/L (22-26) Blood Gas Base Excess -8.4 mmol/L (-2-2) Blood Gas Oxygen Saturation 94 % (90-100) Arterial Blood pH 7.42 (7.380-7.420) Arterial Blood Partial 24 mmHg (38-42) Pressure CO2 Arterial Blood Partial 81 mmHg Pressure O2 (61-120) Arterial Blood Oxygen Content 12.4 Vol % (12.0-20.0) Arterial Blood 1.6 % (0-4) Carboxyhemoglobin Arterial Blood Methemoglobin 1.2 % (0-2) Blood Gas Hemoglobin 9.3 G/DL (12.0-16.0) Oxygen Delivery Device VENTILATOR Blood Gas Ventilator Setting 12/500/45%/5PEEP Blood Gas Inspired Oxygen 45 % Test 06/02/16 06/02/16 06/03/16 09:59 20:40 04:50 Lactic Acid Level 2.4 mmol/L (0.4-2.0) Urine Color DARK-YELLOW (YELLW/STRAW) Urine Turbidity CLOUDY (CLEAR) Urine pH 5.5 (5.0-8.5) Urine Specific [place] 1.022 (1.002-1.035) Urine Protein 300 mg/dL (NEG-TRACE) Urine Glucose (UA) NEG mg/dL (NEG) Urine Ketones NEG mg/dL (NEG) Urine Occult Blood LARGE (NEG) Urine Nitrite NEG (NEG) Urine Bilirubin NEG (NEG) Urine Urobilinogen LESS THAN 2.0 MG/DL (LESS THAN 2.0) Urine Leukocyte Esterase LARGE (NEG) Urine RBC /hpf (0-3) Urine WBC /hpf (0-5) Urine WBC Clumps FEW (NONE) Urine Squamous Epithelial 3 /hpf (0-5) Cells Urine Bacteria FEW /hpf (NONE) Urine Mucus FEW /lpf (OCC) Urine Yeast with Hyphae MOD (NONE) Urine Yeast (Budding) MANY (NONE) Microscopic Urinalysis Comment CATH-CULTURE IND White Blood Count 33.8 TH/MM3 (4.0-11.0) Red Blood Count 3.37 MIL/MM3 (4.00-5.30) Hemoglobin 9.2 GM/DL (11.6-15.3) Hematocrit 29.6 % (35.0-46.0) Mean Corpuscular Volume 87.8 FL (80.0-100.0) Mean Corpuscular Hemoglobin 27.3 PG (27.0-34.0) Mean Corpuscular Hemoglobin 31.1 % Concent (32.0-36.0) Red Cell Distribution Width 16.2 % (11.6-17.2) Platelet Count 334 TH/MM3 (150-450) Mean Platelet Volume 10.2 FL (7.0-11.0) Neutrophils (%) (Auto) 93.5 % (16.0-70.0) Lymphocytes (%) (Auto) 1.9 % (9.0-44.0) Monocytes (%) (Auto) 4.5 % (0.0-8.0) Eosinophils (%) (Auto) 0.0 % (0.0-4.0) Basophils (%) (Auto) 0.1 % (0.0-2.0) Neutrophils # (Auto) 31.6 TH/MM3 (1.8-7.7) Lymphocytes # (Auto) 0.7 TH/MM3 (1.0-4.8) Monocytes # (Auto) 1.5 TH/MM3 (0-0.9) Eosinophils # (Auto) 0.0 TH/MM3 (0-0.4) Basophils # (Auto) 0.0 TH/MM3 (0-0.2) CBC Comment AUTO DIFF Differential Total Cells 100 Counted Neutrophils % (Manual) 89 % (16-70) Band Neutrophils % 7 % (0-6) Lymphocytes % 2 % (9-44) Monocytes % 1 % (0-8) Basophils % 1 % (0-2) Neutrophils # (Manual) 32.4 TH/MM3 (1.8-7.7) Differential Comment FINAL DIFF MANUAL Platelet Estimate NORMAL (NORMAL) Platelet Morphology Comment NORMAL (NORMAL) Prothrombin Time 13.1 SEC (9.8-11.6) Prothromb Time International 1.2 RATIO Ratio Sodium Level 139 MEQ/L (136-145) Potassium Level 4.1 MEQ/L (3.5-5.1) Chloride Level 109 MEQ/L (98-107) Carbon Dioxide Level 19.0 MEQ/L (21.0-32.0) Anion Gap 11 MEQ/L (5-15) Blood Urea Nitrogen 18 MG/DL (7-18) Creatinine 1.58 MG/DL (0.50-1.00) Estimat Glomerular Filtration 32 ML/MIN (>89) Rate Random Glucose 150 MG/DL (74-106) Calcium Level 7.1 MG/DL (8.5-10.1) Protein Corrected Calcium 7.8 MG/DL (8.5-10.1) Phosphorus Level 2.6 MG/DL (2.5-4.9) Magnesium Level 1.5 MG/DL (1.5-2.5) Total Protein 5.8 GM/DL (6.4-8.2) Result Diagram: 06/03/16 0450 06/03/16 0450 Microbiology Microbiology Date/Time Procedure Status Source Growth 06/02/16 10:47 Gram Stain Received Sputum Endotracheal Pending 06/02/16 10:47 Sputum Culture Received Sputum Endotracheal Pending 06/02/16 12:40 Aerobic Blood Culture - Preliminary Resulted Blood Peripheral NO GROWTH IN 1 DAY 06/02/16 12:40 Anaerobic Blood Culture - Preliminary Resulted Blood Peripheral NO GROWTH IN 1 DAY 06/02/16 12:49 Aerobic Blood Culture - Preliminary Resulted Blood Peripheral NO GROWTH IN 1 DAY 06/02/16 12:49 Anaerobic Blood Culture - Preliminary Resulted Blood Peripheral NO GROWTH IN 1 DAY 06/02/16 20:40 Urine Culture Received Urine Catheterized Urine Pending 06/02/16 20:45 Gram Stain - Final Resulted Sputum Endotracheal 06/02/16 20:45 Sputum Culture Resulted Sputum Endotracheal Pending Imaging Last Impressions Chest X-Ray 06/02/16 0600 Signed Impressions: Service Date/Time: Thursday, June 02, 2016 05:18 - CONCLUSION: 1. Support apparatus in satisfactory position. Stable bilateral airspace disease and pleural effusions. Humberto Martin MD Head CT 05/28/16 0000 Signed Impressions: Service Date/Time: May 12:37 - CONCLUSION: No acute disease. Klever Roberts Jr., MD Chest CT 05/28/16 0000 Signed Impressions: Service Date/Time: May 16:14 - CONCLUSION: Abnormal density on the chest x-ray is associated with hiatal hernia. There is a tiny lateral left lung base nodular density which can be followed Cam Amaro MD Abdomen/Pelvis CT 05/28/16 0000 Signed Impressions: Service Date/Time: May 12:44 - CONCLUSION: 1. No dilated loops of small and large bowel. 2. 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 There is also a prominent calcification or ossification at the gastroesophageal junction which is of uncertain significance. May consider direct visualization of the GE junction to further evaluate the configuration and this calcification. 3. Prominent induration of the left and right lateral abdominal wall subcutaneous fat. Klever Calderón MD Procedures [facility] Assessment and Plan Disease Oriented Problem List: (1) Sepsis (2) Atrial fibrillation (3) Altered mental status (4) DVT (deep venous thrombosis) (5) Hypotension (6) Clostridium difficile diarrhea (7) Abnormal abdominal CT scan (8) SALVADOR (acute kidney injury) (9) Anemia Symptom Scale: Pertinent Non-Medical Issues Psychosocial: Spiritual: Legal: Ethical issues impacting care: Important Contacts Mr. Amari Ramírez [phone] Prognosis This is a 75-year-old who has had multiple hospitalization secondary to tachycardia, DVTs, GI bleed the past few months. Currently patient came in due to altered mental status, C. diff colitis and sepsis. Patient was found to have moderate to severe mitral and tricuspid regurgitation. Course of hospitalization is complicated by edema, hypoalbumin, A. fib, respiratory failure, and anemia. Overall prognosis appears to be poor. Pt at risk of sudden decline, setback and as evidenced by prior hospitalization (4 total since this past ). D/w with nickel operator today, and feel patient is declining, and short term prognosis is poor, will decompensate. Code Status: Full Code Plan == Code:DNR no code. == capacity: On my visit, eyes open, could not follow commands. Does not close eyes, squeeze hands on commands. Pt just stares. Course of hospitalization complicated by sepsis, fluctuating mentation. Pt could not weigh the risk and benefits of medical decisions. == health care proxy is spouse. == Goals. Spoke with spouse today 06/03, and updated on pt's worsening medical condition, worsening leukocytosis, sepsis, renal function. Family state that pt would not want trach or peg. Family reaffirmed no code/DNR. Continue aggressive care short of resuscitation, until tomorrow. Plan to withdraw and transition to comfort care at 10 AM tomorrow. Pt is declining. Family understand pt is at risk of sudden decline, setback and at any time. == dyspnea- intubated, deferred to nickel operator. ==palliative care - will continue to follow. == will consult pastoral care to be available at 10 AM tomorrow. == d/w with family medicine. == d/w with nickel operator Time Spent Total Floor Time (mins): 40 Face to Face Time (mins): 30 >50% Counseling/Coord of Care: Yes Attestation To help prompt me to consider important information that might be impacting today's encounter and assessment, information from prior notes written by myself or my colleagues may have been "brought forward" into today's note. My signature on this note, however, is an attestation that I personally performed the exam, history, and/or decision-making noted today, and, unless otherwise indicated, the interactions with patient, family, and staff as well as the review of records all occurred today. I also attest that the listed assessment and stated plan reflect my best clinical judgment today based on the combination of historical information, prior notes, and today's exam/ interactions. When time spent is documented, it refers only to time spent today by the signer, or if indicated, combined time spent today by collaborating physician/nurse practitioner. Michael Murphy MD Jun 03, 2016 13:30
--- NOTE | 2016-06-03 14:48 | PD.CARD.PN ---
Subjective Subjective Remarks intubated, alert Objective Vital Signs / I&O Vital Signs Date Time Temp Pulse Resp B/P Pulse Ox O2 Delivery O2 Flow Rate FiO2 06/03/16 12:16 100 40 06/03/16 12:00 40 06/03/16 12:00 134 06/03/16 12:00 98.9 134 21 89/62 100 06/03/16 10:00 134 06/03/16 08:00 98.9 136 16 101/61 100 06/03/16 08:00 40 06/03/16 08:00 136 06/03/16 08:00 40 06/03/16 08:00 100 40 06/03/16 06:00 99 06/03/16 04:20 100 45 06/03/16 04:00 93 06/03/16 04:00 45 06/03/16 04:00 98.4 96 20 102/64 100 06/03/16 02:00 92 06/03/16 01:25 100 45 06/03/16 00:00 97 06/03/16 00:00 98.7 97 16 114/80 100 06/03/16 00:00 45 06/02/16 22:20 96 45 06/02/16 22:00 90 06/02/16 20:00 100.6 151 12 116/59 97 06/02/16 20:00 45 06/02/16 20:00 151 06/02/16 19:20 96 45 06/02/16 18:00 104 06/02/16 16:00 97.3 105 18 84/54 95 06/02/16 16:00 102 06/02/16 16:00 45 I/O 06/02/16 06/02/16 06/02/16 06/03/16 06/03/16 06/03/16 07:00 15:00 23:00 07:00 15:00 23:00 Intake Total 1804 ml 1629 ml 677 ml 939 ml Output Total 1500 ml 750 ml 300 ml 150 ml Balance 304 ml 879 ml 377 ml 789 ml Intake Oral 0 ml IV Total 1604 ml 1629 ml 677 ml 939 ml Albumin 100 ml Other 100 ml Output Urine Total 1300 ml 350 ml 100 ml 100 ml Stool Total 200 ml 300 ml 200 ml 50 ml Gastric Drainage Total 0 ml 100 ml Physical Exam GENERAL: SKIN: Warm and dry. HEAD: Normocephalic. EYES: No scleral icterus. No injection or drainage. NECK: Supple, trachea midline. No JVD or lymphadenopathy. CARDIOVASCULAR: Regular rate and rhythm without murmurs, gallops, or rubs. RESPIRATORY: Breath sounds equal bilaterally. No accessory muscle use. GASTROINTESTINAL: Abdomen soft, non-tender, nondistended. MUSCULOSKELETAL: No cyanosis, or edema. BACK: Nontender without obvious deformity. No CVA tenderness. Laboratory Laboratory Tests Test 06/02/16 06/03/16 20:40 04:50 Urine Color DARK-YELLOW Urine Turbidity CLOUDY Urine pH 5.5 Urine Specific [place] 1.022 Urine Protein 300 mg/dL Urine Glucose (UA) NEG mg/dL Urine Ketones NEG mg/dL Urine Occult Blood LARGE Urine Nitrite NEG Urine Bilirubin NEG Urine Urobilinogen LESS THAN 2.0 MG/DL Urine Leukocyte Esterase LARGE Urine RBC /hpf Urine WBC /hpf Urine WBC Clumps FEW Urine Squamous Epithelial 3 /hpf Cells Urine Bacteria FEW /hpf Urine Mucus FEW /lpf Urine Yeast with Hyphae MOD Urine Yeast (Budding) MANY Microscopic Urinalysis Comment CATH-CULTURE IND White Blood Count 33.8 TH/MM3 Red Blood Count 3.37 MIL/MM3 Hemoglobin 9.2 GM/DL Hematocrit 29.6 % Mean Corpuscular Volume 87.8 FL Mean Corpuscular Hemoglobin 27.3 PG Mean Corpuscular Hemoglobin 31.1 % Concent Red Cell Distribution Width 16.2 % Platelet Count 334 TH/MM3 Mean Platelet Volume 10.2 FL Neutrophils (%) (Auto) 93.5 % Lymphocytes (%) (Auto) 1.9 % Monocytes (%) (Auto) 4.5 % Eosinophils (%) (Auto) 0.0 % Basophils (%) (Auto) 0.1 % Neutrophils # (Auto) 31.6 TH/MM3 Lymphocytes # (Auto) 0.7 TH/MM3 Monocytes # (Auto) 1.5 TH/MM3 Eosinophils # (Auto) 0.0 TH/MM3 Basophils # (Auto) 0.0 TH/MM3 CBC Comment AUTO DIFF Differential Total Cells 100 Counted Neutrophils % (Manual) 89 % Band Neutrophils % 7 % Lymphocytes % 2 % Monocytes % 1 % Basophils % 1 % Neutrophils # (Manual) 32.4 TH/MM3 Differential Comment FINAL DIFF MANUAL Platelet Estimate NORMAL Platelet Morphology Comment NORMAL Prothrombin Time 13.1 SEC Prothromb Time International 1.2 RATIO Ratio Sodium Level 139 MEQ/L Potassium Level 4.1 MEQ/L Chloride Level 109 MEQ/L Carbon Dioxide Level 19.0 MEQ/L Anion Gap 11 MEQ/L Blood Urea Nitrogen 18 MG/DL Creatinine 1.58 MG/DL Estimat Glomerular Filtration 32 ML/MIN Rate Random Glucose 150 MG/DL Calcium Level 7.1 MG/DL Protein Corrected Calcium 7.8 MG/DL Phosphorus Level 2.6 MG/DL Magnesium Level 1.5 MG/DL Total Protein 5.8 GM/DL Assessment and Plan Problem List: (1) Dehydration (2) Sepsis (3) UTI (urinary tract infection) (4) Altered mental status (5) Clostridium difficile diarrhea (6) Hypotension (7) Abnormal abdominal CT scan (8) Atrial fibrillation (9) SALVADOR (acute kidney injury) Assessment and Plan 1.) PAF - rvr on iv amio, coumadin held d/t gib, anemia, inr subtherapeutic, part of rvr expalined by anemia, sepsis and low iv volume from low oncotic pressure; rec dc amio elizabeth and blood transfusion 2.) Mod to severe mr - likely making resp status worse, optimally will need cath , but will need consent, inr<2.0, and stable hgb, d/w patient and son at bedside 06/03/16 Problem Qualifiers (1) Sepsis: Qualified Code: A41.9 - Sepsis, due to unspecified organism (2) Altered mental status: Qualified Code: R41.0 - Delirium Srinivas Colin MD Jun 03, 2016 14:48
[2016-06-03] MEDS: PIPERACIL-TAZO 3.375 GM PREMIX 50 ML IV SCH ×2 (14:50→20:35)
--- NOTE | 2016-06-03 17:23 | HHI.IDPN ---
Subjective Subjective Remarks cont to deteriorate clinically remains on venrt UOP dropping not tolearting TF requires pressors cont to have liquid stool Antibiotics IV flagyl po vanco zosyn Allergies: Coded Allergies: Adhesives (Verified Allergy, Unknown, 05/28/16) Betadine (Verified Allergy, Unknown, 05/28/16) Nexium (Verified Allergy, Unknown, 05/28/16) Objective . Vital Signs Date Time Temp Pulse Resp B/P Pulse Ox O2 Delivery O2 Flow Rate FiO2 06/03/16 16:38 98 40 06/03/16 16:00 40 06/03/16 16:00 134 06/03/16 16:00 99.0 134 20 95/63 100 06/03/16 14:00 130 06/03/16 12:16 100 40 06/03/16 12:00 40 06/03/16 12:00 134 06/03/16 12:00 98.9 134 21 89/62 100 06/03/16 10:00 134 06/03/16 08:00 98.9 136 16 101/61 100 06/03/16 08:00 40 06/03/16 08:00 136 06/03/16 08:00 40 06/03/16 08:00 100 40 06/03/16 06:00 99 06/03/16 04:20 100 45 06/03/16 04:00 93 06/03/16 04:00 45 06/03/16 04:00 98.4 96 20 102/64 100 06/03/16 02:00 92 06/03/16 01:25 100 45 06/03/16 00:00 97 06/03/16 00:00 98.7 97 16 114/80 100 06/03/16 00:00 45 06/02/16 22:20 96 45 06/02/16 22:00 90 06/02/16 20:00 100.6 151 12 116/59 97 06/02/16 20:00 45 06/02/16 20:00 151 06/02/16 19:20 96 45 06/02/16 18:00 104 06/02/16 06/02/16 06/03/16 15:00 23:00 07:00 Intake Total 1629 ml 677 ml 939 ml Output Total 750 ml 300 ml 150 ml Balance 879 ml 377 ml 789 ml IV Total 1629 ml 677 ml 939 ml Output Urine Total 350 ml 100 ml 100 ml Stool Total 300 ml 200 ml 50 ml Gastric Drainage Total 100 ml . Laboratory Tests Test 06/01/16 06/02/16 06/03/16 20:30 03:20 04:50 Hemoglobin 9.5 GM/DL 8.6 GM/DL 9.2 GM/DL Hematocrit 29.1 % 26.2 % 29.6 % White Blood Count 21.0 TH/MM3 33.8 TH/MM3 Red Blood Count 3.09 MIL/MM3 3.37 MIL/MM3 Mean Corpuscular Volume 84.7 FL 87.8 FL Mean Corpuscular Hemoglobin 27.7 PG 27.3 PG Mean Corpuscular Hemoglobin 32.6 % 31.1 % Concent Red Cell Distribution Width 16.7 % 16.2 % Platelet Count 306 TH/MM3 334 TH/MM3 Mean Platelet Volume 10.3 FL 10.2 FL Neutrophils (%) (Auto) 90.4 % 93.5 % Lymphocytes (%) (Auto) 3.8 % 1.9 % Monocytes (%) (Auto) 4.8 % 4.5 % Eosinophils (%) (Auto) 0.8 % 0.0 % Basophils (%) (Auto) 0.2 % 0.1 % Neutrophils # (Auto) 19.0 TH/MM3 31.6 TH/MM3 Lymphocytes # (Auto) 0.8 TH/MM3 0.7 TH/MM3 Monocytes # (Auto) 1.0 TH/MM3 1.5 TH/MM3 Eosinophils # (Auto) 0.2 TH/MM3 0.0 TH/MM3 Basophils # (Auto) 0.0 TH/MM3 0.0 TH/MM3 CBC Comment DIFF FINAL AUTO DIFF Differential Comment FINAL DIFF MANUAL Differential Total Cells 100 Counted Neutrophils % (Manual) 89 % Band Neutrophils % 7 % Lymphocytes % 2 % Monocytes % 1 % Basophils % 1 % Neutrophils # (Manual) 32.4 TH/MM3 Platelet Estimate NORMAL Platelet Morphology Comment NORMAL Laboratory Tests Test 06/02/16 06/02/16 06/03/16 03:20 09:59 04:50 Sodium Level 143 MEQ/L 139 MEQ/L Potassium Level 3.5 MEQ/L 4.1 MEQ/L Chloride Level 109 MEQ/L 109 MEQ/L Carbon Dioxide Level 20.3 MEQ/L 19.0 MEQ/L Anion Gap 14 MEQ/L 11 MEQ/L Blood Urea Nitrogen 13 MG/DL 18 MG/DL Creatinine 0.97 MG/DL 1.58 MG/DL Estimat Glomerular Filtration 56 ML/MIN 32 ML/MIN Rate Random Glucose 145 MG/DL 150 MG/DL Calcium Level 7.0 MG/DL 7.1 MG/DL Protein Corrected Calcium 7.8 MG/DL 7.8 MG/DL Total Bilirubin 0.4 MG/DL Aspartate Amino Transf 9 U/L (AST/SGOT) Alanine Aminotransferase 9 U/L (ALT/SGPT) Alkaline Phosphatase 89 U/L Total Protein 5.5 GM/DL 5.8 GM/DL Albumin 3.5 GM/DL Lactic Acid Level 2.4 mmol/L Phosphorus Level 2.6 MG/DL Magnesium Level 1.5 MG/DL Microbiology Date/Time Procedure Status Source Growth 06/02/16 10:47 Gram Stain Received Sputum Endotracheal Pending 06/02/16 10:47 Sputum Culture Received Sputum Endotracheal Pending 06/02/16 12:40 Aerobic Blood Culture - Preliminary Resulted Blood Peripheral NO GROWTH IN 1 DAY 06/02/16 12:40 Anaerobic Blood Culture - Preliminary Resulted Blood Peripheral NO GROWTH IN 1 DAY 06/02/16 12:49 Aerobic Blood Culture - Preliminary Resulted Blood Peripheral NO GROWTH IN 1 DAY 06/02/16 12:49 Anaerobic Blood Culture - Preliminary Resulted Blood Peripheral NO GROWTH IN 1 DAY 06/02/16 20:40 Urine Culture - Preliminary Resulted Urine Catheterized Urine IMMATURE GROWTH - REINCUBATE 06/02/16 20:45 Gram Stain - Final Resulted Sputum Endotracheal 06/02/16 20:45 Sputum Culture - Preliminary Resulted Sputum Endotracheal HEAVY GROWTH NORMAL RESPIRATORY SAVITA... Imaging Last Impres Last Impressions Chest X-Ray 06/02/16 0600 Signed Impressions: Service Date/Time: Thursday, June 02, 2016 05:18 - CONCLUSION: 1. Support apparatus in satisfactory position. Stable bilateral airspace disease and pleural effusions. Humberto Martin MD Head CT 05/28/16 0000 Signed Impressions: Service Date/Time: May 12:37 - CONCLUSION: No acute disease. Klever Roberts Jr., MD Chest CT 05/28/16 0000 Signed Impressions: Service Date/Time: May 16:14 - CONCLUSION: Abnormal density on the chest x-ray is associated with hiatal hernia. There is a tiny lateral left lung base nodular density which can be followed Cam Amaro MD Abdomen/Pelvis CT 05/28/16 0000 Signed Impressions: Service Date/Time: May 12:44 - CONCLUSION: 1. No dilated loops of small and large bowel. 2. 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 There is also a prominent calcification or ossification at the gastroesophageal junction which is of uncertain significance. May consider direct visualization of the GE junction to further evaluate the configuration and this calcification. 3. Prominent induration of the left and right lateral abdominal wall subcutaneous fat. Klever Calderón MD Physical Exam CONSTITUTIONAL/GENERAL: This is an adequately nourished patient, in no apparent distress appears sick sedated int'd on [facility] vent TUBES/LINES/DRAINS: SKIN: No jaundice, rashes, or lesions. Ecchymoses on upper extremities. No wounds seen anteriorly. Skin temperature appropriate. Not diaphoretic. HEAD: Atraumatic. Normocephalic. EYES: Pupils equal and round and reactive. Extraocular motions intact. No scleral icterus. No injection or drainage. Fundi not examined. ENT: NGT to suction NECK: Trachea midline. Supple, nontender. CARDIOVASCULAR: Regular rate and rhythm without murmurs, gallops, or rubs. No JVD. Peripheral pulses symmetric. RESPIRATORY/CHEST: Symmetric, unlabored respirations. Clear to auscultation. Breath sounds equal bilaterally. No wheezes, rales, or rhonchi. GASTROINTESTINAL: Abdomen soft, no reaction to palpation markedly distended. No hepato-splenomegaly, or palpable masses. No guarding. Bowel sounds present. GENITOURINARY: Without palpable bladder distension. Pink catheter in place with dark yellow clear urine MUSCULOSKELETAL: Extremities without clubbing, + promineneet cyanosis of both hands (fingertips), feet Fingertips are cold to touch and some are not refilling Diffuse 4+ edema. No joint tenderness or effusion noted. No calf tenderness. No mottling or clubbing. LYMPHATICS: No palpable cervical or supraclavicular adenopathy. NEUROLOGICAL: sedated, unresopnsive; not following PSYCHIATRIC: unable to assess Assessment & Plan Remarks C.diff hypervirulent, severe Sepsis 2/2 C.diff, 2/2 C.diff ARF No e/o other source of sepsis (blood, urine clx negative, no PNA) Critically ill Persistent cyanosis - h/o [place] New acute VDRF ? PNA ? new UTI Poor prognosis, possible withdrawl of care tomorrow - cont vanco PO 500 - cont FLAgyl IV - dc cefepime f - start zosyn - fu urine clx, bl clx Discussed Condition With RN Dr Murphy son @ b/s Alisia Colin MD Jun 03, 2016 17:23
[2016-06-03] MEDS: PRAVASTATIN SOD 20 MG TAB PO SCH (20:35)
[2016-06-03] MEDS ORDERED: CEFEPIME INJ 2,000 MG in SODIUM CHLORIDE 0.9% INJ 100 ML IV SCH (23:00)
[2016-06-04] VITALS (11 sets, daily range): BP systolic 60–106; BP diastolic 41–66; PULSE 92–140; RESP 19–32; TEMP 98.6–98.9; O2SAT 77–100
[2016-06-04] MEDS: DEXT 5%-NACL 0.9% 1000 ML INJ 1,000 ML IV SCH (01:57)
[2016-06-04] MEDS: AMIODARONE INJ 450 MG in DEXTROSE 5% IN WATE(EXCEL) INJ 250 ML IV SCH ×2 (01:58)
[2016-06-04] MEDS: METOPROLOL TARTRATE 5 MG/5 ML VIAL IV PUSH PRN ×2 (01:59→05:40)
[2016-06-04] MEDS: PIPERACIL-TAZO 3.375 GM PREMIX 50 ML IV SCH (01:59)
[2016-06-04] MEDS: VANCOMYCIN 500 MG VIAL (FOR ORAL USE ONLY) PO SCH (02:02)
[2016-06-04] MEDS: INSULIN NovoLIN REGULAR SUPPLEMENTAL SCALE SQ SCH (02:05)
[2016-06-04] MEDS: RESP: ALBUTEROL 2.5 MG/IPRATROPIUM 0.5 MG NEB (SCH) NEB ×2 (03:50→08:55)
[2016-06-04] MEDS: PANTOPRAZOLE SODIUM 40 MG VIAL IV PUSH SCH (05:40)
[2016-06-04] MEDS: metroNIDAZOLE 500 MG INJ 100 ML IV SCH (06:22)
--- NOTE | 2016-06-04 06:30 | RADRPT ---
EXAM DATE/TIME: 06/04/2016 03:55 [place] COMPARISON: CHEST SINGLE AP, June 02, 2016, 5:18. INDICATIONS : Shortness of breath, possible pulmonary disease. MEDICAL HISTORY : Hypertension. Deep venous thrombosis. Gastroesophageal reflux disease. SURGICAL HISTORY : Cholecystectomy. ENCOUNTER: Subsequent ACUITY: 1 week PAIN SCORE: Non-responsive. LOCATION: Bilateral chest FINDINGS: Endotracheal tube tip in satisfactory position. NG enters stomach. Right central line in superior carolyn a cava. Bilateral lung consolidation and pleural effusions increased from June 02. CONCLUSION: 1. Increased airspace disease and effusions compared with June 02. Support apparatus in satisfact ory position. Humberto Martin MD on June 04, 2016 at 6:28 Board Certified Radiologist. This report was verified electronically.
--- NOTE | 2016-06-04 08:49 | PD.CARD.PN ---
Subjective Subjective Remarks intubated Objective Vital Signs / I&O Vital Signs Date Time Temp Pulse Resp B/P Pulse Ox O2 Delivery O2 Flow Rate FiO2 06/04/16 06:00 130 06/04/16 04:18 97 40 06/04/16 04:00 98.9 140 26 95/66 97 06/04/16 04:00 140 06/04/16 04:00 40 06/04/16 02:00 137 06/04/16 01:19 94 40 06/04/16 00:00 99 06/04/16 00:00 40 06/04/16 00:00 98.9 99 30 106/56 99 06/03/16 22:40 98 40 06/03/16 22:00 97 06/03/16 20:00 130 06/03/16 20:00 98.9 130 25 97/57 99 06/03/16 20:00 40 06/03/16 19:14 98 40 06/03/16 19:14 98 Ventilator 40 06/03/16 18:00 122 06/03/16 16:38 98 40 06/03/16 16:00 40 06/03/16 16:00 134 06/03/16 16:00 99.0 134 20 95/63 100 06/03/16 14:00 130 06/03/16 12:16 100 40 06/03/16 12:00 40 06/03/16 12:00 134 06/03/16 12:00 98.9 134 21 89/62 100 06/03/16 10:00 134 I/O 06/03/16 06/03/16 06/03/16 06/04/16 06/04/16 06/04/16 07:00 15:00 23:00 07:00 15:00 23:00 Intake Total 939 ml 1527 ml 1042 ml 753 ml Output Total 150 ml 325 ml 150 ml 175 ml Balance 789 ml 1202 ml 892 ml 578 ml IV Total 939 ml 1527 ml 962 ml 693 ml Other 80 ml 60 ml Output Urine Total 100 ml 75 ml 150 ml 75 ml Stool Total 50 ml 50 ml Gastric Drainage Total 200 ml 100 ml Physical Exam GENERAL: SKIN: Warm and dry. HEAD: Normocephalic. EYES: No scleral icterus. No injection or drainage. NECK: Supple, trachea midline. No JVD or lymphadenopathy. CARDIOVASCULAR: Regular rate and rhythm without murmurs, gallops, or rubs. RESPIRATORY: Breath sounds equal bilaterally. No accessory muscle use. GASTROINTESTINAL: Abdomen soft, non-tender, nondistended. MUSCULOSKELETAL: No cyanosis, or edema. BACK: Nontender without obvious deformity. No CVA tenderness. Assessment and Plan Problem List: (1) Dehydration (2) Sepsis (3) UTI (urinary tract infection) (4) Altered mental status (5) Clostridium difficile diarrhea (6) Hypotension (7) Abnormal abdominal CT scan (8) Atrial fibrillation (9) SALVADOR (acute kidney injury) Assessment and Plan 1.) PAF - rvr on iv amio, coumadin held d/t gib, anemia, inr subtherapeutic, part of rvr expalined by anemia, sepsis and low iv volume from low oncotic pressure; rec dc amio elizabeth and blood transfusion 2.) Mod to severe mr - likely making resp status worse, optimally will need cath , but will need consent, inr<2.0, and stable hgb, d/w patient and son at bedside 06/03/16 3.) she appears to be failing life supportive measures due to sepsis, d/w Dr Claire, family plans withdrawal @ 10 am today Problem Qualifiers (1) Sepsis: Qualified Code: A41.9 - Sepsis, due to unspecified organism (2) Altered mental status: Qualified Code: R41.0 - Delirium Srinivas Colin MD Jun 04, 2016 08:49
--- NOTE | 2016-06-04 08:51 | HHI.CCPN ---
Subjective Remarks/Hospital Course 75-year-old female presenting to the ED with hypotension and AMS. The patient was transported from [facility] due to her symptoms earlier this morning. She is unable to give a full interview likely due to her AMS. Per chart review she has been hospitalized 3 times since at [facility]. Her first admission was due to weakness and heart rate in the 180s. She was discharged home without a formal diagnosis. She was then hospitalized on for for black stools and anemia. She was given 3-4 transfusions during the hospitalizations and discharged home. Her last admission was "a couple of weeks ago" for leg swelling. She was found to have blood clots in her RLE. An IVC filter was placed, and she was started on Coumadin despite having a probable GI bleed. She was then discharged to [facility] for rehabilitation. SUBJ 05/30: Normotensive after two and half liter fluid boluses overnight. Peripheral cyanosis noted in all extremities probably Raynaud's phenomenon. Currently on amiodarone infusion, in normal sinus rhythm on monitor. Therapeutic on Coumadin 05/31: Reevaluation requested by family practice due to tachypnea and A. fib with RVR. On my evaluation patient is breathing low 30s with good oxygen saturation. Heart rate 120 to 130s, amiodarone infusion restarted. Patient appears to have significant peripheral edema, with 20 kg wt gain, will start Bumex along with free water replacement 06/01: Emergently intubated yesterday evening for acute hypoxemic respiratory failure, desaturated to as low 70s. Currently remains intubated sedated. Significant third spacing. Overall condition guarded-palliative care has been consulted. Blood aspirated from NGT. Coumadin held 06/02 Patient is sedated with Diprivan and intubated. Afebrile. Given 1u PRBC during day and 2u FFP last night Hgb 8.6 this morning with INR 1.1. OGT showed approx 500ml coffee ground emesis since yesterday. On Amio drip. 06/03 Patient remains sedated with Fentanyl and intubated. T:100.6 last night. On Amio drip. WBC increased 33 from 21 and renal function worse today with Cr: 1.58 from 0.97. Had approx 100ml bile like gastric drainage from OGT. 06/04 Patient remains intubated, sedated and on Amio drip. For withdrawal care this morning. Objective Vital Signs Date Time Temp Pulse Resp B/P Pulse Ox O2 Delivery O2 Flow Rate FiO2 06/04/16 06:00 130 06/04/16 04:18 97 40 06/04/16 04:00 98.9 26 95/66 06/03/16 19:14 Ventilator 05/31/16 21:15 4.00 Intake and Output 06/03/16 06/03/16 06/04/16 08:00 16:00 00:00 Intake Total 939 ml 1527 ml 1042 ml Output Total 150 ml 325 ml 150 ml Balance 789 ml 1202 ml 892 ml Result Diagram: 06/03/16 0450 06/03/16 0450 Imaging Last Impressions Chest X-Ray 06/04/16 0600 Signed Impressions: Service Date/Time: June 03:55 - CONCLUSION: 1. Increased airspace disease and effusions compared with June 02. Support apparatus in satisfactory position. Humberto Martin MD Head CT 05/28/16 0000 Signed Impressions: Service Date/Time: May 12:37 - CONCLUSION: No acute disease. Klever Roberts Jr., MD Chest CT 05/28/16 0000 Signed Impressions: Service Date/Time: May 16:14 - CONCLUSION: Abnormal density on the chest x-ray is associated with hiatal hernia. There is a tiny lateral left lung base nodular density which can be followed Cam Amaro MD Abdomen/Pelvis CT 05/28/16 0000 Signed Impressions: Service Date/Time: May 12:44 - CONCLUSION: 1. No dilated loops of small and large bowel. 2. 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 There is also a prominent calcification or ossification at the gastroesophageal junction which is of uncertain significance. May consider direct visualization of the GE junction to further evaluate the configuration and this calcification. 3. Prominent induration of the left and right lateral abdominal wall subcutaneous fat. Klever Calderón MD Objective Remarks GENERAL: Well-nourished, well-developed patient. Intubated sedated SKIN: Warm and dry. HEAD: Normocephalic. EYES: No scleral icterus. No injection or drainage. NECK: Supple, trachea midline. No JVD or lymphadenopathy. CARDIOVASCULAR: Afib with RVR, no gallops, or rubs. Peripheral cyanosis involving bilateral fingers and toes RESPIRATORY: Orotracheally intubated. Breath sounds equal bilaterally. No accessory muscle use. GASTROINTESTINAL: Abdomen soft, non-tender, nondistended. MUSCULOSKELETAL: No cyanosis, 3+ edema. Generalized anasarca BACK: Nontender without obvious deformity. No CVA tenderness. NEURO: Intubated heavily sedated. Moves extremities spontaneously A/P Problem List: (1) Acute hypoxemic respiratory failure ICD Code: J96.01 Status: Acute (2) Hypotension ICD Code: I95.9 Status: Acute (3) Sepsis ICD Code: A41.9 Status: Acute (4) UTI (urinary tract infection) ICD Code: N39.0 Status: Acute (5) Altered mental status ICD Code: R41.82 Status: Acute (6) Clostridium difficile diarrhea ICD Code: A04.7 Status: Acute (7) Atrial fibrillation ICD Code: I48.91 Status: Acute Assessment and Plan NEURO: Altered mental status/Metabolic toxic encephalopathy - On Fentanyl drip for sedation and vent synchrony. - Daily sedation vacation as tolerated CVS: Volume overload, with significant third spacing Hypotension Atrial fib - On Amio drip. off Neosyn Monitor HR and BP keep MAP>65mmHg. Lactic acid 2.4 -Echo showed EF 55-60%, no RWMA, mod-severe MR and TR. -Off Coumadin given GI bleed RESP: Acute hypoxemic respiratory failure Bilateral pleural effusion -Continue ventilator support keep sat >92% -DuoNeb every 6 hours and when necessary : Acute kidney injury- resolved Hypernatremia- improved Monitor renal function, I/O's, electrolytes replacement per protocol. IVF D5NS@75ml/hr, GI: - On Protonix 40mg BID -OGT to LIWS, GI is following ID C. difficile colitis Sepsis [facility] associated pneumonia - IV Flagyl, PO Vanc and PO rifaximin, IV Zosyn - ID Dr. Colin following - Monitor for signs of infections ( Fever, WBC) follow up on cxs Heme: s/p transfusion 1u PRBC and 2 U FFP 2/27 Monitor CBC, Coags Endo: SSI if needed for glycemic control DVT GI prophylaxis - Teds SCDs and Protonix 40 BID. Coumadin held for GI bleed. Palliative care is following. Family elected to withdrawal life support and transition to comfort care this morning. Prognosis guarded given multiorgan injury, sepsis, acute renal failure, resp failure, worsening leukocytosis and C-diff colitis. Level 3 Problem Qualifiers (1) Sepsis: Qualified Code: A41.9 - Sepsis, due to unspecified organism (2) Altered mental status: Qualified Code: R41.0 - Delirium Taylor Maria MD Jun 04, 2016 08:51
--- NOTE | 2016-06-04 10:14 | HHI.HCPN ---
Reason for visit a. To assist with evaluation and management of symptoms including: pain, dyspnea, anxiety. b. To assist medical decision maker(s) with: better understanding of current medical conditions; weighing benefits/burdens of medical treatment options; making medical treatment decisions. Subjective/Interval History Pt vomited and aspirated, currently on suction. Pt open eyes. At times can follow commands and close eyes. Could not nod or shake head or give yes or no answers. Not following commands consistently. Pt's spouse and resident physician was also at bedside. Pt spouse seew pt has no capacity, have no questions. Pt is tachpneic, using accessory muscles and in distress. Reviewed terminal withdrawl process. Exhibits signed. Amenable to focus on comfort and prn and atc medicine. 75 alf patient with a past medical history of anxiety, depression, hypertension, DVT, that had been in [facility] on multiple occasions in the past few months. Patient herself could not give too much of a history, but spouse endorsed that she has been hospitalized 3 times since at [facility]. Her first admission was due to weakness and all he can remember about her admission was her HR was in the 180s. She was discharged home without a formal diagnosis per her . She was then hospitalized on for for black stools and anemia. He states that she was give 3-4 transfusions during the hospitalizations and discharged home. When asked if she had a GI bleed, he states that they could not find a cause for her bleeding. Her last admission was "a couple of weeks ago" for leg swelling. She was found to have blood clots in her RLE. An IVC filter was placed, and she was started on Coumadin despite having a probable GI bleed. She was then discharged to [facility] for rehabilitation. While in the nursing facility, spouse state that she has had decrease in activity and by PO intake. Patient presented to the emergency department with altered mental status on 05/28. They were not able to get much of a history at the time this patient has been very confused. In the ER: * Temperature is 97.4, pulse is 87, respirations 16, blood pressure is 80/53 * WBCs 21.3, hemoglobin is 10.3 and hematocrit is 30.8, platelets 575 * Sodium is 144, potassium 3.6, chloride is 109, bicarbonate is 21.9, BUN 66, creatinine is 1.93, AST is 12, AST 7, alkaline phosphatase is 95 * Troponin I is less than 0.02, BNP is 160, total protein is 5.0, albumin is 1.8 * PTT is 37.7, INR is 2.9, APTT is 39.9 * Urine shows trace leukocyte esterase, negative nitrites, culture was indicated. * Patient is positive for C. difficile tox. * Head CT shows no acute disease process * Abdominal pelvis CT: No dilated loops of small and large bowel. 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 Prominent calcification or ossification at the GE junction. Consider direct visualization of GE junction. PROM and induration of the left and right lateral abdominal wall subcutaneous fat. * Chest CT shows abnormal density, tiny lateral left lung base nodular density. * Chest x-ray shows 2.5 cm ill-defined opacity projected over the left lower chest In the ER patient was given an fluid resuscitation, or patient's acute kidney insufficiency. Patient has leukocytosis and was given broad-spectrum antibiotics. ER physician suspected hypovolemia in the setting of C. difficile colitis, sepsis and patient was transferred to family medicine services. 05/29/2016 Overnight patient had episode of tachycardia with a heart rate of 150s , was found to be in A. fib with RVR. Patient given diltiazem. ACS rule out initiated, and was ruled out negative. Troponin remains less than 0.02. Creatinine trending down. Has leukocytosis. Patient's mentation improved, and is more alert and oriented to person place and time. Cardiology consult was ordered, for A. fib. Cardiology stated that patient is therapeutically anticoagulated. Suspected heart rate is due to sepsis and increased metabolic demand. Recommends conservative management. Echocardiography EF is 55-60%. There is moderate to severe regurgitation of the mitral valve. There is moderate to severe regurgitation of the tricuspid valve. Infectious disease was consulted, place patient on vancomycin and Flagyl. Right IJ was placed. Kitchen Cleaner was consulted, as patient became hypotensive. And stat lactic acid was ordered, fluid bolus was given. Pressures ordered only if refractory to fluids. GI was consulted, CT scan shows periesophageal herniation and calcification of the GE junction. Plan on doing EGD when patient is more stable. 05/30/2016- patient became more normotensive after bolus resuscitation. There is noted peripheral cyanosis in the lower extremity probably due to raynauds symptoms. Patient on amiodarone infusion. Continue to be in the ICU. Patient continued to be full code. A. fib has resolved. 05/31/2016. Patient was seen by intensive care again. Patient has worsening edema, A. fib redeveloped. Patient restarted on Bumex. Overnight patient became very anxious with tachypnea and saturations in the 70s. Intubation was performed and oxygen saturation responded appropriately. Hemoglobin yesterday was 7.2 and one unit was transfused bringing her hemoglobin up to 7.9. Patient' s heart rate responded appropriately after transitioning back to the Amiodarone drip. Palliative care was consulted to review goals of care. In summary: This is a 75-year-old who has had multiple hospitalization secondary to tachycardia, DVTs, GI bleed the past few months. Currently patient came in due to altered mental status, C. diff colitis and sepsis. Patient was found to have moderate to severe mitral and tricuspid regurgitation. Course of hospitalization is complicated by edema, hypoalbumin, A. fib, respiratory failure, and anemia. Palliative Care consulted to review goals of care. Today: pt intubated. worsening leukocytosis, hgb trending down. CXR show basilar airspace disease and effusions which is stable. Family/friend interactions see above. Pt's grandson Michael was at bedside. No questions. Advance Directives Living Will: Never completed Health Care Surrogate: Never completed Durable Power of Cash Accounting Clerk: Never completed Objective Vital Signs Date Time Temp Pulse Resp B/P Pulse Ox O2 Delivery O2 Flow Rate FiO2 06/04/16 08:55 100 40 06/04/16 06:00 130 06/04/16 04:18 97 40 06/04/16 04:00 98.9 140 26 95/66 97 06/04/16 04:00 140 06/04/16 04:00 40 06/04/16 02:00 137 06/04/16 01:19 94 40 06/04/16 00:00 99 06/04/16 00:00 40 06/04/16 00:00 98.9 99 30 106/56 99 06/03/16 22:40 98 40 06/03/16 22:00 97 06/03/16 20:00 130 06/03/16 20:00 98.9 130 25 97/57 99 06/03/16 20:00 40 06/03/16 19:14 98 40 06/03/16 19:14 98 Ventilator 40 06/03/16 18:00 122 06/03/16 16:38 98 40 06/03/16 16:00 40 06/03/16 16:00 134 06/03/16 16:00 99.0 134 20 95/63 100 06/03/16 14:00 130 06/03/16 12:16 100 40 06/03/16 12:00 40 06/03/16 12:00 134 06/03/16 12:00 98.9 134 21 89/62 100 Intake & Output 06/04/16 06/04/16 07:00 19:00 Intake Total 1795 ml Output Total 325 ml Balance 1470 ml IV Total 1655 ml Other 140 ml Output Urine Total 225 ml Gastric Drainage Total 100 ml Physical Exam CONSTITUTIONAL/GENERAL: This is frail female patient, intubated, remains confused, using accessory muches. TUBES/LINES/DRAINS:RIJ, ET tube, bess, rectal tube. suctioning. SKIN: No jaundice, rashes, or lesions. Ecchymoses on upper extremities. No wounds seen anteriorly. Skin temperature appropriate. Not diaphoretic. HEAD: Atraumatic. Normocephalic. EYES: eyes closed did not force open. ENT: . Throat ET tube. could not examine hearing. NECK: Trachea midline. Supple, nontender. No palpable thyroid enlargement or nodularity. CARDIOVASCULAR:Irregularly irregular, tachycardic. RESPIRATORY/CHEST: Symmetric, Rhonchi.tachpneic. suctioning brownish emesis ( possibly stool) GASTROINTESTINAL: Abdomen soft, non-tender, distended. anasarca up to abdomen GENITOURINARY: Without palpable bladder distension. Bess catheter in place. MUSCULOSKELETAL: There is clubbing and cyanosis of upper and lower ext. There is anarsarca LYMPHATICS: No palpable cervical or supraclavicular adenopathy. NEUROLOGICAL: sedated, intubated, could follow commands, at bedside. PSYCHIATRIC: could not examine. Diagnostic Tests Laboratory Laboratory Tests Test 06/01/16 06/01/16 06/01/16 06/02/16 17:00 19:57 20:30 03:20 Hemoglobin 9.7 GM/DL 9.5 GM/DL 8.6 GM/DL (11.6-15.3) (11.6-15.3) (11.6-15.3) Hematocrit 29.8 % 29.1 % 26.2 % (35.0-46.0) (35.0-46.0) (35.0-46.0) Blood Bank Comment Prothrombin Time 15.4 SEC 12.6 SEC (9.8-11.6) (9.8-11.6) Prothromb Time International 1.4 RATIO 1.1 RATIO Ratio White Blood Count 21.0 TH/MM3 (4.0-11.0) Red Blood Count 3.09 MIL/MM3 (4.00-5.30) Mean Corpuscular Volume 84.7 FL (80.0-100.0) Mean Corpuscular Hemoglobin 27.7 PG (27.0-34.0) Mean Corpuscular Hemoglobin 32.6 % Concent (32.0-36.0) Red Cell Distribution Width 16.7 % (11.6-17.2) Platelet Count 306 TH/MM3 (150-450) Mean Platelet Volume 10.3 FL (7.0-11.0) Neutrophils (%) (Auto) 90.4 % (16.0-70.0) Lymphocytes (%) (Auto) 3.8 % (9.0-44.0) Monocytes (%) (Auto) 4.8 % (0.0-8.0) Eosinophils (%) (Auto) 0.8 % (0.0-4.0) Basophils (%) (Auto) 0.2 % (0.0-2.0) Neutrophils # (Auto) 19.0 TH/MM3 (1.8-7.7) Lymphocytes # (Auto) 0.8 TH/MM3 (1.0-4.8) Monocytes # (Auto) 1.0 TH/MM3 (0-0.9) Eosinophils # (Auto) 0.2 TH/MM3 (0-0.4) Basophils # (Auto) 0.0 TH/MM3 (0-0.2) CBC Comment DIFF FINAL Differential Comment Sodium Level 143 MEQ/L (136-145) Potassium Level 3.5 MEQ/L (3.5-5.1) Chloride Level 109 MEQ/L (98-107) Carbon Dioxide Level 20.3 MEQ/L (21.0-32.0) Anion Gap 14 MEQ/L (5-15) Blood Urea Nitrogen 13 MG/DL (7-18) Creatinine 0.97 MG/DL (0.50-1.00) Estimat Glomerular Filtration 56 ML/MIN (>89) Rate Random Glucose 145 MG/DL (74-106) Calcium Level 7.0 MG/DL (8.5-10.1) Protein Corrected Calcium 7.8 MG/DL (8.5-10.1) Total Bilirubin 0.4 MG/DL (0.2-1.0) Aspartate Amino Transf 9 U/L (15-37) (AST/SGOT) Alanine Aminotransferase 9 U/L (10-53) (ALT/SGPT) Alkaline Phosphatase 89 U/L (45-117) Total Protein 5.5 GM/DL (6.4-8.2) Albumin 3.5 GM/DL (3.4-5.0) Test 06/02/16 06/02/16 06/02/16 06/03/16 09:30 09:59 20:40 04:50 Blood Gas Puncture Site LT RADIAL Blood Gas Patient Temperature 98.6 Blood Gas HCO3 15 mmol/L (22-26) Blood Gas Base Excess -8.4 mmol/L (-2-2) Blood Gas Oxygen Saturation 94 % (90-100) Arterial Blood pH 7.42 (7.380-7.420) Arterial Blood Partial 24 mmHg (38-42) Pressure CO2 Arterial Blood Partial 81 mmHg Pressure O2 (61-120) Arterial Blood Oxygen Content 12.4 Vol % (12.0-20.0) Arterial Blood 1.6 % (0-4) Carboxyhemoglobin Arterial Blood Methemoglobin 1.2 % (0-2) Blood Gas Hemoglobin 9.3 G/DL (12.0-16.0) Oxygen Delivery Device VENTILATOR Blood Gas Ventilator Setting 12/500/45%/5PEEP Blood Gas Inspired Oxygen 45 % Lactic Acid Level 2.4 mmol/L (0.4-2.0) Urine Color DARK-YELLOW (YELLW/STRAW) Urine Turbidity CLOUDY (CLEAR) Urine pH 5.5 (5.0-8.5) Urine Specific [place] 1.022 (1.002-1.035) Urine Protein 300 mg/dL (NEG-TRACE) Urine Glucose (UA) NEG mg/dL (NEG) Urine Ketones NEG mg/dL (NEG) Urine Occult Blood LARGE (NEG) Urine Nitrite NEG (NEG) Urine Bilirubin NEG (NEG) Urine Urobilinogen LESS THAN 2.0 MG/DL (LESS THAN 2.0) Urine Leukocyte Esterase LARGE (NEG) Urine RBC /hpf (0-3) Urine WBC /hpf (0-5) Urine WBC Clumps FEW (NONE) Urine Squamous Epithelial 3 /hpf (0-5) Cells Urine Bacteria FEW /hpf (NONE) Urine Mucus FEW /lpf (OCC) Urine Yeast with Hyphae MOD (NONE) Urine Yeast (Budding) MANY (NONE) Microscopic Urinalysis Comment CATH-CULTURE IND White Blood Count 33.8 TH/MM3 (4.0-11.0) Red Blood Count 3.37 MIL/MM3 (4.00-5.30) Hemoglobin 9.2 GM/DL (11.6-15.3) Hematocrit 29.6 % (35.0-46.0) Mean Corpuscular Volume 87.8 FL (80.0-100.0) Mean Corpuscular Hemoglobin 27.3 PG (27.0-34.0) Mean Corpuscular Hemoglobin 31.1 % Concent (32.0-36.0) Red Cell Distribution Width 16.2 % (11.6-17.2) Platelet Count 334 TH/MM3 (150-450) Mean Platelet Volume 10.2 FL (7.0-11.0) Neutrophils (%) (Auto) 93.5 % (16.0-70.0) Lymphocytes (%) (Auto) 1.9 % (9.0-44.0) Monocytes (%) (Auto) 4.5 % (0.0-8.0) Eosinophils (%) (Auto) 0.0 % (0.0-4.0) Basophils (%) (Auto) 0.1 % (0.0-2.0) Neutrophils # (Auto) 31.6 TH/MM3 (1.8-7.7) Lymphocytes # (Auto) 0.7 TH/MM3 (1.0-4.8) Monocytes # (Auto) 1.5 TH/MM3 (0-0.9) Eosinophils # (Auto) 0.0 TH/MM3 (0-0.4) Basophils # (Auto) 0.0 TH/MM3 (0-0.2) CBC Comment AUTO DIFF Differential Total Cells 100 Counted Neutrophils % (Manual) 89 % (16-70) Band Neutrophils % 7 % (0-6) Lymphocytes % 2 % (9-44) Monocytes % 1 % (0-8) Basophils % 1 % (0-2) Neutrophils # (Manual) 32.4 TH/MM3 (1.8-7.7) Differential Comment FINAL DIFF MANUAL Platelet Estimate NORMAL (NORMAL) Platelet Morphology Comment NORMAL (NORMAL) Prothrombin Time 13.1 SEC (9.8-11.6) Prothromb Time International 1.2 RATIO Ratio Sodium Level 139 MEQ/L (136-145) Potassium Level 4.1 MEQ/L (3.5-5.1) Chloride Level 109 MEQ/L (98-107) Carbon Dioxide Level 19.0 MEQ/L (21.0-32.0) Anion Gap 11 MEQ/L (5-15) Blood Urea Nitrogen 18 MG/DL (7-18) Creatinine 1.58 MG/DL (0.50-1.00) Estimat Glomerular Filtration 32 ML/MIN (>89) Rate Random Glucose 150 MG/DL (74-106) Calcium Level 7.1 MG/DL (8.5-10.1) Protein Corrected Calcium 7.8 MG/DL (8.5-10.1) Phosphorus Level 2.6 MG/DL (2.5-4.9) Magnesium Level 1.5 MG/DL (1.5-2.5) Total Protein 5.8 GM/DL (6.4-8.2) Result Diagram: 06/03/16 0450 06/03/16 0450 Microbiology Microbiology Date/Time Procedure Status Source Growth 06/02/16 10:47 Gram Stain Received Sputum Endotracheal Pending 06/02/16 10:47 Sputum Culture Received Sputum Endotracheal Pending 06/02/16 12:40 Aerobic Blood Culture - Preliminary Resulted Blood Peripheral NO GROWTH IN 1 DAY 06/02/16 12:40 Anaerobic Blood Culture - Preliminary Resulted Blood Peripheral NO GROWTH IN 1 DAY 06/02/16 12:49 Aerobic Blood Culture - Preliminary Resulted Blood Peripheral NO GROWTH IN 1 DAY 06/02/16 12:49 Anaerobic Blood Culture - Preliminary Resulted Blood Peripheral NO GROWTH IN 1 DAY 06/02/16 20:40 Urine Culture - Preliminary Resulted Urine Catheterized Urine IMMATURE GROWTH - REINCUBATE 06/02/16 20:45 Gram Stain - Final Complete Sputum Endotracheal 06/02/16 20:45 Sputum Culture - Final Complete Sputum Endotracheal HEAVY GROWTH NORMAL RESPIRATORY [facility]AVITA Imaging Last Impressions Chest X-Ray 06/04/16 0600 Signed Impressions: Service Date/Time: June 03:55 - CONCLUSION: 1. Increased airspace disease and effusions compared with June 02. Support apparatus in satisfactory position. Humberto Martin MD Head CT 05/28/16 0000 Signed Impressions: Service Date/Time: May 12:37 - CONCLUSION: No acute disease. Klever Roberts Jr., MD Chest CT 05/28/16 0000 Signed Impressions: Service Date/Time: May 16:14 - CONCLUSION: Abnormal density on the chest x-ray is associated with hiatal hernia. There is a tiny lateral left lung base nodular density which can be followed Cam Amaro MD Abdomen/Pelvis CT 05/28/16 0000 Signed Impressions: Service Date/Time: May 12:44 - CONCLUSION: 1. No dilated loops of small and large bowel. 2. 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 There is also a prominent calcification or ossification at the gastroesophageal junction which is of uncertain significance. May consider direct visualization of the GE junction to further evaluate the configuration and this calcification. 3. Prominent induration of the left and right lateral abdominal wall subcutaneous fat. Klever Calderón MD Procedures [facility] Assessment and Plan Disease Oriented Problem List: (1) Sepsis (2) Atrial fibrillation (3) Altered mental status (4) DVT (deep venous thrombosis) (5) Hypotension (6) Clostridium difficile diarrhea (7) Abnormal abdominal CT scan (8) SALVADOR (acute kidney injury) (9) Anemia Symptom Scale: (1) Pain 0-10 Scale: Unable to quantify (2) Dyspnea 0-10 Scale: Unable to quantify (3) Anxiety 0-10 Scale: Unable to quantify Pertinent Non-Medical Issues Psychosocial: Spiritual: Legal: Ethical issues impacting care: Important Contacts Mr. Amari Ramírez [phone] Prognosis This is a 75-year-old who has had multiple hospitalization secondary to tachycardia, DVTs, GI bleed the past few months. Currently patient came in due to altered mental status, C. diff colitis and sepsis. Patient was found to have moderate to severe mitral and tricuspid regurgitation. Course of hospitalization is complicated by edema, hypoalbumin, A. fib, respiratory failure, and anemia. Overall prognosis appears to be poor. Pt at risk of sudden decline, setback and as evidenced by prior hospitalization (4 total since this past ). D/w with builder beam today, and feel patient is declining, and short term prognosis is poor, will decompensate. Code Status: No Code Plan == Code:DNR no code. == capacity: Does not have capacity to make decision, discomfort.. Pt vomited and aspirated, currently on suction. Pt open eyes. At times can follow commands and close eyes. Could not nod or shake head or give yes or no answers. Not following commands consistently. Pt's spouse and resident physician was also at bedside. Pt's spouse sees pt has no capacity, have no questions. == GOC Pt is tachpneic, using accessory muscles and in distress. Reviewed terminal withdrawl process. Exhibits signed. Amenable to focus on comfort and prn and atc medicine. == health care proxy is spouse. == dyspnea/pain/anxiety- ativan, dilaudid, prn and atc will be available. Pt aspirated stool, dyspneic. ==palliative care - will continue to follow. == will consult pastoral care available. == d/w with family medicine team. Time Spent Total Floor Time (mins): 60 Face to Face Time (mins): 35 Attestation To help prompt me to consider important information that might be impacting today's encounter and assessment, information from prior notes written by myself or my colleagues may have been "brought forward" into today's note. My signature on this note, however, is an attestation that I personally performed the exam, history, and/or decision-making noted today, and, unless otherwise indicated, the interactions with patient, family, and staff as well as the review of records all occurred today. I also attest that the listed assessment and stated plan reflect my best clinical judgment today based on the combination of historical information, prior notes, and today's exam/ interactions. When time spent is documented, it refers only to time spent today by the signer, or if indicated, combined time spent today by collaborating physician/nurse practitioner. Michael Murphy MD Jun 04, 2016 10:14
--- NOTE | 2016-06-04 10:17 | HHI.FPPN ---
Subjective Remarks Overnight patient's pulse remains elevated and map remains low. No significant improvement in clinical status. Based on these findings and thorough discussion of family with palliative care, plan is to withdraw care this a.m. All paperwork has been signed and family members are at bedside. They're waiting for a few more family members before extubating. (Mary Cash MD R2) Objective Vitals Vital Signs Date Time Temp Pulse Resp B/P Pulse Ox O2 Delivery O2 Flow Rate FiO2 06/04/16 08:55 100 40 06/04/16 06:00 130 06/04/16 04:18 97 40 06/04/16 04:00 98.9 140 26 95/66 97 06/04/16 04:00 140 06/04/16 04:00 40 06/04/16 02:00 137 06/04/16 01:19 94 40 06/04/16 00:00 99 06/04/16 00:00 40 06/04/16 00:00 98.9 99 30 106/56 99 06/03/16 22:40 98 40 06/03/16 22:00 97 06/03/16 20:00 130 06/03/16 20:00 98.9 130 25 97/57 99 06/03/16 20:00 40 06/03/16 19:14 98 40 06/03/16 19:14 98 Ventilator 40 06/03/16 18:00 122 06/03/16 16:38 98 40 06/03/16 16:00 40 06/03/16 16:00 134 06/03/16 16:00 99.0 134 20 95/63 100 06/03/16 14:00 130 06/03/16 12:16 100 40 06/03/16 12:00 40 06/03/16 12:00 134 06/03/16 12:00 98.9 134 21 89/62 100 I/O 06/03/16 06/03/16 06/03/16 06/04/16 06/04/16 06/04/16 07:00 15:00 23:00 07:00 15:00 23:00 Intake Total 939 ml 1527 ml 1042 ml 753 ml Output Total 150 ml 325 ml 150 ml 175 ml Balance 789 ml 1202 ml 892 ml 578 ml IV Total 939 ml 1527 ml 962 ml 693 ml Other 80 ml 60 ml Output Urine Total 100 ml 75 ml 150 ml 75 ml Stool Total 50 ml 50 ml Gastric Drainage Total 200 ml 100 ml (Mary Cash MD R2) Result Diagram: 06/03/1644906/03/16449 Objective Remarks GEN: Intubated and sedated. SKIN: Bilateral hands remain cool to touch LUNGS: Patient intubated . Coarse breath sounds CARDIOVASCULAR: Increased rate but with normal rhythm No murmurs, gallops or rubs. GI/ABD: Abdomen soft to palpation. MUSC: Lower extremities show 3+ pitting edema PSYCH/MENTAL STATUS: Awake but not oriented (Mary Cash MD R2) A/P Assessment and Plan Mrs. Ramírez is a 75 y/o CF who presented due to hypotension and AMS. Admitted for Sepsis and AMS. Now with multiorgan failure Care will be withdrawn this morning 06/04/2016. Pain management per palliative care with scheduled Dilaudid. Discussed with family at bedside. Relevant history obtained from spouse: Mr. Amari Ramírez ([phone]): Has been hospitalized 3 times since [place] at [facility]. Diagnoses at these admissions unclear but does report elevated heart rate in the 180s. Another admission was for a GI bleed that required 3-4 transfusions but etiology is unknown. Patient was continued on warfarin despite this GI bleed. Another admission was for a DVT and an IVC filter was placed. Patient was at [facility] for rehabilitation prior to current admission. Neuro: AMS, metabolic encephalopathy -Sedated for intubation on 05/29-. Currently on fentanyl -Daily sedation vacation -Hyperammonemia resolved with Rifaximin Cardiac: Hypotension, afib, volume overload with third spacing, Mod/severe mitral regurg and tricuspid regurg -Echo: EF of 55-60% with mod/sever MR and TR -Failed rate control with cardizem. -Continue on amio drip, Start Phenyephine to keep MAP>65 -Anitcoag with coumadin reversed and discontinued due to GI bleed Cardiology: appreciate recommendations * Part of RVR explainee by anemia, sepsis, and low IV volume from low oncotic pressure. * Recommended DC of amio, (we will defer to CC) * Would benefit from cath, but need to have stable H&H (INR now <2 Resp: Acute hypoxemic respiratory failure, Bilateral pleura effusion, HCAP pneumonia -Continue ventilator support keep sat >92% -DuoNeb every 6 hours and when necessary Imaging: * CXR 06/02: Stable bilateral airspace disease and pleural effusions * Chest CT 05/28: Abnormal density on xray is associated with hiatal hernia. Tiny lateral left lung base which can be followed : SALVADOR, hypernatremia-resolved, low urinary output, Anasarca, proteinuria -Electrolyte protocol for replacement -D5NS @ 75 -Scheduled bumex discontinued, give 1mg PRN GI: GI bleed, GI consulted: appreciate recommendation CT Abdomen: No dilated loops of small and large bowel. 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 Prominent calcification or ossification at the GE junction. -IV Protonix 40mg BID -OGT to LIWS, GI is following ID: C.diff, Sepsis, HCAP pneumonia -Blood and urine cultures negative -Repeat blood and urine cultures pending -Sputum culture pending Consulted ID: appreciate recommendations * C.diff hypervirulent, severe Medications: * PO vancomycin (05/29- ) * IV Flagyl (05/28- ) * Cefepime (06/02- ) * Rifaximin Heme: GI bleed, suprtherapeutic INR-resolved -s/p transfusion 2u PRBC and 2 U FFP Endo: -SSI if needed for glycemic control DVT prophylaxis: Teds SCDs Discharge Planning Care will be withdrawn this morning 06/04/2016. Pain management per palliative care with scheduled Dilaudid. Discussed with family at bedside. Prognosis poor due to multiorgan failure Pallative Care consulted: * DNR * Family does not want trach or PEG DW: Dr. Dr. Burns WDW Dr. Borrego (Mary Cash MD R2) Attending Attestation Patient seen and examined. Case reviewed and discussed with the resident team. Agree with plan of care as discussed with me and documented in the resident note. gravely ill (Courtney Borrego MD) Problem List: (1) Sepsis Status: Acute (2) Atrial fibrillation Status: Acute (3) Altered mental status Status: Acute Plan: (4) Anemia Status: Acute (5) Abnormal abdominal CT scan Status: Acute (6) Clostridium difficile diarrhea Status: Acute (7) SALVADOR (acute kidney injury) Status: Resolved (8) Nutrition, metabolism, and development symptoms Status: Acute (Mary Cash MD R2) Problem Qualifiers (1) Sepsis: Qualified Code: A41.9 - Sepsis, due to unspecified organism (2) Altered mental status: Qualified Code: R41.0 - Delirium Mary Cash MD R2 Jun 04, 2016 10:17 Courtney Borrego MD Jun 10, 2016 16:11
[2016-06-04] MEDS ORDERED: fentaNYL DRIP 250 ML IV SCH (10:30)
[2016-06-04] MEDS ORDERED: HYOSCYAMINE SOLN 0.125 MG/ML 15 ML BTL PO PRN (10:30)
[2016-06-04] MEDS: SODIUM CHLORIDE 0.9% FLUSH 5 ML FLUSH FLUSH SCH (10:59)
[2016-06-04] MEDS ORDERED: FUROSEMIDE 20 MG/2 ML VIAL IV PRN (11:00)
[2016-06-04] MEDS ORDERED: HYDROmorphone HCL PF 1 MG/ML VIAL IV PRN (11:00)
[2016-06-04] MEDS ORDERED: LORazepam 2 MG/ML VIAL IVS PRN (11:00)
[2016-06-04] MEDS ORDERED: BISACODYL 10 MG SUPP PR PRN (11:00)
[2016-06-04] MEDS ORDERED: LORazepam 2 MG/ML VIAL IV ONE ×2 (11:00→11:15)
[2016-06-04] MEDS ORDERED: HYDROmorphone HCL PF 2 MG/ML VIAL IV PRN (11:00)
[2016-06-04] MEDS ORDERED: LORazepam 2 MG/ML VIAL IV PRN ×2 (11:00)
[2016-06-04] MEDS ORDERED: ACETAMINOPHEN 650 MG SUPP PR PRN (11:00)
[2016-06-04] MEDS ORDERED: HYDROmorphone HCL PF 1 MG/ML VIAL IV ONE ×2 (11:00→11:15)
[2016-06-04] MEDS ORDERED: HYDROmorphone HCL PF 1 MG/ML VIAL IV SCH (12:00)
[2016-06-04] MEDS ORDERED: LORazepam 2 MG/ML VIAL IV SCH (12:00)
--- NOTE | 2016-06-26 14:09 | HHI.DS ---
Summary Note Date of : Jun 04, 2016 Time Of : 1324 Admission Date May 28, 2016 at 13:04 Admitting Diagnosis sepsis Diagnosis at Time of : (1) Sepsis ICD Code: A41.9 Diagnosis: Principal Brief History Mrs. Ramírez is a 75 y/o CF presenting to the ED with hypotension and AMS. The patient was transported from [facility] due to her symptoms earlier this morning. She is unable to give a full interview likely due to her AMS. She does answer most ROS questions with appropriate answers, however these answers are likely not reliable. Her , Mr. Amari Ramírez ([phone]), was contacted to obtain her history, however he was unable to provide a clear picture as well. He does stat that she has been hospitalized 3 times since [place] at [facility]. Her first admission was due to weakness and all he can remember about her admission was her HR was in the 180s. She was discharged home without a formal diagnosis per her . She was then hospitalized on lois for for black stools and anemia. He states that she was give 3-4 transfusions during the hospitalizations and discharged home. When asked if she had a GI bleed, he states that they could not find a cause for her bleeding. Her last admission was "a couple of weeks ago" for leg swelling. She was found to have blood clots in her RLE. An IVC filter was placed, and she was started on Coumadin despite having a probable GI bleed. She was then discharged to [facility] for rehabilitation. Since she has been in [facility], he states that she has had a decreased mood, activity, and PO intake. He visited with her today before she was transferred and believes that it was the "best she had looked." He is unable to give me a complete history, only reporting HTN and spinal fusion surgery. He is unaware of her medications. He is able to confirm that she does not have a DNR. He also confirms that he is her power of ip technology transactions attorney and states that she is a FULL CODE after all questions were answered. Imaging Last Impressions Chest X-Ray 06/04/16 0600 Signed Impressions: Service Date/Time: June 03:55 - CONCLUSION: 1. Increased airspace disease and effusions compared with June 02. Support apparatus in satisfactory position. Humberto Martin MD Head CT 05/28/16 0000 Signed Impressions: Service Date/Time: May 12:37 - CONCLUSION: No acute disease. Klever Roberts Jr., MD Chest CT 05/28/16 0000 Signed Impressions: Service Date/Time: May 16:14 - CONCLUSION: Abnormal density on the chest x-ray is associated with hiatal hernia. There is a tiny lateral left lung base nodular density which can be followed Cam Amaro MD Abdomen/Pelvis CT 05/28/16 0000 Signed Impressions: Service Date/Time: May 12:44 - CONCLUSION: 1. No dilated loops of small and large bowel. 2. 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 There is also a prominent calcification or ossification at the gastroesophageal junction which is of uncertain significance. May consider direct visualization of the GE junction to further evaluate the configuration and this calcification. 3. Prominent induration of the left and right lateral abdominal wall subcutaneous fat. Klever Calderón MD Hospital Course Mrs. Ramírez was admitted for sepsis likely secondary to C. difficile infection. Promptly after admission her heart rate began to rise up into the 150s. ACS rule out was negative patient was started on diltiazem drip for rate control, however her rate remained elevated into the 140s with a MAP between 65-70. Cardiology was consulted and recommended permissive tachycardia to meet her metabolic demands of increased cardiac output due to her septic condition. Infectious disease was consulted who started the patient on oral vancomycin and IV Flagyl for her clostridium difficile. Critical care was then consulted due to her worsening condition with continued A. fib with RVR and anasarca. Patient was then emergently intubated for acute hypoxemic respiratory failure with desaturations into the low 70s. She then had an acute drop in her H/H and was given 2 units of RBC and FFP which responded appropriately. Due to her worsening condition, palliative care was consult to assist with goals of care. Palliative care called a family meeting and recommended DNR, however family plan to continue aggressive care short of resuscitation for the remainder of the week. Despite continued care, Mrs. Ramírez's condition continued to worsen and the family elected to transition to comfort care on 06/04/16. At approximately 1324 patient , and the family was notified. Chaz Burns MD R1 Jun 26, 2016 14:09
== END 2016-06-04 13:24 | disposition expired | DRG 871 ==
LOC: NEPC 10:01 → NEDA 13:04 → NEDH 21:46 → HIME 05-29 21:30
PROVIDERS: ADMIT Family Medicine; ATTEND Family Medicine
PROC: 02HV33Z Insertion of Infusion Device into Superior Vena Cava, Percutaneous Approach (ICD-10-PCS; principal; 2016-05-29)
PROC: 30233N1 Transfusion of Nonautologous Red Blood Cells into Peripheral Vein, Percutaneous Approach (ICD-10-PCS; 2016-05-30)
PROC: 5A1945Z Respiratory Ventilation, 24-96 Consecutive Hours (ICD-10-PCS; 2016-05-31)
PROC: 0BH17EZ Insertion of Endotracheal Airway into Trachea, Via Natural or Artificial Opening (ICD-10-PCS; 2016-05-31)
PROC: 30233K1 Transfusion of Nonautologous Frozen Plasma into Peripheral Vein, Percutaneous Approach (ICD-10-PCS; 2016-06-01)
DX: A41.9 Sepsis, unspecified organism (principal); J96.01 Acute respiratory failure with hypoxia; N17.9 Acute kidney failure, unspecified; J18.9 Pneumonia, unspecified organism; G92 Toxic encephalopathy; J90 Pleural effusion, not elsewhere classified; E87.0 Hyperosmolality and hypernatremia; D68.9 Coagulation defect, unspecified; A04.7 Enterocolitis due to Clostridium difficile; E46 Unspecified protein-calorie malnutrition; K92.2 Gastrointestinal hemorrhage, unspecified; N39.0 Urinary tract infection, site not specified; I48.0 Paroxysmal atrial fibrillation; D64.9 Anemia, unspecified; E86.0 Dehydration; I73.00 Raynaud's syndrome without gangrene; Z51.5 Encounter for palliative care; Y95 Nosocomial condition; E86.1 Hypovolemia; E87.6 Hypokalemia; I10 Essential (primary) hypertension; R60.0 Localized edema; E88.09 Other disorders of plasma-protein metabolism, not elsewhere classified; E87.70 Fluid overload, unspecified; R23.0 Cyanosis; I08.1 Rheumatic disorders of both mitral and tricuspid valves; I95.9 Hypotension, unspecified; Z66 Do not resuscitate; Z86.718 Personal history of other venous thrombosis and embolism; Z79.01 Long term (current) use of anticoagulants; Z88.8 Allergy status to other drugs, medicaments and biological substances
CPT/HCPCS: 31500; 36430; 36600; 70450; 71010; 71250; 74176; 80048; 80053; 81001; 82140; 82272; 82550; 82805; 82948; 83605; 83735; 83880; 84100; 84155; 84443; 84484; 85007; 85014; 85018; 85025; 85027; 85610; 85730; 86850; 86900; 86901; 86920; 86927; 87040; 87070; 87086; 87205; 87493; 87640; 87641; 93005; 93306; 94002; 94003; 94640; 94664; 94667; 96365; C9113; J0282; J0610; J0692; J1170; J1940; J2060; J2250; J2370; J2543; J3010; J3370; J3430; J3475; J3480; J7030; J7040; J7042; J7050; J7060; J7070; J7120; P9016; P9017; P9045; P9047